=== PATIENT | female | born 1945 | race American Indian/Alaskan Native ===

== ENCOUNTER 2017-04-05 00:42 | Inpatient (IN) | payer MEDICARE ==
[2017-04-05] MEDS ORDERED: NORMODYNE IV ONE (01:20)
[2017-04-05] MEDS ORDERED: ZOFRAN ONE (01:29)
[2017-04-05] MEDS: ZOFRAN IV ONE ×2 (01:35→02:53)
[2017-04-05 01:44] LABS: Basophils % (Auto) 0.3 % (0.0-1.8); Eosinophils % (Auto) 0.5 % (0.0-4.3); Hemoglobin 11.9 gm/dl (10.1-14.3); Mean Corpuscular HGB Conc 32 % (30-34); Mean Corpuscular Hemoglobin 29 pg (28-32); Mean Corpuscular Volume 90 fl (79-97); Platelet Count 339 K/mm3 (140-440); Red Blood Count 4.11 M/mm3 (3.65-5.03); Red Cell Distribution Width 14.2 % (13.2-15.2); White Blood Count 11.8 K/mm3 (4.5-11.0)
[2017-04-05 01:51] LABS: Alanine Aminotransferase 94 units/L (7-56); Albumin 3.6 g/dL (3.9-5); Albumin/Globulin Ratio 1.1 %; Alkaline Phosphatase 54 units/L (35-129); Anion Gap 20 mmol/L; Bilirubin,Total < 0.20 mg/dL (0.1-1.2); Blood Urea Nitrogen 15 mg/dL (7-17); Carbon Dioxide 22 mmol/L (22-30); Chloride 103.5 mmol/L (98-107); Glucose 180 mg/dL (65-100); Lipase 52 units/L (13-60); Potassium 3.7 mmol/L (3.6-5.0); Sodium 142 mmol/L (137-145); Total Protein 6.8 g/dL (6.3-8.2)
[2017-04-05] MEDS ORDERED: MORPHINE IV ONE (02:18)
[2017-04-05 02:23] LABS: INR 1.11 (0.87-1.13)
[2017-04-05 02:25] LABS: Partial Thromboplastin Time 31.5 Sec. (24.2-36.6)
[2017-04-05] MEDS ORDERED: REGLAN ONE (02:51)
[2017-04-05] MEDS ORDERED: REGLAN IV ONE (02:54)
--- NOTE | 2017-04-05 03:09 | Cat Scan Report ---
FINAL REPORT PROCEDURE: CT ABDOMEN PELVIS WO/W CON TECHNIQUE: Computerized axial tomography of the abdomen and pelvis was performed after the IV injection of iodinated nonionic contrast. HISTORY: Chest Abd Pain COMPARISON: No prior studies are available for comparison. FINDINGS: Visualized lower thorax: There is atelectasis in the right lower lung.. Liver: The liver is fatty infiltrated. There is a 1 centimeter cystic structure in the anterior right lobe of the liver.. Spleen: Normal size and attenuation. Gallbladder and biliary system: Normal. Pancreas: Normal. Adrenals: Normal. Kidneys: Both kidneys have normal size. No hydronephrosis. There is a 3.5 centimeter cyst off of the lateral left renal cortex. Multiple sub centimeter cysts identified bilateral renal cortex. No renal stones.. GI tract: The stomach is normal. There are a few loops of slightly dilated small bowel in the lower abdomen and pelvis, ileus is suspected. No obstruction is seen. The cecum, appendix and colon are normal. Moderate fecal debris within the colon. Mild diverticular change within the distal colon.. Lymph nodes and mesentery: Normal. Vasculature: Moderate atherosclerosis of the aorta and all branching vessels.. Bladder: Normal. Reproductive organs: No pelvic masses. Peritoneum: Minimal fluid in the lower pelvis.. Musculoskeletal structures: There is been previous surgery in the lower lumbar spine with hardware identified at the L3, L4 and L5 vertebral levels.. Other: None. IMPRESSION: There are a few loops of slightly dilated of small bowel in the lower abdomen and pelvis, ileus is suspected. Minimal fluid surrounding bowel in the pelvis is noted. No obstruction is seen. No evidence of urinary tract obstruction. Bilateral renal cortical cysts are noted. Mild diverticulosis the distal colon. Minimal atelectasis right lower lung.
[2017-04-05] MEDS ORDERED: DILAUDID IV ONE ×2 (03:16→06:32)
[2017-04-05 03:30] LABS: Bilirubin,Urine NEG (Negative); Blood,Urine MOD (Negative); Ketones,Urine NEG (Negative); Leukocyte Esterase,Urine NEG (Negative); Mucus,Urine FEW /HPF; Nitrite,Urine NEG (Negative); Protein,Urine <15 mg/dL mg/dL (Negative); Urobilinogen,Urine < 2.0 mg/dL (<2.0)
[2017-04-05] MEDS ORDERED: HEPARIN 10,000 UNITS/10 ML IV ONE (04:22)
[2017-04-05 04:29] LABS: Cholesterol 173 mg/dL (50-199); HDL Cholesterol 33 mg/dL (40-59); LDL Cholesterol,Direct 101 mg/dL (50-130); Triglycerides 195 mg/dL (2-149)
--- NOTE | 2017-04-05 05:04 | Emergency Department Report ---
HPI - General Chief Complaint: Chest Pain Time Seen by Provider: 04/05/17 01:48 - HPI HPI: This is a 71-year-old Afro-[place]inamese female presents to the emergency department from home with a complaint of generalized abdominal pain that started about 2 hours prior to presentation and midsternal chest pain that began about 30 minutes prior to presentation with some radiation towards the left breast. The abdominal pain was associated with nausea and vomiting and the chest pain is associated with shortness of breath. She denies any fever, dysuria, vaginal bleeding, vaginal discharge. She has a history of diabetes, hypertension and has a history of pulmonary embolism for which she takes Eloquist. Her primary care doctor is Dr. Banks. 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 She denies any history of [place], CVA or CHF. She did not take anything for symptoms prior to presentation. ED Past Medical Hx - Past Medical History Previous Medical History?: Yes Hx Hypertension: Yes Hx Diabetes: Yes Additional medical history: Blood Clots - Surgical History Past Surgical History?: Yes Additional Surgical History: Back - Social History Smoking Status: Former Smoker Substance Use Type: None - Medications Home Medications: Home Medications Medication Instructions Recorded Confirmed Last Taken Type Eliquis 2.5 mg PO BID 04/05/17 04/05/17 04/04/17 21:00 History Valsartan 320 mg PO QDAY 04/05/17 04/05/17 04/04/17 10:30 History ED Review of Systems ROS: Stated complaint: STOMACH PAIN/VOMITING CHEST PAIN Other details as noted in HPI Comment: All other systems reviewed and negative Constitutional: denies: chills, fever Eyes: denies: eye pain, eye discharge, vision change ENT: denies: ear pain, throat pain Respiratory: cough, shortness of breath Cardiovascular: chest pain. denies: edema Gastrointestinal: abdominal pain, nausea, vomiting Genitourinary: denies: urgency, dysuria, discharge Musculoskeletal: denies: back pain, joint swelling, arthralgia Skin: denies: rash, lesions Neurological: denies: headache, weakness, paresthesias Physical Exam - Physical Exam Vital Signs: Vital Signs 04/05/17 04/05/17 04/05/17 00:44 00:46 01:24 Temperature 97.8 F Pulse Rate 84 84 Respiratory 20 Rate Blood Pressure 210/96 Blood Pressure 192/96 [Left] Blood Pressure 210/96 [Right] O2 Sat by Pulse 98 Oximetry 04/05/17 04/05/17 04/05/17 01:54 03:34 03:35 Temperature 98.3 F Pulse Rate 74 90 Respiratory 16 17 Rate Blood Pressure Blood Pressure 188/81 174/82 [Left] Blood Pressure [Right] O2 Sat by Pulse 97 87 96 Oximetry Physical Exam: GENERAL: Patient is ill-appearing. HEENT: Normocephalic. Atraumatic. Extraocular motions are intact. Patient has moist mucous membranes. Pupils equal reactive to light bilaterally. NECK: Supple. Trachea is midline. CHEST/LUNGS: Clear to auscultation. There is no respiratory distress noted. Chest pain is not reproducible to palpation of chest wall. HEART/CARDIOVASCULAR: Regular. There is no tachycardia. There is no gallop rub or murmur. ABDOMEN: Abdomen is soft. There is some midline abdominal tenderness to palpation. No guarding or rebound tenderness. Patient has normal bowel sounds. There is no abdominal distention. SKIN: Skin is warm and dry. NEURO: The patient is awake, alert, and oriented. The patient is cooperative. The patient has no focal neurologic deficits. The patient has normal speech. MUSCULOSKELETAL: There is no tenderness or deformity. There is no limitation range of motion. There is no evidence of acute injury. Radial pulse and femoral pulse +2 over 4 bilaterally. Cap refill less than 2 seconds. ED Course Vital Signs 04/05/17 04/05/17 04/05/17 00:44 00:46 01:24 Temperature 97.8 F Pulse Rate 84 84 Respiratory 20 Rate Blood Pressure 210/96 Blood Pressure 192/96 [Left] Blood Pressure 210/96 [Right] O2 Sat by Pulse 98 Oximetry 04/05/17 04/05/17 04/05/17 01:54 03:34 03:35 Temperature 98.3 F Pulse Rate 74 90 Respiratory 16 17 Rate Blood Pressure Blood Pressure 188/81 174/82 [Left] Blood Pressure [Right] O2 Sat by Pulse 97 87 96 Oximetry ED Medical Decision Making - Lab Data Result diagrams: 04/05/17 01:09 04/05/17 01:09 - EKG Data -: EKG Interpreted by Pa EKG shows normal: sinus rhythm, axis (left axis deviation), intervals ( prolonged ME interval indicating first-degree AV block), QRS complexes (Q waves to the septal leads), ST-T waves Rate: normal - EKG Data When compared to previous EKG there are: previous EKG unavailable Interpretation: other (sinus rhythm with first-degree AV block, left axis deviation, Q waves to the septal leads.) - Radiology Data Radiology results: report reviewed PROCEDURE: CT ABDOMEN PELVIS WO/W CON TECHNIQUE: Computerized axial tomography of the abdomen and pelvis was performed after the IV injection of iodinated nonionic contrast. HISTORY: Chest Abd Pain COMPARISON: No prior studies are available for comparison. FINDINGS: Visualized lower thorax: There is atelectasis in the right lower lung.. Liver: The liver is fatty infiltrated. There is a 1 centimeter cystic structure in the anterior right lobe of the liver.. Spleen: Normal size and attenuation. Gallbladder and biliary system: Normal. Pancreas: Normal. Adrenals: Normal. Kidneys: Both kidneys have normal size. No hydronephrosis. There is a 3.5 centimeter cyst off of the lateral left renal cortex. Multiple sub centimeter cysts identified bilateral renal cortex. No renal stones.. GI tract: The stomach is normal. There are a few loops of slightly dilated small bowel in the lower abdomen and pelvis, ileus is suspected. No obstruction is seen. The cecum, appendix and colon are normal. Moderate fecal debris within the colon. Mild diverticular change within the distal colon.. Lymph nodes and mesentery: Normal. Vasculature: Moderate atherosclerosis of the aorta and all branching vessels.. Bladder: Normal. Reproductive organs: No pelvic masses. Peritoneum: Minimal fluid in the lower pelvis.. Musculoskeletal structures: There is been previous surgery in the lower lumbar spine with hardware identified at the L3, L4 and L5 vertebral levels.. Other: None. IMPRESSION: There are a few loops of slightly dilated of small bowel in the lower abdomen and pelvis, ileus is suspected. Minimal fluid surrounding bowel in the pelvis is noted. No obstruction is seen. No evidence of urinary tract obstruction. Bilateral renal cortical cysts are noted. Mild diverticulosis the distal colon. Minimal atelectasis right lower lung. CT angiography of the chest does not show any pulmonary embolism or dissection. - Medical Decision Making 71-year-old female presents to the emergency department with complaint of abdominal pain and chest pain that started just prior to presentation. Patient' s EKG shows first degree AV block and some Q waves in septal leads but no obvious ST elevation [place]. Patient's labs are mostly unremarkable except for the elevated troponin levels. Her first troponin was positive at 1.035. A stat CT of the abdomen and pelvis and chest with and without contrast was done as a dissection was within the differential. She had good femoral and radial pulses. The CT of the abdomen and pelvis showed an ileus but no bowel obstruction. CT of the chest did not show any pulmonary embolism. Patient was placed on a heparin drip and will be admitted to the hospital for further evaluation and probable cardio consultation. Patient accepted for admission by the hospitalist, Dr. Pierre. - Differential Diagnosis [place], PE, dissection, pneumonia Critical Care Time: Yes Critical care time in (mins) excluding proc time.: 20 Critical care attestation.: If time is entered above; I have spent that time in minutes in the direct care of this critically ill patient, excluding procedure time. Critical care time was spent on this patient during her initial evaluation, multiple re-evaluations , ordering and interpretation of the labs and imaging, ordering of medications, interpretation of EKG, and disposition planning, discussion with the hospitalist. Critical Care Time: 20 minutes ED Disposition Clinical Impression: Hypertensive urgency, NSTEMI (non-ST elevated myocardial infarction), Ileus Disposition: -09 OP ADMIT IP TO THIS HOSP Is pt being admited?: Yes Condition: Fair Referrals: PRIMARY CARE, [Primary Care Provider] - 3-5 Days Time of Disposition: 05:07
[2017-04-05] MEDS ORDERED: LOPRESSOR IV ONE (05:06)
[2017-04-05] MEDS ORDERED: BABY ASPIRIN PO ONE (05:06)
[2017-04-05] MEDS: HEPARIN/ 0.45% NACL-25,000 UNIT/500 ML 25,000 UNIT/500 ML BAG IV SCH (05:30)
--- NOTE | 2017-04-05 06:55 | Event Note ---
Date: 04/05/17 See H/p in reports NSTEMI Uncontrolled HTN T2DM Ileus
[2017-04-05] MEDS ORDERED: TYLENOL PO PRN (06:56)
[2017-04-05] MEDS ORDERED: ZOFRAN IV PRN (06:56)
[2017-04-05] MEDS ORDERED: DULCOLAX PR PRN (06:56)
[2017-04-05] MEDS ORDERED: MILK OF MAGNESIA PO PRN (06:56)
[2017-04-05] MEDS ORDERED: NOVOLOG SUB-Q ONE (07:03)
[2017-04-05] MEDS ORDERED: APRESOLINE IV PRN (07:16)
[2017-04-05] MEDS ORDERED: NITROSTAT SL PRN (07:49)
[2017-04-05 07:51] LABS: Hematocrit 38.1 % (30.3-42.9); Hemoglobin 12.1 gm/dl (10.1-14.3)
[2017-04-05] MEDS ORDERED: D50W (25GM) IV PRN (07:52)
[2017-04-05 08:22] LABS: Partial Thromboplastin Time 179.9 Sec. (24.2-36.6)
[2017-04-05 08:48] LABS: INR 1.26 (0.87-1.13)
[2017-04-05] MEDS: DILAUDID IV PRN ×4 (09:02→20:00)
--- NOTE | 2017-04-05 09:37 | XRay Report ---
AP CHEST : 04/05/17 00:42:00 CLINICAL: Chest pain. COMPARISON:None FINDINGS: The heart is normal size. Mild central vascular congestion. The lungs are normally expanded and clear. The bones and soft tissues are unremarkable. IMPRESSION: No CHF or pneumonia.
[2017-04-05] MEDS: ASPIRIN PO SCH (10:00)
[2017-04-05] MEDS ORDERED: LOPRESSOR PO SCH (10:00)
[2017-04-05] MEDS ORDERED: ELIQUIS 2.5 MG PO SCH (10:00)
[2017-04-05] MEDS ORDERED: DIOVAN PO SCH (10:00)
--- NOTE | 2017-04-05 10:50 | History and Physical Report ---
CHIEF COMPLAINT: Left-sided chest pain,before admission to the ER. HISTORY OF PRESENT ILLNESS: A 71-year-old female who comes to the Emergency Room for left-sided chest pain 2 hours prior to admission to the Emergency Room. Radiation to the left axillary region. Also abdominal pain associated with nausea and vomiting. The patient had 2 episodes of vomiting. Denies any fever, dysuria, vaginal bleeding. No diaphoresis. Pain is about 8 on a scale of 1-10. She has a history of pulmonary embolism for which she takes Eliquis. PAST MEDICAL HISTORY: Significant for hypertension, diabetes, pulmonary embolism. PAST SURGICAL HISTORY: Back surgery. SOCIAL HISTORY: Former smoker. CURRENT MEDICATIONS: Eliquis 2.5 p.o. b.i.d. and valsartan 320 mg p.o. daily. REVIEW OF SYSTEMS: CONSTITUTIONAL: No fever, no chills. No weight loss or weight gain. HEENT: No sore throat. No postnasal drip. CARDIOVASCULAR: As mentioned in history of present illness, left-sided chest pain radiated into the axilla. Pain is 8 on a scale 1-10, constant. GASTROINTESTINAL: Abdominal pain associated with nausea and vomiting. GENITOURINARY: No dysuria, no flank pain. MUSCULOSKELETAL SYSTEM: No joint pains, no muscle pains. SKIN: No lesions. CENTRAL NERVOUS SYSTEM: No syncope, no seizures. A 14-point review of systems done, otherwise negative. PHYSICAL EXAMINATION: GENERAL: Elderly female lying in bed, in slight distress secondary to pain. VITAL SIGNS: Blood pressure is 210/96, temperature is 97.8, pulse is 84, respirations are 20. HEENT: Unremarkable. Pupils equal and reactive. NECK: Supple, no lymphadenopathy, no thyromegaly. CARDIOVASCULAR: S1, S2 heard. No gallop, no murmur, no rub. Apical impulse in left fifth intercostal space and midclavicular line. ABDOMEN: Soft. Decreased bowel sounds present. Hernial orifices are normal. EXTREMITIES: Good pedal pulses. No pedal edema. CENTRAL NERVOUS SYSTEM: Alert and oriented x 4. NEUROLOGIC: Nonfocal exam. SKIN: Normal. LABORATORY DATA: Significant for white count of 11,800. H and H 11.9 and 37.0. Platelet count of 339,000. Sodium is 142, potassium is 3.7, chloride is 103, bicarbonate is 22, BUN and creatinine is 15 and 0.6. AST is 161, ALT is 94, troponin is 1.35 and 1.010. Total protein is 6.8. Albumin is 3.6, triglycerides over 95. Cholesterol is 173, LDL is 101, HDL is 33. Urine is negative. EKG shows normal sinus rhythm, heart rate of 86 per minute, first degree AV block, LVH by voltage criteria, deep S-waves in V1, V2, V3. No ST elevations. Second EKG shows similar appearance, 85 per minute, sinus rhythm with first degree AV block, septal infarct. ASSESSMENT AND PLAN: 1. Non-ST elevation myocardial infarction. The patient was started on IV heparin. Cardiology consulted and also Dr. Ratliff for further getter welder. 2. Acute Gastritis: the patient kept n.p.o. for the time being. The patient was vomiting. We will keep her n.p.o. We will get a surgery consult by Dr. Berkowitz. 3. Hypertension. Continue valsartan 320 mg daily. 4. Uncontrolled movement. Given hydralazine on a p.r.n. basis 5. Type 2 diabetes. The patient not on any medications. The patient was started on coverage. The patient will be discharged on oral or insulin. We will defer to the Hospitalist Team. 6. Deep venous thrombosis prophylaxis. The patient is already on heparin drip. CRITICAL CARE STATEMENT: High probability of clinically significant sudden or life-threatening deterioration of the cardiorespiratory system required my full and direct attention, intervention and personal management. The aggregate critical care time was 35 minutes. The time is in addition to time spent performing reported procedures, but includes the followin. Data review and interpretation. 2. The patient assessment and monitoring of vital signs. 3. Documentation. 4. Medication orders and management. JOB# [id number] DEBORAH/DERIAN HOBBS
--- NOTE | 2017-04-05 12:25 | Progress Note ---
Assessment and Plan Assessment and plan: Patient is a 71-year-old woman with a history of diabetes mellitus2, hypertension and pulmonary embolism on Eliquis since December 2016 who presents with abdominal pain and chest pain. Chest x-ray shows no pneumonia or CHF. Troponin was 1.010, EKG read as no ST elevation [place], nonspecific changes. CT abdomen and pelvis with and without contrast shows possible small bowel ileus and right lower lobe atelectasis. -Small bowel ileus: General surgery has been consulted, nothing by mouth, I ordered anti-emetics -Non-STEMI: On heparin drip, therefore I stopped Eliquis, cardiology consulted, I added beta roxana, statin, aspirin and nitroglycerin. -Accelerated hypertension: Starting beta roxana -Mild leukocytosis most likely reactive or related to the right lower lobe atelectasis -Right lower lobe atelectasis: Treat medically -History of PE: Will be on heparin drip -DVT prophylaxis: Heparin drip -Uncontrolled type 2 diabetes mellitus: Add sliding scale Full code History Interval history: Patient seen and examined. Follow up on abdominal pain and nausea vomiting which is still present. Overnight uneventful. No cp, sob, or severe headaches. Imaging, old records, testing, labs, nursing notes reviewed. Hospitalist Physical - Physical exam Narrative exam: GEN: WDWN, NAD, AWAKE, ALERT, ORIENTATED x 3 HEENT: NCAT, PERRL, EOMI, OP CLEAR NECK: SUPPLE, NO THYROMEGALY, NO JVD, NO LAD CVS: RRR, NORMAL S1S2 LUNGS/CHEST: CTA B, NORMAL CHEST EXPANSION B, GOOD AIR ENTRY B ABD: SOFT, extreme epigastric tenderness, nondistended, GBS, NO REBOUND + GUARDING EXT/SKIN: NO SIGNIFICANT EDEMA OR RASH MSK: FROM X 4 EXTREMITIES NEURO: CN 2-12 GROSSLY INTACT, NO FOCAL DEFICITS PSY: CALM - Constitutional Vitals: Temp Pulse Resp BP Pulse Ox 97.9 F 89 18 190/90 99 04/05/17 08:30 04/05/17 11:55 04/05/17 11:09 04/05/17 11:55 04/05/17 11:09 Results - Labs CBC & Chem 7: 04/05/17 07:19 04/05/17 01:09 Labs: Laboratory Last Values WBC 11.8 K/mm3 (4.5-11.0) H 04/05/17 01:09 RBC 4.11 M/mm3 (3.65-5.03) 04/05/17 01:09 Hgb 12.1 gm/dl (10.1-14.3) 04/05/17 07:19 Hct 38.1 % (30.3-42.9) 04/05/17 07:19 MCV 90 fl (79-97) 04/05/17 01:09 MCH 29 pg (28-32) 04/05/17 01:09 MCHC 32 % (30-34) 04/05/17 01:09 RDW 14.2 % (13.2-15.2) 04/05/17 01:09 Plt Count 339 K/mm3 (140-440) 04/05/17 07:19 Lymph % (Auto) 30.2 % (13.4-35.0) 04/05/17 01:09 [place] % (Auto) 7.0 % (0.0-7.3) 04/05/17 01:09 Eos % (Auto) 0.5 % (0.0-4.3) 04/05/17 01:09 Baso % (Auto) 0.3 % (0.0-1.8) 04/05/17 01:09 Lymph # 3.6 K/mm3 (1.2-5.4) 04/05/17 01:09 [place] # 0.8 K/mm3 (0.0-0.8) 04/05/17 01:09 Eos # 0.1 K/mm3 (0.0-0.4) 04/05/17 01:09 Baso # 0.0 K/mm3 (0.0-0.1) 04/05/17 01:09 Seg Neutrophils % 62.0 % (40.0-70.0) 04/05/17 01:09 Seg Neutrophils # 7.4 K/mm3 (1.8-7.7) 04/05/17 01:09 PT 15.7 Sec. (12.2-14.9) H 04/05/17 07:19 INR 1.26 (0.87-1.13) H 04/05/17 07:19 APTT 179.9 Sec. (24.2-36.6) H* 04/05/17 07:19 Sodium 142 mmol/L (137-145) 04/05/17 01:09 Potassium 3.7 mmol/L (3.6-5.0) 04/05/17 01:09 Chloride 103.5 mmol/L (98-107) 04/05/17 01:09 Carbon Dioxide 22 mmol/L (22-30) 04/05/17 01:09 Anion Gap 20 mmol/L 04/05/17 01:09 BUN 15 mg/dL (7-17) 04/05/17 01:09 Creatinine 0.6 mg/dL (0.7-1.2) L 04/05/17 01:09 Estimated GFR > 60 ml/min 04/05/17 01:09 BUN/Creatinine Ratio 25.00 % 04/05/17 01:09 Glucose 180 mg/dL (65-100) H 04/05/17 01:09 Hemoglobin A1c 5.8 % (4-6) 04/05/17 07:19 Calcium 9.0 mg/dL (8.4-10.2) 04/05/17 01:09 Total Bilirubin < 0.20 mg/dL (0.1-1.2) 04/05/17 01:09 AST 161 units/L (5-40) H 04/05/17 01:09 ALT 94 units/L (7-56) H 04/05/17 01:09 Alkaline Phosphatase 54 units/L (35-129) 04/05/17 01:09 Troponin T 0.755 ng/mL (0.00-0.029) H* D 04/05/17 06:59 Total Protein 6.8 g/dL (6.3-8.2) 04/05/17 01:09 Albumin 3.6 g/dL (3.9-5) L 04/05/17 01:09 Albumin/Globulin Ratio 1.1 % 04/05/17 01:09 Triglycerides 195 mg/dL (2-149) H 04/05/17 01:09 Cholesterol 173 mg/dL (50-199) 04/05/17 01:09 LDL Cholesterol Direct 101 mg/dL (50-130) 04/05/17 01:09 HDL Cholesterol 33 mg/dL (40-59) L 04/05/17 01:09 Cholesterol/HDL Ratio 5.24 % 04/05/17 01:09 Lipase 52 units/L (13-60) 04/05/17 01:09 Urine Color Straw (Yellow) 04/05/17 03:14 Urine Turbidity Clear (Clear) 04/05/17 03:14 Urine pH 6.0 (5.0-7.0) 04/05/17 03:14 Ur Specific [place] 1.029 (1.003-1.030) 04/05/17 03:14 Urine Protein <15 mg/dl mg/dL (Negative) 04/05/17 03:14 Urine Glucose (UA) Neg mg/dL (Negative) 04/05/17 03:14 Urine Ketones Neg mg/dL (Negative) 04/05/17 03:14 Urine Blood Mod (Negative) 04/05/17 03:14 Urine Nitrite Neg (Negative) 04/05/17 03:14 Urine Bilirubin Neg (Negative) 04/05/17 03:14 Urine Urobilinogen < 2.0 mg/dL (<2.0) 04/05/17 03:14 Ur Leukocyte Esterase Neg (Negative) 04/05/17 03:14 Urine WBC (Auto) 1.0 /HPF (0.0-6.0) 04/05/17 03:14 Urine RBC (Auto) 1.0 /HPF (0.0-6.0) 04/05/17 03:14 U Epithel Cells (Auto) 1.0 /HPF (0-13.0) 04/05/17 03:14 Urine Mucus Few /HPF 04/05/17 03:14
[2017-04-05] MEDS: NOVOLOG SUB-Q SCH ×2 (13:48→18:27)
--- NOTE | 2017-04-05 15:12 | Consultation ---
History of Present Illness Consult date: 04/05/17 Requesting physician: TINO MADDEN Consult reason: abnormal cardiac enzymes History of present illness: Last night, the patient developed generalized abdominal pain associated with nausea and vomiting. Eventually, she claims that the pain radiated to her precordial chest area. Currently, her chest pain has improved. The major component of her symptom is abdominal pain. She denies shortness of breath. Upon noting that she has leg edema, she claims that this is chronic. Her cardiac enzymes are positive for acute non-ST segment elevation myocardial infarction. LFTs showed elevated transaminases. Past History Past Medical History: diabetes, hypertension, other (pulmonary embolism diagnosed in December 2015, chronic bilateral leg edema) Past Surgical History: Other (back surgery) Social history: . denies: smoking, alcohol abuse Family history: denies: CAD Medications and Allergies Allergies Allergy/AdvReac Type Severity Reaction Status Date / Time No Known Allergies Allergy Verified 04/05/17 00:49 Home Medications Medication Instructions Recorded Confirmed Last Taken Type Eliquis 2.5 mg PO BID 04/05/17 04/05/17 04/04/17 21:00 History Valsartan 320 mg PO QDAY 04/05/17 04/05/17 04/04/17 10:30 History Active Meds: Active Medications Acetaminophen (Tylenol) 650 mg PO Q4H PRN PRN Reason: Pain MILD(1-3)/Fever >100.5/HER Aspirin (Aspirin) 325 mg PO QDAY WILLY Last Admin: 04/05/17 10:00 Dose: 325 mg Atorvastatin Calcium (Lipitor) 80 mg PO QHS WILLY Bisacodyl (Dulcolax) 10 mg RI QDAY PRN PRN Reason: Constipation unrelieved by MOM Dextrose (D50w (25gm)) 50 ml IV PRN PRN PRN Reason: Hypoglycemia Hydromorphone HCl (Dilaudid) 0.5 mg IV Q3H PRN PRN Reason: Pain , Severe (7-10) Last Admin: 04/05/17 11:56 Dose: 0.5 mg Heparin Sodium/Sodium Chloride (Heparin/ 0.45% Nacl-25,000 Unit/500 Ml) 25,000 unit in 500 mls @ 20 mls/hr IV TITRATE WILLY; 1,000 UNITS/HR PRN Reason: Protocol Last Titration: 04/05/17 13:45 Dose: 0 units/hr, 0 mls/hr Sodium Chloride (Nacl 0.45% 1000 Ml) 1,000 mls @ 42 mls/hr IV DIRECT [facility] Insulin Aspart (Novolog) 0 units SUB-Q Q6HR [facility] PRN Reason: Protocol Last Admin: 04/05/17 13:48 Dose: Not Given Metoprolol Tartrate (Lopressor) 50 mg PO BID [facility] Last Admin: 04/05/17 10:00 Dose: 50 mg Nitroglycerin (Nitrostat) 0.4 mg SL .Q5MIN PRN PRN Reason: Chest Pain Ondansetron HCl (Zofran) 4 mg IV Q4H PRN PRN Reason: Nausea And Vomiting Valsartan (Diovan) 320 mg PO QDAY [facility] Last Admin: 04/05/17 10:48 Dose: 320 mg Review of Systems Constitutional: no fever, no chills Ears, nose, mouth and throat: no ear pain, no ear discharge, no hoarseness, no sore throat Cardiovascular: chest pain, edema, no orthopnea, no palpitations, no dyspnea on exertion Respiratory: no cough, no hemoptysis, no shortness of breath Gastrointestinal: nausea, vomiting, no diarrhea, no constipation Genitourinary Female: no dysuria, no urinary frequency Rectal: no pain, no bleeding Musculoskeletal: no neck stiffness, no neck pain, no myalgias Integumentary: no rash, no pruritis Neurological: no weakness, no parathesias, no headaches Endocrine: no cold intolerance, no heat intolerance Hematologic/Lymphatic: no easy bruising, no easy bleeding Allergic/Immunologic: no urticaria, no wheezing Physical Examination Vital Signs Last Vital Signs Temp 98.7 F 04/05/17 12:40 Pulse 100 H 04/05/17 13:51 Resp 15 04/05/17 13:51 BP 146/76 04/05/17 13:51 Pulse Ox 97 04/05/17 13:51 General appearance: mild distress HEENT: Positive: EOMI, Normocephaly, Mucus Membranes Moist Neck: Positive: neck supple, trachea midline, Carotid Upstroke (full) Cardiac: Positive: Reg Rate and Rhythm, S1/S2 Lungs: Positive: clear to auscultation Neuro: Positive: Grossly Intact Abdomen: Positive: Soft, Active Bowel Sounds, Tender Skin: Positive: Clear. Negative: Rash Musculoskeletal: Normal Range of Motion Extremities: Present: +1 Edema (pitting bilateral leg edema) Results 04/05/17 07:19 04/05/17 01:09 Coagulation 04/05/17 Range/Units 07:19 PT 15.7 H (12.2-14.9) Sec. INR 1.26 H (0.87-1.13) APTT 179.9 H* (24.2-36.6) Sec. CBC 04/05/17 Range/Units 07:19 Hgb 12.1 (10.1-14.3) gm/dl Hct 38.1 (30.3-42.9) % Plt Count 339 (140-440) K/mm3 - Imaging and Cardiology EKG: image reviewed EKG interpretations - Telemetry EKG Rhythm: 1st Degree HB - EKG Sinus rhythms and dysrhythmias: sinus rhythm AV and intraventricular conduction: 1 AV block Myocardial infarction: septal DC (old age or ind Assessment and Plan Initiate beta roxana therapy, topical nitrates and IV heparin. Schedule coronary angiography for Friday. - Patient Problems (1) Acute [id number] elevation myocardial infarction Current Visit: Yes Status: Acute (2) Abdominal pain Current Visit: Yes Status: Acute Qualifiers: Abdominal location: generalized Qualified Code(s): R10.84 - Generalized abdominal pain (3) Ileus Current Visit: Yes Status: Acute (4) Abnormal LFTs Current Visit: Yes Status: Acute (5) Hypertension Current Visit: Yes Status: Chronic Qualifiers: Hypertension type: essential hypertension Qualified Code(s): I10 - Essential (primary) hypertension (6) History of pulmonary embolism Current Visit: Yes Status: Chronic (7) Diabetes mellitus Current Visit: Yes Status: Chronic Qualifiers: Diabetes mellitus type: type 2 Diabetes mellitus complication status: without complication Diabetes mellitus complication detail: D Diabetic retinopathy severity: D Proliferative retinopathy type: P Diabetes mellitus macular edema: D Diabetes mellitus correction insulin use: D Laterality: L Chronic kidney disease stage: C
[2017-04-05] MEDS: LOPRESSOR PO SCH ×3 (16:10→22:47)
[2017-04-05] MEDS: NACL 0.9% 500 ML 500 ML IV SCH ×2 (16:11→17:49)
[2017-04-05] MEDS: NACL 0.45% 1000 ML 1,000 ML IV SCH (16:11)
[2017-04-05] MEDS ORDERED: MACROBID ONE (17:17)
[2017-04-06] MEDS: DILAUDID IV PRN ×6 (02:23→23:06)
[2017-04-06] MEDS: ZOFRAN IV PRN (02:29)
[2017-04-06 05:13] LABS: Basophils % (Auto) 0.5 % (0.0-1.8); Hematocrit 32.7 % (30.3-42.9); Hemoglobin 10.7 gm/dl (10.1-14.3); Mean Corpuscular HGB Conc 33 % (30-34); Mean Corpuscular Hemoglobin 29 pg (28-32); Mean Corpuscular Volume 90 fl (79-97); Platelet Count 308 K/mm3 (140-440); Red Blood Count 3.64 M/mm3 (3.65-5.03); Red Cell Distribution Width 13.6 % (13.2-15.2); White Blood Count 13.6 K/mm3 (4.5-11.0)
[2017-04-06 05:43] LABS: Alanine Aminotransferase 69 units/L (7-56); Albumin 3.1 g/dL (3.9-5); Alkaline Phosphatase 48 units/L (35-129); Anion Gap 15 mmol/L; Blood Urea Nitrogen 21 mg/dL (7-17); Calcium 8.5 mg/dL (8.4-10.2); Carbon Dioxide 26 mmol/L (22-30); Chloride 101.6 mmol/L (98-107); Glucose 123 mg/dL (65-100); Potassium 4.1 mmol/L (3.6-5.0); Sodium 138 mmol/L (137-145); Total Protein 6.1 g/dL (6.3-8.2)
[2017-04-06] MEDS: NOVOLOG SUB-Q SCH ×4 (06:16→18:00)
[2017-04-06] MEDS: LOPRESSOR PO SCH ×4 (06:16→22:59)
--- NOTE | 2017-04-06 09:40 | XRay Report ---
SUPINE KUB: History: Ileus, abdominal distention. The abdominal gas pattern is unremarkable. No masses or organomegaly is identified and there is no gross evidence of free air or fluid. No significant soft tissue calcifications are noted. L3-L5 posterior fusion changes are noted. IMPRESSION: Normal study.
[2017-04-06] MEDS: DIOVAN PO SCH (09:43)
[2017-04-06] MEDS: ASPIRIN PO SCH (09:43)
--- NOTE | 2017-04-06 12:57 | Progress Note ---
Assessment and Plan Coronary angiography in a.m. - Patient Problems (1) Acute [id number]-BM-[id number] elevation myocardial infarction Current Visit: Yes Status: Acute (2) Abdominal pain Current Visit: Yes Status: Acute Qualifiers: Abdominal location: generalized Qualified Code(s): R10.84 - Generalized abdominal pain (3) Ileus Current Visit: Yes Status: Acute (4) Abnormal LFTs Current Visit: Yes Status: Acute (5) Hypertension Current Visit: Yes Status: Chronic Qualifiers: Hypertension type: essential hypertension Qualified Code(s): I10 - Essential (primary) hypertension (6) History of pulmonary embolism Current Visit: Yes Status: Chronic (7) Diabetes mellitus Current Visit: Yes Status: Chronic Qualifiers: Diabetes mellitus type: type 2 Diabetes mellitus complication status: without complication Diabetes mellitus complication detail: D Diabetic retinopathy severity: D Proliferative retinopathy type: P Diabetes mellitus macular edema: D 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 She complains of abdominal pain. Objective Vital Signs Last Vital Signs Temp 99.1 F 04/06/17 08:00 Pulse 77 04/06/17 12:00 Resp 10 L 04/06/17 12:00 BP 143/62 04/06/17 12:00 Pulse Ox 95 04/06/17 12:00 - Physical Examination General: No Apparent Distress HEENT: Positive: EOMI, Normocephaly, Mucus Membranes Moist Neck: Positive: neck supple, trachea midline, Carotid Upstroke (full) Cardiac: Positive: Reg Rate and Rhythm, S1/S2 Lungs: Positive: clear to auscultation Neuro: Positive: Grossly Intact Abdomen: Positive: Soft, Active Bowel Sounds, Tender Skin: Positive: Clear. Negative: Rash Musculoskeletal: Normal Range of Motion Extremities: Absent: edema - Labs and Meds Cardiac Enzymes 04/06/17 Range/Units 04:54 AST 92 H (5-40) units/L CBC 04/06/17 Range/Units 04:54 WBC 13.6 H (4.5-11.0) K/mm3 RBC 3.64 L (3.65-5.03) M/mm3 Hgb 10.7 (10.1-14.3) gm/dl Hct 32.7 (30.3-42.9) % Plt Count 308 (140-440) K/mm3 Lymph # 3.4 (1.2-5.4) K/mm3 [place] # 1.5 H (0.0-0.8) K/mm3 Eos # 0.0 (0.0-0.4) K/mm3 Baso # 0.1 (0.0-0.1) K/mm3 Comprehensive Metabolic Panel 04/06/17 Range/Units 04:54 Sodium 138 (137-145) mmol/L Potassium 4.1 (3.6-5.0) mmol/L Chloride 101.6 (98-107) mmol/L Carbon Dioxide 26 (22-30) mmol/L BUN 21 H (7-17) mg/dL Creatinine 0.4 L (0.7-1.2) mg/dL Glucose 123 H (65-100) mg/dL Calcium 8.5 (8.4-10.2) mg/dL AST 92 H (5-40) units/L ALT 69 H (7-56) units/L Alkaline Phosphatase 48 (35-129) units/L Total Protein 6.1 L (6.3-8.2) g/dL Albumin 3.1 L (3.9-5) g/dL - Imaging and Cardiology EKG: image reviewed - EKG Sinus rhythms and dysrhythmias: sinus rhythm AV and intraventricular conduction: 1 AV block Myocardial infarction: septal FL (old age or ind
--- NOTE | 2017-04-06 14:26 | Consultation ---
History of Present Illness - Reason for Consult Consult date: 04/06/17 NSTEMI, ICU monitoring Requesting physician: ROMAINE CAMPBELL - History of Present Illness 71 y/o female admitted with NSTEMI. Followed by cards and going for cath tomorrow. Past History Past Medical History: diabetes, hypertension, other (pulmonary embolism diagnosed in December 2015, chronic bilateral leg edema) Past Surgical History: Other (back surgery) Social history: . denies: smoking, alcohol abuse Family history: denies: CAD Medications and Allergies Allergies Allergy/AdvReac Type Severity Reaction Status Date / Time No Known Allergies Allergy Verified 04/05/17 00:49 Home Medications Medication Instructions Recorded Confirmed Last Taken Type Eliquis 2.5 mg PO BID 04/05/17 04/05/17 04/04/17 21:00 History Valsartan 320 mg PO QDAY 04/05/17 04/05/17 04/04/17 10:30 History Active Meds: Active Medications Acetaminophen (Tylenol) 650 mg PO Q4H PRN PRN Reason: Pain MILD(1-3)/Fever >100.5/HER Aspirin (Aspirin) 325 mg PO QDAY WILLY Last Admin: 04/06/17 09:43 Dose: 325 mg Atorvastatin Calcium (Lipitor) 80 mg PO QHS WILLY Last Admin: 04/05/17 23:00 Dose: Not Given Bisacodyl (Dulcolax) 10 mg NE QDAY PRN PRN Reason: Constipation unrelieved by MOM Last Admin: 04/05/17 15:13 Dose: 10 mg Dextrose (D50w (25gm)) 50 ml IV PRN PRN PRN Reason: Hypoglycemia Hydromorphone HCl (Dilaudid) 0.5 mg IV Q3H PRN PRN Reason: Pain , Severe (7-10) Last Admin: 04/06/17 11:27 Dose: 0.5 mg Heparin Sodium/Sodium Chloride (Heparin/ 0.45% Nacl-25,000 Unit/500 Ml) 25,000 unit in 500 mls @ 20 mls/hr IV TITRATE WILLY; 1,000 UNITS/HR PRN Reason: Protocol Last Titration: 04/06/17 09:42 Dose: 550 units/hr, 11 mls/hr Sodium Chloride (Nacl 0.45% 1000 Ml) 1,000 mls @ 42 mls/hr IV DIRECT WILLY Last Admin: 04/05/17 16:11 Dose: 42 mls/hr Insulin Aspart (Novolog) 0 units SUB-Q Q6HR [facility] PRN Reason: Protocol Last Admin: 04/06/17 06:16 Dose: Not Given Metoprolol Tartrate (Lopressor) 50 mg PO Q6H [facility] Last Admin: 04/06/17 09:43 Dose: 50 mg Nitroglycerin (Nitrostat) 0.4 mg SL .Q5MIN PRN PRN Reason: Chest Pain Ondansetron HCl (Zofran) 4 mg IV Q4H PRN PRN Reason: Nausea And Vomiting Last Admin: 04/06/17 02:29 Dose: 4 mg Valsartan (Diovan) 160 mg PO QDAY [facility] Last Admin: 04/06/17 09:43 Dose: 160 mg Review of Systems All systems: negative Exam - Constitutional Vitals: Temp Pulse Resp BP Pulse Ox 99.1 F 77 10 L 143/62 95 04/06/17 08:00 04/06/17 12:00 04/06/17 12:00 04/06/17 12:00 04/06/17 12:00 General appearance: Present: no acute distress, well-nourished - EENT Eyes: Present: PERRL - Neck Neck: Present: supple, normal ROM - Respiratory Respiratory effort: normal Respiratory: bilateral: CTA Results - Labs CBC & Chem 7: 04/06/17 04:54 04/06/17 04:54 Labs: Abnormal lab results 04/05/17 04/05/17 04/05/17 Range/Units 12:13 16:51 18:10 WBC (4.5-11.0) K/mm3 RBC (3.65-5.03) M/mm3 [place] % (Auto) (0.0-7.3) % [place] # (0.0-0.8) K/mm3 Seg Neutrophils # (1.8-7.7) K/mm3 Heparin Anti-Xa Level (0.3-0.7) U.I./ml BUN (7-17) mg/dL Creatinine (0.7-1.2) mg/dL Glucose (65-100) mg/dL POC Glucose 177 H 149 H 127 H (70-105) AST (5-40) units/L ALT (7-56) units/L Total Protein (6.3-8.2) g/dL Albumin (3.9-5) g/dL 04/05/17 04/05/17 04/05/17 Range/Units 19:21 21:15 23:51 WBC (4.5-11.0) K/mm3 RBC (3.65-5.03) M/mm3 [place] % (Auto) (0.0-7.3) % [place] # (0.0-0.8) K/mm3 Seg Neutrophils # (1.8-7.7) K/mm3 Heparin Anti-Xa Level 1.09 H (0.3-0.7) U.I./ml BUN (7-17) mg/dL Creatinine (0.7-1.2) mg/dL Glucose (65-100) mg/dL POC Glucose 126 H 125 H (70-105) AST (5-40) units/L ALT (7-56) units/L Total Protein (6.3-8.2) g/dL Albumin (3.9-5) g/dL 04/06/17 04/06/17 04/06/17 Range/Units 04:54 04:54 05:11 WBC 13.6 H (4.5-11.0) K/mm3 RBC 3.64 L (3.65-5.03) M/mm3 [place] % (Auto) 11.2 H (0.0-7.3) % [place] # 1.5 H (0.0-0.8) K/mm3 Seg Neutrophils # 8.6 H (1.8-7.7) K/mm3 Heparin Anti-Xa Level (0.3-0.7) U.I./ml BUN 21 H (7-17) mg/dL Creatinine 0.4 L (0.7-1.2) mg/dL Glucose 123 H (65-100) mg/dL POC Glucose 119 H (70-105) AST 92 H (5-40) units/L ALT 69 H (7-56) units/L Total Protein 6.1 L (6.3-8.2) g/dL Albumin 3.1 L (3.9-5) g/dL - Imaging and Cardiology Chest x-ray: image reviewed Assessment and Plan 71 y/o female with NSTEMI 1. ASA, statin, BB, heparin and all other necessary cardiac meds 2. Per cards Cath in am 3. Supplemental O2, wean as tolerated 4. Will follow while in unit 5. Follow up surgery recommendations
--- NOTE | 2017-04-06 16:16 | Progress Note ---
Assessment and Plan Assessment and plan: Patient is a 71-year-old woman with a history of diabetes mellitus2, hypertension and pulmonary embolism on Eliquis since December 2016 who presents with abdominal pain and chest pain. Chest x-ray shows no pneumonia or CHF. Troponin was 1.010, EKG read as no ST elevation [place], nonspecific changes. CT abdomen and pelvis with and without contrast shows possible small bowel ileus and right lower lobe atelectasis. -Small bowel ileus: General surgery has been consulted, nothing by mouth, I ordered anti-emetics -Non-STEMI: On heparin drip, therefore I stopped Eliquis, cardiology consulted, I added beta roxana, statin, aspirin and nitroglycerin. -Accelerated hypertension: Starting beta roxana -Mild leukocytosis most likely reactive or related to the right lower lobe atelectasis -Right lower lobe atelectasis: Treat medically -History of PE: Will be on heparin drip -DVT prophylaxis: Heparin drip -Uncontrolled type 2 diabetes mellitus: Add sliding scale Full code History Interval history: Patient seen and examined. Follow up on abdominal pain and nausea vomiting which is still present. Overnight uneventful. No cp, sob, or severe headaches. Imaging, old records, testing, labs, nursing notes reviewed. Hospitalist Physical - Physical exam Narrative exam: GEN: WDWN, NAD, AWAKE, ALERT, ORIENTATED x 3 HEENT: NCAT, PERRL, EOMI, OP CLEAR NECK: SUPPLE, NO THYROMEGALY, NO JVD, NO LAD CVS: RRR, NORMAL S1S2 LUNGS/CHEST: CTA B, NORMAL CHEST EXPANSION B, GOOD AIR ENTRY B ABD: SOFT, extreme epigastric tenderness, nondistended, GBS, NO REBOUND + GUARDING EXT/SKIN: NO SIGNIFICANT EDEMA OR RASH MSK: FROM X 4 EXTREMITIES NEURO: CN 2-12 GROSSLY INTACT, NO FOCAL DEFICITS PSY: CALM - Constitutional Vitals: Temp Pulse Resp BP Pulse Ox 99 F 89 13 165/72 92 04/06/17 12:00 04/06/17 16:00 04/06/17 16:00 04/06/17 16:00 04/06/17 16:00 General appearance: Present: no acute distress, well-nourished Results - Labs CBC & Chem 7: 04/06/17 04:54 04/06/17 04:54 Labs: Laboratory Last Values WBC 13.6 K/mm3 (4.5-11.0) H 04/06/17 04:54 RBC 3.64 M/mm3 (3.65-5.03) L 04/06/17 04:54 Hgb 10.7 gm/dl (10.1-14.3) 04/06/17 04:54 Hct 32.7 % (30.3-42.9) 04/06/17 04:54 MCV 90 fl (79-97) 04/06/17 04:54 MCH 29 pg (28-32) 04/06/17 04:54 MCHC 33 % (30-34) 04/06/17 04:54 RDW 13.6 % (13.2-15.2) 04/06/17 04:54 Plt Count 308 K/mm3 (140-440) 04/06/17 04:54 Lymph % (Auto) 25.3 % (13.4-35.0) 04/06/17 04:54 [place] % (Auto) 11.2 % (0.0-7.3) H 04/06/17 04:54 Eos % (Auto) 0.0 % (0.0-4.3) 04/06/17 04:54 Baso % (Auto) 0.5 % (0.0-1.8) 04/06/17 04:54 Lymph # 3.4 K/mm3 (1.2-5.4) 04/06/17 04:54 [place] # 1.5 K/mm3 (0.0-0.8) H 04/06/17 04:54 Eos # 0.0 K/mm3 (0.0-0.4) 04/06/17 04:54 Baso # 0.1 K/mm3 (0.0-0.1) 04/06/17 04:54 Seg Neutrophils % 63.0 % (40.0-70.0) 04/06/17 04:54 Seg Neutrophils # 8.6 K/mm3 (1.8-7.7) H 04/06/17 04:54 PT 15.7 Sec. (12.2-14.9) H 04/05/17 07:19 INR 1.26 (0.87-1.13) H 04/05/17 07:19 APTT 179.9 Sec. (24.2-36.6) H* 04/05/17 07:19 Heparin Anti-Xa Level 0.59 U.I./ml (0.3-0.7) 04/06/17 08:19 Sodium 138 mmol/L (137-145) 04/06/17 04:54 Potassium 4.1 mmol/L (3.6-5.0) 04/06/17 04:54 Chloride 101.6 mmol/L (98-107) 04/06/17 04:54 Carbon Dioxide 26 mmol/L (22-30) 04/06/17 04:54 Anion Gap 15 mmol/L 04/06/17 04:54 BUN 21 mg/dL (7-17) H 04/06/17 04:54 Creatinine 0.4 mg/dL (0.7-1.2) L 04/06/17 04:54 Estimated GFR > 60 ml/min 04/06/17 04:54 BUN/Creatinine Ratio 52.50 % 04/06/17 04:54 Glucose 123 mg/dL (65-100) H 04/06/17 04:54 POC Glucose 119 (70-105) H 04/06/17 05:11 Hemoglobin A1c 5.8 % (4-6) 04/05/17 07:19 Calcium 8.5 mg/dL (8.4-10.2) 04/06/17 04:54 Magnesium 1.80 mg/dL (1.7-2.3) 04/05/17 21:15 Total Bilirubin 0.30 mg/dL (0.1-1.2) 04/06/17 04:54 AST 92 units/L (5-40) H 04/06/17 04:54 ALT 69 units/L (7-56) H 04/06/17 04:54 Alkaline Phosphatase 48 units/L (35-129) 04/06/17 04:54 Troponin T 0.755 ng/mL (0.00-0.029) H* D 04/05/17 06:59 Total Protein 6.1 g/dL (6.3-8.2) L 04/06/17 04:54 Albumin 3.1 g/dL (3.9-5) L 04/06/17 04:54 Albumin/Globulin Ratio 1.0 % 04/06/17 04:54 Triglycerides 195 mg/dL (2-149) H 04/05/17 01:09 Cholesterol 173 mg/dL (50-199) 04/05/17 01:09 LDL Cholesterol Direct 101 mg/dL (50-130) 04/05/17 01:09 HDL Cholesterol 33 mg/dL (40-59) L 04/05/17 01:09 Cholesterol/HDL Ratio 5.24 % 04/05/17 01:09 Lipase 52 units/L (13-60) 04/05/17 01:09 Urine Color Straw (Yellow) 04/05/17 03:14 Urine Turbidity Clear (Clear) 04/05/17 03:14 Urine pH 6.0 (5.0-7.0) 04/05/17 03:14 Ur Specific [place] 1.029 (1.003-1.030) 04/05/17 03:14 Urine Protein <15 mg/dl mg/dL (Negative) 04/05/17 03:14 Urine Glucose (UA) Neg mg/dL (Negative) 04/05/17 03:14 Urine Ketones Neg mg/dL (Negative) 04/05/17 03:14 Urine Blood Mod (Negative) 04/05/17 03:14 Urine Nitrite Neg (Negative) 04/05/17 03:14 Urine Bilirubin Neg (Negative) 04/05/17 03:14 Urine Urobilinogen < 2.0 mg/dL (<2.0) 04/05/17 03:14 Ur Leukocyte Esterase Neg (Negative) 04/05/17 03:14 Urine WBC (Auto) 1.0 /HPF (0.0-6.0) 04/05/17 03:14 Urine RBC (Auto) 1.0 /HPF (0.0-6.0) 04/05/17 03:14 U Epithel Cells (Auto) 1.0 /HPF (0-13.0) 04/05/17 03:14 Urine Mucus Few /HPF 04/05/17 03:14
[2017-04-06] MEDS: NACL 0.45% 1000 ML 1,000 ML IV SCH (16:23)
--- NOTE | 2017-04-06 22:58 | Consultation ---
HISTORY OF PRESENT ILLNESS: I was called by Dr. Gonsalves to see this patient. Apparently, she had ?severe constipation, which was seen on the CAT scan. She had been having some pain to the area, left to mid abdomen with severe nausea and vomiting. This has been going on for about 2 days now, the etiology of which is unknown. She gives a history of having her uterus removed. She had back surgery as well. Her KUB done today was negative. She never had this before. She denied any diarrhea. She denied any rectal bleeding. She has 5 children. She has a known case of pulmonary embolus. She had been under the care of . She is on Eliquis for that and she is on aspirin as well. There is ? whether she has diabetes, at the present time she is on a sliding scale in the hospital. The pain was generalized everywhere, more on the left side; and today, she told me that the pain is much much improved. Sometimes, the pain would go up in the chest area. She gives no history of shortness of breath. She gives a history of minimal swelling of her legs. Her cardiac enzymes were a little bit elevated with nonspecific ST segment elevation. The patient does not smoke, nor does she drink alcohol. She is a known case of hypertension and diabetes and pulmonary embolus about 1 year ago for which she does not take any medications at the present time. PHYSICAL EXAMINATION: GENERAL: A well-preserved, very pleasant elderly lady. She is in no distress. HEAD AND NECK: Negative. Neck is supple. BREASTS: Symmetrical. No evidence of any specific masses. CHEST: Essentially clear to me. HEART: Sound normal. ABDOMEN: Protuberant, soft, benign. I could not pinpoint anything specific to the abdomen. EXTREMITIES: Show no evidence of any edema at the present time. NEUROLOGICAL: Physiologic. IMPRESSION: Abdominal pain, the etiology of which is unknown, nothing could be specified at the present time. The CAT scan was essentially negative. We need to rule out gallbladder disease and we will go from there. Note, that her BUN was a little bit elevated, she needs good hydration. Started on ice chips. JOB# [id number]/[id number]
[2017-04-07] MEDS: NOVOLOG SUB-Q SCH ×4 (00:50→17:06)
[2017-04-07] MEDS: DILAUDID IV PRN ×2 (02:45→06:42)
--- NOTE | 2017-04-07 04:15 | Admit Criteria Form ---
Admission Criteria Documentation: MYOCARDIAL INFARCTION Clinical Indications for Admission to Inpatient Care (Place 'X' for any and all applicable criteria): Admission is indicated for 1 or more of the following (1)(2)(3)(4): [ X]I. Acute IA [ ]II. Contraindications and/or Inappropriate clinical situations for Observational Care in patients with Myocardial Infarction, when ANY ONE of the following is required: [ ]a) Patient with High risk of cardiac embolism (e.g, patients with previous cardiac embolism, LVEF < 40%, age >75 and patients with prosthetic valve) 18 [ ]b) Patient with Moderate risk including DM patient, CAD and patient aged 65-75 18 [ ]c) Patient with any change in cardiac biomarker especially troponin should be managed as high risk in an inpatient setting 19 [ ]d) Physician judgement irrespective of ECG and other diagnostic findings 20 [ ]III.General contraindications and/or Inappropriate clinical situations for Observational Care in patients with Myocardial Infarction, when ANY ONE of the following is required: [ ]a) Prediction of prolongation of LOS based on ANY ONE of the following may be considered as a contraindication for observational care 2, 3, 4, 5, 6, 7, 8, 9, 10, 11 [ ]i) Age > 65 yrs. [ ]ii) Patient arriving by ambulance [ ]iii) Patient with high acuity [ ]iv) Patient requiring vital sign monitoring [ ]v) Patient on IV medication [ ]b) Systolic blood pressures greater than or equal to 180mmHg 3,12 [ ]c) Patient with altered mental status including delirium and other alteration of consciousness, (3) [ ]d) Patient whose discharge disposition will be to a snf home or rehabilitation home should not be managed in Emergency Department Observation Unit. CMS rule requires 3 days hospital stay before such placement. 3,13 [ ]e) Patient with failure to thrive due to broad array of etiologies 3 ,16,17 [ ]f) Inability to ambulate 3,14 Extended stay beyond goal length of stay may be needed for (1)(18)(20)(24)(25): [ ]a) Hemodynamic instability, persisting symptoms after intensive medical management, or recurring severe, prolonged symptoms [ ]b) Intravascular procedural complications such as acute vessel closure, stent thrombosis, stent malposition, or vessel dissection (26)(27)(28) [ ]c) Extravascular procedural complications such as retroperitoneal hematoma , pericardial effusion, or cardiac tamponade [ ]d) Entry site complications causing bleeding, hematoma or distal ischemia and requiring ongoing monitoring, surgical repair or surgical thrombectomy. Dangerous arrhythmia [ ]e) Complicated percutaneous coronary intervention (e.g., unsuccessful percutaneous coronary intervention or percutaneous coronary intervention of non- [place] vessel) [ ]f) Urgent or emergent surgery for complications of IA (e.g., ventricular rupture, valvular insufficiency) [ ]g) Surgical revascularization via coronary artery bypass graft [ ]h) Heart failure (e.g., pulmonary edema) [ ]i) Unstable pulmonary comorbidities, including COPD or pneumonia (31) [ ]j) Acute renal failure The original [employer] content created by [employer] has been revised. The portions of the content which have been revised are identified through the use of italic text or in bold, and [employer] has neither reviewed nor approved the modified material. All other unmodified content is copyright [facility] Please see references footnoted in the original [email or web address] edition 2016 Admission Criteria Met: Yes
[2017-04-07] MEDS: LOPRESSOR PO SCH ×3 (04:51→15:52)
[2017-04-07] MEDS: HEPARIN/ 0.45% NACL-25,000 UNIT/500 ML 25,000 UNIT/500 ML BAG IV SCH (04:51)
[2017-04-07 06:29] LABS: Hematocrit 35.4 % (30.3-42.9); Hemoglobin 11.1 gm/dl (10.1-14.3); Mean Corpuscular HGB Conc 31 % (30-34); Mean Corpuscular Hemoglobin 29 pg (28-32); Mean Corpuscular Volume 92 fl (79-97); Platelet Count 325 K/mm3 (140-440); Red Blood Count 3.87 M/mm3 (3.65-5.03); Red Cell Distribution Width 14.1 % (13.2-15.2)
[2017-04-07 06:30] LABS: White Blood Count 26.2 K/mm3 (4.5-11.0)
[2017-04-07 06:56] LABS: Blood Urea Nitrogen 26 mg/dL (7-17); Carbon Dioxide 19 mmol/L (22-30); Chloride 96.6 mmol/L (98-107); Glucose 83 mg/dL (65-100); Potassium 4.5 mmol/L (3.6-5.0); Sodium 137 mmol/L (137-145)
[2017-04-07 06:57] LABS: Anion Gap 26 mmol/L
--- NOTE | 2017-04-07 07:53 | Ultrasound Report ---
RIGHT UPPER QUADRANT ULTRASOUND: HISTORY: Right upper quadrant pain. Technique: Transabdominal ultrasound imaging with Doppler interrogation. FINDINGS: There are several small shadowing gallstones within the gallbladder. The gallbladder is normal size and wall thickness. The common bile duct is slightly prominent measuring 6.5 mm in diameter but no convincing obstructing stone is demonstrated on ultrasound. The liver is normal size and contour. A 1.1 cm left hepatic lobe cyst is identified. No mass or surface nodularity. The visualized pancreas is unremarkable. The right kidney measures 10.3 cm. There are approximately 3 simple cysts in the right kidney measuring 1.0 cm, 0.8 cm and 1.6 cm. The right renal parenchyma is echogenic consistent with mild renal parenchymal disease. No nephrolithiasis, mass or hydronephrosis. The aorta is normal caliber. No ascites is visualized. IMPRESSION: Cholelithiasis. The common bile duct is borderline dilated measuring 6.5 mm in diameter. See above. Liver cyst and kidney cysts. Mild renal parenchymal disease.
--- NOTE | 2017-04-07 07:55 | Progress Note ---
Assessment and Plan Assessment and plan: Patient is a 71-year-old woman with a history of diabetes mellitus2, hypertension and pulmonary embolism on Eliquis since December 2016 who presents with abdominal pain and chest pain. Chest x-ray read as no pneumonia or CHF. Troponin was 1.010, EKG read as no ST elevation LA, nonspecific changes. CT abdomen and pelvis with and without contrast shows possible small bowel ileus and right lower lobe atelectasis. -Small bowel ileus: General surgery following, I ordered anti-emetics -Non-STEMI: On heparin drip, therefore I stopped Eliquis, cardiology consulted, I added beta roxana, statin, aspirin and nitroglycerin. -Accelerated hypertension: Starting beta roxana -Mild leukocytosis most likely reactive or related to the right lower lobe atelectasis -Right lower lobe atelectasis: Treat medically -History of PE: Will be on heparin drip -DVT prophylaxis: Heparin drip -Uncontrolled type 2 diabetes mellitus: Add sliding scale Full code Still symptomatic with abdominal pains: consulted GI, symptoms out of portion to exam, check lactate level, empiric treat with iv zosyn Cardiac cath today per Cardiology. ECHO still pending WBC increased: will order blood cultures Abd u/s pending History Interval history: Patient seen and examined. Follow up on abdominal pain and nausea vomiting which is still present. Overnight uneventful. No cp, sob, or severe headaches. Imaging, old records, testing, labs, nursing notes reviewed. Hospitalist Physical - Physical exam Narrative exam: GEN: WDWN, NAD, AWAKE, ALERT, ORIENTATED x 3 CVS: mild regular tachycardiac, NORMAL S1S2 LUNGS/CHEST: CTA B, NORMAL CHEST EXPANSION B, GOOD AIR ENTRY B ABD: SOFT, extreme epigastric tenderness, nondistended, GBS, NO REBOUND + GUARDING EXT/SKIN: NO SIGNIFICANT EDEMA OR RASH MSK: FROM X 4 EXTREMITIES NEURO: CN 2-12 GROSSLY INTACT, NO FOCAL DEFICITS PSY: CALM - Constitutional Vitals: Temp Pulse Resp BP Pulse Ox 99.7 F H 102 H 21 156/60 96 04/07/17 03:46 04/07/17 07:00 04/07/17 07:00 04/07/17 07:00 04/07/17 07:21 General appearance: Present: no acute distress, well-nourished Results - Labs CBC & Chem 7: 04/07/17 05:19 06/12/17 05:19 Labs: Laboratory Last Values WBC 26.2 K/mm3 (4.5-11.0) H 04/07/17 05:19 RBC 3.87 M/mm3 (3.65-5.03) 04/07/17 05:19 Hgb 11.1 gm/dl (10.1-14.3) 04/07/17 05:19 Hct 35.4 % (30.3-42.9) 04/07/17 05:19 MCV 92 fl (79-97) 04/07/17 05:19 MCH 29 pg (28-32) 04/07/17 05:19 MCHC 31 % (30-34) 04/07/17 05:19 RDW 14.1 % (13.2-15.2) 04/07/17 05:19 Plt Count 325 K/mm3 (140-440) 04/07/17 05:19 Lymph % (Auto) 25.3 % (13.4-35.0) 04/06/17 04:54 [place] % (Auto) 11.2 % (0.0-7.3) H 04/06/17 04:54 Eos % (Auto) 0.0 % (0.0-4.3) 04/06/17 04:54 Baso % (Auto) 0.5 % (0.0-1.8) 04/06/17 04:54 Lymph # 3.4 K/mm3 (1.2-5.4) 04/06/17 04:54 [place] # 1.5 K/mm3 (0.0-0.8) H 04/06/17 04:54 Eos # 0.0 K/mm3 (0.0-0.4) 04/06/17 04:54 Baso # 0.1 K/mm3 (0.0-0.1) 04/06/17 04:54 Seg Neutrophils % 63.0 % (40.0-70.0) 04/06/17 04:54 Seg Neutrophils # 8.6 K/mm3 (1.8-7.7) H 04/06/17 04:54 PT 15.7 Sec. (12.2-14.9) H 04/05/17 07:19 INR 1.26 (0.87-1.13) H 04/05/17 07:19 APTT 179.9 Sec. (24.2-36.6) H* 04/05/17 07:19 Heparin Anti-Xa Level 0.59 U.I./ml (0.3-0.7) 04/06/17 08:19 Sodium 137 mmol/L (137-145) 04/07/17 05:19 Potassium 4.5 mmol/L (3.6-5.0) 04/07/17 05:19 Chloride 96.6 mmol/L (98-107) L 04/07/17 05:19 Carbon Dioxide 19 mmol/L (22-30) L D 04/07/17 05:19 Anion Gap 26 mmol/L 04/07/17 05:19 BUN 26 mg/dL (7-17) H 04/07/17 05:19 Creatinine 0.4 mg/dL (0.7-1.2) L 04/07/17 05:19 Estimated GFR > 60 ml/min 04/07/17 05:19 BUN/Creatinine Ratio 65.00 % 04/07/17 05:19 Glucose 83 mg/dL (65-100) 04/07/17 05:19 POC Glucose 79 (70-105) 04/07/17 05:11 Hemoglobin A1c 5.8 % (4-6) 04/05/17 07:19 Calcium 9.0 mg/dL (8.4-10.2) 04/07/17 05:19 Magnesium 1.80 mg/dL (1.7-2.3) 04/05/17 21:15 Total Bilirubin 0.30 mg/dL (0.1-1.2) 04/06/17 04:54 AST 92 units/L (5-40) H 04/06/17 04:54 ALT 69 units/L (7-56) H 04/06/17 04:54 Alkaline Phosphatase 48 units/L (35-129) 04/06/17 04:54 Troponin T 0.755 ng/mL (0.00-0.029) H* D 04/05/17 06:59 Total Protein 6.1 g/dL (6.3-8.2) L 04/06/17 04:54 Albumin 3.1 g/dL (3.9-5) L 04/06/17 04:54 Albumin/Globulin Ratio 1.0 % 04/06/17 04:54 Triglycerides 195 mg/dL (2-149) H 04/05/17 01:09 Cholesterol 173 mg/dL (50-199) 04/05/17 01:09 LDL Cholesterol Direct 101 mg/dL (50-130) 04/05/17 01:09 HDL Cholesterol 33 mg/dL (40-59) L 04/05/17 01:09 Cholesterol/HDL Ratio 5.24 % 04/05/17 01:09 Lipase 52 units/L (13-60) 04/05/17 01:09 Urine Color Straw (Yellow) 04/05/17 03:14 Urine Turbidity Clear (Clear) 04/05/17 03:14 Urine pH 6.0 (5.0-7.0) 04/05/17 03:14 Ur Specific [place] 1.029 (1.003-1.030) 04/05/17 03:14 Urine Protein <15 mg/dl mg/dL (Negative) 04/05/17 03:14 Urine Glucose (UA) Neg mg/dL (Negative) 04/05/17 03:14 Urine Ketones Neg mg/dL (Negative) 04/05/17 03:14 Urine Blood Mod (Negative) 04/05/17 03:14 Urine Nitrite Neg (Negative) 04/05/17 03:14 Urine Bilirubin Neg (Negative) 04/05/17 03:14 Urine Urobilinogen < 2.0 mg/dL (<2.0) 04/05/17 03:14 Ur Leukocyte Esterase Neg (Negative) 04/05/17 03:14 Urine WBC (Auto) 1.0 /HPF (0.0-6.0) 04/05/17 03:14 Urine RBC (Auto) 1.0 /HPF (0.0-6.0) 04/05/17 03:14 U Epithel Cells (Auto) 1.0 /HPF (0-13.0) 04/05/17 03:14 Urine Mucus Few /HPF 04/05/17 03:14
[2017-04-07 08:43] LABS: Basophils % (Manual) 0 % (0.0-1.8); Blastocytes % (Manual) 0 %; Eosinophils % (Manual) 0 % (0.0-4.3); RBC Morphology Normal; Total Cells Counted Percent 9.5
[2017-04-07 08:44] LABS: Diff Status Complete
[2017-04-07] MEDS: DIOVAN PO SCH (09:41)
[2017-04-07] MEDS: ASPIRIN PO SCH (09:42)
[2017-04-07] MEDS: ZOSYN/NS 4.5GM/100ML 4.5 GM/100 ML VIAL IV SCH ×2 (09:57→15:58)
--- NOTE | 2017-04-07 09:57 | Progress Note ---
Assessment and Plan Assessment: NSTEMI Suspected small bowel ileus - general surgery following. Cholelithiasis Accelerated HTN - improving. DM H/o PE - on heparin gtt (home Eliquis held). Leukocytosis / Fever Plan: Echo reviewed - EF 55-60%, abnormal diastolic function, mild MR. LHC will be post-poned in setting of leukocytosis and fever this AM given that pt is chest pain free and hemodynamically stable. Continue present cardiac regimen, including ASA, statin, BB, ARB, and heparin gtt. Will re-evaluate for possible LHC in AM. For HIDA scan today. Pt may tx out of ICU from cardiology standpoint. Assessment and plan reviewed with pt and pt's at bedside. The patient has been seen in conjunction with Dr. FIDEL Poole who agrees with the assessment and plan of care. Subjective Date of service: 04/07/17 Principal diagnosis: Acute NSTEMI, Abd pain, ileus Interval history: Pt resting in bed, no complaints. Heparin gtt infusing. at bedside. VSS , febrile this AM with WBC 26. Objective Last Vital Signs Temp 100.9 F H 04/07/17 08:00 Pulse 102 H 04/07/17 09:42 Resp 29 H 04/07/17 09:30 BP 137/64 04/07/17 09:42 Pulse Ox 95 04/07/17 09:30 - Physical Examination General: No Apparent Distress HEENT: Positive: EOMI, Normocephaly, Mucus Membranes Moist Neck: Positive: neck supple, trachea midline, Carotid Upstroke (full) Cardiac: Positive: Reg Rate and Rhythm, S1/S2, Systolic Murmur Lungs: Positive: clear to auscultation, Normal Breath Sounds Neuro: Positive: Grossly Intact Abdomen: Positive: Soft, Active Bowel Sounds, Tender Skin: Positive: Clear. Negative: Rash Musculoskeletal: Normal Range of Motion Extremities: Absent: edema - Labs and Meds CBC 04/07/17 Range/Units 05:19 WBC 26.2 H (4.5-11.0) K/mm3 RBC 3.87 (3.65-5.03) M/mm3 Hgb 11.1 (10.1-14.3) gm/dl Hct 35.4 (30.3-42.9) % Plt Count 325 (140-440) K/mm3 Comprehensive Metabolic Panel 04/07/17 Range/Units 05:19 Sodium 137 (137-145) mmol/L Potassium 4.5 (3.6-5.0) mmol/L Chloride 96.6 L (98-107) mmol/L Carbon Dioxide 19 L D (22-30) mmol/L BUN 26 H (7-17) mg/dL Creatinine 0.4 L (0.7-1.2) mg/dL Glucose 83 (65-100) mg/dL Calcium 9.0 (8.4-10.2) mg/dL - Imaging and Cardiology EKG: image reviewed - Telemetry EKG Rhythm: Sinus Rhythm - EKG Sinus rhythms and dysrhythmias: sinus rhythm AV and intraventricular conduction: 1 AV block Myocardial infarction: septal ID (old age or ind
--- NOTE | 2017-04-07 11:28 | Progress Note ---
Assessment and Plan Non-STEMI. Unsteady protocol orders. Ileus. Elevated cell count. Zosyn IV Was initiated Diabetes Recommendations HIDA scan Monitor cultures Continue antibiotics and watch for sepsis changes Hemodynamic monitoring Cardiology follow-up recommendations Subjective Date of service: 04/07/17 Principal diagnosis: Acute NSTEMI, Abd pain, ileus Interval history: Abdominal Discomfort. No Chest Pain Objective Vital Signs - 12hr 04/06/17 04/07/17 04/07/17 23:30 00:00 00:31 Temperature Pulse Rate 90 91 H 101 H Pulse Rate [ From Monitor] Respiratory 15 13 13 Rate Blood Pressure 150/73 156/73 139/95 O2 Sat by Pulse 95 95 Oximetry 04/07/17 04/07/17 04/07/17 00:51 01:00 01:30 Temperature 99.6 F Pulse Rate 90 94 H Pulse Rate [ From Monitor] Respiratory 18 17 Rate Blood Pressure 136/57 153/63 O2 Sat by Pulse 97 Oximetry 04/07/17 04/07/17 04/07/17 02:00 02:30 03:00 Temperature Pulse Rate 98 H 99 H 85 Pulse Rate [ From Monitor] Respiratory 17 14 17 Rate Blood Pressure 150/68 150/68 138/69 O2 Sat by Pulse 93 Oximetry 04/07/17 04/07/17 04/07/17 03:30 03:46 04:00 Temperature 99.7 F H Pulse Rate 89 87 Pulse Rate [ From Monitor] Respiratory 14 18 Rate Blood Pressure 125/62 136/64 O2 Sat by Pulse Oximetry 04/07/17 04/07/17 04/07/17 04:30 04:51 05:00 Temperature Pulse Rate 92 H 98 H 94 H Pulse Rate [ From Monitor] Respiratory 15 15 Rate Blood Pressure 136/64 140/68 149/75 O2 Sat by Pulse Oximetry 04/07/17 04/07/17 04/07/17 05:30 06:00 06:30 Temperature Pulse Rate 99 H 103 H Pulse Rate [ From Monitor] Respiratory 11 L Rate Blood Pressure 147/61 137/53 131/71 O2 Sat by Pulse Oximetry 04/07/17 04/07/17 04/07/17 07:00 07:21 07:30 Temperature Pulse Rate 102 H 100 H Pulse Rate [ From Monitor] Respiratory 21 26 H Rate Blood Pressure 156/60 146/62 O2 Sat by Pulse 96 96 91 Oximetry 04/07/17 04/07/17 04/07/17 08:00 08:30 09:00 Temperature 100.9 F H Pulse Rate 97 H 102 H 101 H Pulse Rate [ 99 H From Monitor] Respiratory 20 21 28 H Rate Blood Pressure 150/64 152/62 143/65 O2 Sat by Pulse 92 93 97 Oximetry 04/07/17 04/07/17 04/07/17 09:30 09:41 09:42 Temperature Pulse Rate 103 H 102 H 102 H Pulse Rate [ From Monitor] Respiratory 29 H Rate Blood Pressure 137/64 137/64 137/64 O2 Sat by Pulse 95 Oximetry 04/07/17 10:00 Temperature Pulse Rate 101 H Pulse Rate [ From Monitor] Respiratory 26 H Rate Blood Pressure 123/58 O2 Sat by Pulse 93 Oximetry ENT: oropharynx moist Neck: supple Effort: no acute distress Ascultation: Bilateral: clear Cardiovascular: regular rate and rhythm Gastrointestinal: tender Extremities: no cyanosis, no cyanosis, no cyanosis CBC and BMP: 04/07/17 05:19 04/07/17 05:19 ABG, PT/INR, D-dimer: PT/INR, D-dimer PT 15.7 Sec. (12.2-14.9) H 04/05/17 07:19 INR 1.26 (0.87-1.13) H 04/05/17 07:19 Abnormal lab findings: Abnormal Labs 04/05/17 04/05/17 04/05/17 06:59 07:19 12:13 WBC RBC [place] % (Auto) [place] # Seg Neuts % (Manual) Lymphocytes % (Manual) Monocytes % (Manual) Seg Neutrophils # Seg Neutrophils # Man Monocytes # (Manual) PT 15.7 H INR 1.26 H APTT 179.9 H* Heparin Anti-Xa Level Chloride Carbon Dioxide BUN Creatinine Glucose POC Glucose 177 H AST ALT Troponin T 0.755 H* D Total Protein Albumin 04/05/17 04/05/17 04/05/17 13:02 16:51 18:10 WBC RBC [place] % (Auto) [place] # Seg Neuts % (Manual) Lymphocytes % (Manual) Monocytes % (Manual) Seg Neutrophils # Seg Neutrophils # Man Monocytes # (Manual) PT INR APTT Heparin Anti-Xa Level 1.36 H Chloride Carbon Dioxide BUN Creatinine Glucose POC Glucose 149 H 127 H AST ALT Troponin T Total Protein Albumin 04/05/17 04/05/17 04/05/17 19:21 21:15 23:51 WBC RBC [place] % (Auto) [place] # Seg Neuts % (Manual) Lymphocytes % (Manual) Monocytes % (Manual) Seg Neutrophils # Seg Neutrophils # Man Monocytes # (Manual) PT INR APTT Heparin Anti-Xa Level 1.09 H Chloride Carbon Dioxide BUN Creatinine Glucose POC Glucose 126 H 125 H AST ALT Troponin T Total Protein Albumin 04/06/17 04/06/17 04/06/17 04:54 04:54 05:11 WBC 13.6 H RBC 3.64 L [place] % (Auto) 11.2 H [place] # 1.5 H Seg Neuts % (Manual) Lymphocytes % (Manual) Monocytes % (Manual) Seg Neutrophils # 8.6 H Seg Neutrophils # Man Monocytes # (Manual) PT INR APTT Heparin Anti-Xa Level Chloride Carbon Dioxide BUN 21 H Creatinine 0.4 L Glucose 123 H POC Glucose 119 H AST 92 H ALT 69 H Troponin T Total Protein 6.1 L Albumin 3.1 L 04/07/17 04/07/17 05:19 05:19 WBC 26.2 H RBC [place] % (Auto) [place] # Seg Neuts % (Manual) 80.5 H Lymphocytes % (Manual) 7.5 L Monocytes % (Manual) 9.5 H Seg Neutrophils # Seg Neutrophils # Man 21.1 H Monocytes # (Manual) 2.5 H PT INR APTT Heparin Anti-Xa Level Chloride 96.6 L Carbon Dioxide 19 L D BUN 26 H Creatinine 0.4 L Glucose POC Glucose AST ALT Troponin T Total Protein Albumin
--- NOTE | 2017-04-07 13:31 | Progress Note ---
Subjective Narrative: pain less HIDA non vis of [place] Dr kam needs more films , Pt is NPO , Objective Vital Signs - 12hr 04/07/17 04/07/17 04/07/17 02:00 02:30 03:00 Temperature Pulse Rate 98 H 99 H 85 Pulse Rate [ From Monitor] Respiratory 17 14 17 Rate Blood Pressure 150/68 150/68 138/69 O2 Sat by Pulse 93 Oximetry 04/07/17 04/07/17 04/07/17 03:30 03:46 04:00 Temperature 99.7 F H Pulse Rate 89 87 Pulse Rate [ From Monitor] Respiratory 14 18 Rate Blood Pressure 125/62 136/64 O2 Sat by Pulse Oximetry 04/07/17 04/07/17 04/07/17 04:30 04:51 05:00 Temperature Pulse Rate 92 H 98 H 94 H Pulse Rate [ From Monitor] Respiratory 15 15 Rate Blood Pressure 136/64 140/68 149/75 O2 Sat by Pulse Oximetry 04/07/17 04/07/17 04/07/17 05:30 06:00 06:30 Temperature Pulse Rate 99 H 103 H Pulse Rate [ From Monitor] Respiratory 11 L Rate Blood Pressure 147/61 137/53 131/71 O2 Sat by Pulse Oximetry 04/07/17 04/07/17 04/07/17 07:00 07:21 07:30 Temperature Pulse Rate 102 H 100 H Pulse Rate [ From Monitor] Respiratory 21 26 H Rate Blood Pressure 156/60 146/62 O2 Sat by Pulse 96 96 91 Oximetry 04/07/17 04/07/17 04/07/17 08:00 08:30 09:00 Temperature 100.9 F H Pulse Rate 97 H 102 H 101 H Pulse Rate [ 99 H From Monitor] Respiratory 20 21 28 H Rate Blood Pressure 150/64 152/62 143/65 O2 Sat by Pulse 92 93 97 Oximetry 04/07/17 04/07/17 04/07/17 09:30 09:41 09:42 Temperature Pulse Rate 103 H 102 H 102 H Pulse Rate [ From Monitor] Respiratory 29 H Rate Blood Pressure 137/64 137/64 137/64 O2 Sat by Pulse 95 Oximetry 04/07/17 04/07/17 04/07/17 10:00 10:30 12:00 Temperature 100.3 F H Pulse Rate 101 H 102 H Pulse Rate [ From Monitor] Respiratory 26 H 15 Rate Blood Pressure 123/58 123/58 O2 Sat by Pulse 93 95 Oximetry - Labs 04/07/17 05:19 04/07/17 05:19 Diabetes panel 04/07/17 Range/Units 05:19 Sodium 137 (137-145) mmol/L Potassium 4.5 (3.6-5.0) mmol/L Chloride 96.6 L (98-107) mmol/L Carbon Dioxide 19 L D (22-30) mmol/L BUN 26 H (7-17) mg/dL Creatinine 0.4 L (0.7-1.2) mg/dL Glucose 83 (65-100) mg/dL Calcium 9.0 (8.4-10.2) mg/dL Calcium panel 04/07/17 Range/Units 05:19 Calcium 9.0 (8.4-10.2) mg/dL Pituitary panel 04/07/17 Range/Units 05:19 Sodium 137 (137-145) mmol/L Potassium 4.5 (3.6-5.0) mmol/L Chloride 96.6 L (98-107) mmol/L Carbon Dioxide 19 L D (22-30) mmol/L BUN 26 H (7-17) mg/dL Creatinine 0.4 L (0.7-1.2) mg/dL Glucose 83 (65-100) mg/dL Calcium 9.0 (8.4-10.2) mg/dL Adrenal panel 04/07/17 Range/Units 05:19 Sodium 137 (137-145) mmol/L Potassium 4.5 (3.6-5.0) mmol/L Chloride 96.6 L (98-107) mmol/L Carbon Dioxide 19 L D (22-30) mmol/L BUN 26 H (7-17) mg/dL Creatinine 0.4 L (0.7-1.2) mg/dL Glucose 83 (65-100) mg/dL Calcium 9.0 (8.4-10.2) mg/dL
--- NOTE | 2017-04-07 13:47 | Cat Scan Report ---
CT HEAD WITHOUT CONTRAST: HISTORY: Altered mental status. Serial contiguous axial images were obtained through the cranium. Intravenous contrast material was not administered. The ventricles are normal in size and appearance. There is no mass effect or midline shift. No areas of abnormally increased or decreased attenuation are seen. No mass lesion is seen. The mastoid air cells and visualized portions of the sinuses are normal. IMPRESSION: Cranial CT scan within normal limits.
--- NOTE | 2017-04-07 13:50 | Nuclear Medicine Report ---
HEPATOBILIARY SCAN: History: Cholelithiasis. There is nonvisualization of the gallbladder out to 2 hours on HIDA scan. There is normal liver uptake and excretion into the common bile duct and bowel loops. IMPRESSION: Nonvisualization of the gallbladder. Obstruction of the cystic duct should be considered. These findings were discussed with Dr. Berkowitz at 1340 hrs.
--- NOTE | 2017-04-07 14:45 | Gastroenterology Consultation ---
History of Present Illness - Reason for Consult Consult date: 04/07/17 abdominal pain Requesting physician: ROMAINE CAMPBELL - History of Present Illness The patient is a 71-year-old female who was her baseline state of fairly good health until approximately 3 days ago when she began having severe and progressive generalized abdominal pain. She has been admitted to the ICU because of progressive severe pain and abdominal tenderness. A CT scan performed 2 days ago revealed mild dilation of her small bowel but no other specific findings. A HIDA scan revealed a non-visualizing gallbladder although she has been nothing by mouth. She reports having a colonoscopy 10 years ago which was normal. The patient denies any nausea or vomiting. She has not passed any blood in the stool and her last bowel movement was 2 days ago. Pain has worsened over the past few days. She is felt to have a non-STEMI Past History Past Medical History: diabetes, hypertension, other (pulmonary embolism diagnosed in December 2015, chronic bilateral leg edema) Past Surgical History: Other (back surgery) Social history: . denies: smoking, alcohol abuse Family history: denies: CAD Medications and Allergies Allergies Allergy/AdvReac Type Severity Reaction Status Date / Time No Known Allergies Allergy Verified 04/05/17 00:49 Home Medications Medication Instructions Recorded Confirmed Last Taken Type Eliquis 2.5 mg PO BID 04/05/17 04/05/17 04/04/17 21:00 History Valsartan 320 mg PO QDAY 04/05/17 04/05/17 04/04/17 10:30 History Active Meds: Active Medications Acetaminophen (Tylenol) 650 mg PO Q4H PRN PRN Reason: Pain MILD(1-3)/Fever >100.5/HER Aspirin (Aspirin) 325 mg PO QDAY [facility] Last Admin: 04/07/17 09:42 Dose: 325 mg Atorvastatin Calcium (Lipitor) 80 mg PO QHS [facility] Last Admin: 04/06/17 22:59 Dose: 80 mg Bisacodyl (Dulcolax) 10 mg ND QDAY PRN PRN Reason: Constipation unrelieved by MOM Last Admin: 04/05/17 15:13 Dose: 10 mg Dextrose (D50w (25gm)) 50 ml IV PRN PRN PRN Reason: Hypoglycemia Heparin Sodium/Sodium Chloride (Heparin/ 0.45% Nacl-25,000 Unit/500 Ml) 25,000 unit in 500 mls @ 20 mls/hr IV TITRATE WILLY; 1,000 UNITS/HR PRN Reason: Protocol Last Admin: 04/07/17 04:51 Dose: 550 units/hr, 11 mls/hr Sodium Chloride (Nacl 0.45% 1000 Ml) 1,000 mls @ 42 mls/hr IV DIRECT WILLY Last Admin: 04/06/17 16:23 Dose: 42 mls/hr Piperacillin Sod/Tazobactam Sod (Zosyn/Ns 4.5gm/100ml) 4.5 gm in 100 mls @ 200 mls/hr IV Q8HR WILLY PRN Reason: Protocol Last Admin: 04/07/17 09:57 Dose: 200 mls/hr Insulin Aspart (Novolog) 0 units SUB-Q Q6HR WILLY PRN Reason: Protocol Last Admin: 04/07/17 12:04 Dose: Not Given Metoprolol Tartrate (Lopressor) 50 mg PO Q6H [facility] Last Admin: 04/07/17 09:42 Dose: 50 mg Nitroglycerin (Nitrostat) 0.4 mg SL .Q5MIN PRN PRN Reason: Chest Pain Ondansetron HCl (Zofran) 4 mg IV Q4H PRN PRN Reason: Nausea And Vomiting Last Admin: 04/06/17 02:29 Dose: 4 mg Valsartan (Diovan) 160 mg PO QDAY [facility] Last Admin: 04/07/17 09:41 Dose: 160 mg Review of Systems - Review of Systems Constitutional: no weight loss, no weight gain Eyes: no change in vision Ears, Nose, Throat: no decreased hearing, no difficulty swallowing, no epistaxis Breasts: deferred Cardiovascular: no chest pain, no shortness of breath Respiratory: no shortness of breath, no wheezing Gastrointestinal: abdominal pain, no nausea, no vomiting, no diarrhea, no constipation, no BRBPR, no melena, no hematochezia Rectal: pain Female Genitourinary: deferred Musculoskeletal: no gait dysfunction, no joint pain, no muscle pain Integumentary: no rash, no pruritis Neurological: no head injury, no paralysis, no weakness Psychiatric: no anxiety, no memory loss Hematologic/Lymphatic: no easy bruising, no easy bleeding Allergic/Immunologic: no wheezing Exam - Constitutional Vital Signs: Temp Pulse Resp BP Pulse Ox 100.3 F H 102 H 15 123/58 95 04/07/17 12:00 04/07/17 10:30 04/07/17 10:30 04/07/17 10:30 04/07/17 10:30 General appearance: mild distress - EENT Eyes: PERRL ENT: hearing intact, clear oral mucosa, dentition normal - Neck Neck: supple, normal ROM, no masses or JVD - Respiratory Respiratory effort: normal Respiratory: bilateral: CTA - Breasts Breasts: deferred - Cardiovascular Rhythm: regular Heart Sounds: Present: S1 & S2. Absent: gallop, rub Extremities: pulses intact, No edema, normal color, Full ROM - Gastrointestinal General gastrointestinal: Present: soft, tender (severe diffuse tenderness throughout with rebound and voluntary guarding), distended (mild distention), normal bowel sounds. Absent: hepatomegaly, splenomegaly, mass Rectal Exam: no deferred - Genitourinary Female Genitourinary: deferred - Integumentary Integumentary: Present: clear, warm, dry - Neurologic Neurological: alert and oriented x3 - Psychiatric Psychiatric: appropriate mood/affect, intact judgment & insight, memory intact - Labs CBC & Chem 7: 04/07/17 05:19 04/07/17 05:19 Lab Results: Laboratory Results - last 24 hr 04/06/17 04/06/17 04/07/17 11:31 17:41 00:03 WBC RBC Hgb Hct MCV MCH MCHC RDW Plt Count Add Manual Diff Total Counted Seg Neuts % (Manual) Band Neutrophils % Lymphocytes % (Manual) Reactive Lymphs % (Man) Monocytes % (Manual) Eosinophils % (Manual) Basophils % (Manual) Metamyelocytes % Myelocytes % Promyelocytes % Blast Cells % Nucleated RBC % Seg Neutrophils # Man Band Neutrophils # Lymphocytes # (Manual) Abs React Lymphs (Man) Monocytes # (Manual) Eosinophils # (Manual) Basophils # (Manual) Metamyelocytes # Myelocytes # Promyelocytes # Blast Cells # WBC Morphology Hypersegmented Neuts Hyposegmented Neuts Hypogranular Neuts Smudge Cells Toxic Granulation Toxic Vacuolation Dohle Bodies Pelger-Huet Anomaly Cristina Rods Platelet Estimate Clumped Platelets Plt Clumps, EDTA Large Platelets Giant Platelets Platelet Satelliting Plt Morphology Comment RBC Morphology Dimorphic RBCs Polychromasia Hypochromasia Poikilocytosis Anisocytosis Microcytosis Macrocytosis Spherocytes Pappenheimer Bodies Sickle Cells Target Cells Tear Drop Cells Ovalocytes Helmet Cells [place] Bodies Central Rings [place] Cells Bite Cells Crenated Cell Elliptocytes Acanthocytes (Spur) Rouleaux Hemoglobin C Crystals Schistocytes Malaria parasites Liu Bodies Hem Pathologist Commnt Heparin Anti-Xa Level Sodium Potassium Chloride Carbon Dioxide Anion Gap BUN Creatinine Estimated GFR BUN/Creatinine Ratio Glucose POC Glucose 105 95 91 Calcium Lactate Dehydrogenase 04/07/17 04/07/17 04/07/17 05:11 05:19 05:19 WBC 26.2 H RBC 3.87 Hgb 11.1 Hct 35.4 MCV 92 MCH 29 MCHC 31 RDW 14.1 Plt Count 325 Add Manual Diff Complete Total Counted 200 Seg Neuts % (Manual) 80.5 H Band Neutrophils % 2.5 Lymphocytes % (Manual) 7.5 L Reactive Lymphs % (Man) 0 Monocytes % (Manual) 9.5 H Eosinophils % (Manual) 0 Basophils % (Manual) 0 Metamyelocytes % 0 Myelocytes % 0 Promyelocytes % 0 Blast Cells % 0 Nucleated RBC % Not Reportable Seg Neutrophils # Man 21.1 H Band Neutrophils # 0.7 Lymphocytes # (Manual) 2.0 Abs React Lymphs (Man) 0.0 Monocytes # (Manual) 2.5 H Eosinophils # (Manual) 0.0 Basophils # (Manual) 0.0 Metamyelocytes # 0.0 Myelocytes # 0.0 Promyelocytes # 0.0 Blast Cells # 0.0 WBC Morphology Not Reportable Hypersegmented Neuts Not Reportable Hyposegmented Neuts Not Reportable Hypogranular Neuts Not Reportable Smudge Cells Not Reportable Toxic Granulation Not Reportable Toxic Vacuolation Not Reportable Dohle Bodies Not Reportable Pelger-Huet Anomaly Not Reportable Cristina Rods Not Reportable Platelet Estimate Appears normal Clumped Platelets Not Reportable Plt Clumps, EDTA Not Reportable Large Platelets Not Reportable Giant Platelets Not Reportable Platelet Satelliting Not Reportable Plt Morphology Comment Not Reportable RBC Morphology Normal Dimorphic RBCs Not Reportable Polychromasia Not Reportable Hypochromasia Not Reportable Poikilocytosis Not Reportable Anisocytosis Not Reportable Microcytosis Not Reportable Macrocytosis Not Reportable Spherocytes Not Reportable Pappenheimer Bodies Not Reportable Sickle Cells Not Reportable Target Cells Not Reportable Tear Drop Cells Not Reportable Ovalocytes Not Reportable Helmet Cells Not Reportable Lal-[place] Bodies Not Reportable Central Rings Not Reportable [place] Cells Not Reportable Bite Cells Not Reportable Crenated Cell Not Reportable Elliptocytes Not Reportable Acanthocytes (Spur) Not Reportable Rouleaux Not Reportable Hemoglobin C Crystals Not Reportable Schistocytes Not Reportable Malaria parasites Not Reportable Liu Bodies Not Reportable Hem Pathologist Commnt No Heparin Anti-Xa Level Sodium 137 Potassium 4.5 Chloride 96.6 L Carbon Dioxide 19 L D Anion Gap 26 BUN 26 H Creatinine 0.4 L Estimated GFR > 60 BUN/Creatinine Ratio 65.00 Glucose 83 POC Glucose 79 Calcium 9.0 Lactate Dehydrogenase 04/07/17 04/07/17 08:38 08:38 WBC RBC Hgb Hct MCV MCH MCHC RDW Plt Count Add Manual Diff Total Counted Seg Neuts % (Manual) Band Neutrophils % Lymphocytes % (Manual) Reactive Lymphs % (Man) Monocytes % (Manual) Eosinophils % (Manual) Basophils % (Manual) Metamyelocytes % Myelocytes % Promyelocytes % Blast Cells % Nucleated RBC % Seg Neutrophils # Man Band Neutrophils # Lymphocytes # (Manual) Abs React Lymphs (Man) Monocytes # (Manual) Eosinophils # (Manual) Basophils # (Manual) Metamyelocytes # Myelocytes # Promyelocytes # Blast Cells # WBC Morphology Hypersegmented Neuts Hyposegmented Neuts Hypogranular Neuts Smudge Cells Toxic Granulation Toxic Vacuolation Dohle Bodies Pelger-Huet Anomaly Cristina Rods Platelet Estimate Clumped Platelets Plt Clumps, EDTA Large Platelets Giant Platelets Platelet Satelliting Plt Morphology Comment RBC Morphology Dimorphic RBCs Polychromasia Hypochromasia Poikilocytosis Anisocytosis Microcytosis Macrocytosis Spherocytes Pappenheimer Bodies Sickle Cells Target Cells Tear Drop Cells Ovalocytes Helmet Cells [place] Bodies Central Rings [place] Cells Bite Cells Crenated Cell Elliptocytes Acanthocytes (Spur) Rouleaux Hemoglobin C Crystals Schistocytes Malaria parasites Liu Bodies Hem Pathologist Commnt Heparin Anti-Xa Level 0.48 Sodium Potassium Chloride Carbon Dioxide Anion Gap BUN Creatinine Estimated GFR BUN/Creatinine Ratio Glucose POC Glucose Calcium Lactate Dehydrogenase 379 H - Imaging CT Scan: report reviewed, image reviewed Assessment and Plan - Patient Problems (1) Acute abdomen Current Visit: Yes Status: Acute Plan to address problem: I am very concerned in the setting of progressive pain, severe leukocytosis, severe tenderness at an acute surgical process is more likely. She may have have ischemic bowel with this picture. There is no suggestion of diverticulitis or obstruction on the CT scan. A HIDA scan may be falsely positive with an nothing by mouth patient and her tenderness is diffuse and not localized to the right upper quadrant or epigastrium. Surgical risk or probably high in the setting of a non-STEMI. There is no current role for endoscopic evaluation. I would consider a CT angiogram. Thank you for asking me to see Mrs. Foy in consultation. (2) Abdominal pain Current Visit: Yes Status: Acute Qualifiers: Abdominal location: generalized Qualified Code(s): R10.84 - Generalized abdominal pain (3) Acute [id number] elevation myocardial infarction Current Visit: Yes Status: Acute (4) NSTEMI (non-ST elevated myocardial infarction) Current Visit: Yes Status: Acute (5) Diabetes mellitus Current Visit: Yes Status: Chronic Qualifiers: Diabetes mellitus type: type 2 Diabetes mellitus complication status: without complication Diabetes mellitus complication detail: D Diabetic retinopathy severity: D Proliferative retinopathy type: P Diabetes mellitus macular edema: D Diabetes mellitus [facility] insulin use: D Laterality: L Chronic kidney disease stage: C
--- NOTE | 2017-04-07 16:38 | Event Note ---
Date: 04/07/17 In setting of atypical and currently resolved chest pain, mildly elevated downwards trending troponins, and normal EF, there are no cardiac contraindications to proceeding with contemplated urgently indicated surgical procedure. Pt is at moderate cardiovascular risk for surgery d/t NSTEMI. Dr. Stewart spoken with per Dr. FIDEL Poole. Hazel DESHPANDE NP / DR. FIDEL POOLE
[2017-04-07 16:48] LABS: INR 1.39 (0.87-1.13)
[2017-04-07] MEDS ORDERED: XYLOCAINE MPF 2% ONE (16:54)
[2017-04-07] MEDS ORDERED: ZEMURON IV ONE ×2 (16:54→19:04)
[2017-04-07] MEDS ORDERED: QUELICIN ONE (16:54)
[2017-04-07] MEDS ORDERED: DIPRIVAN 10 MG/ML IV ONE (16:54)
[2017-04-07] MEDS ORDERED: DILAUDID ONE (16:55)
--- NOTE | 2017-04-07 17:30 | Event Note ---
Date: 04/07/17 D/W GI and Gen. Surgeon, Dr. Berkowitz. Concern here is ischemic colitis (she is hypercoaguable with h/o PE on Eliquis) vs cholecystitis/gangrenous gallbladder vs other. Going urgently to surgery. I spoke with and at bedside. I explained to them the seriousness of her condition. Cardiac issues, respiratory issues explained. Options give, risk and benefits explained. They verbally voiced understanding and agreement to proceed to surgery.
[2017-04-07] MEDS ORDERED: NACL 0.9% 1000 ML 1,000 ML ONE ×2 (17:42→19:04)
[2017-04-07] MEDS ORDERED: NEOSTIGMINE ONE (17:55)
[2017-04-07] MEDS ORDERED: LEVAQUIN 750MG/150ML 750 MG/150 ML BAG IV ONE (17:56)
[2017-04-07] MEDS ORDERED: FLAGYL 500 MG/100 ML 500 MG/100 ML BAG IV ONE (17:58)
[2017-04-07] MEDS ORDERED: MARCAINE 0.5% 30 ML INFILTRATI ONE (18:02)
[2017-04-07] MEDS ORDERED: NACL 0.9% IR ONE (18:03)
[2017-04-07] MEDS ORDERED: MARCAINE 0.5% INFILTRATI ONE (18:03)
[2017-04-07 19:00] LABS: Hematocrit 30.3 % (30.3-42.9); Hemoglobin 9.7 gm/dl (10.1-14.3); Mean Corpuscular HGB Conc 32 % (30-34); Mean Corpuscular Hemoglobin 29 pg (28-32); Mean Corpuscular Volume 92 fl (79-97); Platelet Count 303 K/mm3 (140-440); Red Cell Distribution Width 14.3 % (13.2-15.2)
[2017-04-07 19:01] LABS: White Blood Count 22.5 K/mm3 (4.5-11.0)
[2017-04-07] MEDS ORDERED: LACTATED RINGERS 2,000 ML ONE (19:04)
[2017-04-07] MEDS ORDERED: ZOFRAN ONE (19:04)
[2017-04-07] MEDS ORDERED: DECADRON ONE (19:04)
[2017-04-07] MEDS ORDERED: NEO SYNEPHRINE ONE (19:11)
[2017-04-07 19:32] LABS: Basophils % (Manual) 0 % (0.0-1.8); Blastocytes % (Manual) 0 %; Eosinophils % (Manual) 0 % (0.0-4.3)
[2017-04-07 19:33] LABS: Diff Status Complete; RBC Morphology Normal
[2017-04-07] MEDS ORDERED: ARTIFICIAL TEARS OPHTH OINT OU PRN (20:11)
[2017-04-07] MEDS ORDERED: VASELINE LIP THERAPY TP PRN (20:11)
--- NOTE | 2017-04-07 20:15 | Anesthesia Consultation ---
Anesthesia Consult and Med Hx Date of service: 04/07/17 - Airway Anesthetic Teeth Evaluation: Good ROM Head & Neck: Adequate Mental/Hyoid Distance: Adequate Mallampati Class: Class II Intubation Access Assessment: Probably Good - Pulmonary Exam CTA: Yes - Cardiac Exam Cardiac Exam: RRR - Pre-Operative Health Status ASA Pre-Surgery Classification: ASA4 Proposed Anesthetic Plan: General - Pulmonary Hx Asthma: No - Cardiovascular System Hx Hypertension: Yes Hx Heart Attack/AMI: Yes (recent NSTEMI, cardiology cleared to proceed) - Central Nervous System Hx Seizures: No CVA: No - Gastrointestinal Hx Ulcer: No - Endocrine Hx Renal Disease: No Hx Insulin Dependent Diabetes: No Hx Non-Insulin Dependent Diabetes: Yes Hx Thyroid Disease: No - Hematic Hx Anemia: No - Other Systems Hx Obesity: No - Additional Comments Anesthesia Medical History Comments: History of pulmonary embolism. Ileus. Concern for gangrenous gallbladder.
--- NOTE | 2017-04-07 20:18 | Anesthesia Day of Surgery ---
Anesthesia Day of Surgery - Day of Surgery Patient Examined: Yes Patient H&P Reviewed: Yes Patient is NPO: Yes Beta Blockers: Yes
--- NOTE | 2017-04-07 20:23 | Post Anesthesia Evaluation ---
- Post Anesthesia Evaluation Patient Participated: No Airway Patent: Yes Stable Respiratory Function: Yes Nausea/Vomiting: No Temp > 96.8F: Yes Pain Manageable: Yes Anesthesia Complications: No Block Receding Appropriately: Not Applicable Patient on Ventilator: Yes Other Comments: Patient kept intubated post op. Hemodynamically stable. Not on pressors. Received 5 Liters of fluid in OR. Decreased urine output.
--- NOTE | 2017-04-07 20:48 | XRay Report ---
FINAL REPORT EXAM: XR CHEST 1V AP HISTORY: post op TECHNIQUE: Chest single AP PRIORS: Comparison is dated April 05, 2017 FINDINGS: ET tube has been placed. Tip is approximately midway between thoracic inlet and the chriss. There is an NG tube present distal end descending below the diaphragm. There is subsegmental atelectasis within the right lower lobe new since the prior exam. There is also mild atelectatic changes in the left lower lobe. No evidence for pneumothorax. Pulmonary vasculature is within normal limits IMPRESSION: Atelectasis in the right lower lobe ET and NG tubes appear in satisfactory position
[2017-04-07] MEDS ORDERED: NACL 0.9% 500 ML IV SCH (21:00)
[2017-04-07] MEDS ORDERED: DIPRIVAN 10 MG/ML 1,000 MG/100 ML BOTTLE IV SCH (21:00)
[2017-04-07 21:58] LABS: ISTAT Base Excess -8; ISTAT HCO3 17.8; ISTAT PCO2 33.6 (35-45); ISTAT PH 7.331 (7.35-7.45); ISTAT PO2 93 (80-105); ISTAT SO2 97; ISTAT TCO2 19
--- NOTE | 2017-04-07 23:41 | Operative Report ---
PREOPERATIVE DIAGNOSES: 1. Acute surgical abdomen. 2. 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 2. Gallbladder disease with stones. POSTOPERATIVE DIAGNOSES: 1. Acute surgical abdomen. 2. 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 2. Gallbladder disease with stones. PROCEDURES: Diagnostic laparoscopy with changing to open laparotomy, small bowel resection, cholecystectomy. ANESTHESIA: General. BLOOD LOSS: About 200 mL. DESCRIPTION OF PROCEDURE: With the patient in supine position, after cleansing and draped in usual fashion, I made a small incision in the infraumbilical area of deeper subcutaneous tissue. I was able to introduce through the Veress needle within the abdominal cavity, at which point, the abdominal cavity was insufflated with CO2 pressure of 15, for which #5 trocar was inserted. With use of the camera, I was able to see the abdomen. Lots of adhesions there and lots of severe inflammatory reaction all the way. There was some fluid in the subphrenic space of the right side and within the pelvic area. The gallbladder showed some inflammation as well. So with the above-mentioned findings, the needle was and changed it to an open laparotomy. So, the camera was removed as well as the trocar and then a midline incision was performed from the subxiphoid process to just by the umbilicus deeper subcutaneous tissue all the way down to fascia, which was incised. Once I was there, I could see a loop of intestine that was stuck to the pelvic area. This was freed slowly; however, it shows some gangrene. This was located towards the posterior aspect of the rectosigmoid. So, I had to immediately transect that area to about 30-40 cm. I used the YI to transect it on both sides and I used the LigaSure to take care for the mesentery. The abdominal cavity in the meantime was irrigated thoroughly with normal saline everywhere from the subphrenic space down to the pelvic area. We did irrigate that with copious amounts of normal saline. We were very much satisfied. Then, I went ahead and took the gallbladder out in the usual fashion. We are handling it and dissecting it from its bed using electrocautery, at which point, I was able to reach the cystic duct and cystic artery. These were hemoclipped x4, transected and the gallbladder was removed in toto, irrigating the area really well. My attention was then directed to the ends of the small intestine that was transected with the use of the YI, so between 2 stay sutures, I had anastomosis with the use of YI-75 and the TA60, closing all the edges with a [id number] stitch of 3-0 Vicryl. Once we were much satisfied, we had good hemostasis. We did have NG tube in the gastric pouch. Then, the mesenteric defect was closed with interrupted stitches of 3-0 Vicryl. The abdominal cavity was then irrigated again with normal saline. After sustaining good hemostasis, the wound was then closed in 1 layer, I used through and through #5 Ethibond with the rubber shods all the way. I used about 8 stitches over these, making sure not to have any entrapments of the intestines or the omentum between the stitches. Bandages were applied. The patient was then transferred to the recovery room in good condition. We are going to keep her in the intensive care unit, giving her some more hydration, antibiotics and then will go from there. JOB# [id number] JOSY/DERIAN
[2017-04-07] MEDS ORDERED: D5W/0.45% NACL/KCL 20 MEQ 20 MEQ/1,000 ML BAG IV SCH (23:45)
[2017-04-08] MEDS: ZOSYN/NS 4.5GM/100ML 4.5 GM/100 ML VIAL IV SCH ×4 (03:00→21:26)
[2017-04-08] MEDS: NOVOLOG SUB-Q SCH ×4 (03:00→18:26)
[2017-04-08 05:28] LABS: INR 1.52 (0.87-1.13)
[2017-04-08 05:30] LABS: Hematocrit 29.2 % (30.3-42.9); Hemoglobin 9.6 gm/dl (10.1-14.3); Mean Corpuscular HGB Conc 33 % (30-34); Mean Corpuscular Hemoglobin 30 pg (28-32); Mean Corpuscular Volume 92 fl (79-97); Platelet Count 281 K/mm3 (140-440); Red Blood Count 3.19 M/mm3 (3.65-5.03); White Blood Count 13.4 K/mm3 (4.5-11.0)
[2017-04-08 05:51] LABS: Anion Gap 22 mmol/L; BUN/Creatinine Ratio 43.75; Blood Urea Nitrogen 35 mg/dL (7-17); Calcium 7.5 mg/dL (8.4-10.2); Carbon Dioxide 17 mmol/L (22-30); Chloride 100.4 mmol/L (98-107); Glucose 186 mg/dL (65-100); Sodium 135 mmol/L (137-145)
[2017-04-08 06:52] LABS: ISTAT Base Excess -7; ISTAT HCO3 18.4; ISTAT PCO2 30.5 (35-45); ISTAT PH 7.388 (7.35-7.45); ISTAT PO2 125 (80-105); ISTAT SO2 99; ISTAT TCO2 19
--- NOTE | 2017-04-08 07:16 | XRay Report ---
AP CHEST: HISTORY: Followup respiratory failure. The endotracheal tube and nasogastric tube remain in good position. AP view of the chest demonstrates a normal mediastinal and cardiac contour with clear lungs and normal bony and soft tissue structures. Bibasilar atelectatic changes have resolved. IMPRESSION: Unremarkable AP chest.
--- NOTE | 2017-04-08 09:12 | Progress Note ---
Assessment and Plan Patient is a 71-year-old woman with a history of diabetes mellitus2, hypertension and pulmonary embolism on Eliquis since December 2016 who presents with abdominal pain and chest pain. Chest x-ray read as no pneumonia or CHF. Troponin was 1.010, EKG read as no ST elevation [place], nonspecific changes. CT abdomen and pelvis with and without contrast shows possible small bowel ileus and right lower lobe atelectasis. - acute respiratory failure, on vent, intubated to protect airway, plan to extubation soon -Small bowel ileus: General surgery following, s/p surgery for ischemic colitis -Non-STEMI: On heparin drip, therefore stopped Eliquis, cardiology consulted, cont beta roxana, statin, aspirin and nitroglycerin. -Accelerated hypertension: on beta roxana, add in meds as needed -Mild leukocytosis most likely reactive or related to the right lower lobe atelectasis -Right lower lobe atelectasis: Treat with incentive spirometry -History of PE: Will be on heparin drip -DVT prophylaxis: Heparin drip -Uncontrolled type 2 diabetes mellitus: Add sliding scale Full code Subjective Date of service: 04/08/17 Principal diagnosis: Acute NSTEMI, Abd pain, ileus Interval history: Patient seen and examined. tolerated surgery, now intubated, plan for extubation today. Overnight uneventful. Imaging, old records, testing, labs, nursing notes reviewed. Objective - Exam Narrative Exam: GEN: WDWN, NAD, AWAKE, ALERT, ORIENTATED x 3, intubated CVS: mild regular tachycardiac, NORMAL S1S2 LUNGS/CHEST: CTA B, NORMAL CHEST EXPANSION B, GOOD AIR ENTRY B ABD: SOFT, surgical dressing on place, nondistended EXT/SKIN: NO SIGNIFICANT EDEMA OR RASH MSK: FROM X 4 EXTREMITIES NEURO: CN 2-12 GROSSLY INTACT, NO FOCAL DEFICITS PSY: CALM - Constitutional Vitals: Vital Signs - 12hr 04/07/17 04/07/17 04/07/17 21:15 21:30 21:50 Temperature 97.8 F Pulse Rate 107 H 97 H 97 H Pulse Rate [ From Monitor] Respiratory 20 20 20 Rate Blood Pressure 143/64 100/60 105/85 O2 Sat by Pulse 97 98 98 Oximetry 04/07/17 04/07/17 04/07/17 22:00 22:13 22:16 Temperature 98.9 F Pulse Rate 115 H 100 H Pulse Rate [ From Monitor] Respiratory 24 Rate Blood Pressure 108/47 O2 Sat by Pulse Oximetry 04/07/17 04/07/17 04/07/17 22:30 22:40 22:45 Temperature Pulse Rate 103 H 103 H 101 H Pulse Rate [ From Monitor] Respiratory 27 H 27 H 22 Rate Blood Pressure 92/52 92/52 102/48 O2 Sat by Pulse Oximetry 04/07/17 04/07/17 04/07/17 23:00 23:15 23:30 Temperature Pulse Rate 101 H 105 H 104 H Pulse Rate [ From Monitor] Respiratory 22 24 24 Rate Blood Pressure 97/47 103/48 113/49 O2 Sat by Pulse Oximetry 04/07/17 04/07/17 04/07/17 23:45 23:54 23:57 Temperature 98.3 F Pulse Rate 103 H 106 H Pulse Rate [ From Monitor] Respiratory 24 Rate Blood Pressure 108/46 108/46 O2 Sat by Pulse 99 99 Oximetry 04/08/17 04/08/17 04/08/17 00:00 00:15 00:30 Temperature Pulse Rate 104 H 104 H 105 H Pulse Rate [ 115 H From Monitor] Respiratory 18 20 20 Rate Blood Pressure 104/48 102/45 102/46 O2 Sat by Pulse 99 Oximetry 04/08/17 04/08/17 04/08/17 00:45 01:00 01:15 Temperature Pulse Rate 110 H 110 H 112 H Pulse Rate [ From Monitor] Respiratory 23 26 H 27 H Rate Blood Pressure 97/57 100/49 109/44 O2 Sat by Pulse Oximetry 04/08/17 04/08/17 04/08/17 01:30 01:45 02:00 Temperature Pulse Rate 112 H 109 H 113 H Pulse Rate [ From Monitor] Respiratory 25 H 22 22 Rate Blood Pressure 112/52 99/48 93/40 O2 Sat by Pulse Oximetry 04/08/17 04/08/17 04/08/17 02:15 02:30 02:45 Temperature Pulse Rate 113 H 112 H 115 H Pulse Rate [ From Monitor] Respiratory 25 H 24 25 H Rate Blood Pressure 93/50 91/47 86/41 O2 Sat by Pulse Oximetry 04/08/17 04/08/17 04/08/17 03:00 03:16 03:30 Temperature Pulse Rate 108 H 109 H 113 H Pulse Rate [ From Monitor] Respiratory 21 23 26 H Rate Blood Pressure 87/45 87/45 87/45 O2 Sat by Pulse Oximetry 04/08/17 04/08/17 04/08/17 03:46 03:54 04:00 Temperature 100.7 F H Pulse Rate 114 H 109 H 113 H Pulse Rate [ 113 H From Monitor] Respiratory 27 H 20 Rate Blood Pressure 95/46 90/41 95/41 O2 Sat by Pulse 100 Oximetry 04/08/17 04/08/17 04/08/17 04:16 04:30 04:46 Temperature Pulse Rate 113 H 109 H 114 H Pulse Rate [ From Monitor] Respiratory 27 H 23 26 H Rate Blood Pressure 95/41 95/41 95/41 O2 Sat by Pulse Oximetry 04/08/17 04/08/17 04/08/17 05:00 05:16 05:30 Temperature Pulse Rate 113 H 114 H 114 H Pulse Rate [ From Monitor] Respiratory 27 H 20 17 Rate Blood Pressure 88/40 88/40 88/40 O2 Sat by Pulse Oximetry 04/08/17 04/08/17 04/08/17 05:46 06:00 06:16 Temperature Pulse Rate 111 H 108 H 109 H Pulse Rate [ From Monitor] Respiratory 25 H 22 21 Rate Blood Pressure 88/40 84/39 90/41 O2 Sat by Pulse Oximetry 04/08/17 04/08/17 04/08/17 06:30 06:46 07:00 Temperature Pulse Rate 113 H 111 H 107 H Pulse Rate [ From Monitor] Respiratory 26 H 25 H 22 Rate Blood Pressure 90/41 90/41 79/39 O2 Sat by Pulse 100 Oximetry 04/08/17 04/08/17 04/08/17 07:16 07:30 07:32 Temperature Pulse Rate 109 H 112 H 107 H Pulse Rate [ From Monitor] Respiratory 23 20 Rate Blood Pressure 79/39 89/40 89/40 O2 Sat by Pulse 98 99 Oximetry 04/08/17 04/08/17 07:46 08:00 Temperature 99.7 F H Pulse Rate 113 H Pulse Rate [ From Monitor] Respiratory 27 H Rate Blood Pressure 89/40 O2 Sat by Pulse 99 Oximetry - Labs CBC & Chem 7: 04/09/17 04:12 04/09/17 04:24 Labs: Abnormal lab results 04/07/17 04/07/17 04/07/17 Range/Units 08:38 16:14 18:20 WBC 22.5 H (4.5-11.0) K/mm3 RBC 3.30 L (3.65-5.03) M/mm3 Hgb 9.7 L (10.1-14.3) gm/dl Hct (30.3-42.9) % Seg Neuts % (Manual) 75.0 H (40.0-70.0) % Seg Neutrophils # Man 16.9 H (1.8-7.7) K/mm3 Monocytes # (Manual) 1.6 H (0.0-0.8) K/mm3 PT 17.0 H (12.2-14.9) Sec. INR 1.39 H (0.87-1.13) Heparin Anti-Xa Level (0.3-0.7) U.I./ml POC ABG pH (7.35-7.45) POC ABG pCO2 (35-45) POC ABG pO2 (80-105) Sodium (137-145) mmol/L Carbon Dioxide (22-30) mmol/L BUN (7-17) mg/dL Glucose (65-100) mg/dL POC Glucose (70-105) Calcium (8.4-10.2) mg/dL Lactate Dehydrogenase 379 H (91-180) units/L 04/07/17 04/07/17 04/08/17 Range/Units 20:16 21:50 03:41 WBC (4.5-11.0) K/mm3 RBC (3.65-5.03) M/mm3 Hgb (10.1-14.3) gm/dl Hct (30.3-42.9) % Seg Neuts % (Manual) (40.0-70.0) % Seg Neutrophils # Man (1.8-7.7) K/mm3 Monocytes # (Manual) (0.0-0.8) K/mm3 PT (12.2-14.9) Sec. INR (0.87-1.13) Heparin Anti-Xa Level (0.3-0.7) U.I./ml POC ABG pH 7.331 L (7.35-7.45) POC ABG pCO2 33.6 L (35-45) POC ABG pO2 (80-105) Sodium (137-145) mmol/L Carbon Dioxide (22-30) mmol/L BUN (7-17) mg/dL Glucose (65-100) mg/dL POC Glucose 122 H 201 H (70-105) Calcium (8.4-10.2) mg/dL Lactate Dehydrogenase (91-180) units/L 04/08/17 04/08/17 04/08/17 Range/Units 03:54 05:10 05:10 WBC 13.4 H (4.5-11.0) K/mm3 RBC 3.19 L (3.65-5.03) M/mm3 Hgb 9.6 L (10.1-14.3) gm/dl Hct 29.2 L (30.3-42.9) % Seg Neuts % (Manual) (40.0-70.0) % Seg Neutrophils # Man (1.8-7.7) K/mm3 Monocytes # (Manual) (0.0-0.8) K/mm3 PT 18.3 H (12.2-14.9) Sec. INR 1.52 H (0.87-1.13) Heparin Anti-Xa Level 0.10 L (0.3-0.7) U.I./ml POC ABG pH (7.35-7.45) POC ABG pCO2 (35-45) POC ABG pO2 (80-105) Sodium 135 L (137-145) mmol/L Carbon Dioxide 17 L (22-30) mmol/L BUN 35 H (7-17) mg/dL Glucose 186 H (65-100) mg/dL POC Glucose (70-105) Calcium 7.5 L D (8.4-10.2) mg/dL Lactate Dehydrogenase (91-180) units/L 04/08/17 Range/Units 06:13 WBC (4.5-11.0) K/mm3 RBC (3.65-5.03) M/mm3 Hgb (10.1-14.3) gm/dl Hct (30.3-42.9) % Seg Neuts % (Manual) (40.0-70.0) % Seg Neutrophils # Man (1.8-7.7) K/mm3 Monocytes # (Manual) (0.0-0.8) K/mm3 PT (12.2-14.9) Sec. INR (0.87-1.13) Heparin Anti-Xa Level (0.3-0.7) U.I./ml POC ABG pH (7.35-7.45) POC ABG pCO2 30.5 L (35-45) POC ABG pO2 125 H (80-105) Sodium (137-145) mmol/L Carbon Dioxide (22-30) mmol/L BUN (7-17) mg/dL Glucose (65-100) mg/dL POC Glucose (70-105) Calcium (8.4-10.2) mg/dL Lactate Dehydrogenase (91-180) units/L
--- NOTE | 2017-04-08 09:35 | Progress Note ---
Assessment and Plan Postop ventilatory failure. Being weaned at This point. Currently on 10/5 cm pressure support/CPAP . Ischemic bowel with volvulus. Non-STEMI. Unsteady protocol orders. Diabetes Recommendations While decreasing ventilator support to 8/5 cm H2O If tolerated on the next 40 minutes an ABG is adequate, consider extubation Continue antibiotics Maintain NG suction Surgery follow-up Discussed with patient and . Critical care time was 31 minutes of [id number] evaluation and coordination of care Subjective Date of service: 04/08/17 Principal diagnosis: Acute NSTEMI, Abd pain, ileus Interval history: Intubated, off propofol. Alert. No shortness of breath Objective Vital Signs - 12hr 04/07/17 04/07/17 04/07/17 21:50 22:00 22:13 Temperature 98.9 F Pulse Rate 97 H 115 H Pulse Rate [ From Monitor] Respiratory 20 Rate Blood Pressure 105/85 O2 Sat by Pulse 98 Oximetry 04/07/17 04/07/17 04/07/17 22:16 22:30 22:40 Temperature Pulse Rate 100 H 103 H 103 H Pulse Rate [ From Monitor] Respiratory 24 27 H 27 H Rate Blood Pressure 108/47 92/52 92/52 O2 Sat by Pulse Oximetry 04/07/17 04/07/17 04/07/17 22:45 23:00 23:15 Temperature Pulse Rate 101 H 101 H 105 H Pulse Rate [ From Monitor] Respiratory 22 22 24 Rate Blood Pressure 102/48 97/47 103/48 O2 Sat by Pulse Oximetry 04/07/17 04/07/17 04/07/17 23:30 23:45 23:54 Temperature Pulse Rate 104 H 103 H 106 H Pulse Rate [ From Monitor] Respiratory 24 24 Rate Blood Pressure 113/49 108/46 108/46 O2 Sat by Pulse 99 Oximetry 04/07/17 04/08/17 04/08/17 23:57 00:00 00:15 Temperature 98.3 F Pulse Rate 104 H 104 H Pulse Rate [ 115 H From Monitor] Respiratory 18 20 Rate Blood Pressure 104/48 102/45 O2 Sat by Pulse 99 99 Oximetry 04/08/17 04/08/17 04/08/17 00:30 00:45 01:00 Temperature Pulse Rate 105 H 110 H 110 H Pulse Rate [ From Monitor] Respiratory 20 23 26 H Rate Blood Pressure 102/46 97/57 100/49 O2 Sat by Pulse Oximetry 04/08/17 04/08/17 04/08/17 01:15 01:30 01:45 Temperature Pulse Rate 112 H 112 H 109 H Pulse Rate [ From Monitor] Respiratory 27 H 25 H 22 Rate Blood Pressure 109/44 112/52 99/48 O2 Sat by Pulse Oximetry 04/08/17 04/08/17 04/08/17 02:00 02:15 02:30 Temperature Pulse Rate 113 H 113 H 112 H Pulse Rate [ From Monitor] Respiratory 22 25 H 24 Rate Blood Pressure 93/40 93/50 91/47 O2 Sat by Pulse Oximetry 04/08/17 04/08/17 04/08/17 02:45 03:00 03:16 Temperature Pulse Rate 115 H 108 H 109 H Pulse Rate [ From Monitor] Respiratory 25 H 21 23 Rate Blood Pressure 86/41 87/45 87/45 O2 Sat by Pulse Oximetry 04/08/17 04/08/17 04/08/17 03:30 03:46 03:54 Temperature Pulse Rate 113 H 114 H 109 H Pulse Rate [ From Monitor] Respiratory 26 H 27 H Rate Blood Pressure 87/45 95/46 90/41 O2 Sat by Pulse 100 Oximetry 04/08/17 04/08/17 04/08/17 04:00 04:16 04:30 Temperature 100.7 F H Pulse Rate 113 H 113 H 109 H Pulse Rate [ 113 H From Monitor] Respiratory 20 27 H 23 Rate Blood Pressure 95/41 95/41 95/41 O2 Sat by Pulse Oximetry 04/08/17 04/08/17 04/08/17 04:46 05:00 05:16 Temperature Pulse Rate 114 H 113 H 114 H Pulse Rate [ From Monitor] Respiratory 26 H 27 H 20 Rate Blood Pressure 95/41 88/40 88/40 O2 Sat by Pulse Oximetry 04/08/17 04/08/17 04/08/17 05:30 05:46 06:00 Temperature Pulse Rate 114 H 111 H 108 H Pulse Rate [ From Monitor] Respiratory 17 25 H 22 Rate Blood Pressure 88/40 88/40 84/39 O2 Sat by Pulse Oximetry 04/08/17 04/08/17 04/08/17 06:16 06:30 06:46 Temperature Pulse Rate 109 H 113 H 111 H Pulse Rate [ From Monitor] Respiratory 21 26 H 25 H Rate Blood Pressure 90/41 90/41 90/41 O2 Sat by Pulse Oximetry 04/08/17 04/08/17 04/08/17 07:00 07:16 07:30 Temperature Pulse Rate 107 H 109 H 112 H Pulse Rate [ From Monitor] Respiratory 22 23 20 Rate Blood Pressure 79/39 79/39 89/40 O2 Sat by Pulse 100 98 Oximetry 04/08/17 04/08/17 04/08/17 07:32 07:46 08:00 Temperature 99.7 F H Pulse Rate 107 H 113 H Pulse Rate [ From Monitor] Respiratory 27 H Rate Blood Pressure 89/40 89/40 O2 Sat by Pulse 99 99 Oximetry Constitutional: alert, other (ETT in position at 23 cm, NGT position) ENT: oropharynx moist Neck: supple, no JVD Effort: no acute distress Ascultation: Bilateral: clear, rhonchi (occasional) Cardiovascular: regular rate and rhythm Gastrointestinal: absent bowel sounds, tender, other (distended) Extremities: no cyanosis, no cyanosis, no cyanosis Neurologic: normal mental status, non-focal exam, CN II-XII normal Psychiatric: affect normal CBC and BMP: 04/08/17 05:10 04/08/17 05:10 ABG, PT/INR, D-dimer: ABG POC ABG pH 7.388 (7.35-7.45) 04/08/17 06:13 POC ABG pCO2 30.5 (35-45) L 04/08/17 06:13 POC ABG pO2 125 (80-105) H 04/08/17 06:13 POC ABG HCO3 18.4 04/08/17 06:13 POC ABG Total CO2 19 04/08/17 06:13 POC ABG O2 Sat 99 04/08/17 06:13 PT/INR, D-dimer PT 18.3 Sec. (12.2-14.9) H 04/08/17 03:54 INR 1.52 (0.87-1.13) H 04/08/17 03:54 Abnormal lab findings: Abnormal Labs 04/05/17 04/05/17 04/05/17 06:59 07:19 12:13 WBC RBC Hgb Hct Barnes % (Auto) Barnes # Seg Neuts % (Manual) Lymphocytes % (Manual) Monocytes % (Manual) Seg Neutrophils # Seg Neutrophils # Man Monocytes # (Manual) PT 15.7 H INR 1.26 H APTT 179.9 H* Heparin Anti-Xa Level POC ABG pH POC ABG pCO2 POC ABG pO2 Sodium Chloride Carbon Dioxide BUN Creatinine Glucose POC Glucose 177 H Calcium AST ALT Lactate Dehydrogenase Troponin T 0.755 H* D Total Protein Albumin 04/05/17 04/05/17 04/05/17 13:02 16:51 18:10 WBC RBC Hgb Hct Barnes % (Auto) Barnes # Seg Neuts % (Manual) Lymphocytes % (Manual) Monocytes % (Manual) Seg Neutrophils # Seg Neutrophils # Man Monocytes # (Manual) PT INR APTT Heparin Anti-Xa Level 1.36 H POC ABG pH POC ABG pCO2 POC ABG pO2 Sodium Chloride Carbon Dioxide BUN Creatinine Glucose POC Glucose 149 H 127 H Calcium AST ALT Lactate Dehydrogenase Troponin T Total Protein Albumin 04/05/17 04/05/17 04/05/17 19:21 21:15 23:51 WBC RBC Hgb Hct Barnes % (Auto) Barnes # Seg Neuts % (Manual) Lymphocytes % (Manual) Monocytes % (Manual) Seg Neutrophils # Seg Neutrophils # Man Monocytes # (Manual) PT INR APTT Heparin Anti-Xa Level 1.09 H POC ABG pH POC ABG pCO2 POC ABG pO2 Sodium Chloride Carbon Dioxide BUN Creatinine Glucose POC Glucose 126 H 125 H Calcium AST ALT Lactate Dehydrogenase Troponin T Total Protein Albumin 04/06/17 04/06/17 04/06/17 04:54 04:54 05:11 WBC 13.6 H RBC 3.64 L Hgb Hct Barnes % (Auto) 11.2 H Barnes # 1.5 H Seg Neuts % (Manual) Lymphocytes % (Manual) Monocytes % (Manual) Seg Neutrophils # 8.6 H Seg Neutrophils # Man Monocytes # (Manual) PT INR APTT Heparin Anti-Xa Level POC ABG pH POC ABG pCO2 POC ABG pO2 Sodium Chloride Carbon Dioxide BUN 21 H Creatinine 0.4 L Glucose 123 H POC Glucose 119 H Calcium AST 92 H ALT 69 H Lactate Dehydrogenase Troponin T Total Protein 6.1 L Albumin 3.1 L 04/07/17 04/07/17 04/07/17 05:19 05:19 08:38 WBC 26.2 H RBC Hgb Hct Barnes % (Auto) Barnes # Seg Neuts % (Manual) 80.5 H Lymphocytes % (Manual) 7.5 L Monocytes % (Manual) 9.5 H Seg Neutrophils # Seg Neutrophils # Man 21.1 H Monocytes # (Manual) 2.5 H PT INR APTT Heparin Anti-Xa Level POC ABG pH POC ABG pCO2 POC ABG pO2 Sodium Chloride 96.6 L Carbon Dioxide 19 L D BUN 26 H Creatinine 0.4 L Glucose POC Glucose Calcium AST ALT Lactate Dehydrogenase 379 H Troponin T Total Protein Albumin 04/07/17 04/07/17 04/07/17 16:14 18:20 20:16 WBC 22.5 H RBC 3.30 L Hgb 9.7 L Hct Barnes % (Auto) Barnes # Seg Neuts % (Manual) 75.0 H Lymphocytes % (Manual) Monocytes % (Manual) Seg Neutrophils # Seg Neutrophils # Man 16.9 H Monocytes # (Manual) 1.6 H PT 17.0 H INR 1.39 H APTT Heparin Anti-Xa Level POC ABG pH POC ABG pCO2 POC ABG pO2 Sodium Chloride Carbon Dioxide BUN Creatinine Glucose POC Glucose 122 H Calcium AST ALT Lactate Dehydrogenase Troponin T Total Protein Albumin 04/07/17 04/08/17 04/08/17 21:50 03:41 03:54 WBC RBC Hgb Hct Barnes % (Auto) Barnes # Seg Neuts % (Manual) Lymphocytes % (Manual) Monocytes % (Manual) Seg Neutrophils # Seg Neutrophils # Man Monocytes # (Manual) PT 18.3 H INR 1.52 H APTT Heparin Anti-Xa Level 0.10 L POC ABG pH 7.331 L POC ABG pCO2 33.6 L POC ABG pO2 Sodium Chloride Carbon Dioxide BUN Creatinine Glucose POC Glucose 201 H Calcium AST ALT Lactate Dehydrogenase Troponin T Total Protein Albumin 04/08/17 04/08/17 04/08/17 05:10 05:10 06:13 WBC 13.4 H RBC 3.19 L Hgb 9.6 L Hct 29.2 L Barnes % (Auto) Barnes # Seg Neuts % (Manual) Lymphocytes % (Manual) Monocytes % (Manual) Seg Neutrophils # Seg Neutrophils # Man Monocytes # (Manual) PT INR APTT Heparin Anti-Xa Level POC ABG pH POC ABG pCO2 30.5 L POC ABG pO2 125 H Sodium 135 L Chloride Carbon Dioxide 17 L BUN 35 H Creatinine Glucose 186 H POC Glucose Calcium 7.5 L D AST ALT Lactate Dehydrogenase Troponin T Total Protein Albumin
[2017-04-08] MEDS: DIOVAN PO SCH (09:46)
[2017-04-08] MEDS: PEPCID IV SCH ×2 (09:48→21:26)
[2017-04-08 10:44] LABS: ISTAT Base Excess -7; ISTAT HCO3 17.8; ISTAT PCO2 29.7 (35-45); ISTAT PH 7.384 (7.35-7.45); ISTAT PO2 89 (80-105); ISTAT SO2 97; ISTAT TCO2 19
--- NOTE | 2017-04-08 11:44 | Progress Note ---
Assessment and Plan Assessment: NSTEMI Volvulus of distal ileum - s/p open smal bowel resection on 04/07/2017 Cholecystitis / cholelithiasis - s/p cholecystectomy on 04/07/2017 HTN DM H/o PE - has been on Eliquis since ? 12/2016; home Eliquis held. Leukocytosis / Fever Plan: LHC will be post-poned in setting of recent abdominal surgery given that pt is chest pain free and hemodynamically stable. Will re-evaluate for possible LHC prior to discharge. ASA held in setting of recent surgery. BB and ARB held in setting of hypotension. Resume statin once tolerating PO intake. In the event that DAPT is required from cardiology standpoint, would recommend pulmonary to address the issue of whether group home OAC is needed for her history of PE. Assessment and plan reviewed with pt and pt's at bedside. The patient has been seen in conjunction with Dr. Browning who agrees with the assessment and plan of care. Subjective Date of service: 04/08/17 Principal diagnosis: Acute NSTEMI, Abd pain, ileus Interval history: Pt resting in bed, intubated, A&O, on CPAP trial. s/p emergent open laparotomy with small bowel resection and cholecystectomy yesterday evening. Pt denies any complaints currently. VSS in ST on tele. Objective Last Vital Signs Temp 99.7 F H 04/08/17 08:00 Pulse 113 H 04/08/17 07:46 Resp 27 H 04/08/17 07:46 BP 88/54 04/08/17 09:46 Pulse Ox 99 04/08/17 07:46 - Physical Examination General: No Apparent Distress HEENT: Positive: EOMI, Normocephaly, Mucus Membranes Moist Neck: Positive: neck supple, trachea midline, Carotid Upstroke (full) Cardiac: Positive: Reg Rate and Rhythm, S1/S2, Systolic Murmur Lungs: Positive: Normal Breath Sounds, Ventilated Respirations Neuro: Positive: Grossly Intact Abdomen: Positive: Soft, Active Bowel Sounds, Tender Skin: Positive: Clear. Negative: Rash Musculoskeletal: Normal Range of Motion Extremities: Absent: edema - Labs and Meds Cardiac Enzymes 04/07/17 Range/Units 08:38 Lactate Dehydrogenase 379 H (91-180) units/L Coagulation 04/07/17 04/08/17 Range/Units 16:14 03:54 PT 17.0 H 18.3 H (12.2-14.9) Sec. INR 1.39 H 1.52 H (0.87-1.13) CBC 04/07/17 04/08/17 Range/Units 18:20 05:10 WBC 22.5 H 13.4 H (4.5-11.0) K/mm3 RBC 3.30 L 3.19 L (3.65-5.03) M/mm3 Hgb 9.7 L 9.6 L (10.1-14.3) gm/dl Hct 30.3 29.2 L (30.3-42.9) % Plt Count 303 281 (140-440) K/mm3 Comprehensive Metabolic Panel 04/08/17 Range/Units 05:10 Sodium 135 L (137-145) mmol/L Potassium 4.0 (3.6-5.0) mmol/L Chloride 100.4 (98-107) mmol/L Carbon Dioxide 17 L (22-30) mmol/L BUN 35 H (7-17) mg/dL Creatinine 0.8 D (0.7-1.2) mg/dL Glucose 186 H (65-100) mg/dL Calcium 7.5 L D (8.4-10.2) mg/dL - Imaging and Cardiology EKG: image reviewed Echo: report reviewed - Telemetry EKG Rhythm: Sinus Tachycardia - EKG Sinus rhythms and dysrhythmias: sinus rhythm AV and intraventricular conduction: 1 AV block Myocardial infarction: septal OR (old age or ind
[2017-04-08] MEDS ORDERED: NACL 0.9% 250ML 250 ML IV ONE (12:10)
[2017-04-08] MEDS: HEPARIN/ 0.45% NACL-25,000 UNIT/500 ML 25,000 UNITS/500 ML BAG IV SCH (12:30)
--- NOTE | 2017-04-08 13:23 | Progress Note ---
Subjective Narrative: alert responsive feels much better , for extubation today will keep NG WBC and K much improved , will keep in ICU NPO , Objective Vital Signs - 12hr 04/08/17 04/08/17 04/08/17 01:30 01:45 02:00 Temperature Pulse Rate 112 H 109 H 113 H Pulse Rate [ From Monitor] Respiratory 25 H 22 22 Rate Blood Pressure 112/52 99/48 93/40 O2 Sat by Pulse Oximetry 04/08/17 04/08/17 04/08/17 02:15 02:30 02:45 Temperature Pulse Rate 113 H 112 H 115 H Pulse Rate [ From Monitor] Respiratory 25 H 24 25 H Rate Blood Pressure 93/50 91/47 86/41 O2 Sat by Pulse Oximetry 04/08/17 04/08/17 04/08/17 03:00 03:16 03:30 Temperature Pulse Rate 108 H 109 H 113 H Pulse Rate [ From Monitor] Respiratory 21 23 26 H Rate Blood Pressure 87/45 87/45 87/45 O2 Sat by Pulse Oximetry 04/08/17 04/08/17 04/08/17 03:46 03:54 04:00 Temperature 100.7 F H Pulse Rate 114 H 109 H 113 H Pulse Rate [ 113 H From Monitor] Respiratory 27 H 20 Rate Blood Pressure 95/46 90/41 95/41 O2 Sat by Pulse 100 Oximetry 04/08/17 04/08/17 04/08/17 04:16 04:30 04:46 Temperature Pulse Rate 113 H 109 H 114 H Pulse Rate [ From Monitor] Respiratory 27 H 23 26 H Rate Blood Pressure 95/41 95/41 95/41 O2 Sat by Pulse Oximetry 04/08/17 04/08/17 04/08/17 05:00 05:16 05:30 Temperature Pulse Rate 113 H 114 H 114 H Pulse Rate [ From Monitor] Respiratory 27 H 20 17 Rate Blood Pressure 88/40 88/40 88/40 O2 Sat by Pulse Oximetry 04/08/17 04/08/17 04/08/17 05:46 06:00 06:16 Temperature Pulse Rate 111 H 108 H 109 H Pulse Rate [ From Monitor] Respiratory 25 H 22 21 Rate Blood Pressure 88/40 84/39 90/41 O2 Sat by Pulse Oximetry 04/08/17 04/08/17 04/08/17 06:30 06:46 07:00 Temperature Pulse Rate 113 H 111 H 107 H Pulse Rate [ From Monitor] Respiratory 26 H 25 H 22 Rate Blood Pressure 90/41 90/41 79/39 O2 Sat by Pulse 100 Oximetry 04/08/17 04/08/17 04/08/17 07:16 07:30 07:32 Temperature Pulse Rate 109 H 112 H 107 H Pulse Rate [ From Monitor] Respiratory 23 20 Rate Blood Pressure 79/39 89/40 89/40 O2 Sat by Pulse 98 99 Oximetry 04/08/17 04/08/17 04/08/17 07:46 08:00 08:30 Temperature 99.7 F H Pulse Rate 113 H 112 H 107 H Pulse Rate [ From Monitor] Respiratory 27 H 25 H 20 Rate Blood Pressure 89/40 88/42 91/43 O2 Sat by Pulse 99 99 99 Oximetry 04/08/17 04/08/17 04/08/17 09:00 09:30 09:46 Temperature Pulse Rate 114 H 112 H Pulse Rate [ From Monitor] Respiratory 26 H 27 H Rate Blood Pressure 97/45 88/41 88/54 O2 Sat by Pulse 100 99 Oximetry 04/08/17 04/08/17 04/08/17 10:00 10:30 11:00 Temperature Pulse Rate 109 H 112 H 111 H Pulse Rate [ From Monitor] Respiratory 24 26 H 25 H Rate Blood Pressure 92/43 96/42 96/43 O2 Sat by Pulse 99 98 98 Oximetry 04/08/17 04/08/17 04/08/17 11:30 11:40 12:00 Temperature 99.5 F Pulse Rate 110 H 111 H Pulse Rate [ From Monitor] Respiratory 25 H 25 H Rate Blood Pressure 108/48 98/43 O2 Sat by Pulse 97 99 98 Oximetry 04/08/17 04/08/17 12:30 13:00 Temperature Pulse Rate 111 H 106 H Pulse Rate [ From Monitor] Respiratory 25 H 20 Rate Blood Pressure 98/43 90/41 O2 Sat by Pulse 100 99 Oximetry - Labs 04/08/17 05:10 04/08/17 05:10 Diabetes panel 04/08/17 Range/Units 05:10 Sodium 135 L (137-145) mmol/L Potassium 4.0 (3.6-5.0) mmol/L Chloride 100.4 (98-107) mmol/L Carbon Dioxide 17 L (22-30) mmol/L BUN 35 H (7-17) mg/dL Creatinine 0.8 D (0.7-1.2) mg/dL Glucose 186 H (65-100) mg/dL Calcium 7.5 L D (8.4-10.2) mg/dL Calcium panel 04/08/17 Range/Units 05:10 Calcium 7.5 L D (8.4-10.2) mg/dL Pituitary panel 04/08/17 Range/Units 05:10 Sodium 135 L (137-145) mmol/L Potassium 4.0 (3.6-5.0) mmol/L Chloride 100.4 (98-107) mmol/L Carbon Dioxide 17 L (22-30) mmol/L BUN 35 H (7-17) mg/dL Creatinine 0.8 D (0.7-1.2) mg/dL Glucose 186 H (65-100) mg/dL Calcium 7.5 L D (8.4-10.2) mg/dL Adrenal panel 04/08/17 Range/Units 05:10 Sodium 135 L (137-145) mmol/L Potassium 4.0 (3.6-5.0) mmol/L Chloride 100.4 (98-107) mmol/L Carbon Dioxide 17 L (22-30) mmol/L BUN 35 H (7-17) mg/dL Creatinine 0.8 D (0.7-1.2) mg/dL Glucose 186 H (65-100) mg/dL Calcium 7.5 L D (8.4-10.2) mg/dL
--- NOTE | 2017-04-08 14:37 | Gastroenterology Progress Note ---
Assessment and Plan GI: s/p surgery for ischemic gut/volvulus - stable post-extubation - post-op management per surgery team - will sign off, call if needed Subjective Date of service: 04/08/17 Principal diagnosis: Acute NSTEMI, Abd pain, ileus Interval history: - no problems overnight Objective - Constitutional Vitals: Temp Pulse Resp BP Pulse Ox 99.5 F 106 H 20 90/41 99 04/08/17 12:00 04/08/17 13:00 04/08/17 13:00 04/08/17 13:00 04/08/17 13:00 General appearance: no acute distress - Respiratory Respiratory: bilateral: CTA - Cardiovascular Rhythm: regular Heart Sounds: Present: S1 & S2 - Gastrointestinal General gastrointestinal: Present: soft, hypoactive bowel sounds - Labs CBC & Chem 7: 04/08/17 05:10 04/08/17 05:10 Labs: Laboratory Results - last 24 hr 04/07/17 04/07/17 04/07/17 16:14 17:17 18:20 WBC RBC Hgb Hct MCV MCH MCHC RDW Plt Count Add Manual Diff Total Counted Seg Neuts % (Manual) Band Neutrophils % Lymphocytes % (Manual) Reactive Lymphs % (Man) Monocytes % (Manual) Eosinophils % (Manual) Basophils % (Manual) Metamyelocytes % Myelocytes % Promyelocytes % Blast Cells % Nucleated RBC % Seg Neutrophils # Man Band Neutrophils # Lymphocytes # (Manual) Abs React Lymphs (Man) Monocytes # (Manual) Eosinophils # (Manual) Basophils # (Manual) Metamyelocytes # Myelocytes # Promyelocytes # Blast Cells # WBC Morphology Hypersegmented Neuts Hyposegmented Neuts Hypogranular Neuts Smudge Cells Toxic Granulation Toxic Vacuolation Dohle Bodies Pelger-Huet Anomaly Cristina Rods Platelet Estimate Clumped Platelets Plt Clumps, EDTA Large Platelets Giant Platelets Platelet Satelliting Plt Morphology Comment RBC Morphology Dimorphic RBCs Polychromasia Hypochromasia Poikilocytosis Anisocytosis Microcytosis Macrocytosis Spherocytes Pappenheimer Bodies Sickle Cells Target Cells Tear Drop Cells Ovalocytes Helmet Cells Lal-Christoval Bodies Cora Rings Slime Cells Bite Cells Crenated Cell Elliptocytes Acanthocytes (Spur) Rouleaux Hemoglobin C Crystals Schistocytes Malaria parasites Liu Bodies Hem Pathologist Commnt PT 17.0 H INR 1.39 H Heparin Anti-Xa Level POC ABG pH POC ABG pCO2 POC ABG pO2 POC ABG HCO3 POC ABG Total CO2 POC ABG O2 Sat POC ABG Base Excess FiO2 Sodium Potassium Chloride Carbon Dioxide Anion Gap BUN Creatinine Estimated GFR BUN/Creatinine Ratio Glucose POC Glucose 86 Calcium Blood Type O POSITIVE Antibody Screen TNR FABIOLA Antibody Screen Negative 04/07/17 04/07/17 04/07/17 18:20 20:16 21:50 WBC 22.5 H RBC 3.30 L Hgb 9.7 L Hct 30.3 MCV 92 MCH 29 MCHC 32 RDW 14.3 Plt Count 303 Add Manual Diff Complete Total Counted 100 Seg Neuts % (Manual) 75.0 H Band Neutrophils % 0 Lymphocytes % (Manual) 18.0 Reactive Lymphs % (Man) 0 Monocytes % (Manual) 7.0 Eosinophils % (Manual) 0 Basophils % (Manual) 0 Metamyelocytes % 0 Myelocytes % 0 Promyelocytes % 0 Blast Cells % 0 Nucleated RBC % Not Reportable Seg Neutrophils # Man 16.9 H Band Neutrophils # 0.0 Lymphocytes # (Manual) 4.1 Abs React Lymphs (Man) 0.0 Monocytes # (Manual) 1.6 H Eosinophils # (Manual) 0.0 Basophils # (Manual) 0.0 Metamyelocytes # 0.0 Myelocytes # 0.0 Promyelocytes # 0.0 Blast Cells # 0.0 WBC Morphology Not Reportable Hypersegmented Neuts Not Reportable Hyposegmented Neuts Not Reportable Hypogranular Neuts Not Reportable Smudge Cells Not Reportable Toxic Granulation Not Reportable Toxic Vacuolation Not Reportable Dohle Bodies Not Reportable Pelger-Huet Anomaly Not Reportable Cristina Rods Not Reportable Platelet Estimate Appears normal Clumped Platelets Not Reportable Plt Clumps, EDTA Not Reportable Large Platelets Not Reportable Giant Platelets Not Reportable Platelet Satelliting Not Reportable Plt Morphology Comment Not Reportable RBC Morphology Normal Dimorphic RBCs Not Reportable Polychromasia Not Reportable Hypochromasia Not Reportable Poikilocytosis Not Reportable Anisocytosis Not Reportable Microcytosis Not Reportable Macrocytosis Not Reportable Spherocytes Not Reportable Pappenheimer Bodies Not Reportable Sickle Cells Not Reportable Target Cells Not Reportable Tear Drop Cells Not Reportable Ovalocytes Not Reportable Helmet Cells Not Reportable Lal-Christoval Bodies Not Reportable Cora Rings Not Reportable Slime Cells Not Reportable Bite Cells Not Reportable Crenated Cell Not Reportable Elliptocytes Not Reportable Acanthocytes (Spur) Not Reportable Rouleaux Not Reportable Hemoglobin C Crystals Not Reportable Schistocytes Not Reportable Malaria parasites Not Reportable Liu Bodies Not Reportable Hem Pathologist Commnt No PT INR Heparin Anti-Xa Level POC ABG pH 7.331 L POC ABG pCO2 33.6 L POC ABG pO2 93 POC ABG HCO3 17.8 POC ABG Total CO2 19 POC ABG O2 Sat 97 POC ABG Base Excess -8 FiO2 50 Sodium Potassium Chloride Carbon Dioxide Anion Gap BUN Creatinine Estimated GFR BUN/Creatinine Ratio Glucose POC Glucose 122 H Calcium Blood Type Antibody Screen FABIOLA Antibody Screen 04/08/17 04/08/17 04/08/17 03:41 03:54 05:10 WBC 13.4 H RBC 3.19 L Hgb 9.6 L Hct 29.2 L MCV 92 MCH 30 MCHC 33 RDW 14.0 Plt Count 281 Add Manual Diff Total Counted Seg Neuts % (Manual) Band Neutrophils % Lymphocytes % (Manual) Reactive Lymphs % (Man) Monocytes % (Manual) Eosinophils % (Manual) Basophils % (Manual) Metamyelocytes % Myelocytes % Promyelocytes % Blast Cells % Nucleated RBC % Seg Neutrophils # Man Band Neutrophils # Lymphocytes # (Manual) Abs React Lymphs (Man) Monocytes # (Manual) Eosinophils # (Manual) Basophils # (Manual) Metamyelocytes # Myelocytes # Promyelocytes # Blast Cells # WBC Morphology Hypersegmented Neuts Hyposegmented Neuts Hypogranular Neuts Smudge Cells Toxic Granulation Toxic Vacuolation Dohle Bodies Pelger-Huet Anomaly Cristina Rods Platelet Estimate Clumped Platelets Plt Clumps, EDTA Large Platelets Giant Platelets Platelet Satelliting Plt Morphology Comment RBC Morphology Dimorphic RBCs Polychromasia Hypochromasia Poikilocytosis Anisocytosis Microcytosis Macrocytosis Spherocytes Pappenheimer Bodies Sickle Cells Target Cells Tear Drop Cells Ovalocytes Helmet Cells Lal-Christoval Bodies Cora Rings Hawkeye Cells Bite Cells Crenated Cell Elliptocytes Acanthocytes (Spur) Rouleaux Hemoglobin C Crystals Schistocytes Malaria parasites Liu Bodies Hem Pathologist Commnt PT 18.3 H INR 1.52 H Heparin Anti-Xa Level 0.10 L POC ABG pH POC ABG pCO2 POC ABG pO2 POC ABG HCO3 POC ABG Total CO2 POC ABG O2 Sat POC ABG Base Excess FiO2 Sodium Potassium Chloride Carbon Dioxide Anion Gap BUN Creatinine Estimated GFR BUN/Creatinine Ratio Glucose POC Glucose 201 H Calcium Blood Type Antibody Screen FABIOLA Antibody Screen 04/08/17 04/08/17 04/08/17 05:10 06:13 10:35 WBC RBC Hgb Hct MCV MCH MCHC RDW Plt Count Add Manual Diff Total Counted Seg Neuts % (Manual) Band Neutrophils % Lymphocytes % (Manual) Reactive Lymphs % (Man) Monocytes % (Manual) Eosinophils % (Manual) Basophils % (Manual) Metamyelocytes % Myelocytes % Promyelocytes % Blast Cells % Nucleated RBC % Seg Neutrophils # Man Band Neutrophils # Lymphocytes # (Manual) Abs React Lymphs (Man) Monocytes # (Manual) Eosinophils # (Manual) Basophils # (Manual) Metamyelocytes # Myelocytes # Promyelocytes # Blast Cells # WBC Morphology Hypersegmented Neuts Hyposegmented Neuts Hypogranular Neuts Smudge Cells Toxic Granulation Toxic Vacuolation Dohle Bodies Pelger-Huet Anomaly Cristina Rods Platelet Estimate Clumped Platelets Plt Clumps, EDTA Large Platelets Giant Platelets Platelet Satelliting Plt Morphology Comment RBC Morphology Dimorphic RBCs Polychromasia Hypochromasia Poikilocytosis Anisocytosis Microcytosis Macrocytosis Spherocytes Pappenheimer Bodies Sickle Cells Target Cells Tear Drop Cells Ovalocytes Helmet Cells Lal-Christoval Bodies Cora Rings Hawkeye Cells Bite Cells Crenated Cell Elliptocytes Acanthocytes (Spur) Rouleaux Hemoglobin C Crystals Schistocytes Malaria parasites Liu Bodies Hem Pathologist Commnt PT INR Heparin Anti-Xa Level POC ABG pH 7.388 7.384 POC ABG pCO2 30.5 L 29.7 L POC ABG pO2 125 H 89 POC ABG HCO3 18.4 17.8 POC ABG Total CO2 19 19 POC ABG O2 Sat 99 97 POC ABG Base Excess -7 -7 FiO2 50 35 Sodium 135 L Potassium 4.0 Chloride 100.4 Carbon Dioxide 17 L Anion Gap 22 BUN 35 H Creatinine 0.8 D Estimated GFR > 60 BUN/Creatinine Ratio 43.75 Glucose 186 H POC Glucose Calcium 7.5 L D Blood Type Antibody Screen FABIOLA Antibody Screen 04/08/17 12:13 WBC RBC Hgb Hct MCV MCH MCHC RDW Plt Count Add Manual Diff Total Counted Seg Neuts % (Manual) Band Neutrophils % Lymphocytes % (Manual) Reactive Lymphs % (Man) Monocytes % (Manual) Eosinophils % (Manual) Basophils % (Manual) Metamyelocytes % Myelocytes % Promyelocytes % Blast Cells % Nucleated RBC % Seg Neutrophils # Man Band Neutrophils # Lymphocytes # (Manual) Abs React Lymphs (Man) Monocytes # (Manual) Eosinophils # (Manual) Basophils # (Manual) Metamyelocytes # Myelocytes # Promyelocytes # Blast Cells # WBC Morphology Hypersegmented Neuts Hyposegmented Neuts Hypogranular Neuts Smudge Cells Toxic Granulation Toxic Vacuolation Dohle Bodies Pelger-Huet Anomaly Cristina Rods Platelet Estimate Clumped Platelets Plt Clumps, EDTA Large Platelets Giant Platelets Platelet Satelliting Plt Morphology Comment RBC Morphology Dimorphic RBCs Polychromasia Hypochromasia Poikilocytosis Anisocytosis Microcytosis Macrocytosis Spherocytes Pappenheimer Bodies Sickle Cells Target Cells Tear Drop Cells Ovalocytes Helmet Cells Lal-Christoval Bodies Cora Rings Hawkeye Cells Bite Cells Crenated Cell Elliptocytes Acanthocytes (Spur) Rouleaux Hemoglobin C Crystals Schistocytes Malaria parasites Liu Bodies Hem Pathologist Commnt PT INR Heparin Anti-Xa Level POC ABG pH POC ABG pCO2 POC ABG pO2 POC ABG HCO3 POC ABG Total CO2 POC ABG O2 Sat POC ABG Base Excess FiO2 Sodium Potassium Chloride Carbon Dioxide Anion Gap BUN Creatinine Estimated GFR BUN/Creatinine Ratio Glucose POC Glucose 250 H Calcium Blood Type Antibody Screen FABIOLA Antibody Screen
[2017-04-08] MEDS: D5W/0.45% NACL/KCL 20 MEQ 20 MEQ/1,000 ML BAG IV SCH (19:25)
[2017-04-08] MEDS: MORPHINE IV PRN (21:26)
[2017-04-08] MEDS: ZOFRAN IV PRN (21:26)
[2017-04-08] MEDS: NACL 0.45% 1000 ML 1,000 ML IV SCH (21:29)
[2017-04-09] MEDS: NOVOLOG SUB-Q SCH ×4 (00:41→18:21)
[2017-04-09] MEDS: D5W/0.45% NACL/KCL 20 MEQ 20 MEQ/1,000 ML BAG IV SCH ×4 (02:01→21:52)
[2017-04-09 05:00] LABS: Anion Gap 17 mmol/L; BUN/Creatinine Ratio 38.88; Blood Urea Nitrogen 35 mg/dL (7-17); Calcium 7.1 mg/dL (8.4-10.2); Carbon Dioxide 16 mmol/L (22-30); Chloride 103.4 mmol/L (98-107); Glucose 139 mg/dL (65-100); Potassium 3.8 mmol/L (3.6-5.0); Sodium 133 mmol/L (137-145)
[2017-04-09 05:33] LABS: Hematocrit 27.7 % (30.3-42.9); Hemoglobin 8.7 gm/dl (10.1-14.3); Mean Corpuscular HGB Conc 32 % (30-34); Mean Corpuscular Hemoglobin 29 pg (28-32); Mean Corpuscular Volume 90 fl (79-97); Platelet Count 269 K/mm3 (140-440); Red Blood Count 3.06 M/mm3 (3.65-5.03); Red Cell Distribution Width 14.1 % (13.2-15.2)
[2017-04-09 05:39] LABS: White Blood Count 21.1 K/mm3 (4.5-11.0)
[2017-04-09] MEDS: ZOSYN/NS 4.5GM/100ML 4.5 GM/100 ML VIAL IV SCH ×3 (06:21→21:52)
[2017-04-09 06:52] LABS: Basophils % (Manual) 0 % (0.0-1.8); Blastocytes % (Manual) 0 %; Eosinophils % (Manual) 0 % (0.0-4.3)
[2017-04-09 06:53] LABS: Anisocytosis 1+; Diff Status Complete; Platelet Estimate Consistent w Auto
--- NOTE | 2017-04-09 08:10 | XRay Report ---
AP CHEST :04/09/17 CLINICAL: Follow up respiratory failure. COMPARISON:04/08/17 FINDINGS: The endotracheal tube has been removed. The lungs are slightly underexpanded but clear. Mild bibasal subsegmental atelectasis. No airspace disease or pleural effusion. The heart and pulmonary vasculature are normal. A nasogastric tube tip is below the diaphragm and not imaged. No pneumothorax. IMPRESSION: Negative chest after extubation.
--- NOTE | 2017-04-09 08:35 | Progress Note ---
Assessment and Plan Postop ventilatory failure. Weaned at This point. Tolerating nasal cannula without any respiratory problems Ischemic bowel with volvulus. Sepsis due to the above. Still with leukocytosis CXR w/o infiltrates Non-STEMI. No chest pain reported Diabetes Hx/o PE/DVT event. On ambulation Recommendations anticoagulation Monitor cultures ID consult-add Flagyl, Diflucan? Discussed with patient and . Critical care time was 31 minutes of [id number] evaluation and coordination of care Subjective Date of service: 04/09/17 Principal diagnosis: Acute NSTEMI, Abd pain, ileus Interval history: Reports no respiratory complaints. No cough or expectoration. Objective Vital Signs - 12hr 04/08/17 04/08/17 04/08/17 21:00 21:26 21:30 Temperature Pulse Rate 111 H 110 H Respiratory 27 H 27 H 25 H Rate Blood Pressure 97/45 93/45 O2 Sat by Pulse 99 99 Oximetry 04/08/17 04/08/17 04/08/17 21:39 22:00 22:30 Temperature Pulse Rate 103 H 107 H Respiratory 19 24 Rate Blood Pressure 86/38 90/45 O2 Sat by Pulse 98 99 99 Oximetry 04/08/17 04/08/17 04/09/17 23:00 23:30 00:00 Temperature 99.0 F Pulse Rate 103 H 100 H 100 H Respiratory 20 19 19 Rate Blood Pressure 84/42 93/41 88/42 O2 Sat by Pulse 100 100 100 Oximetry 04/09/17 04/09/17 04/09/17 00:30 01:00 01:30 Temperature Pulse Rate 99 H 99 H 99 H Respiratory 18 21 18 Rate Blood Pressure 89/44 94/42 91/43 O2 Sat by Pulse 100 99 98 Oximetry 04/09/17 04/09/17 04/09/17 02:00 02:30 03:00 Temperature Pulse Rate 98 H 97 H 98 H Respiratory 18 20 18 Rate Blood Pressure 88/40 99/45 86/41 O2 Sat by Pulse 99 100 100 Oximetry 04/09/17 04/09/17 04/09/17 03:30 04:00 04:30 Temperature 98.8 F Pulse Rate 97 H 100 H 97 H Respiratory 18 26 H 17 Rate Blood Pressure 106/43 108/49 86/42 O2 Sat by Pulse 100 98 100 Oximetry 04/09/17 04/09/17 04/09/17 05:00 05:30 06:00 Temperature Pulse Rate 98 H 97 H 100 H Respiratory 19 18 20 Rate Blood Pressure 92/43 101/43 89/43 O2 Sat by Pulse 100 100 100 Oximetry 04/09/17 04/09/17 07:51 08:29 Temperature 99.2 F Pulse Rate Respiratory Rate Blood Pressure O2 Sat by Pulse 100 Oximetry Constitutional: alert ENT: oropharynx moist Neck: supple, no JVD Effort: no acute distress Ascultation: Bilateral: clear, diminished breath sounds (decreased excursions) Cardiovascular: regular rate and rhythm Gastrointestinal: absent bowel sounds, tender, other (distended, tympanic) Extremities: no cyanosis, no cyanosis, no cyanosis Neurologic: normal mental status, non-focal exam, CN II-XII normal Psychiatric: affect normal CBC and BMP: 04/09/17 04:12 04/09/17 04:24 ABG, PT/INR, D-dimer: ABG POC ABG pH 7.384 (7.35-7.45) 04/08/17 10:35 POC ABG pCO2 29.7 (35-45) L 04/08/17 10:35 POC ABG pO2 89 (80-105) 04/08/17 10:35 POC ABG HCO3 17.8 04/08/17 10:35 POC ABG Total CO2 19 04/08/17 10:35 POC ABG O2 Sat 97 04/08/17 10:35 PT/INR, D-dimer PT 18.3 Sec. (12.2-14.9) H 04/08/17 03:54 INR 1.52 (0.87-1.13) H 04/08/17 03:54 Abnormal lab findings: Abnormal Labs 04/05/17 04/05/17 04/05/17 06:59 07:19 12:13 WBC RBC Hgb Hct Lipscomb % (Auto) Lipscomb # Seg Neuts % (Manual) Lymphocytes % (Manual) Monocytes % (Manual) Seg Neutrophils # Seg Neutrophils # Man Monocytes # (Manual) PT 15.7 H INR 1.26 H APTT 179.9 H* Heparin Anti-Xa Level POC ABG pH POC ABG pCO2 POC ABG pO2 Sodium Chloride Carbon Dioxide BUN Creatinine Glucose POC Glucose 177 H Calcium AST ALT Lactate Dehydrogenase Troponin T 0.755 H* D Total Protein Albumin 04/05/17 04/05/17 04/05/17 13:02 16:51 18:10 WBC RBC Hgb Hct Lipscomb % (Auto) Lipscomb # Seg Neuts % (Manual) Lymphocytes % (Manual) Monocytes % (Manual) Seg Neutrophils # Seg Neutrophils # Man Monocytes # (Manual) PT INR APTT Heparin Anti-Xa Level 1.36 H POC ABG pH POC ABG pCO2 POC ABG pO2 Sodium Chloride Carbon Dioxide BUN Creatinine Glucose POC Glucose 149 H 127 H Calcium AST ALT Lactate Dehydrogenase Troponin T Total Protein Albumin 04/05/17 04/05/17 04/05/17 19:21 21:15 23:51 WBC RBC Hgb Hct Lipscomb % (Auto) Lipscomb # Seg Neuts % (Manual) Lymphocytes % (Manual) Monocytes % (Manual) Seg Neutrophils # Seg Neutrophils # Man Monocytes # (Manual) PT INR APTT Heparin Anti-Xa Level 1.09 H POC ABG pH POC ABG pCO2 POC ABG pO2 Sodium Chloride Carbon Dioxide BUN Creatinine Glucose POC Glucose 126 H 125 H Calcium AST ALT Lactate Dehydrogenase Troponin T Total Protein Albumin 04/06/17 04/06/17 04/06/17 04:54 04:54 05:11 WBC 13.6 H RBC 3.64 L Hgb Hct Lipscomb % (Auto) 11.2 H Lipscomb # 1.5 H Seg Neuts % (Manual) Lymphocytes % (Manual) Monocytes % (Manual) Seg Neutrophils # 8.6 H Seg Neutrophils # Man Monocytes # (Manual) PT INR APTT Heparin Anti-Xa Level POC ABG pH POC ABG pCO2 POC ABG pO2 Sodium Chloride Carbon Dioxide BUN 21 H Creatinine 0.4 L Glucose 123 H POC Glucose 119 H Calcium AST 92 H ALT 69 H Lactate Dehydrogenase Troponin T Total Protein 6.1 L Albumin 3.1 L 04/07/17 04/07/17 04/07/17 05:19 05:19 08:38 WBC 26.2 H RBC Hgb Hct Lipscomb % (Auto) Lipscomb # Seg Neuts % (Manual) 80.5 H Lymphocytes % (Manual) 7.5 L Monocytes % (Manual) 9.5 H Seg Neutrophils # Seg Neutrophils # Man 21.1 H Monocytes # (Manual) 2.5 H PT INR APTT Heparin Anti-Xa Level POC ABG pH POC ABG pCO2 POC ABG pO2 Sodium Chloride 96.6 L Carbon Dioxide 19 L D BUN 26 H Creatinine 0.4 L Glucose POC Glucose Calcium AST ALT Lactate Dehydrogenase 379 H Troponin T Total Protein Albumin 04/07/17 04/07/17 04/07/17 16:14 18:20 20:16 WBC 22.5 H RBC 3.30 L Hgb 9.7 L Hct Lipscomb % (Auto) Lipscomb # Seg Neuts % (Manual) 75.0 H Lymphocytes % (Manual) Monocytes % (Manual) Seg Neutrophils # Seg Neutrophils # Man 16.9 H Monocytes # (Manual) 1.6 H PT 17.0 H INR 1.39 H APTT Heparin Anti-Xa Level POC ABG pH POC ABG pCO2 POC ABG pO2 Sodium Chloride Carbon Dioxide BUN Creatinine Glucose POC Glucose 122 H Calcium AST ALT Lactate Dehydrogenase Troponin T Total Protein Albumin 04/07/17 04/08/17 04/08/17 21:50 03:41 03:54 WBC RBC Hgb Hct Lipscomb % (Auto) Lipscomb # Seg Neuts % (Manual) Lymphocytes % (Manual) Monocytes % (Manual) Seg Neutrophils # Seg Neutrophils # Man Monocytes # (Manual) PT 18.3 H INR 1.52 H APTT Heparin Anti-Xa Level 0.10 L POC ABG pH 7.331 L POC ABG pCO2 33.6 L POC ABG pO2 Sodium Chloride Carbon Dioxide BUN Creatinine Glucose POC Glucose 201 H Calcium AST ALT Lactate Dehydrogenase Troponin T Total Protein Albumin 04/08/17 04/08/17 04/08/17 05:10 05:10 06:13 WBC 13.4 H RBC 3.19 L Hgb 9.6 L Hct 29.2 L Lipscomb % (Auto) Lipscomb # Seg Neuts % (Manual) Lymphocytes % (Manual) Monocytes % (Manual) Seg Neutrophils # Seg Neutrophils # Man Monocytes # (Manual) PT INR APTT Heparin Anti-Xa Level POC ABG pH POC ABG pCO2 30.5 L POC ABG pO2 125 H Sodium 135 L Chloride Carbon Dioxide 17 L BUN 35 H Creatinine Glucose 186 H POC Glucose Calcium 7.5 L D AST ALT Lactate Dehydrogenase Troponin T Total Protein Albumin 04/08/17 04/08/17 04/08/17 10:35 12:13 18:07 WBC RBC Hgb Hct Lipscomb % (Auto) Lipscomb # Seg Neuts % (Manual) Lymphocytes % (Manual) Monocytes % (Manual) Seg Neutrophils # Seg Neutrophils # Man Monocytes # (Manual) PT INR APTT Heparin Anti-Xa Level 0.26 L POC ABG pH POC ABG pCO2 29.7 L POC ABG pO2 Sodium Chloride Carbon Dioxide BUN Creatinine Glucose POC Glucose 250 H Calcium AST ALT Lactate Dehydrogenase Troponin T Total Protein Albumin 04/08/17 04/08/17 04/09/17 18:12 23:56 04:12 WBC 21.1 H RBC 3.06 L Hgb 8.7 L Hct 27.7 L Lipscomb % (Auto) Lipscomb # Seg Neuts % (Manual) 75.0 H Lymphocytes % (Manual) 9.0 L Monocytes % (Manual) Seg Neutrophils # Seg Neutrophils # Man 15.8 H Monocytes # (Manual) 1.5 H PT INR APTT Heparin Anti-Xa Level POC ABG pH POC ABG pCO2 POC ABG pO2 Sodium Chloride Carbon Dioxide BUN Creatinine Glucose POC Glucose 192 H 191 H Calcium AST ALT Lactate Dehydrogenase Troponin T Total Protein Albumin 04/09/17 04/09/17 04/09/17 04:24 04:24 05:31 WBC RBC Hgb Hct Lipscomb % (Auto) Lipscomb # Seg Neuts % (Manual) Lymphocytes % (Manual) Monocytes % (Manual) Seg Neutrophils # Seg Neutrophils # Man Monocytes # (Manual) PT INR APTT Heparin Anti-Xa Level 0.21 L POC ABG pH POC ABG pCO2 POC ABG pO2 Sodium 133 L Chloride Carbon Dioxide 16 L BUN 35 H Creatinine Glucose 139 H POC Glucose 163 H Calcium 7.1 L AST ALT Lactate Dehydrogenase Troponin T Total Protein Albumin Chest x-ray: report reviewed
[2017-04-09] MEDS: PEPCID IV SCH ×2 (09:41→21:52)
[2017-04-09] MEDS: MORPHINE IV PRN ×2 (12:46→17:33)
--- NOTE | 2017-04-09 13:53 | Progress Note ---
Assessment and Plan Patient is a 71-year-old woman with a history of diabetes mellitus2, hypertension and pulmonary embolism on Eliquis since December 2016 who presents with abdominal pain and chest pain. Chest x-ray read as no pneumonia or CHF. Troponin was 1.010, EKG read as no ST elevation VA, nonspecific changes. CT abdomen and pelvis with and without contrast shows possible small bowel ileus and right lower lobe atelectasis. - Acute respiratory failure, sp extubation, doing well -Small bowel ileus: General surgery following, s/p surgery for ischemic colitis with small bowel resection and cholicystitis. -Non-STEMI: On heparin drip, therefore stopped Eliquis, cardiology consulted, cont beta roxana, statin, aspirin and nitroglycerin. -Accelerated hypertension: now resolved, in fact now hypotensive, held BP meds -SIRS with leukocytosis and tachycardia, most likely reactive or related to the right lower lobe atelectasis, will get Cx if not resolving -Right lower lobe atelectasis: Treat with incentive spirometry -History of PE: Will be on heparin drip -DVT prophylaxis: Heparin drip -Uncontrolled type 2 diabetes mellitus: Added sliding scale, pt now NPO Full code Subjective Date of service: 04/09/17 Principal diagnosis: Acute NSTEMI, Abd pain, ileus Interval history: Patient seen and examined. on N/c. Still on Ng suction. Overnight uneventful. Imaging, old records, testing, labs, nursing notes reviewed. Objective - Exam Narrative Exam: GEN: WDWN, NAD, AWAKE, ALERT, ORIENTATED x 3, CVS: mild regular tachycardiac, NORMAL S1S2 LUNGS/CHEST: CTA B, NORMAL CHEST EXPANSION B, GOOD AIR ENTRY B ABD: SOFT, surgical dressing on place, nondistended EXT/SKIN: NO SIGNIFICANT EDEMA OR RASH MSK: FROM X 4 EXTREMITIES NEURO: CN 2-12 GROSSLY INTACT, NO FOCAL DEFICITS PSY: CALM - Constitutional Vitals: Vital Signs - 12hr 04/09/17 04/09/17 04/09/17 02:00 02:30 03:00 Temperature Pulse Rate 98 H 97 H 98 H Respiratory 18 20 18 Rate Blood Pressure 88/40 99/45 86/41 O2 Sat by Pulse 99 100 100 Oximetry 04/09/17 04/09/17 04/09/17 03:30 04:00 04:30 Temperature 98.8 F Pulse Rate 97 H 100 H 97 H Respiratory 18 26 H 17 Rate Blood Pressure 106/43 108/49 86/42 O2 Sat by Pulse 100 98 100 Oximetry 04/09/17 04/09/17 04/09/17 05:00 05:30 06:00 Temperature Pulse Rate 98 H 97 H 100 H Respiratory 19 18 20 Rate Blood Pressure 92/43 101/43 89/43 O2 Sat by Pulse 100 100 100 Oximetry 04/09/17 04/09/17 04/09/17 06:30 07:00 07:30 Temperature Pulse Rate 98 H 97 H 101 H Respiratory 19 17 24 Rate Blood Pressure 96/41 92/41 101/46 O2 Sat by Pulse 100 100 99 Oximetry 04/09/17 04/09/17 04/09/17 07:51 08:00 08:29 Temperature 99.2 F Pulse Rate 95 H Respiratory 19 Rate Blood Pressure 99/44 O2 Sat by Pulse 99 100 Oximetry 04/09/17 04/09/17 04/09/17 08:30 09:00 09:30 Temperature Pulse Rate 103 H 101 H 100 H Respiratory 25 H 20 22 Rate Blood Pressure 105/42 98/48 110/51 O2 Sat by Pulse 99 98 98 Oximetry 04/09/17 04/09/17 04/09/17 10:00 10:30 11:00 Temperature Pulse Rate 103 H 97 H 106 H Respiratory 26 H 19 24 Rate Blood Pressure 102/47 97/45 96/47 O2 Sat by Pulse 98 99 99 Oximetry 04/09/17 04/09/17 11:30 12:00 Temperature 99.4 F Pulse Rate 103 H 102 H Respiratory 25 H 26 H Rate Blood Pressure 113/51 106/51 O2 Sat by Pulse 99 99 Oximetry - Labs CBC & Chem 7: 04/10/17 08:03 04/09/17 04:24 Labs: Abnormal lab results 04/08/17 04/08/17 04/08/17 Range/Units 18:07 18:12 23:56 WBC (4.5-11.0) K/mm3 RBC (3.65-5.03) M/mm3 Hgb (10.1-14.3) gm/dl Hct (30.3-42.9) % Seg Neuts % (Manual) (40.0-70.0) % Lymphocytes % (Manual) (13.4-35.0) % Seg Neutrophils # Man (1.8-7.7) K/mm3 Monocytes # (Manual) (0.0-0.8) K/mm3 Heparin Anti-Xa Level 0.26 L (0.3-0.7) U.I./ml Sodium (137-145) mmol/L Carbon Dioxide (22-30) mmol/L BUN (7-17) mg/dL Glucose (65-100) mg/dL POC Glucose 192 H 191 H (70-105) Calcium (8.4-10.2) mg/dL 04/09/17 04/09/17 04/09/17 Range/Units 04:12 04:24 04:24 WBC 21.1 H (4.5-11.0) K/mm3 RBC 3.06 L (3.65-5.03) M/mm3 Hgb 8.7 L (10.1-14.3) gm/dl Hct 27.7 L (30.3-42.9) % Seg Neuts % (Manual) 75.0 H (40.0-70.0) % Lymphocytes % (Manual) 9.0 L (13.4-35.0) % Seg Neutrophils # Man 15.8 H (1.8-7.7) K/mm3 Monocytes # (Manual) 1.5 H (0.0-0.8) K/mm3 Heparin Anti-Xa Level 0.21 L (0.3-0.7) U.I./ml Sodium 133 L (137-145) mmol/L Carbon Dioxide 16 L (22-30) mmol/L BUN 35 H (7-17) mg/dL Glucose 139 H (65-100) mg/dL POC Glucose (70-105) Calcium 7.1 L (8.4-10.2) mg/dL 04/09/17 04/09/17 Range/Units 05:31 12:09 WBC (4.5-11.0) K/mm3 RBC (3.65-5.03) M/mm3 Hgb (10.1-14.3) gm/dl Hct (30.3-42.9) % Seg Neuts % (Manual) (40.0-70.0) % Lymphocytes % (Manual) (13.4-35.0) % Seg Neutrophils # Man (1.8-7.7) K/mm3 Monocytes # (Manual) (0.0-0.8) K/mm3 Heparin Anti-Xa Level (0.3-0.7) U.I./ml Sodium (137-145) mmol/L Carbon Dioxide (22-30) mmol/L BUN (7-17) mg/dL Glucose (65-100) mg/dL POC Glucose 163 H 150 H (70-105) Calcium (8.4-10.2) mg/dL
[2017-04-09] MEDS ORDERED: NACL 0.9% 500 ML 500 ML IV ONE (14:00)
--- NOTE | 2017-04-09 15:02 | Progress Note ---
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 Plan: LHC will be post-poned in setting of recent abdominal surgery given that pt is chest pain free and hemodynamically stable. Will re-evaluate for possible ischemic evaluation prior to discharge. ASA held in setting of recent surgery. Recommend resuming ASA if okay per surgery. BB and ARB held in setting of hypotension. Resume statin once tolerating PO intake. In the event that dual anti-platelet therapy is required from cardiology standpoint, would avoid triple therapy and forgo ASA and recommend Plavix in conjunction with Eliquis (as it appears that pt will be on life-long Eliquis in setting of reported unprovoked PE). Assessment and plan reviewed with pt and pt's at bedside. The patient has been seen in conjunction with Dr. Browning who agrees with the assessment and plan of care. Subjective Date of service: 04/09/17 Principal diagnosis: Acute NSTEMI, Abd pain, ileus Interval history: Pt resting in bed, extubated. s/p emergent open laparotomy with small bowel resection and cholecystectomy on 04/07. Pt denies any complaints currently. VSS in ST on tele. Objective Last Vital Signs Temp 99.4 F 04/09/17 12:00 Pulse 102 H 04/09/17 12:00 Resp 26 H 04/09/17 12:00 BP 106/51 04/09/17 12:00 Pulse Ox 99 04/09/17 12:00 - Physical Examination General: No Apparent Distress HEENT: Positive: EOMI, Normocephaly, Mucus Membranes Moist Neck: Positive: neck supple, trachea midline, Carotid Upstroke (full) Cardiac: Positive: Reg Rate and Rhythm, S1/S2 Lungs: Positive: clear to auscultation Neuro: Positive: Grossly Intact Abdomen: Positive: Soft, Active Bowel Sounds, Tender Skin: Positive: Clear. Negative: Rash Musculoskeletal: Normal Range of Motion Extremities: Absent: edema - Labs and Meds CBC 04/09/17 Range/Units 04:12 WBC 21.1 H (4.5-11.0) K/mm3 RBC 3.06 L (3.65-5.03) M/mm3 Hgb 8.7 L (10.1-14.3) gm/dl Hct 27.7 L (30.3-42.9) % Plt Count 269 (140-440) K/mm3 Comprehensive Metabolic Panel 04/09/17 Range/Units 04:24 Sodium 133 L (137-145) mmol/L Potassium 3.8 (3.6-5.0) mmol/L Chloride 103.4 (98-107) mmol/L Carbon Dioxide 16 L (22-30) mmol/L BUN 35 H (7-17) mg/dL Creatinine 0.9 (0.7-1.2) mg/dL Glucose 139 H (65-100) mg/dL Calcium 7.1 L (8.4-10.2) mg/dL - Imaging and Cardiology EKG: image reviewed Echo: report reviewed - Telemetry EKG Rhythm: Sinus Rhythm - EKG Sinus rhythms and dysrhythmias: sinus tachycardia AV and intraventricular conduction: 1 AV block Myocardial infarction: septal NC (old age or ind
--- NOTE | 2017-04-09 16:13 | Progress Note ---
Subjective Patient Reports: Positive: no new complaints, feels better, still having pain, flatus, no bowel movement Narrative: feels OK , deep pain gone , wbc 21 . dressing dry . will cont same NG drainage a little high , will cont agressive care. Objective Vital Signs - 12hr 04/09/17 04/09/17 04/09/17 04:30 05:00 05:30 Temperature Pulse Rate 97 H 98 H 97 H Respiratory 17 19 18 Rate Blood Pressure 86/42 92/43 101/43 O2 Sat by Pulse 100 100 100 Oximetry 04/09/17 04/09/17 04/09/17 06:00 06:30 07:00 Temperature Pulse Rate 100 H 98 H 97 H Respiratory 20 19 17 Rate Blood Pressure 89/43 96/41 92/41 O2 Sat by Pulse 100 100 100 Oximetry 04/09/17 04/09/17 04/09/17 07:30 07:51 08:00 Temperature 99.2 F Pulse Rate 101 H 95 H Respiratory 24 19 Rate Blood Pressure 101/46 99/44 O2 Sat by Pulse 99 99 Oximetry 04/09/17 04/09/17 04/09/17 08:29 08:30 09:00 Temperature Pulse Rate 103 H 101 H Respiratory 25 H 20 Rate Blood Pressure 105/42 98/48 O2 Sat by Pulse 100 99 98 Oximetry 04/09/17 04/09/17 04/09/17 09:30 10:00 10:30 Temperature Pulse Rate 100 H 98 H 97 H Respiratory 22 26 H 19 Rate Blood Pressure 110/51 102/47 97/45 O2 Sat by Pulse 98 98 99 Oximetry 04/09/17 04/09/17 04/09/17 11:00 11:30 12:00 Temperature 99.4 F Pulse Rate 106 H 103 H 102 H Respiratory 24 25 H 26 H Rate Blood Pressure 96/47 113/51 106/51 O2 Sat by Pulse 99 99 99 Oximetry 04/09/17 04/09/17 04/09/17 12:30 13:00 13:30 Temperature Pulse Rate 101 H 97 H 106 H Respiratory 26 H 17 25 H Rate Blood Pressure 104/53 97/49 97/53 O2 Sat by Pulse 99 99 98 Oximetry 04/09/17 04/09/17 04/09/17 14:00 14:30 15:00 Temperature Pulse Rate 104 H 104 H 102 H Respiratory 19 22 17 Rate Blood Pressure 99/47 102/46 98/46 O2 Sat by Pulse 99 98 99 Oximetry 04/09/17 16:00 Temperature 99.8 F H Pulse Rate Respiratory Rate Blood Pressure O2 Sat by Pulse Oximetry - Labs 04/09/17 04:12 04/09/17 04:24 Diabetes panel 04/09/17 Range/Units 04:24 Sodium 133 L (137-145) mmol/L Potassium 3.8 (3.6-5.0) mmol/L Chloride 103.4 (98-107) mmol/L Carbon Dioxide 16 L (22-30) mmol/L BUN 35 H (7-17) mg/dL Creatinine 0.9 (0.7-1.2) mg/dL Glucose 139 H (65-100) mg/dL Calcium 7.1 L (8.4-10.2) mg/dL Calcium panel 04/09/17 Range/Units 04:24 Calcium 7.1 L (8.4-10.2) mg/dL Pituitary panel 04/09/17 Range/Units 04:24 Sodium 133 L (137-145) mmol/L Potassium 3.8 (3.6-5.0) mmol/L Chloride 103.4 (98-107) mmol/L Carbon Dioxide 16 L (22-30) mmol/L BUN 35 H (7-17) mg/dL Creatinine 0.9 (0.7-1.2) mg/dL Glucose 139 H (65-100) mg/dL Calcium 7.1 L (8.4-10.2) mg/dL Adrenal panel 04/09/17 Range/Units 04:24 Sodium 133 L (137-145) mmol/L Potassium 3.8 (3.6-5.0) mmol/L Chloride 103.4 (98-107) mmol/L Carbon Dioxide 16 L (22-30) mmol/L BUN 35 H (7-17) mg/dL Creatinine 0.9 (0.7-1.2) mg/dL Glucose 139 H (65-100) mg/dL Calcium 7.1 L (8.4-10.2) mg/dL
[2017-04-09] MEDS: HEPARIN/ 0.45% NACL-25,000 UNIT/500 ML 25,000 UNITS/500 ML BAG IV SCH (18:56)
[2017-04-10] MEDS: MORPHINE IV PRN ×2 (04:05→22:47)
[2017-04-10] MEDS: D5W/0.45% NACL/KCL 20 MEQ 20 MEQ/1,000 ML BAG IV SCH ×2 (04:06→17:11)
[2017-04-10] MEDS: ZOSYN/NS 4.5GM/100ML 4.5 GM/100 ML VIAL IV SCH ×3 (05:04→22:33)
[2017-04-10 05:50] LABS: Hematocrit 24.8 % (30.3-42.9); Hemoglobin 7.9 gm/dl (10.1-14.3)
[2017-04-10] MEDS: NOVOLOG SUB-Q SCH ×3 (06:26→20:01)
--- NOTE | 2017-04-10 07:22 | XRay Report ---
AP CHEST: HISTORY: Followup respiratory failure Heart size and pulmonary vascularity remain within normal limits. There is poor inspiration. There are bibasilar opacities, left greater than right, which probably represent atelectatic changes. No pleural effusion or pneumothorax has developed. The nasogastric tube remains in good position. IMPRESSION: No change.
[2017-04-10 08:19] LABS: Hematocrit 24.8 % (30.3-42.9); Hemoglobin 7.9 gm/dl (10.1-14.3); Mean Corpuscular HGB Conc 32 % (30-34); Mean Corpuscular Hemoglobin 29 pg (28-32); Mean Corpuscular Volume 91 fl (79-97); Platelet Count 236 K/mm3 (140-440); Red Blood Count 2.72 M/mm3 (3.65-5.03); Red Cell Distribution Width 14.5 % (13.2-15.2)
--- NOTE | 2017-04-10 08:19 | Progress Note ---
Assessment and Plan Postop ventilatory failure. Off vent,nasal cannula without any respiratory problems Ischemic bowel with volvulus. Sepsis due to the above. + Gran neg on culture. CXR w/o infiltrates only atelectatic changes Non-STEMI. No chest pain reported.Cardiology following Diabetes Hx/o PE/DVT event. On anticoagulation Recommendations Gentle fluids Monitor I/O Monitor cultures and adjust ABX ID consult-add Flagyl, Diflucan? Discussed with patient and . Critical care time was 31 minutes of [id number] evaluation and coordination of care Subjective Date of service: 04/10/17 Principal diagnosis: Acute NSTEMI, Abd pain, ileus Interval history: Patient reports no respiratory complaints at this time. She had a good night. Still some abdominal pain and discomfort. No flatus Objective Vital Signs - 12hr 04/09/17 04/09/17 04/09/17 20:30 21:00 21:30 Temperature Pulse Rate 107 H 105 H 102 H Respiratory 20 23 19 Rate Blood Pressure 113/42 116/53 104/46 O2 Sat by Pulse 98 99 100 Oximetry 04/09/17 04/09/17 04/09/17 22:00 22:30 23:00 Temperature Pulse Rate 105 H 98 H 102 H Respiratory 20 17 17 Rate Blood Pressure 109/41 112/39 83/35 O2 Sat by Pulse 100 100 100 Oximetry 04/09/17 04/09/17 04/10/17 23:30 23:46 00:00 Temperature 99.2 F Pulse Rate 102 H 99 H 98 H Respiratory 22 17 18 Rate Blood Pressure 108/48 108/48 94/36 O2 Sat by Pulse 100 100 100 Oximetry 04/10/17 04/10/17 04/10/17 00:30 01:00 01:30 Temperature Pulse Rate 104 H 99 H 97 H Respiratory 23 18 16 Rate Blood Pressure 94/45 98/38 89/36 O2 Sat by Pulse 100 99 99 Oximetry 04/10/17 04/10/17 04/10/17 02:00 02:05 02:30 Temperature Pulse Rate 101 H 99 H 101 H Respiratory 21 18 Rate Blood Pressure 102/45 99/44 O2 Sat by Pulse 100 99 Oximetry 04/10/17 04/10/17 04/10/17 03:00 03:30 04:00 Temperature 99.1 F Pulse Rate 96 H 99 H 99 H Respiratory 18 21 22 Rate Blood Pressure 96/42 106/46 111/48 O2 Sat by Pulse 99 99 100 Oximetry 04/10/17 04/10/17 04/10/17 04:30 05:00 05:30 Temperature Pulse Rate 96 H 98 H 96 H Respiratory 15 22 20 Rate Blood Pressure 101/41 95/43 107/45 O2 Sat by Pulse 99 99 99 Oximetry 04/10/17 04/10/17 06:00 06:30 Temperature Pulse Rate 93 H 98 H Respiratory 14 19 Rate Blood Pressure 98/44 106/52 O2 Sat by Pulse 99 100 Oximetry Constitutional: alert ENT: oropharynx moist Neck: supple, no JVD Effort: no acute distress Ascultation: Bilateral: clear, diminished breath sounds (decreased excursions) Cardiovascular: regular rate and rhythm Gastrointestinal: absent bowel sounds, tender, other (distended, tympanic) Extremities: no cyanosis, no cyanosis, no cyanosis Neurologic: normal mental status, non-focal exam, CN II-XII normal Psychiatric: affect normal CBC and BMP: 04/10/17 08:03 04/09/17 04:24 ABG, PT/INR, D-dimer: ABG POC ABG pH 7.384 (7.35-7.45) 04/08/17 10:35 POC ABG pCO2 29.7 (35-45) L 04/08/17 10:35 POC ABG pO2 89 (80-105) 04/08/17 10:35 POC ABG HCO3 17.8 04/08/17 10:35 POC ABG Total CO2 19 04/08/17 10:35 POC ABG O2 Sat 97 04/08/17 10:35 PT/INR, D-dimer PT 18.3 Sec. (12.2-14.9) H 04/08/17 03:54 INR 1.52 (0.87-1.13) H 04/08/17 03:54 Abnormal lab findings: Abnormal Labs 04/05/17 04/05/17 04/05/17 06:59 07:19 12:13 WBC RBC Hgb Hct [place] % (Auto) [place] # Seg Neuts % (Manual) Lymphocytes % (Manual) Monocytes % (Manual) Seg Neutrophils # Seg Neutrophils # Man Monocytes # (Manual) PT 15.7 H INR 1.26 H APTT 179.9 H* Heparin Anti-Xa Level POC ABG pH POC ABG pCO2 POC ABG pO2 Sodium Chloride Carbon Dioxide BUN Creatinine Glucose POC Glucose 177 H Calcium AST ALT Lactate Dehydrogenase Troponin T 0.755 H* D Total Protein Albumin 04/05/17 04/05/17 04/05/17 13:02 16:51 18:10 WBC RBC Hgb Hct [place] % (Auto) [place] # Seg Neuts % (Manual) Lymphocytes % (Manual) Monocytes % (Manual) Seg Neutrophils # Seg Neutrophils # Man Monocytes # (Manual) PT INR APTT Heparin Anti-Xa Level 1.36 H POC ABG pH POC ABG pCO2 POC ABG pO2 Sodium Chloride Carbon Dioxide BUN Creatinine Glucose POC Glucose 149 H 127 H Calcium AST ALT Lactate Dehydrogenase Troponin T Total Protein Albumin 04/05/17 04/05/17 04/05/17 19:21 21:15 23:51 WBC RBC Hgb Hct [place] % (Auto) [place] # Seg Neuts % (Manual) Lymphocytes % (Manual) Monocytes % (Manual) Seg Neutrophils # Seg Neutrophils # Man Monocytes # (Manual) PT INR APTT Heparin Anti-Xa Level 1.09 H POC ABG pH POC ABG pCO2 POC ABG pO2 Sodium Chloride Carbon Dioxide BUN Creatinine Glucose POC Glucose 126 H 125 H Calcium AST ALT Lactate Dehydrogenase Troponin T Total Protein Albumin 04/06/17 04/06/17 04/06/17 04:54 04:54 05:11 WBC 13.6 H RBC 3.64 L Hgb Hct [place] % (Auto) 11.2 H [place] # 1.5 H Seg Neuts % (Manual) Lymphocytes % (Manual) Monocytes % (Manual) Seg Neutrophils # 8.6 H Seg Neutrophils # Man Monocytes # (Manual) PT INR APTT Heparin Anti-Xa Level POC ABG pH POC ABG pCO2 POC ABG pO2 Sodium Chloride Carbon Dioxide BUN 21 H Creatinine 0.4 L Glucose 123 H POC Glucose 119 H Calcium AST 92 H ALT 69 H Lactate Dehydrogenase Troponin T Total Protein 6.1 L Albumin 3.1 L 04/07/17 04/07/17 04/07/17 05:19 05:19 08:38 WBC 26.2 H RBC Hgb Hct [place] % (Auto) [place] # Seg Neuts % (Manual) 80.5 H Lymphocytes % (Manual) 7.5 L Monocytes % (Manual) 9.5 H Seg Neutrophils # Seg Neutrophils # Man 21.1 H Monocytes # (Manual) 2.5 H PT INR APTT Heparin Anti-Xa Level POC ABG pH POC ABG pCO2 POC ABG pO2 Sodium Chloride 96.6 L Carbon Dioxide 19 L D BUN 26 H Creatinine 0.4 L Glucose POC Glucose Calcium AST ALT Lactate Dehydrogenase 379 H Troponin T Total Protein Albumin 04/07/17 04/07/17 04/07/17 16:14 18:20 20:16 WBC 22.5 H RBC 3.30 L Hgb 9.7 L Hct [place] % (Auto) [place] # Seg Neuts % (Manual) 75.0 H Lymphocytes % (Manual) Monocytes % (Manual) Seg Neutrophils # Seg Neutrophils # Man 16.9 H Monocytes # (Manual) 1.6 H PT 17.0 H INR 1.39 H APTT Heparin Anti-Xa Level POC ABG pH POC ABG pCO2 POC ABG pO2 Sodium Chloride Carbon Dioxide BUN Creatinine Glucose POC Glucose 122 H Calcium AST ALT Lactate Dehydrogenase Troponin T Total Protein Albumin 04/07/17 04/08/17 04/08/17 21:50 03:41 03:54 WBC RBC Hgb Hct [place] % (Auto) [place] # Seg Neuts % (Manual) Lymphocytes % (Manual) Monocytes % (Manual) Seg Neutrophils # Seg Neutrophils # Man Monocytes # (Manual) PT 18.3 H INR 1.52 H APTT Heparin Anti-Xa Level 0.10 L POC ABG pH 7.331 L POC ABG pCO2 33.6 L POC ABG pO2 Sodium Chloride Carbon Dioxide BUN Creatinine Glucose POC Glucose 201 H Calcium AST ALT Lactate Dehydrogenase Troponin T Total Protein Albumin 04/08/17 04/08/17 04/08/17 05:10 05:10 06:13 WBC 13.4 H RBC 3.19 L Hgb 9.6 L Hct 29.2 L [place] % (Auto) [place] # Seg Neuts % (Manual) Lymphocytes % (Manual) Monocytes % (Manual) Seg Neutrophils # Seg Neutrophils # Man Monocytes # (Manual) PT INR APTT Heparin Anti-Xa Level POC ABG pH POC ABG pCO2 30.5 L POC ABG pO2 125 H Sodium 135 L Chloride Carbon Dioxide 17 L BUN 35 H Creatinine Glucose 186 H POC Glucose Calcium 7.5 L D AST ALT Lactate Dehydrogenase Troponin T Total Protein Albumin 04/08/17 04/08/17 04/08/17 10:35 12:13 18:07 WBC RBC Hgb Hct [place] % (Auto) [place] # Seg Neuts % (Manual) Lymphocytes % (Manual) Monocytes % (Manual) Seg Neutrophils # Seg Neutrophils # Man Monocytes # (Manual) PT INR APTT Heparin Anti-Xa Level 0.26 L POC ABG pH POC ABG pCO2 29.7 L POC ABG pO2 Sodium Chloride Carbon Dioxide BUN Creatinine Glucose POC Glucose 250 H Calcium AST ALT Lactate Dehydrogenase Troponin T Total Protein Albumin 04/08/17 04/08/17 04/09/17 18:12 23:56 04:12 WBC 21.1 H RBC 3.06 L Hgb 8.7 L Hct 27.7 L [place] % (Auto) [place] # Seg Neuts % (Manual) 75.0 H Lymphocytes % (Manual) 9.0 L Monocytes % (Manual) Seg Neutrophils # Seg Neutrophils # Man 15.8 H Monocytes # (Manual) 1.5 H PT INR APTT Heparin Anti-Xa Level POC ABG pH POC ABG pCO2 POC ABG pO2 Sodium Chloride Carbon Dioxide BUN Creatinine Glucose POC Glucose 192 H 191 H Calcium AST ALT Lactate Dehydrogenase Troponin T Total Protein Albumin 04/09/17 04/09/17 04/09/17 04:24 04:24 05:31 WBC RBC Hgb Hct [place] % (Auto) [place] # Seg Neuts % (Manual) Lymphocytes % (Manual) Monocytes % (Manual) Seg Neutrophils # Seg Neutrophils # Man Monocytes # (Manual) PT INR APTT Heparin Anti-Xa Level 0.21 L POC ABG pH POC ABG pCO2 POC ABG pO2 Sodium 133 L Chloride Carbon Dioxide 16 L BUN 35 H Creatinine Glucose 139 H POC Glucose 163 H Calcium 7.1 L AST ALT Lactate Dehydrogenase Troponin T Total Protein Albumin 04/09/17 04/09/17 04/10/17 12:09 18:07 00:15 WBC RBC Hgb Hct [place] % (Auto) [place] # Seg Neuts % (Manual) Lymphocytes % (Manual) Monocytes % (Manual) Seg Neutrophils # Seg Neutrophils # Man Monocytes # (Manual) PT INR APTT Heparin Anti-Xa Level POC ABG pH POC ABG pCO2 POC ABG pO2 Sodium Chloride Carbon Dioxide BUN Creatinine Glucose POC Glucose 150 H 128 H 124 H Calcium AST ALT Lactate Dehydrogenase Troponin T Total Protein Albumin 04/10/17 04/10/17 04:53 05:34 WBC RBC Hgb 7.9 L Hct 24.8 L [place] % (Auto) [place] # Seg Neuts % (Manual) Lymphocytes % (Manual) Monocytes % (Manual) Seg Neutrophils # Seg Neutrophils # Man Monocytes # (Manual) PT INR APTT Heparin Anti-Xa Level POC ABG pH POC ABG pCO2 POC ABG pO2 Sodium Chloride Carbon Dioxide BUN Creatinine Glucose POC Glucose 109 H Calcium AST ALT Lactate Dehydrogenase Troponin T Total Protein Albumin
[2017-04-10 08:36] LABS: White Blood Count 26.9 K/mm3 (4.5-11.0)
[2017-04-10] MEDS ORDERED: NACL 0.9% 500 ML 500 ML IV NR (09:00)
[2017-04-10 09:36] LABS: Anisocytosis 1+; Basophils % (Manual) 0 % (0.0-1.8); Blastocytes % (Manual) 0 %
[2017-04-10 09:37] LABS: Diff Status Complete; Polychromasia Few
[2017-04-10] MEDS: PEPCID IV SCH ×2 (10:30→22:34)
[2017-04-10 13:36] LABS: Hematocrit 28.6 % (30.3-42.9); Hemoglobin 9.1 gm/dl (10.1-14.3)
--- NOTE | 2017-04-10 14:31 | Progress Note ---
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 Plan: LHC will be post-poned in setting of recent abdominal surgery given that pt is chest pain free and hemodynamically stable. Will re-evaluate for possible ischemic evaluation prior to discharge. ASA held in setting of recent surgery. Recommend resuming ASA if okay per surgery. BB and ARB held in setting of hypotension. Resume statin once tolerating PO intake. In the event that dual anti-platelet therapy is required from cardiology standpoint, would avoid triple therapy and forgo ASA and recommend Plavix in conjunction with Eliquis (as it appears that pt will be on life-long Eliquis in setting of reported unprovoked PE). Assessment and plan reviewed with pt and pt's at bedside. The patient has been seen in conjunction with Dr. Browning who agrees with the assessment and plan of care. Subjective Date of service: 04/10/17 Principal diagnosis: Acute NSTEMI, Abd pain, ileus Interval history: Pt resting in bed, extubated. s/p emergent open laparotomy with small bowel resection and cholecystectomy on 04/07. Pt denies any complaints currently. VSS in ST on tele. Objective Last Vital Signs Temp 99.9 F H 04/10/17 12:00 Pulse 98 H 04/10/17 08:30 Resp 20 04/10/17 08:30 BP 114/57 04/10/17 08:30 Pulse Ox 99 04/10/17 10:35 - Physical Examination General: No Apparent Distress HEENT: Positive: EOMI, Normocephaly, Mucus Membranes Moist Neck: Positive: neck supple, trachea midline, Carotid Upstroke (full) Cardiac: Positive: Reg Rate and Rhythm, S1/S2 Lungs: Positive: clear to auscultation Neuro: Positive: Grossly Intact Abdomen: Positive: Soft, Active Bowel Sounds, Tender Skin: Positive: Clear. Negative: Rash Musculoskeletal: Normal Range of Motion Extremities: Absent: edema - Labs and Meds CBC 04/10/17 04/10/17 04/10/17 Range/Units 04:53 08:03 13:20 WBC 26.9 H (4.5-11.0) K/mm3 RBC 2.72 L (3.65-5.03) M/mm3 Hgb 7.9 L 7.9 L 9.1 L (10.1-14.3) gm/dl Hct 24.8 L 24.8 L 28.6 L (30.3-42.9) % Plt Count 250 236 (140-440) K/mm3 - Imaging and Cardiology EKG: image reviewed Echo: report reviewed - Telemetry EKG Rhythm: Sinus Rhythm - EKG Sinus rhythms and dysrhythmias: sinus tachycardia AV and intraventricular conduction: 1 AV block Myocardial infarction: septal AR (old age or ind
--- NOTE | 2017-04-10 16:29 | Progress Note ---
Assessment and Plan Patient is a 71-year-old woman with a history of diabetes mellitus2, hypertension and pulmonary embolism on Eliquis since December 2016 who presents with abdominal pain and chest pain. Chest x-ray read as no pneumonia or CHF. Troponin was 1.010, EKG read as no ST elevation RI, nonspecific changes. CT abdomen and pelvis with and without contrast shows possible small bowel ileus and right lower lobe atelectasis. - Acute respiratory failure, sp extubation on 04/09/17, doing well -Small bowel ileus: General surgery following, s/p surgery for ischemic colitis with small bowel resection and cholicystitis on 04/08/17. Still NPO and on NG suction. -Non-STEMI: On heparin drip, therefore stopped Eliquis, cardiology consulted, cont beta roxana, statin, aspirin and nitroglycerin. -Accelerated hypertension: now resolved, in fact now hypotensive, held BP meds -SIRS with leukocytosis and tachycardia, most likely reactive or related to the right lower lobe atelectasis, will get Cx if not resolving -Right lower lobe atelectasis: Treat with incentive spirometry -History of PE: Will be on heparin drip -DVT prophylaxis: Heparin drip -Uncontrolled type 2 diabetes mellitus: Added sliding scale, pt now NPO Full code Subjective Date of service: 04/10/17 Principal diagnosis: Acute NSTEMI, Abd pain, ileus Interval history: Patient seen and examined. on N/c. Still on Ng suction. Overnight uneventful. Imaging, old records, testing, labs, nursing notes reviewed. Objective - Exam Narrative Exam: GEN: WDWN, NAD, AWAKE, ALERT, ORIENTATED x 3, CVS: mild regular tachycardiac, NORMAL S1S2 LUNGS/CHEST: CTA B, NORMAL CHEST EXPANSION B, GOOD AIR ENTRY B ABD: SOFT, surgical dressing on place, nondistended EXT/SKIN: NO SIGNIFICANT EDEMA OR RASH MSK: FROM X 4 EXTREMITIES NEURO: CN 2-12 GROSSLY INTACT, NO FOCAL DEFICITS PSY: CALM - Constitutional Vitals: Vital Signs - 12hr 04/10/17 04/10/17 04/10/17 04:30 05:00 05:30 Temperature Pulse Rate 96 H 98 H 96 H Respiratory 15 22 20 Rate Blood Pressure 101/41 95/43 107/45 O2 Sat by Pulse 99 99 99 Oximetry 04/10/17 04/10/17 04/10/17 06:00 06:30 07:00 Temperature Pulse Rate 93 H 98 H 94 H Respiratory 14 19 21 Rate Blood Pressure 98/44 106/52 111/51 O2 Sat by Pulse 99 100 100 Oximetry 04/10/17 04/10/17 04/10/17 07:30 08:00 08:30 Temperature 99.3 F Pulse Rate 94 H 97 H 98 H Respiratory 18 20 20 Rate Blood Pressure 118/51 125/47 114/57 O2 Sat by Pulse 100 100 100 Oximetry 04/10/17 04/10/17 10:35 12:00 Temperature 99.9 F H Pulse Rate Respiratory Rate Blood Pressure O2 Sat by Pulse 99 Oximetry - Labs CBC & Chem 7: 04/11/17 04:15 04/09/17 04:24 Labs: Abnormal lab results 04/07/17 04/09/17 04/10/17 Range/Units 18:20 18:07 00:15 WBC (4.5-11.0) K/mm3 RBC (3.65-5.03) M/mm3 Hgb (10.1-14.3) gm/dl Hct (30.3-42.9) % Seg Neuts % (Manual) (40.0-70.0) % Lymphocytes % (Manual) (13.4-35.0) % Seg Neutrophils # Man (1.8-7.7) K/mm3 Monocytes # (Manual) (0.0-0.8) K/mm3 POC Glucose 128 H 124 H (70-105) Crossmatch See Detail 04/10/17 04/10/17 04/10/17 Range/Units 04:53 05:34 08:03 WBC 26.9 H (4.5-11.0) K/mm3 RBC 2.72 L (3.65-5.03) M/mm3 Hgb 7.9 L 7.9 L (10.1-14.3) gm/dl Hct 24.8 L 24.8 L (30.3-42.9) % Seg Neuts % (Manual) 81.0 H (40.0-70.0) % Lymphocytes % (Manual) 7.5 L (13.4-35.0) % Seg Neutrophils # Man 21.8 H (1.8-7.7) K/mm3 Monocytes # (Manual) 1.9 H (0.0-0.8) K/mm3 POC Glucose 109 H (70-105) Crossmatch 04/10/17 04/10/17 Range/Units 11:49 13:20 WBC (4.5-11.0) K/mm3 RBC (3.65-5.03) M/mm3 Hgb 9.1 L (10.1-14.3) gm/dl Hct 28.6 L (30.3-42.9) % Seg Neuts % (Manual) (40.0-70.0) % Lymphocytes % (Manual) (13.4-35.0) % Seg Neutrophils # Man (1.8-7.7) K/mm3 Monocytes # (Manual) (0.0-0.8) K/mm3 POC Glucose 127 H (70-105) Crossmatch
[2017-04-10] MEDS ORDERED: MILK OF MAGNESIA PO ONE ×2 (19:31→22:00)
[2017-04-10 20:56] LABS: Hematocrit 24.7 % (30.3-42.9); Hemoglobin 7.7 gm/dl (10.1-14.3); Mean Corpuscular HGB Conc 31 % (30-34); Mean Corpuscular Hemoglobin 29 pg (28-32); Mean Corpuscular Volume 92 fl (79-97); Platelet Count 255 K/mm3 (140-440); Red Blood Count 2.68 M/mm3 (3.65-5.03); Red Cell Distribution Width 14.7 % (13.2-15.2)
[2017-04-10 21:11] LABS: White Blood Count 27.2 K/mm3 (4.5-11.0)
[2017-04-10 22:10] LABS: Basophils % (Manual) 0 % (0.0-1.8); Blastocytes % (Manual) 0 %; Eosinophils % (Manual) 0 % (0.0-4.3)
[2017-04-10 22:11] LABS: Ovalocytes Few
[2017-04-10 22:12] LABS: Diff Status Complete; Hypochromasia 1+; Poikilocytosis Few
[2017-04-11] MEDS: NOVOLOG SUB-Q SCH ×5 (04:56→23:33)
[2017-04-11] MEDS: MORPHINE IV PRN ×4 (05:13→22:51)
[2017-04-11] MEDS: ZOSYN/NS 4.5GM/100ML 4.5 GM/100 ML VIAL IV SCH ×2 (05:14→14:20)
[2017-04-11 07:17] LABS: Hematocrit 25.2 % (30.3-42.9); Hemoglobin 8.1 gm/dl (10.1-14.3)
--- NOTE | 2017-04-11 07:20 | XRay Report ---
AP CHEST: HISTORY: Followup respiratory failure There is no significant change since yesterday's exam at 0215 hours. Minor bibasilar opacities most consistent with atelectatic changes are again noted. The upper lung zones remain clear. There is poor inspiration. Normal heart and mediastinal structures. A nasogastric tube is coiled in the proximal stomach. IMPRESSION: No change.
[2017-04-11] MEDS: D5W/0.45% NACL/KCL 20 MEQ 20 MEQ/1,000 ML BAG IV SCH (07:54)
--- NOTE | 2017-04-11 08:48 | Progress Note ---
Assessment and Plan - Patient Problems (1) Physical deconditioning Current Visit: Yes Status: Acute (2) Abdominal pain Current Visit: Yes Status: Acute Qualifiers: Abdominal location: generalized Qualified Code(s): R10.84 - Generalized abdominal pain (3) Ileus Current Visit: Yes Status: Acute (4) NSTEMI (non-ST elevated myocardial infarction) Current Visit: Yes Status: Acute (5) History of pulmonary embolism Current Visit: Yes Status: Chronic Subjective Principal diagnosis: Acute NSTEMI, Abd pain, ileus Interval history: on o2 via nc, sat up for 3 hrs yesterday Objective - Constitutional Vitals: Vital Signs - 12hr 04/10/17 04/10/17 04/10/17 21:00 21:30 22:00 Temperature Pulse Rate 109 H 121 H 105 H Respiratory 19 23 24 Rate Blood Pressure 110/53 121/58 120/57 O2 Sat by Pulse 100 97 99 Oximetry 04/10/17 04/10/17 04/10/17 22:30 23:00 23:30 Temperature Pulse Rate 105 H 102 H 103 H Respiratory 20 18 16 Rate Blood Pressure 111/53 107/46 117/46 O2 Sat by Pulse 100 99 99 Oximetry 04/11/17 04/11/17 04/11/17 00:00 00:30 01:00 Temperature 99.7 F H Pulse Rate 101 H 100 H 112 H Respiratory 14 14 29 H Rate Blood Pressure 111/48 107/49 111/63 O2 Sat by Pulse 99 99 98 Oximetry 04/11/17 04/11/17 04/11/17 01:30 02:00 02:30 Temperature Pulse Rate 99 H 101 H 102 H Respiratory 20 20 18 Rate Blood Pressure 124/53 127/55 145/55 O2 Sat by Pulse 98 99 100 Oximetry 04/11/17 04/11/17 04/11/17 03:00 03:30 04:00 Temperature 100.2 F H Pulse Rate 103 H 98 H 100 H Respiratory 19 16 18 Rate Blood Pressure 131/56 118/55 126/53 O2 Sat by Pulse 100 100 100 Oximetry 04/11/17 04/11/17 04/11/17 04:30 05:00 05:30 Temperature Pulse Rate 101 H 104 H 102 H Respiratory 21 22 18 Rate Blood Pressure 142/54 140/62 126/58 O2 Sat by Pulse 97 99 97 Oximetry 04/11/17 04/11/17 06:00 08:15 Temperature Pulse Rate 102 H Respiratory 18 Rate Blood Pressure 127/58 O2 Sat by Pulse 98 97 Oximetry General appearance: Present: no acute distress - Neck Neck: supple - Respiratory Respiratory effort: normal - Cardiovascular Rhythm: regular Heart Sounds: Present: S1 & S2 Extremities: no ischemia - Gastrointestinal General gastrointestinal: Present: soft, other (decreased) - Labs CBC & Chem 7: 04/11/17 09:46 04/11/17 07:04 Labs: Abnormal lab results 04/07/17 04/10/17 04/10/17 Range/Units 18:20 08:03 11:49 WBC (4.5-11.0) K/mm3 RBC (3.65-5.03) M/mm3 Hgb (10.1-14.3) gm/dl Hct (30.3-42.9) % Seg Neuts % (Manual) 81.0 H (40.0-70.0) % Lymphocytes % (Manual) 7.5 L (13.4-35.0) % Seg Neutrophils # Man 21.8 H (1.8-7.7) K/mm3 Monocytes # (Manual) 1.9 H (0.0-0.8) K/mm3 Heparin Anti-Xa Level (0.3-0.7) U.I./ml POC Glucose 127 H (70-105) Crossmatch See Detail 04/10/17 04/10/17 04/10/17 Range/Units 13:20 17:43 20:14 WBC 27.2 H (4.5-11.0) K/mm3 RBC 2.68 L (3.65-5.03) M/mm3 Hgb 9.1 L 7.7 L (10.1-14.3) gm/dl Hct 28.6 L 24.7 L (30.3-42.9) % Seg Neuts % (Manual) 72.5 H (40.0-70.0) % Lymphocytes % (Manual) 10.0 L (13.4-35.0) % Seg Neutrophils # Man 19.7 H (1.8-7.7) K/mm3 Monocytes # (Manual) 1.9 H (0.0-0.8) K/mm3 Heparin Anti-Xa Level (0.3-0.7) U.I./ml POC Glucose 132 H (70-105) Crossmatch 04/10/17 04/11/17 04/11/17 Range/Units 23:52 04:15 04:15 WBC (4.5-11.0) K/mm3 RBC (3.65-5.03) M/mm3 Hgb 8.1 L (10.1-14.3) gm/dl Hct 25.2 L (30.3-42.9) % Seg Neuts % (Manual) (40.0-70.0) % Lymphocytes % (Manual) (13.4-35.0) % Seg Neutrophils # Man (1.8-7.7) K/mm3 Monocytes # (Manual) (0.0-0.8) K/mm3 Heparin Anti-Xa Level 0.16 L (0.3-0.7) U.I./ml POC Glucose 125 H (70-105) Crossmatch 04/11/17 Range/Units 05:16 WBC (4.5-11.0) K/mm3 RBC (3.65-5.03) M/mm3 Hgb (10.1-14.3) gm/dl Hct (30.3-42.9) % Seg Neuts % (Manual) (40.0-70.0) % Lymphocytes % (Manual) (13.4-35.0) % Seg Neutrophils # Man (1.8-7.7) K/mm3 Monocytes # (Manual) (0.0-0.8) K/mm3 Heparin Anti-Xa Level (0.3-0.7) U.I./ml POC Glucose 141 H (70-105) Crossmatch
[2017-04-11] MEDS: PEPCID IV SCH ×2 (09:17→22:51)
[2017-04-11 10:07] LABS: Hemoglobin 8.1 gm/dl (10.1-14.3); Mean Corpuscular HGB Conc 32 % (30-34); Mean Corpuscular Hemoglobin 29 pg (28-32); Mean Corpuscular Volume 91 fl (79-97); Platelet Count 243 K/mm3 (140-440); Red Blood Count 2.76 M/mm3 (3.65-5.03); Red Cell Distribution Width 14.7 % (13.2-15.2)
[2017-04-11 10:08] LABS: White Blood Count 23.4 K/mm3 (4.5-11.0)
[2017-04-11 10:14] LABS: Anion Gap 16 mmol/L; BUN/Creatinine Ratio 25.71; Blood Urea Nitrogen 18 mg/dL (7-17); Calcium 7.8 mg/dL (8.4-10.2); Carbon Dioxide 19 mmol/L (22-30); Chloride 111.2 mmol/L (98-107); Glucose 112 mg/dL (65-100); Potassium 4.3 mmol/L (3.6-5.0); Sodium 142 mmol/L (137-145)
[2017-04-11] MEDS ORDERED: MILK OF MAGNESIA PO ONE (13:10)
--- NOTE | 2017-04-11 13:15 | Progress Note ---
Subjective Patient Reports: Positive: no new complaints, feels better, still having pain, flatus Narrative: feels much better , passed flatus NG out will start liq clear HH OK Objective Vital Signs - 12hr 04/11/17 04/11/17 04/11/17 01:30 02:00 02:30 Temperature Pulse Rate 99 H 101 H 102 H Respiratory 20 20 18 Rate Blood Pressure 124/53 127/55 145/55 O2 Sat by Pulse 98 99 100 Oximetry 04/11/17 04/11/17 04/11/17 03:00 03:30 04:00 Temperature 100.2 F H Pulse Rate 103 H 98 H 100 H Respiratory 19 16 18 Rate Blood Pressure 131/56 118/55 126/53 O2 Sat by Pulse 100 100 100 Oximetry 04/11/17 04/11/17 04/11/17 04:30 05:00 05:30 Temperature Pulse Rate 101 H 104 H 102 H Respiratory 21 22 18 Rate Blood Pressure 142/54 140/62 126/58 O2 Sat by Pulse 97 99 97 Oximetry 04/11/17 04/11/17 04/11/17 06:00 08:00 08:15 Temperature 98.9 F Pulse Rate 102 H Respiratory 18 21 Rate Blood Pressure 127/58 O2 Sat by Pulse 98 97 Oximetry - Labs 04/11/17 09:46 04/11/17 07:04 Diabetes panel 04/11/17 Range/Units 07:04 Sodium 142 D (137-145) mmol/L Potassium 4.3 (3.6-5.0) mmol/L Chloride 111.2 H (98-107) mmol/L Carbon Dioxide 19 L (22-30) mmol/L BUN 18 H (7-17) mg/dL Creatinine 0.7 (0.7-1.2) mg/dL Glucose 112 H (65-100) mg/dL Calcium 7.8 L (8.4-10.2) mg/dL Calcium panel 04/11/17 Range/Units 07:04 Calcium 7.8 L (8.4-10.2) mg/dL Pituitary panel 04/11/17 Range/Units 07:04 Sodium 142 D (137-145) mmol/L Potassium 4.3 (3.6-5.0) mmol/L Chloride 111.2 H (98-107) mmol/L Carbon Dioxide 19 L (22-30) mmol/L BUN 18 H (7-17) mg/dL Creatinine 0.7 (0.7-1.2) mg/dL Glucose 112 H (65-100) mg/dL Calcium 7.8 L (8.4-10.2) mg/dL Adrenal panel 04/11/17 Range/Units 07:04 Sodium 142 D (137-145) mmol/L Potassium 4.3 (3.6-5.0) mmol/L Chloride 111.2 H (98-107) mmol/L Carbon Dioxide 19 L (22-30) mmol/L BUN 18 H (7-17) mg/dL Creatinine 0.7 (0.7-1.2) mg/dL Glucose 112 H (65-100) mg/dL Calcium 7.8 L (8.4-10.2) mg/dL
--- NOTE | 2017-04-11 13:25 | Progress Note ---
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 Plan: Ischemic eval post-poned in setting of recent abdominal surgery given that pt is chest pain free and hemodynamically stable. Will re-evaluate for possible ischemic evaluation (stress MPI) prior to discharge. ASA held in setting of recent surgery. Recommend resuming ASA if okay per surgery. BB and ARB held in setting of hypotension. Resume statin once tolerating PO intake. In the event that dual anti-platelet therapy is required from cardiology standpoint, would avoid triple therapy and forgo ASA and recommend Plavix in conjunction with Eliquis (as it appears that pt will be on life-long Eliquis in setting of reported unprovoked PE). Assessment and plan reviewed with pt and pt's at bedside. The patient has been seen in conjunction with Dr. Browning who agrees with the assessment and plan of care. Subjective Date of service: 04/11/17 Principal diagnosis: Acute NSTEMI, Abd pain, ileus Interval history: Pt resting in bed, extubated. s/p emergent open laparotomy with small bowel resection and cholecystectomy on 04/07. Pt denies any complaints currently. VSS in ST on tele. NGT in place. Objective Last Vital Signs Temp 98.9 F 04/11/17 08:00 Pulse 102 H 04/11/17 06:00 Resp 21 04/11/17 08:00 BP 127/58 04/11/17 06:00 Pulse Ox 97 04/11/17 08:15 - Physical Examination General: No Apparent Distress HEENT: Positive: EOMI, Normocephaly, Mucus Membranes Moist Neck: Positive: neck supple, trachea midline, Carotid Upstroke (full) Cardiac: Positive: Reg Rate and Rhythm, S1/S2 Lungs: Positive: clear to auscultation Neuro: Positive: Grossly Intact Abdomen: Positive: Soft, Active Bowel Sounds, Tender Skin: Positive: Clear. Negative: Rash Musculoskeletal: Normal Range of Motion Extremities: Absent: edema - Labs and Meds CBC 04/10/17 04/10/17 04/11/17 Range/Units 13:20 20:14 04:15 WBC 27.2 H (4.5-11.0) K/mm3 RBC 2.68 L (3.65-5.03) M/mm3 Hgb 9.1 L 7.7 L 8.1 L (10.1-14.3) gm/dl Hct 28.6 L 24.7 L 25.2 L (30.3-42.9) % Plt Count 255 254 (140-440) K/mm3 04/11/17 Range/Units 09:46 WBC 23.4 H (4.5-11.0) K/mm3 RBC 2.76 L (3.65-5.03) M/mm3 Hgb 8.1 L (10.1-14.3) gm/dl Hct 25.0 L (30.3-42.9) % Plt Count 243 (140-440) K/mm3 Comprehensive Metabolic Panel 04/11/17 Range/Units 07:04 Sodium 142 D (137-145) mmol/L Potassium 4.3 (3.6-5.0) mmol/L Chloride 111.2 H (98-107) mmol/L Carbon Dioxide 19 L (22-30) mmol/L BUN 18 H (7-17) mg/dL Creatinine 0.7 (0.7-1.2) mg/dL Glucose 112 H (65-100) mg/dL Calcium 7.8 L (8.4-10.2) mg/dL - Imaging and Cardiology EKG: image reviewed Echo: report reviewed - Telemetry EKG Rhythm: Sinus Tachycardia - EKG Sinus rhythms and dysrhythmias: sinus tachycardia AV and intraventricular conduction: 1 AV block Myocardial infarction: septal CA (old age or ind
[2017-04-11] MEDS: FLAGYL 500 MG/100 ML 500 MG/100 ML BAG IV SCH ×3 (14:55→23:36)
--- NOTE | 2017-04-11 15:54 | Progress Note ---
Assessment and Plan Patient is a 71-year-old woman with a history of diabetes mellitus2, hypertension and pulmonary embolism on Eliquis since December 2016 who presents with abdominal pain and chest pain. Chest x-ray read as no pneumonia or CHF. Troponin was 1.010, EKG read as no ST elevation OK, nonspecific changes. CT abdomen and pelvis with and without contrast shows possible small bowel ileus and right lower lobe atelectasis. - Acute respiratory failure, sp extubation on 04/09/17, doing well -Small bowel ileus: General surgery following, s/p surgery for ischemic colitis with small bowel resection and cholicystitis on 04/08/17. started on clear liquid diet today. -Non-STEMI: On heparin drip, therefore stopped Eliquis, cardiology consulted, cont beta roxana, statin, aspirin and nitroglycerin. -Accelerated hypertension: now resolved, in fact now hypotensive, held BP meds -SIRS with leukocytosis and tachycardia, most likely reactive or related to the right lower lobe atelectasis, will get Cx if not resolving -Right lower lobe atelectasis: Treat with incentive spirometry -History of PE: Now on heparin drip, if tolerates po restart eliquis -DVT prophylaxis: Heparin drip -Uncontrolled type 2 diabetes mellitus: cont sliding scale, Full code Subjective Date of service: 04/11/17 Principal diagnosis: Acute NSTEMI, Abd pain, ileus Interval history: Patient seen and examined. on N/c. off Ng suction today. Overnight uneventful. Imaging, old records, testing, labs, nursing notes reviewed. started on clear liquid diet, transfer to floor today. Objective - Exam Narrative Exam: GEN: WDWN, NAD, AWAKE, ALERT, ORIENTATED x 3, CVS: mild regular tachycardiac, NORMAL S1S2 LUNGS/CHEST: CTA B, NORMAL CHEST EXPANSION B, GOOD AIR ENTRY B ABD: SOFT, surgical dressing on place, nondistended EXT/SKIN: NO SIGNIFICANT EDEMA OR RASH MSK: FROM X 4 EXTREMITIES NEURO: CN 2-12 GROSSLY INTACT, NO FOCAL DEFICITS PSY: CALM - Constitutional Vitals: Vital Signs - 12hr 04/11/17 04/11/17 04/11/17 04:00 04:30 05:00 Temperature 100.2 F H Pulse Rate 100 H 101 H 104 H Respiratory 18 21 22 Rate Blood Pressure 126/53 142/54 140/62 O2 Sat by Pulse 100 97 99 Oximetry 04/11/17 04/11/17 04/11/17 05:30 06:00 08:00 Temperature 98.9 F Pulse Rate 102 H 102 H Respiratory 18 18 21 Rate Blood Pressure 126/58 127/58 O2 Sat by Pulse 97 98 Oximetry 04/11/17 08:15 Temperature Pulse Rate Respiratory Rate Blood Pressure O2 Sat by Pulse 97 Oximetry - Labs CBC & Chem 7: 04/11/17 09:46 04/11/17 07:04 Labs: Abnormal lab results 04/07/17 04/10/17 04/10/17 Range/Units 18:20 17:43 20:14 WBC 27.2 H (4.5-11.0) K/mm3 RBC 2.68 L (3.65-5.03) M/mm3 Hgb 7.7 L (10.1-14.3) gm/dl Hct 24.7 L (30.3-42.9) % Seg Neuts % (Manual) 72.5 H (40.0-70.0) % Lymphocytes % (Manual) 10.0 L (13.4-35.0) % Seg Neutrophils # Man 19.7 H (1.8-7.7) K/mm3 Monocytes # (Manual) 1.9 H (0.0-0.8) K/mm3 Heparin Anti-Xa Level (0.3-0.7) U.I./ml Chloride (98-107) mmol/L Carbon Dioxide (22-30) mmol/L BUN (7-17) mg/dL Glucose (65-100) mg/dL POC Glucose 132 H (70-105) Calcium (8.4-10.2) mg/dL Crossmatch See Detail 04/10/17 04/11/17 04/11/17 Range/Units 23:52 04:15 04:15 WBC (4.5-11.0) K/mm3 RBC (3.65-5.03) M/mm3 Hgb 8.1 L (10.1-14.3) gm/dl Hct 25.2 L (30.3-42.9) % Seg Neuts % (Manual) (40.0-70.0) % Lymphocytes % (Manual) (13.4-35.0) % Seg Neutrophils # Man (1.8-7.7) K/mm3 Monocytes # (Manual) (0.0-0.8) K/mm3 Heparin Anti-Xa Level 0.16 L (0.3-0.7) U.I./ml Chloride (98-107) mmol/L Carbon Dioxide (22-30) mmol/L BUN (7-17) mg/dL Glucose (65-100) mg/dL POC Glucose 125 H (70-105) Calcium (8.4-10.2) mg/dL Crossmatch 04/11/17 04/11/17 04/11/17 Range/Units 05:16 07:04 09:46 WBC 23.4 H (4.5-11.0) K/mm3 RBC 2.76 L (3.65-5.03) M/mm3 Hgb 8.1 L (10.1-14.3) gm/dl Hct 25.0 L (30.3-42.9) % Seg Neuts % (Manual) (40.0-70.0) % Lymphocytes % (Manual) (13.4-35.0) % Seg Neutrophils # Man (1.8-7.7) K/mm3 Monocytes # (Manual) (0.0-0.8) K/mm3 Heparin Anti-Xa Level (0.3-0.7) U.I./ml Chloride 111.2 H (98-107) mmol/L Carbon Dioxide 19 L (22-30) mmol/L BUN 18 H (7-17) mg/dL Glucose 112 H (65-100) mg/dL POC Glucose 141 H (70-105) Calcium 7.8 L (8.4-10.2) mg/dL Crossmatch
[2017-04-11] MEDS: LEVAQUIN 750MG/150ML 750 MG/150 ML BAG IV SCH (18:09)
[2017-04-11] MEDS: NACL 0.45% 1000 ML 1,000 ML IV SCH (22:40)
[2017-04-12 03:20] LABS: Hematocrit 24.2 % (30.3-42.9); Hemoglobin 7.6 gm/dl (10.1-14.3)
[2017-04-12] MEDS: FLAGYL 500 MG/100 ML 500 MG/100 ML BAG IV SCH ×4 (05:45→23:40)
[2017-04-12] MEDS: D5W/0.45% NACL/KCL 20 MEQ 20 MEQ/1,000 ML BAG IV SCH ×2 (05:46→16:17)
[2017-04-12] MEDS: NOVOLOG SUB-Q SCH ×4 (06:02→23:40)
[2017-04-12] MEDS: MORPHINE IV PRN ×4 (07:52→22:34)
[2017-04-12 08:27] LABS: Hemoglobin 7.4 gm/dl (10.1-14.3); Mean Corpuscular HGB Conc 32 % (30-34); Mean Corpuscular Hemoglobin 29 pg (28-32); Mean Corpuscular Volume 90 fl (79-97); Platelet Count 260 K/mm3 (140-440); Red Blood Count 2.56 M/mm3 (3.65-5.03); Red Cell Distribution Width 14.1 % (13.2-15.2)
[2017-04-12 08:48] LABS: White Blood Count 22.3 K/mm3 (4.5-11.0)
[2017-04-12] MEDS: PEPCID IV SCH ×2 (09:00→21:36)
--- NOTE | 2017-04-12 10:35 | Progress Note ---
Assessment and Plan Postop ventilatory failure. Resolved Ischemic bowel with volvulus. Passing flatus, bowel movement was noted this morning Sepsis due to the above. E.coli on cultures, currently covered by antibiotics Non-STEMI. No chest pain reported.Cardiology following Diabetes Hx/o PE/DVT event. On anticoagulation Recommendations Continue antibiotics Out of bed as tolerated Incentive spirometry Monitor WBC Discussed with patient and . Subjective Date of service: 04/12/17 Principal diagnosis: Acute NSTEMI, Abd pain, ileus Interval history: Reports no respiratory complaints. No chest pain nor bleeding Objective Vital Signs - 12hr 04/11/17 04/11/17 04/11/17 22:51 22:52 22:55 Temperature Pulse Rate Pulse Rate [ From Monitor] Pulse Rate [ Left Radial] Pulse Rate [ Right Radial] Respiratory 20 20 Rate Respiratory 20 Rate [Abdomen] Blood Pressure [Left Radial Artery] O2 Sat by Pulse Oximetry 04/11/17 04/12/17 04/12/17 23:21 01:08 04:50 Temperature 98.1 F 97.7 F Pulse Rate Pulse Rate [ From Monitor] Pulse Rate [ 109 H 107 H Left Radial] Pulse Rate [ Right Radial] Respiratory 20 20 22 Rate Respiratory Rate [Abdomen] Blood Pressure 133/60 146/69 [Left Radial Artery] O2 Sat by Pulse 99 97 Oximetry 04/12/17 04/12/17 08:33 10:00 Temperature 99.1 F Pulse Rate 102 H Pulse Rate [ 100 H From Monitor] Pulse Rate [ Left Radial] Pulse Rate [ 100 H Right Radial] Respiratory 20 20 Rate Respiratory Rate [Abdomen] Blood Pressure 169/69 [Left Radial Artery] O2 Sat by Pulse 99 99 Oximetry Constitutional: alert ENT: oropharynx moist Neck: supple, no JVD Effort: no acute distress Ascultation: Bilateral: clear Cardiovascular: regular rate and rhythm Gastrointestinal: absent bowel sounds, tender, other (mild tender bowel sounds are active tympanic) Extremities: no cyanosis, no cyanosis, no cyanosis Neurologic: normal mental status, non-focal exam, CN II-XII normal Psychiatric: affect normal CBC and BMP: 04/12/17 07:35 04/11/17 07:04 ABG, PT/INR, D-dimer: ABG POC ABG pH 7.384 (7.35-7.45) 04/08/17 10:35 POC ABG pCO2 29.7 (35-45) L 04/08/17 10:35 POC ABG pO2 89 (80-105) 04/08/17 10:35 POC ABG HCO3 17.8 04/08/17 10:35 POC ABG Total CO2 19 04/08/17 10:35 POC ABG O2 Sat 97 04/08/17 10:35 PT/INR, D-dimer PT 18.3 Sec. (12.2-14.9) H 04/08/17 03:54 INR 1.52 (0.87-1.13) H 04/08/17 03:54 Abnormal lab findings: Abnormal Labs 04/05/17 04/05/17 04/05/17 06:59 07:19 12:13 WBC RBC Hgb Hct [place] % (Auto) [place] # Seg Neuts % (Manual) Lymphocytes % (Manual) Monocytes % (Manual) Seg Neutrophils # Seg Neutrophils # Man Monocytes # (Manual) PT 15.7 H INR 1.26 H APTT 179.9 H* Heparin Anti-Xa Level POC ABG pH POC ABG pCO2 POC ABG pO2 Sodium Chloride Carbon Dioxide BUN Creatinine Glucose POC Glucose 177 H Calcium AST ALT Lactate Dehydrogenase Troponin T 0.755 H* D Total Protein Albumin Crossmatch 04/05/17 04/05/17 04/05/17 13:02 16:51 18:10 WBC RBC Hgb Hct [place] % (Auto) [place] # Seg Neuts % (Manual) Lymphocytes % (Manual) Monocytes % (Manual) Seg Neutrophils # Seg Neutrophils # Man Monocytes # (Manual) PT INR APTT Heparin Anti-Xa Level 1.36 H POC ABG pH POC ABG pCO2 POC ABG pO2 Sodium Chloride Carbon Dioxide BUN Creatinine Glucose POC Glucose 149 H 127 H Calcium AST ALT Lactate Dehydrogenase Troponin T Total Protein Albumin Crossmatch 04/05/17 04/05/17 04/05/17 19:21 21:15 23:51 WBC RBC Hgb Hct [place] % (Auto) [place] # Seg Neuts % (Manual) Lymphocytes % (Manual) Monocytes % (Manual) Seg Neutrophils # Seg Neutrophils # Man Monocytes # (Manual) PT INR APTT Heparin Anti-Xa Level 1.09 H POC ABG pH POC ABG pCO2 POC ABG pO2 Sodium Chloride Carbon Dioxide BUN Creatinine Glucose POC Glucose 126 H 125 H Calcium AST ALT Lactate Dehydrogenase Troponin T Total Protein Albumin Crossmatch 04/06/17 04/06/17 04/06/17 04:54 04:54 05:11 WBC 13.6 H RBC 3.64 L Hgb Hct [place] % (Auto) 11.2 H [place] # 1.5 H Seg Neuts % (Manual) Lymphocytes % (Manual) Monocytes % (Manual) Seg Neutrophils # 8.6 H Seg Neutrophils # Man Monocytes # (Manual) PT INR APTT Heparin Anti-Xa Level POC ABG pH POC ABG pCO2 POC ABG pO2 Sodium Chloride Carbon Dioxide BUN 21 H Creatinine 0.4 L Glucose 123 H POC Glucose 119 H Calcium AST 92 H ALT 69 H Lactate Dehydrogenase Troponin T Total Protein 6.1 L Albumin 3.1 L Crossmatch 04/07/17 04/07/17 04/07/17 05:19 05:19 08:38 WBC 26.2 H RBC Hgb Hct [place] % (Auto) [place] # Seg Neuts % (Manual) 80.5 H Lymphocytes % (Manual) 7.5 L Monocytes % (Manual) 9.5 H Seg Neutrophils # Seg Neutrophils # Man 21.1 H Monocytes # (Manual) 2.5 H PT INR APTT Heparin Anti-Xa Level POC ABG pH POC ABG pCO2 POC ABG pO2 Sodium Chloride 96.6 L Carbon Dioxide 19 L D BUN 26 H Creatinine 0.4 L Glucose POC Glucose Calcium AST ALT Lactate Dehydrogenase 379 H Troponin T Total Protein Albumin Crossmatch 04/07/17 04/07/17 04/07/17 16:14 18:20 18:20 WBC 22.5 H RBC 3.30 L Hgb 9.7 L Hct [place] % (Auto) [place] # Seg Neuts % (Manual) 75.0 H Lymphocytes % (Manual) Monocytes % (Manual) Seg Neutrophils # Seg Neutrophils # Man 16.9 H Monocytes # (Manual) 1.6 H PT 17.0 H INR 1.39 H APTT Heparin Anti-Xa Level POC ABG pH POC ABG pCO2 POC ABG pO2 Sodium Chloride Carbon Dioxide BUN Creatinine Glucose POC Glucose Calcium AST ALT Lactate Dehydrogenase Troponin T Total Protein Albumin Crossmatch See Detail 04/07/17 04/07/17 04/08/17 20:16 21:50 03:41 WBC RBC Hgb Hct [place] % (Auto) [place] # Seg Neuts % (Manual) Lymphocytes % (Manual) Monocytes % (Manual) Seg Neutrophils # Seg Neutrophils # Man Monocytes # (Manual) PT INR APTT Heparin Anti-Xa Level POC ABG pH 7.331 L POC ABG pCO2 33.6 L POC ABG pO2 Sodium Chloride Carbon Dioxide BUN Creatinine Glucose POC Glucose 122 H 201 H Calcium AST ALT Lactate Dehydrogenase Troponin T Total Protein Albumin Crossmatch 04/08/17 04/08/17 04/08/17 03:54 05:10 05:10 WBC 13.4 H RBC 3.19 L Hgb 9.6 L Hct 29.2 L [place] % (Auto) [place] # Seg Neuts % (Manual) Lymphocytes % (Manual) Monocytes % (Manual) Seg Neutrophils # Seg Neutrophils # Man Monocytes # (Manual) PT 18.3 H INR 1.52 H APTT Heparin Anti-Xa Level 0.10 L POC ABG pH POC ABG pCO2 POC ABG pO2 Sodium 135 L Chloride Carbon Dioxide 17 L BUN 35 H Creatinine Glucose 186 H POC Glucose Calcium 7.5 L D AST ALT Lactate Dehydrogenase Troponin T Total Protein Albumin Crossmatch 04/08/17 04/08/17 04/08/17 06:13 10:35 12:13 WBC RBC Hgb Hct [place] % (Auto) [place] # Seg Neuts % (Manual) Lymphocytes % (Manual) Monocytes % (Manual) Seg Neutrophils # Seg Neutrophils # Man Monocytes # (Manual) PT INR APTT Heparin Anti-Xa Level POC ABG pH POC ABG pCO2 30.5 L 29.7 L POC ABG pO2 125 H Sodium Chloride Carbon Dioxide BUN Creatinine Glucose POC Glucose 250 H Calcium AST ALT Lactate Dehydrogenase Troponin T Total Protein Albumin Crossmatch 04/08/17 04/08/17 04/08/17 18:07 18:12 23:56 WBC RBC Hgb Hct [place] % (Auto) [place] # Seg Neuts % (Manual) Lymphocytes % (Manual) Monocytes % (Manual) Seg Neutrophils # Seg Neutrophils # Man Monocytes # (Manual) PT INR APTT Heparin Anti-Xa Level 0.26 L POC ABG pH POC ABG pCO2 POC ABG pO2 Sodium Chloride Carbon Dioxide BUN Creatinine Glucose POC Glucose 192 H 191 H Calcium AST ALT Lactate Dehydrogenase Troponin T Total Protein Albumin Crossmatch 04/09/17 04/09/17 04/09/17 04:12 04:24 04:24 WBC 21.1 H RBC 3.06 L Hgb 8.7 L Hct 27.7 L [place] % (Auto) [place] # Seg Neuts % (Manual) 75.0 H Lymphocytes % (Manual) 9.0 L Monocytes % (Manual) Seg Neutrophils # Seg Neutrophils # Man 15.8 H Monocytes # (Manual) 1.5 H PT INR APTT Heparin Anti-Xa Level 0.21 L POC ABG pH POC ABG pCO2 POC ABG pO2 Sodium 133 L Chloride Carbon Dioxide 16 L BUN 35 H Creatinine Glucose 139 H POC Glucose Calcium 7.1 L AST ALT Lactate Dehydrogenase Troponin T Total Protein Albumin Crossmatch 04/09/17 04/09/17 04/09/17 05:31 12:09 18:07 WBC RBC Hgb Hct [place] % (Auto) [place] # Seg Neuts % (Manual) Lymphocytes % (Manual) Monocytes % (Manual) Seg Neutrophils # Seg Neutrophils # Man Monocytes # (Manual) PT INR APTT Heparin Anti-Xa Level POC ABG pH POC ABG pCO2 POC ABG pO2 Sodium Chloride Carbon Dioxide BUN Creatinine Glucose POC Glucose 163 H 150 H 128 H Calcium AST ALT Lactate Dehydrogenase Troponin T Total Protein Albumin Crossmatch 04/10/17 04/10/17 04/10/17 00:15 04:53 05:34 WBC RBC Hgb 7.9 L Hct 24.8 L [place] % (Auto) [place] # Seg Neuts % (Manual) Lymphocytes % (Manual) Monocytes % (Manual) Seg Neutrophils # Seg Neutrophils # Man Monocytes # (Manual) PT INR APTT Heparin Anti-Xa Level POC ABG pH POC ABG pCO2 POC ABG pO2 Sodium Chloride Carbon Dioxide BUN Creatinine Glucose POC Glucose 124 H 109 H Calcium AST ALT Lactate Dehydrogenase Troponin T Total Protein Albumin Crossmatch 04/10/17 04/10/17 04/10/17 08:03 11:49 13:20 WBC 26.9 H RBC 2.72 L Hgb 7.9 L 9.1 L Hct 24.8 L 28.6 L [place] % (Auto) [place] # Seg Neuts % (Manual) 81.0 H Lymphocytes % (Manual) 7.5 L Monocytes % (Manual) Seg Neutrophils # Seg Neutrophils # Man 21.8 H Monocytes # (Manual) 1.9 H PT INR APTT Heparin Anti-Xa Level POC ABG pH POC ABG pCO2 POC ABG pO2 Sodium Chloride Carbon Dioxide BUN Creatinine Glucose POC Glucose 127 H Calcium AST ALT Lactate Dehydrogenase Troponin T Total Protein Albumin Crossmatch 04/10/17 04/10/17 04/10/17 17:43 20:14 23:52 WBC 27.2 H RBC 2.68 L Hgb 7.7 L Hct 24.7 L [place] % (Auto) [place] # Seg Neuts % (Manual) 72.5 H Lymphocytes % (Manual) 10.0 L Monocytes % (Manual) Seg Neutrophils # Seg Neutrophils # Man 19.7 H Monocytes # (Manual) 1.9 H PT INR APTT Heparin Anti-Xa Level POC ABG pH POC ABG pCO2 POC ABG pO2 Sodium Chloride Carbon Dioxide BUN Creatinine Glucose POC Glucose 132 H 125 H Calcium AST ALT Lactate Dehydrogenase Troponin T Total Protein Albumin Crossmatch 04/11/17 04/11/17 04/11/17 04:15 04:15 05:16 WBC RBC Hgb 8.1 L Hct 25.2 L [place] % (Auto) [place] # Seg Neuts % (Manual) Lymphocytes % (Manual) Monocytes % (Manual) Seg Neutrophils # Seg Neutrophils # Man Monocytes # (Manual) PT INR APTT Heparin Anti-Xa Level 0.16 L POC ABG pH POC ABG pCO2 POC ABG pO2 Sodium Chloride Carbon Dioxide BUN Creatinine Glucose POC Glucose 141 H Calcium AST ALT Lactate Dehydrogenase Troponin T Total Protein Albumin Crossmatch 04/11/17 04/11/17 04/11/17 07:04 09:46 12:12 WBC 23.4 H RBC 2.76 L Hgb 8.1 L Hct 25.0 L [place] % (Auto) [place] # Seg Neuts % (Manual) Lymphocytes % (Manual) Monocytes % (Manual) Seg Neutrophils # Seg Neutrophils # Man Monocytes # (Manual) PT INR APTT Heparin Anti-Xa Level POC ABG pH POC ABG pCO2 POC ABG pO2 Sodium Chloride 111.2 H Carbon Dioxide 19 L BUN 18 H Creatinine Glucose 112 H POC Glucose 126 H Calcium 7.8 L AST ALT Lactate Dehydrogenase Troponin T Total Protein Albumin Crossmatch 04/11/17 04/11/17 04/11/17 16:42 17:52 23:31 WBC RBC Hgb Hct [place] % (Auto) [place] # Seg Neuts % (Manual) Lymphocytes % (Manual) Monocytes % (Manual) Seg Neutrophils # Seg Neutrophils # Man Monocytes # (Manual) PT INR APTT Heparin Anti-Xa Level 0.28 L POC ABG pH POC ABG pCO2 POC ABG pO2 Sodium Chloride Carbon Dioxide BUN Creatinine Glucose POC Glucose 134 H 122 H Calcium AST ALT Lactate Dehydrogenase Troponin T Total Protein Albumin Crossmatch 04/12/17 04/12/17 03:03 07:35 WBC 22.3 H RBC 2.56 L Hgb 7.6 L 7.4 L Hct 24.2 L 23.0 L [place] % (Auto) [place] # Seg Neuts % (Manual) Lymphocytes % (Manual) Monocytes % (Manual) Seg Neutrophils # Seg Neutrophils # Man Monocytes # (Manual) PT INR APTT Heparin Anti-Xa Level POC ABG pH POC ABG pCO2 POC ABG pO2 Sodium Chloride Carbon Dioxide BUN Creatinine Glucose POC Glucose Calcium AST ALT Lactate Dehydrogenase Troponin T Total Protein Albumin Crossmatch
[2017-04-12 10:51] LABS: Basophils % (Manual) 0 % (0.0-1.8); Blastocytes % (Manual) 0 %; Eosinophils % (Manual) 0 % (0.0-4.3)
[2017-04-12 10:52] LABS: Anisocytosis Few; Diff Status Complete
--- NOTE | 2017-04-12 10:56 | XRay Report ---
AP CHEST :04/12/17 CLINICAL: Followup respiratory failure. COMPARISON:04/11/17 FINDINGS: Cardiomegaly and central vascular congestion unchanged compared to prior exam. Elevation of the right hemidiaphragm is new compared to the prior exam. New mild left basal opacification. No tubes or lines. The bones and soft tissues are normal. IMPRESSION: Mild CHF. Suspect small left pleural effusion.
--- NOTE | 2017-04-12 11:44 | Progress Note ---
Assessment and Plan Assessment: 71yo AAF: Worsening anemia NSTEMI Volvulus of distal ileum - s/p open smal bowel resection on 04/07/2017 Cholecystitis / cholelithiasis - s/p cholecystectomy on 04/07/2017 HTN DM H/o PE in 12/2015 - unprovoked per pt report; home Eliquis held; currently on heparin gtt. Plan: Consider tranfusion, unclear etiology of anemia - may also consider holding heparin for a short period if anemia doesn't improve - per primary and surgery Ischemic eval post-poned in setting of recent abdominal surgery given that pt is chest pain free and hemodynamically stable. Will re-evaluate for possible ischemic evaluation (stress MPI) prior to discharge. ASA held in setting of recent surgery. Recommend resuming ASA if okay per surgery. BB and ARB held in setting of hypotension. Resume statin once tolerating PO intake. In the event that dual anti-platelet therapy is required from cardiology standpoint, would avoid triple therapy and forgo ASA and recommend Plavix in conjunction with Eliquis (as it appears that pt will be on life-long Eliquis in setting of reported unprovoked PE). Assessment and plan reviewed with pt and pt's at bedside. Subjective Date of service: 04/12/17 Principal diagnosis: Acute NSTEMI, Abd pain, ileus Interval history: feeling ok, no cp or sob Objective Vital Signs Temp Pulse Pulse Pulse Pulse Resp Resp 04/12/17 10:00 102 H 100 H 04/12/17 08:33 99.1 F 100 H 04/12/17 04:50 97.7 F 107 H 04/12/17 01:08 98.1 F 109 H 20 04/11/17 23:21 04/11/17 22:55 04/11/17 22:52 04/11/17 22:51 04/11/17 22:00 99.2 F 106 H 20 04/11/17 20:43 111 H 04/11/17 20:00 109 H 24 04/11/17 19:50 04/11/17 19:49 99.8 F H 04/11/17 19:30 113 H 18 04/11/17 19:00 112 H 26 H 04/11/17 18:30 102 H 18 04/11/17 18:00 103 H 26 H 06/16/17 17:30 108 H 17 04/11/17 17:00 105 H 22 04/11/17 16:30 103 H 21 04/11/17 16:00 99.6 F 98 H 24 04/11/17 15:30 103 H 20 04/11/17 15:00 101 H 17 04/11/17 14:30 105 H 17 04/11/17 14:00 103 H 22 04/11/17 13:30 102 H 21 04/11/17 13:00 108 H 17 04/11/17 12:30 100 H 20 04/11/17 12:00 99.7 F H 100 H 17 BP BP Pulse Ox 04/12/17 10:00 99 04/12/17 08:33 169/69 99 04/12/17 04:50 146/69 97 04/12/17 01:08 133/60 99 04/11/17 23:21 04/11/17 22:55 04/11/17 22:52 04/11/17 22:51 04/11/17 22:00 149/75 98 04/11/17 20:43 04/11/17 20:00 139/92 98 04/11/17 19:50 98 04/11/17 19:49 04/11/17 19:30 139/92 100 04/11/17 19:00 139/92 100 04/11/17 18:30 139/92 100 04/11/17 18:00 139/92 100 04/11/17 17:30 139/92 96 04/11/17 17:00 147/64 99 04/11/17 16:30 156/61 100 04/11/17 16:00 156/66 100 04/11/17 15:30 146/62 99 04/11/17 15:00 151/58 100 04/11/17 14:30 145/52 98 04/11/17 14:00 142/58 100 04/11/17 13:30 146/63 100 04/11/17 13:00 148/64 100 04/11/17 12:30 148/64 100 04/11/17 12:00 136/58 100 - Physical Examination General: No Apparent Distress HEENT: Positive: EOMI, Normocephaly, Mucus Membranes Moist Neck: Positive: neck supple, trachea midline, Carotid Upstroke (full) Neuro: Positive: Grossly Intact Abdomen: Positive: Soft, Active Bowel Sounds, Tender Skin: Positive: Clear. Negative: Rash Musculoskeletal: Normal Range of Motion Extremities: Absent: edema - Labs and Meds CBC 04/12/17 04/12/17 Range/Units 03:03 07:35 WBC 22.3 H (4.5-11.0) K/mm3 RBC 2.56 L (3.65-5.03) M/mm3 Hgb 7.6 L 7.4 L (10.1-14.3) gm/dl Hct 24.2 L 23.0 L (30.3-42.9) % Plt Count 273 260 (140-440) K/mm3 - Imaging and Cardiology EKG: image reviewed Echo: report reviewed - EKG Sinus rhythms and dysrhythmias: sinus tachycardia AV and intraventricular conduction: 1 AV block Myocardial infarction: septal IL (old age or ind
--- NOTE | 2017-04-12 14:26 | Progress Note ---
Subjective Date of service: 04/12/17 Principal diagnosis: Acute NSTEMI, Abd pain, ileus Interval history: Assessment and plan: - Acute respiratory failure, sp extubation on 04/09/17, doing well -Small bowel ileus: General surgery following, s/p surgery for ischemic colitis with small bowel resection and cholecystectomy on 04/08/17. started on clear liquid diet today. -Non-STEMI: On heparin drip, cardiology note reviewed cont beta roxana, statin , aspirin and nitroglycerin. -Accelerated hypertension: now resolved, blood pressure in the 160 range. Will restart blood pressure medications in a stepwise manner -SIRS with leukocytosis and tachycardia, most likely reactive or related to the right lower lobe atelectasis, will get Cx if not resolving -Right lower lobe atelectasis: Treat with incentive spirometry -History of PE: Now on heparin drip, if tolerates po restart eliquis -DVT prophylaxis: Heparin drip -Uncontrolled type 2 diabetes mellitus: cont sliding scale, Subjective: Patient is alert and oriented C/o of pain in the upper part of the operated abdomen Denies any chest pain or shortness of breath Has a low-grade temp 99 to 99.5 Objective - Constitutional Vitals: Vital Signs - 12hr 04/12/17 04/12/17 04/12/17 04:50 08:33 10:00 Temperature 97.7 F 99.1 F Pulse Rate 102 H Pulse Rate [ 100 H From Monitor] Pulse Rate [ Left Dorsalis Pedis] Pulse Rate [ 107 H Left Radial] Pulse Rate [ 100 H Right Radial] Respiratory 22 20 20 Rate Blood Pressure 146/69 169/69 [Left Radial Artery] O2 Sat by Pulse 97 99 99 Oximetry 04/12/17 13:10 Temperature 99.4 F Pulse Rate Pulse Rate [ From Monitor] Pulse Rate [ 107 H Left Dorsalis Pedis] Pulse Rate [ Left Radial] Pulse Rate [ Right Radial] Respiratory 18 Rate Blood Pressure 167/72 [Left Radial Artery] O2 Sat by Pulse 100 Oximetry General appearance: Present: no acute distress - EENT Eyes: PERRL, EOM intact ENT: hearing intact, clear oral mucosa - Neck Neck: supple, normal ROM, no masses or JVD - Respiratory Respiratory effort: normal Respiratory: bilateral: CTA - Cardiovascular Rhythm: regular Heart Sounds: Present: S1 & S2 Extremities: No edema - Gastrointestinal General gastrointestinal: Present: soft, tender, non-distended. Absent: hepatomegaly, splenomegaly - Integumentary Integumentary: clear - Musculoskeletal Musculoskeletal: strength equal bilaterally - Neurologic Neurologic: no focal deficits, moves all extremities - Labs CBC & Chem 7: 04/12/17 07:35 04/11/17 07:04 Labs: Abnormal lab results 04/11/17 04/11/17 04/11/17 Range/Units 12:12 16:42 17:52 WBC (4.5-11.0) K/mm3 RBC (3.65-5.03) M/mm3 Hgb (10.1-14.3) gm/dl Hct (30.3-42.9) % Seg Neuts % (Manual) (40.0-70.0) % Lymphocytes % (Manual) (13.4-35.0) % Monocytes % (Manual) (0.0-7.3) % Nucleated RBC % (0.0-0.9) % Seg Neutrophils # Man (1.8-7.7) K/mm3 Monocytes # (Manual) (0.0-0.8) K/mm3 Heparin Anti-Xa Level 0.28 L (0.3-0.7) U.I./ml POC Glucose 126 H 134 H (70-105) 04/11/17 04/12/17 04/12/17 Range/Units 23:31 03:03 07:35 WBC 22.3 H (4.5-11.0) K/mm3 RBC 2.56 L (3.65-5.03) M/mm3 Hgb 7.6 L 7.4 L (10.1-14.3) gm/dl Hct 24.2 L 23.0 L (30.3-42.9) % Seg Neuts % (Manual) 79.0 H (40.0-70.0) % Lymphocytes % (Manual) 6.0 L (13.4-35.0) % Monocytes % (Manual) 9.0 H (0.0-7.3) % Nucleated RBC % 1.0 H (0.0-0.9) % Seg Neutrophils # Man 17.6 H (1.8-7.7) K/mm3 Monocytes # (Manual) 2.0 H (0.0-0.8) K/mm3 Heparin Anti-Xa Level (0.3-0.7) U.I./ml POC Glucose 122 H (70-105) 04/12/17 Range/Units 11:29 WBC (4.5-11.0) K/mm3 RBC (3.65-5.03) M/mm3 Hgb (10.1-14.3) gm/dl Hct (30.3-42.9) % Seg Neuts % (Manual) (40.0-70.0) % Lymphocytes % (Manual) (13.4-35.0) % Monocytes % (Manual) (0.0-7.3) % Nucleated RBC % (0.0-0.9) % Seg Neutrophils # Man (1.8-7.7) K/mm3 Monocytes # (Manual) (0.0-0.8) K/mm3 Heparin Anti-Xa Level (0.3-0.7) U.I./ml POC Glucose 135 H (70-105)
[2017-04-12] MEDS: LEVAQUIN 750MG/150ML 750 MG/150 ML BAG IV SCH (16:18)
[2017-04-12] MEDS: HEPARIN/ 0.45% NACL-25,000 UNIT/500 ML 25,000 UNITS/500 ML BAG IV SCH (16:18)
[2017-04-12] MEDS: LOPRESSOR PO SCH (18:50)
[2017-04-13] MEDS: D5W/0.45% NACL/KCL 20 MEQ 20 MEQ/1,000 ML BAG IV SCH ×3 (03:32→22:36)
[2017-04-13] MEDS: FLAGYL 500 MG/100 ML 500 MG/100 ML BAG IV SCH ×4 (05:17→23:40)
[2017-04-13] MEDS: MORPHINE IV PRN ×3 (05:17→20:17)
[2017-04-13] MEDS: NOVOLOG SUB-Q SCH ×4 (05:21→23:22)
[2017-04-13] MEDS: HEPARIN/ 0.45% NACL-25,000 UNIT/500 ML 25,000 UNITS/500 ML BAG IV SCH (05:23)
[2017-04-13 05:46] LABS: Hematocrit 21.8 % (30.3-42.9); Mean Corpuscular HGB Conc 32 % (30-34); Mean Corpuscular Hemoglobin 29 pg (28-32); Mean Corpuscular Volume 89 fl (79-97); Platelet Count 292 K/mm3 (140-440); Red Blood Count 2.45 M/mm3 (3.65-5.03); Red Cell Distribution Width 14.4 % (13.2-15.2)
[2017-04-13 05:48] LABS: White Blood Count 25.6 K/mm3 (4.5-11.0)
[2017-04-13 06:11] LABS: Anion Gap 15 mmol/L; Blood Urea Nitrogen 9 mg/dL (7-17); Calcium 7.7 mg/dL (8.4-10.2); Carbon Dioxide 18 mmol/L (22-30); Chloride 111.8 mmol/L (98-107); Glucose 137 mg/dL (65-100); Potassium 4.3 mmol/L (3.6-5.0); Sodium 140 mmol/L (137-145)
[2017-04-13] MEDS: LOPRESSOR PO SCH ×3 (10:42→22:30)
[2017-04-13] MEDS: PEPCID IV SCH ×2 (10:43→22:30)
--- NOTE | 2017-04-13 11:19 | Progress Note ---
Assessment and Plan Postop ventilatory failure. Resolved Ischemic bowel with volvulus. Passing flatus, bowel movement was noted this morning Sepsis due to the above. E.coli on cultures, currently covered by antibiotics Non-STEMI. No chest pain reported.Cardiology following Diabetes Hx/o PE/DVT event. On anticoagulation Recommendations Continue antibiotics Out of bed as tolerated Incentive spirometry If persistent leukocytosis noted, consider adding Diflucan (monitor QTC changes) . Also consider ID evaluation. Discussed with patient and . Subjective Date of service: 04/13/17 Principal diagnosis: Acute NSTEMI, Abd pain, ileus Interval history: Some abdominal discomfort reported, mild. Reportedly tolerating by mouth feedings. No respiratory complaints. Objective Vital Signs - 12hr 04/13/17 04/13/17 04/13/17 01:23 04:35 05:17 Temperature 99.0 F 98.3 F Pulse Rate Pulse Rate [ 99 H 101 H Left Radial] Respiratory 20 22 20 Rate Blood Pressure 137/74 156/70 [Left Radial Artery] O2 Sat by Pulse 99 99 Oximetry 04/13/17 04/13/17 04/13/17 05:47 08:23 08:40 Temperature 98.4 F Pulse Rate Pulse Rate [ 106 H Left Radial] Respiratory 20 22 Rate Blood Pressure 186/79 [Left Radial Artery] O2 Sat by Pulse 100 97 Oximetry 04/13/17 08:46 Temperature Pulse Rate 98 H Pulse Rate [ Left Radial] Respiratory Rate Blood Pressure [Left Radial Artery] O2 Sat by Pulse Oximetry Constitutional: alert ENT: oropharynx moist Neck: supple, no JVD Effort: no acute distress Ascultation: Bilateral: clear, diminished breath sounds (decreased excursions) Cardiovascular: regular rate and rhythm Gastrointestinal: absent bowel sounds, tender, other (mild tender bowel sounds are active tympanic. Still some distention.) Extremities: no cyanosis, no edema Neurologic: normal mental status, non-focal exam, CN II-XII normal Psychiatric: affect normal CBC and BMP: 04/13/17 05:20 04/13/17 05:20 ABG, PT/INR, D-dimer: ABG POC ABG pH 7.384 (7.35-7.45) 04/08/17 10:35 POC ABG pCO2 29.7 (35-45) L 04/08/17 10:35 POC ABG pO2 89 (80-105) 04/08/17 10:35 POC ABG HCO3 17.8 04/08/17 10:35 POC ABG Total CO2 19 04/08/17 10:35 POC ABG O2 Sat 97 04/08/17 10:35 PT/INR, D-dimer PT 18.3 Sec. (12.2-14.9) H 04/08/17 03:54 INR 1.52 (0.87-1.13) H 04/08/17 03:54 Abnormal lab findings: Abnormal Labs 04/05/17 04/05/17 04/05/17 06:59 07:19 12:13 WBC RBC Hgb Hct Morris % (Auto) Morris # Seg Neuts % (Manual) Lymphocytes % (Manual) Monocytes % (Manual) Nucleated RBC % Seg Neutrophils # Seg Neutrophils # Man Monocytes # (Manual) PT 15.7 H INR 1.26 H APTT 179.9 H* Heparin Anti-Xa Level POC ABG pH POC ABG pCO2 POC ABG pO2 Sodium Chloride Carbon Dioxide BUN Creatinine Glucose POC Glucose 177 H Calcium AST ALT Lactate Dehydrogenase Troponin T 0.755 H* D Total Protein Albumin Crossmatch 04/05/17 04/05/17 04/05/17 13:02 16:51 18:10 WBC RBC Hgb Hct Morris % (Auto) Morris # Seg Neuts % (Manual) Lymphocytes % (Manual) Monocytes % (Manual) Nucleated RBC % Seg Neutrophils # Seg Neutrophils # Man Monocytes # (Manual) PT INR APTT Heparin Anti-Xa Level 1.36 H POC ABG pH POC ABG pCO2 POC ABG pO2 Sodium Chloride Carbon Dioxide BUN Creatinine Glucose POC Glucose 149 H 127 H Calcium AST ALT Lactate Dehydrogenase Troponin T Total Protein Albumin Crossmatch 04/05/17 04/05/17 04/05/17 19:21 21:15 23:51 WBC RBC Hgb Hct Morris % (Auto) Morris # Seg Neuts % (Manual) Lymphocytes % (Manual) Monocytes % (Manual) Nucleated RBC % Seg Neutrophils # Seg Neutrophils # Man Monocytes # (Manual) PT INR APTT Heparin Anti-Xa Level 1.09 H POC ABG pH POC ABG pCO2 POC ABG pO2 Sodium Chloride Carbon Dioxide BUN Creatinine Glucose POC Glucose 126 H 125 H Calcium AST ALT Lactate Dehydrogenase Troponin T Total Protein Albumin Crossmatch 04/06/17 04/06/17 04/06/17 04:54 04:54 05:11 WBC 13.6 H RBC 3.64 L Hgb Hct Morris % (Auto) 11.2 H Morris # 1.5 H Seg Neuts % (Manual) Lymphocytes % (Manual) Monocytes % (Manual) Nucleated RBC % Seg Neutrophils # 8.6 H Seg Neutrophils # Man Monocytes # (Manual) PT INR APTT Heparin Anti-Xa Level POC ABG pH POC ABG pCO2 POC ABG pO2 Sodium Chloride Carbon Dioxide BUN 21 H Creatinine 0.4 L Glucose 123 H POC Glucose 119 H Calcium AST 92 H ALT 69 H Lactate Dehydrogenase Troponin T Total Protein 6.1 L Albumin 3.1 L Crossmatch 04/07/17 04/07/17 04/07/17 05:19 05:19 08:38 WBC 26.2 H RBC Hgb Hct Morris % (Auto) Morris # Seg Neuts % (Manual) 80.5 H Lymphocytes % (Manual) 7.5 L Monocytes % (Manual) 9.5 H Nucleated RBC % Seg Neutrophils # Seg Neutrophils # Man 21.1 H Monocytes # (Manual) 2.5 H PT INR APTT Heparin Anti-Xa Level POC ABG pH POC ABG pCO2 POC ABG pO2 Sodium Chloride 96.6 L Carbon Dioxide 19 L D BUN 26 H Creatinine 0.4 L Glucose POC Glucose Calcium AST ALT Lactate Dehydrogenase 379 H Troponin T Total Protein Albumin Crossmatch 04/07/17 04/07/17 04/07/17 16:14 18:20 18:20 WBC 22.5 H RBC 3.30 L Hgb 9.7 L Hct Morris % (Auto) Morris # Seg Neuts % (Manual) 75.0 H Lymphocytes % (Manual) Monocytes % (Manual) Nucleated RBC % Seg Neutrophils # Seg Neutrophils # Man 16.9 H Monocytes # (Manual) 1.6 H PT 17.0 H INR 1.39 H APTT Heparin Anti-Xa Level POC ABG pH POC ABG pCO2 POC ABG pO2 Sodium Chloride Carbon Dioxide BUN Creatinine Glucose POC Glucose Calcium AST ALT Lactate Dehydrogenase Troponin T Total Protein Albumin Crossmatch See Detail 04/07/17 04/07/17 04/08/17 20:16 21:50 03:41 WBC RBC Hgb Hct Morris % (Auto) Morris # Seg Neuts % (Manual) Lymphocytes % (Manual) Monocytes % (Manual) Nucleated RBC % Seg Neutrophils # Seg Neutrophils # Man Monocytes # (Manual) PT INR APTT Heparin Anti-Xa Level POC ABG pH 7.331 L POC ABG pCO2 33.6 L POC ABG pO2 Sodium Chloride Carbon Dioxide BUN Creatinine Glucose POC Glucose 122 H 201 H Calcium AST ALT Lactate Dehydrogenase Troponin T Total Protein Albumin Crossmatch 04/08/17 04/08/17 04/08/17 03:54 05:10 05:10 WBC 13.4 H RBC 3.19 L Hgb 9.6 L Hct 29.2 L Morris % (Auto) Morris # Seg Neuts % (Manual) Lymphocytes % (Manual) Monocytes % (Manual) Nucleated RBC % Seg Neutrophils # Seg Neutrophils # Man Monocytes # (Manual) PT 18.3 H INR 1.52 H APTT Heparin Anti-Xa Level 0.10 L POC ABG pH POC ABG pCO2 POC ABG pO2 Sodium 135 L Chloride Carbon Dioxide 17 L BUN 35 H Creatinine Glucose 186 H POC Glucose Calcium 7.5 L D AST ALT Lactate Dehydrogenase Troponin T Total Protein Albumin Crossmatch 04/08/17 04/08/17 04/08/17 06:13 10:35 12:13 WBC RBC Hgb Hct Morris % (Auto) Morris # Seg Neuts % (Manual) Lymphocytes % (Manual) Monocytes % (Manual) Nucleated RBC % Seg Neutrophils # Seg Neutrophils # Man Monocytes # (Manual) PT INR APTT Heparin Anti-Xa Level POC ABG pH POC ABG pCO2 30.5 L 29.7 L POC ABG pO2 125 H Sodium Chloride Carbon Dioxide BUN Creatinine Glucose POC Glucose 250 H Calcium AST ALT Lactate Dehydrogenase Troponin T Total Protein Albumin Crossmatch 04/08/17 04/08/17 04/08/17 18:07 18:12 23:56 WBC RBC Hgb Hct Morris % (Auto) Morris # Seg Neuts % (Manual) Lymphocytes % (Manual) Monocytes % (Manual) Nucleated RBC % Seg Neutrophils # Seg Neutrophils # Man Monocytes # (Manual) PT INR APTT Heparin Anti-Xa Level 0.26 L POC ABG pH POC ABG pCO2 POC ABG pO2 Sodium Chloride Carbon Dioxide BUN Creatinine Glucose POC Glucose 192 H 191 H Calcium AST ALT Lactate Dehydrogenase Troponin T Total Protein Albumin Crossmatch 04/09/17 04/09/17 04/09/17 04:12 04:24 04:24 WBC 21.1 H RBC 3.06 L Hgb 8.7 L Hct 27.7 L Morris % (Auto) Morris # Seg Neuts % (Manual) 75.0 H Lymphocytes % (Manual) 9.0 L Monocytes % (Manual) Nucleated RBC % Seg Neutrophils # Seg Neutrophils # Man 15.8 H Monocytes # (Manual) 1.5 H PT INR APTT Heparin Anti-Xa Level 0.21 L POC ABG pH POC ABG pCO2 POC ABG pO2 Sodium 133 L Chloride Carbon Dioxide 16 L BUN 35 H Creatinine Glucose 139 H POC Glucose Calcium 7.1 L AST ALT Lactate Dehydrogenase Troponin T Total Protein Albumin Crossmatch 04/09/17 04/09/17 04/09/17 05:31 12:09 18:07 WBC RBC Hgb Hct Morris % (Auto) Morris # Seg Neuts % (Manual) Lymphocytes % (Manual) Monocytes % (Manual) Nucleated RBC % Seg Neutrophils # Seg Neutrophils # Man Monocytes # (Manual) PT INR APTT Heparin Anti-Xa Level POC ABG pH POC ABG pCO2 POC ABG pO2 Sodium Chloride Carbon Dioxide BUN Creatinine Glucose POC Glucose 163 H 150 H 128 H Calcium AST ALT Lactate Dehydrogenase Troponin T Total Protein Albumin Crossmatch 04/10/17 04/10/17 04/10/17 00:15 04:53 05:34 WBC RBC Hgb 7.9 L Hct 24.8 L Morris % (Auto) Morris # Seg Neuts % (Manual) Lymphocytes % (Manual) Monocytes % (Manual) Nucleated RBC % Seg Neutrophils # Seg Neutrophils # Man Monocytes # (Manual) PT INR APTT Heparin Anti-Xa Level POC ABG pH POC ABG pCO2 POC ABG pO2 Sodium Chloride Carbon Dioxide BUN Creatinine Glucose POC Glucose 124 H 109 H Calcium AST ALT Lactate Dehydrogenase Troponin T Total Protein Albumin Crossmatch 04/10/17 04/10/17 04/10/17 08:03 11:49 13:20 WBC 26.9 H RBC 2.72 L Hgb 7.9 L 9.1 L Hct 24.8 L 28.6 L Morris % (Auto) Morris # Seg Neuts % (Manual) 81.0 H Lymphocytes % (Manual) 7.5 L Monocytes % (Manual) Nucleated RBC % Seg Neutrophils # Seg Neutrophils # Man 21.8 H Monocytes # (Manual) 1.9 H PT INR APTT Heparin Anti-Xa Level POC ABG pH POC ABG pCO2 POC ABG pO2 Sodium Chloride Carbon Dioxide BUN Creatinine Glucose POC Glucose 127 H Calcium AST ALT Lactate Dehydrogenase Troponin T Total Protein Albumin Crossmatch 04/10/17 04/10/17 04/10/17 17:43 20:14 23:52 WBC 27.2 H RBC 2.68 L Hgb 7.7 L Hct 24.7 L Morris % (Auto) Morris # Seg Neuts % (Manual) 72.5 H Lymphocytes % (Manual) 10.0 L Monocytes % (Manual) Nucleated RBC % Seg Neutrophils # Seg Neutrophils # Man 19.7 H Monocytes # (Manual) 1.9 H PT INR APTT Heparin Anti-Xa Level POC ABG pH POC ABG pCO2 POC ABG pO2 Sodium Chloride Carbon Dioxide BUN Creatinine Glucose POC Glucose 132 H 125 H Calcium AST ALT Lactate Dehydrogenase Troponin T Total Protein Albumin Crossmatch 04/11/17 04/11/17 04/11/17 04:15 04:15 05:16 WBC RBC Hgb 8.1 L Hct 25.2 L Morris % (Auto) Morris # Seg Neuts % (Manual) Lymphocytes % (Manual) Monocytes % (Manual) Nucleated RBC % Seg Neutrophils # Seg Neutrophils # Man Monocytes # (Manual) PT INR APTT Heparin Anti-Xa Level 0.16 L POC ABG pH POC ABG pCO2 POC ABG pO2 Sodium Chloride Carbon Dioxide BUN Creatinine Glucose POC Glucose 141 H Calcium AST ALT Lactate Dehydrogenase Troponin T Total Protein Albumin Crossmatch 04/11/17 04/11/17 04/11/17 07:04 09:46 12:12 WBC 23.4 H RBC 2.76 L Hgb 8.1 L Hct 25.0 L Morris % (Auto) Morris # Seg Neuts % (Manual) Lymphocytes % (Manual) Monocytes % (Manual) Nucleated RBC % Seg Neutrophils # Seg Neutrophils # Man Monocytes # (Manual) PT INR APTT Heparin Anti-Xa Level POC ABG pH POC ABG pCO2 POC ABG pO2 Sodium Chloride 111.2 H Carbon Dioxide 19 L BUN 18 H Creatinine Glucose 112 H POC Glucose 126 H Calcium 7.8 L AST ALT Lactate Dehydrogenase Troponin T Total Protein Albumin Crossmatch 04/11/17 04/11/17 04/11/17 16:42 17:52 23:31 WBC RBC Hgb Hct Morris % (Auto) Morris # Seg Neuts % (Manual) Lymphocytes % (Manual) Monocytes % (Manual) Nucleated RBC % Seg Neutrophils # Seg Neutrophils # Man Monocytes # (Manual) PT INR APTT Heparin Anti-Xa Level 0.28 L POC ABG pH POC ABG pCO2 POC ABG pO2 Sodium Chloride Carbon Dioxide BUN Creatinine Glucose POC Glucose 134 H 122 H Calcium AST ALT Lactate Dehydrogenase Troponin T Total Protein Albumin Crossmatch 04/12/17 04/12/17 04/12/17 03:03 07:35 11:29 WBC 22.3 H RBC 2.56 L Hgb 7.6 L 7.4 L Hct 24.2 L 23.0 L Morris % (Auto) Morris # Seg Neuts % (Manual) 79.0 H Lymphocytes % (Manual) 6.0 L Monocytes % (Manual) 9.0 H Nucleated RBC % 1.0 H Seg Neutrophils # Seg Neutrophils # Man 17.6 H Monocytes # (Manual) 2.0 H PT INR APTT Heparin Anti-Xa Level POC ABG pH POC ABG pCO2 POC ABG pO2 Sodium Chloride Carbon Dioxide BUN Creatinine Glucose POC Glucose 135 H Calcium AST ALT Lactate Dehydrogenase Troponin T Total Protein Albumin Crossmatch 04/12/17 04/12/17 04/13/17 16:38 23:37 05:19 WBC RBC Hgb Hct Morris % (Auto) Morris # Seg Neuts % (Manual) Lymphocytes % (Manual) Monocytes % (Manual) Nucleated RBC % Seg Neutrophils # Seg Neutrophils # Man Monocytes # (Manual) PT INR APTT Heparin Anti-Xa Level POC ABG pH POC ABG pCO2 POC ABG pO2 Sodium Chloride Carbon Dioxide BUN Creatinine Glucose POC Glucose 129 H 140 H 148 H Calcium AST ALT Lactate Dehydrogenase Troponin T Total Protein Albumin Crossmatch 04/13/17 04/13/17 04/13/17 05:20 05:20 05:20 WBC 25.6 H RBC 2.45 L Hgb 7.0 L Hct 21.8 L Morris % (Auto) Morris # Seg Neuts % (Manual) Lymphocytes % (Manual) Monocytes % (Manual) Nucleated RBC % Seg Neutrophils # Seg Neutrophils # Man Monocytes # (Manual) PT INR APTT 125.5 H* Heparin Anti-Xa Level POC ABG pH POC ABG pCO2 POC ABG pO2 Sodium Chloride 111.8 H Carbon Dioxide 18 L BUN Creatinine 0.6 L Glucose 137 H POC Glucose Calcium 7.7 L AST ALT Lactate Dehydrogenase Troponin T Total Protein Albumin Crossmatch 04/13/17 08:43 WBC RBC Hgb Hct Morris % (Auto) Morris # Seg Neuts % (Manual) Lymphocytes % (Manual) Monocytes % (Manual) Nucleated RBC % Seg Neutrophils # Seg Neutrophils # Man Monocytes # (Manual) PT INR APTT Heparin Anti-Xa Level POC ABG pH POC ABG pCO2 POC ABG pO2 Sodium Chloride Carbon Dioxide BUN Creatinine Glucose POC Glucose 147 H Calcium AST ALT Lactate Dehydrogenase Troponin T Total Protein Albumin Crossmatch
--- NOTE | 2017-04-13 11:24 | Progress Note ---
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 Plan: bb added last pm - will double today Consider tranfusion, unclear etiology of anemia - may also consider holding heparin for a short period if anemia doesn't improve - per primary and surgery Ischemic eval post-poned in setting of recent abdominal surgery given that pt is chest pain free and hemodynamically stable. Will re-evaluate for possible ischemic evaluation (stress MPI) prior to discharge. ASA held in setting of recent surgery. Recommend resuming ASA if okay per surgery. BB and ARB held in setting of hypotension. Resume statin once tolerating PO intake. In the event that dual anti-platelet therapy is required from cardiology standpoint, would avoid triple therapy and forgo ASA and recommend Plavix in conjunction with Eliquis (as it appears that pt will be on life-long Eliquis in setting of reported unprovoked PE). Assessment and plan reviewed with pt and pt's at bedside. Subjective Date of service: 04/13/17 Principal diagnosis: Acute NSTEMI, Abd pain, ileus Interval history: no complaints, at bedside Objective Vital Signs Temp Pulse Pulse Pulse Resp Resp BP 04/13/17 08:46 98 H 04/13/17 08:40 98.4 F 106 H 04/13/17 08:23 04/13/17 05:47 04/13/17 05:17 20 04/13/17 04:35 98.3 F 101 H 22 04/13/17 01:23 99.0 F 99 H 20 04/12/17 23:04 20 04/12/17 22:34 20 04/12/17 21:27 20 04/12/17 20:52 99.1 F 100 H 18 04/12/17 20:19 22 04/12/17 20:13 04/12/17 19:00 20 04/12/17 18:59 108 H 04/12/17 18:50 113 H 172/78 04/12/17 17:52 98.1 F 113 H 18 04/12/17 13:10 99.4 F 107 H 18 BP Pulse Ox 04/13/17 08:46 04/13/17 08:40 186/79 97 04/13/17 08:23 100 04/13/17 05:47 04/13/17 05:17 04/13/17 04:35 156/70 99 04/13/17 01:23 137/74 99 04/12/17 23:04 04/12/17 22:34 04/12/17 21:27 04/12/17 20:52 174/78 100 04/12/17 20:19 98 04/12/17 20:13 100 04/12/17 19:00 04/12/17 18:59 04/12/17 18:50 04/12/17 17:52 172/78 97 04/12/17 13:10 167/72 100 - Physical Examination General: No Apparent Distress HEENT: Positive: EOMI, Normocephaly, Mucus Membranes Moist Neck: Positive: neck supple, trachea midline, Carotid Upstroke (full) Neuro: Positive: Grossly Intact Abdomen: Positive: Soft, Active Bowel Sounds, Tender Skin: Positive: Clear. Negative: Rash Musculoskeletal: Normal Range of Motion Extremities: Absent: edema - Labs and Meds Coagulation 04/13/17 Range/Units 05:20 APTT 125.5 H* (24.2-36.6) Sec. CBC 04/13/17 Range/Units 05:20 WBC 25.6 H (4.5-11.0) K/mm3 RBC 2.45 L (3.65-5.03) M/mm3 Hgb 7.0 L (10.1-14.3) gm/dl Hct 21.8 L (30.3-42.9) % Plt Count 292 (140-440) K/mm3 Comprehensive Metabolic Panel 04/13/17 Range/Units 05:20 Sodium 140 (137-145) mmol/L Potassium 4.3 (3.6-5.0) mmol/L Chloride 111.8 H (98-107) mmol/L Carbon Dioxide 18 L (22-30) mmol/L BUN 9 (7-17) mg/dL Creatinine 0.6 L (0.7-1.2) mg/dL Glucose 137 H (65-100) mg/dL Calcium 7.7 L (8.4-10.2) mg/dL - Imaging and Cardiology EKG: image reviewed Echo: report reviewed - EKG Sinus rhythms and dysrhythmias: sinus tachycardia AV and intraventricular conduction: 1 AV block Myocardial infarction: septal PA (old age or ind
[2017-04-13] MEDS ORDERED: NACL 0.9% 500 ML 500 ML IV ONE (12:20)
--- NOTE | 2017-04-13 12:31 | Progress Note ---
Subjective Date of service: 04/13/17 Principal diagnosis: Acute NSTEMI, Abd pain, ileus Interval history: Assessment and plan: -Anemia: Days labs reviewed. Hemoglobin 7.0. We will transfuse 1 unit of PRBC. Monitor H&H - Acute respiratory failure, sp extubation on 04/09/17, doing well - s/p surgery for ischemic colitis with small bowel resection and cholecystectomy on 04/08/17. tolerating PO feeds. -Non-STEMI: On heparin drip per cardiology rec., cardiology note reviewed cont beta roxana, statin, aspirin and nitroglycerin. -Accelerated hypertension: now resolved, blood pressure in the 160 range. Adjust BP medications -SIRS with leukocytosis and tachycardia: Continue Levaquin and metronidazole. Request ID consult as the white cell count is creeping up -Right lower lobe atelectasis: Treat with incentive spirometry -History of PE: Now on heparin drip, will try to contact cardiology and see if patient can be switched over to oral anticoagulant -Uncontrolled type 2 diabetes mellitus: cont sliding scale, Subjective Patient is awake alert and oriented Offers no specific complaints except pain over the operated area of the abdomen Tolerating by mouth feeds Denies nausea or vomiting or fever Denies chest pain or shortness of breath Objective - Constitutional Vitals: Vital Signs - 12hr 04/13/17 04/13/17 04/13/17 01:23 04:35 05:17 Temperature 99.0 F 98.3 F Pulse Rate Pulse Rate [ 99 H 101 H Left Radial] Respiratory 20 22 20 Rate Blood Pressure 137/74 156/70 [Left Radial Artery] O2 Sat by Pulse 99 99 Oximetry 04/13/17 04/13/17 04/13/17 05:47 08:23 08:40 Temperature 98.4 F Pulse Rate Pulse Rate [ 106 H Left Radial] Respiratory 20 22 Rate Blood Pressure 186/79 [Left Radial Artery] O2 Sat by Pulse 100 97 Oximetry 04/13/17 08:46 Temperature Pulse Rate 98 H Pulse Rate [ Left Radial] Respiratory Rate Blood Pressure [Left Radial Artery] O2 Sat by Pulse Oximetry General appearance: Present: no acute distress - EENT Eyes: PERRL, EOM intact ENT: hearing intact, clear oral mucosa - Neck Neck: supple, normal ROM - Respiratory Respiratory effort: normal Respiratory: bilateral: CTA - Cardiovascular Rhythm: regular Heart Sounds: Present: S1 & S2 Extremities: No edema - Gastrointestinal General gastrointestinal: Present: soft, tender (with moderate guarding), distended, normal bowel sounds. Absent: rigid, hepatomegaly, splenomegaly Rectal Exam: deferred - Integumentary Integumentary: clear - Musculoskeletal Musculoskeletal: strength equal bilaterally - Neurologic Neurologic: no focal deficits - Psychiatric Psychiatric: appropriate mood/affect - Labs CBC & Chem 7: 04/13/17 05:20 04/13/17 05:20 Labs: Abnormal lab results 04/12/17 04/12/17 04/13/17 Range/Units 16:38 23:37 05:19 WBC (4.5-11.0) K/mm3 RBC (3.65-5.03) M/mm3 Hgb (10.1-14.3) gm/dl Hct (30.3-42.9) % APTT (24.2-36.6) Sec. Chloride (98-107) mmol/L Carbon Dioxide (22-30) mmol/L Creatinine (0.7-1.2) mg/dL Glucose (65-100) mg/dL POC Glucose 129 H 140 H 148 H (70-105) Calcium (8.4-10.2) mg/dL 04/13/17 04/13/17 04/13/17 Range/Units 05:20 05:20 05:20 WBC 25.6 H (4.5-11.0) K/mm3 RBC 2.45 L (3.65-5.03) M/mm3 Hgb 7.0 L (10.1-14.3) gm/dl Hct 21.8 L (30.3-42.9) % APTT 125.5 H* (24.2-36.6) Sec. Chloride 111.8 H (98-107) mmol/L Carbon Dioxide 18 L (22-30) mmol/L Creatinine 0.6 L (0.7-1.2) mg/dL Glucose 137 H (65-100) mg/dL POC Glucose (70-105) Calcium 7.7 L (8.4-10.2) mg/dL 04/13/17 04/13/17 Range/Units 08:43 11:30 WBC (4.5-11.0) K/mm3 RBC (3.65-5.03) M/mm3 Hgb (10.1-14.3) gm/dl Hct (30.3-42.9) % APTT (24.2-36.6) Sec. Chloride (98-107) mmol/L Carbon Dioxide (22-30) mmol/L Creatinine (0.7-1.2) mg/dL Glucose (65-100) mg/dL POC Glucose 147 H 154 H (70-105) Calcium (8.4-10.2) mg/dL
[2017-04-13] MEDS: LEVAQUIN 750MG/150ML 750 MG/150 ML BAG IV SCH (17:56)
--- NOTE | 2017-04-13 18:02 | Consultation ---
History of Present Illness - Reason for Consult Consult date: 04/13/17 Leukocytosis Requesting physician: JENNIFER PALOMARES - History of Present Illness MS. Foy is a 71-year-old woman with DM2, HTN and history of PE on Eliquis who presented with acute chest pain and abdominal pain with nausea and emesis. She was found to have cholelithiasis and an ileal volvulus, also NSTEMI. She underwent an open lap with cholecystectomy and small bowel resection on . She has had a leukocytosis of ~25K for several days. She denies any new localizing issue, specifically no fever, chills, abdominal pain or diarrhea. Recent blood culture shows growth of a romero-susceptible E coli. Peritoneal fluid culture is, also, positive for growth of a Gram negative gavin. She is initiated on Levaquin and Flagyl today. ID consultation is requested for further recommendations. Past History Past Medical History: diabetes, hypertension, other (pulmonary embolism diagnosed in December 2015, chronic bilateral leg edema) Past Surgical History: Other (back surgery) Social history: . denies: smoking, alcohol abuse Family history: denies: CAD Medications and Allergies Allergies Allergy/AdvReac Type Severity Reaction Status Date / Time No Known Allergies Allergy Verified 04/05/17 00:49 Home Medications Medication Instructions Recorded Confirmed Last Taken Type Eliquis 2.5 mg PO BID 04/05/17 04/05/17 04/04/17 21:00 History Valsartan 320 mg PO QDAY 04/05/17 04/05/17 04/04/17 10:30 History Active Meds: Active Medications Bisacodyl (Dulcolax) 10 mg NV QDAY PRN PRN Reason: Constipation unrelieved by MOM Last Admin: 04/05/17 15:13 Dose: 10 mg Dextrose (D50w (25gm)) 50 ml IV PRN PRN PRN Reason: Hypoglycemia Famotidine (Pepcid) 20 mg IV BID [facility] Last Admin: 04/13/17 10:43 Dose: 20 mg Hydrophilic Ointment (Vaseline Lip Therapy) 1 applic TP Q2HR PRN PRN Reason: Dry Lips Potassium Chloride/Dextrose/Sod Cl (D5w/0.45% Nacl/Kcl 20 Meq) 20 meq in 1,000 mls @ 75 mls/hr IV DIRECT [facility] Last Admin: 04/13/17 10:44 Dose: 150 mls/hr Heparin Sodium/Sodium Chloride (Heparin/ 0.45% Nacl-25,000 Unit/500 Ml) 25,000 units in 500 mls @ 23 mls/hr IV TITR WILLY; 1,150 UNITS/HR PRN Reason: Protocol Last Admin: 04/13/17 05:23 Dose: 700 units/hr, 14 mls/hr Metronidazole (Flagyl 500 Mg/100 Ml) 500 mg in 100 mls @ 100 mls/hr IV Q6HR [facility] Last Admin: 04/13/17 17:56 Dose: 100 mls/hr Levofloxacin/Dextrose (Levaquin 750mg/150ml) 750 mg in 150 mls @ 100 mls/hr IV Q24H [facility] PRN Reason: Protocol Last Admin: 04/13/17 17:56 Dose: 100 mls/hr Insulin Aspart (Novolog) 0 units SUB-Q Q6HR [facility] PRN Reason: Protocol Last Admin: 04/13/17 12:20 Dose: 1 units Metoprolol Tartrate (Lopressor) 25 mg PO BID [facility] Last Admin: 04/13/17 12:20 Dose: 25 mg Morphine Sulfate (Morphine) 4 mg IV Q3H PRN PRN Reason: Pain , Severe (7-10) Last Admin: 04/13/17 10:43 Dose: 4 mg Multi-Ingred Cream/Lotion/Oil/Oint (Artificial Tears Ophth Oint) 1 applic OU Q4HR PRN PRN Reason: Dry Eye(s) Nitroglycerin (Nitrostat) 0.4 mg SL .Q5MIN PRN PRN Reason: Chest Pain Ondansetron HCl (Zofran) 4 mg IV Q4H PRN PRN Reason: Nausea And Vomiting Last Admin: 04/08/17 21:26 Dose: 4 mg Review of Systems All systems: negative Constitutional: no fever, no chills, no sweats Cardiovascular: no chest pain, no shortness of breath Respiratory: no cough, no cough with sputum, no hemoptysis Gastrointestinal: no abdominal pain, no nausea, no vomiting, no diarrhea (loose BM x 1 today only) Genitourinary Female: no dysuria Integumentary: no rash, no pruritis Neurological: no headaches Physical Examination - Constitutional Vitals: Vital Signs Temp Pulse Resp BP Pulse Ox 98.8 F 98 H 20 168/71 97 04/13/17 11:25 04/13/17 11:25 04/13/17 11:25 04/13/17 11:25 04/13/17 08:40 Temperature -Last 24 Hours Temperature 98.8 F Temperature 98.4 F Temperature 98.3 F Temperature 99.0 F Temperature 99.1 F General appearance: Present: no acute distress (pleasant woman, spouse at bedside), well-nourished - EENT Eyes: Absent: scleral icterus, conjunctival injection - Neck Neck: Present: supple - Respiratory Respiratory: bilateral: CTA, negative: rales, wheezing - Cardiovascular Rhythm: regular Heart Sounds: Present: S1 & S2 - Extremities Extremity abnormal: edema (1-2+ symmetric bilaterally) - Abdominal General gastrointestinal: Present: soft, other (large horizontal surtures with mild erythema of the adjacent skin, no fluctuance, no increased warmth, no significant tenderness) - Integumentary Integumentary: Absent: jaundice, rash - Psychiatric Psychiatric: appropriate mood/affect - Neurologic Neurologic: moves all extremities - Additional findings Additional findings: peripheral IVs Results - Labs CBC & Chem 7: 04/13/17 17:49 04/13/17 05:20 Labs: Abnormal lab results 04/12/17 04/12/17 04/13/17 Range/Units 16:38 23:37 05:19 WBC (4.5-11.0) K/mm3 RBC (3.65-5.03) M/mm3 Hgb (10.1-14.3) gm/dl Hct (30.3-42.9) % APTT (24.2-36.6) Sec. Chloride (98-107) mmol/L Carbon Dioxide (22-30) mmol/L Creatinine (0.7-1.2) mg/dL Glucose (65-100) mg/dL POC Glucose 129 H 140 H 148 H (70-105) Calcium (8.4-10.2) mg/dL Crossmatch 04/13/17 04/13/17 04/13/17 Range/Units 05:20 05:20 05:20 WBC 25.6 H (4.5-11.0) K/mm3 RBC 2.45 L (3.65-5.03) M/mm3 Hgb 7.0 L (10.1-14.3) gm/dl Hct 21.8 L (30.3-42.9) % APTT 125.5 H* (24.2-36.6) Sec. Chloride 111.8 H (98-107) mmol/L Carbon Dioxide 18 L (22-30) mmol/L Creatinine 0.6 L (0.7-1.2) mg/dL Glucose 137 H (65-100) mg/dL POC Glucose (70-105) Calcium 7.7 L (8.4-10.2) mg/dL Crossmatch 04/13/17 04/13/17 04/13/17 Range/Units 08:43 11:30 12:59 WBC (4.5-11.0) K/mm3 RBC (3.65-5.03) M/mm3 Hgb (10.1-14.3) gm/dl Hct (30.3-42.9) % APTT (24.2-36.6) Sec. Chloride (98-107) mmol/L Carbon Dioxide (22-30) mmol/L Creatinine (0.7-1.2) mg/dL Glucose (65-100) mg/dL POC Glucose 147 H 154 H (70-105) Calcium (8.4-10.2) mg/dL Crossmatch See Detail Microbiology 04/07/17 08:38 Peripheral/Venous Blood Culture - Preliminary 04/07/17 10:24 Peripheral/Venous Blood Culture - Final NO GROWTH AFTER 5 DAYS 04/07/17 09:31 Abdomen Anaerobic Culture - Preliminary 04/07/17 Unknown Abdomen Surgical Culture - Final Escherichia Coli 04/07/17 22:50 Tracheal Aspirate Sputum Culture - Final - Imaging and Cardiology Chest x-ray: report reviewed (atelectasis, poor inspiration) CT Scan - head: report reviewed (no acute findings) US - abdomen: report reviewed Assessment and Plan - Patient Problems (1) Bacteremia due to Escherichia coli Current Visit: Yes Status: Acute Plan to address problem: 1. Repeat blood culture. 2. Levaquin and Flagyl okay empirically. Patient remains clinically and hemodynamically stable. 3. Anticipate a 14-day course of antibiotics, likely oral Levaquin for treatment of bacteremia. Await further culture data. (2) Ileus Current Visit: Yes Status: Acute Plan to address problem: Surgically addressed. No further issues presently.
[2017-04-13 18:32] LABS: Hemoglobin 7.2 gm/dl (10.1-14.3)
[2017-04-14] MEDS: MORPHINE IV PRN ×3 (01:17→21:40)
[2017-04-14] MEDS: ZOFRAN IV PRN (01:23)
[2017-04-14] MEDS: D5W/0.45% NACL/KCL 20 MEQ 20 MEQ/1,000 ML BAG IV SCH (05:57)
[2017-04-14] MEDS: FLAGYL 500 MG/100 ML 500 MG/100 ML BAG IV SCH ×3 (05:58→18:01)
[2017-04-14] MEDS: NOVOLOG SUB-Q SCH ×3 (06:08→18:02)
[2017-04-14 06:24] LABS: Anion Gap 11 mmol/L; Blood Urea Nitrogen 7 mg/dL (7-17); Calcium 7.6 mg/dL (8.4-10.2); Carbon Dioxide 20 mmol/L (22-30); Chloride 108.3 mmol/L (98-107); Glucose 130 mg/dL (65-100); Potassium 4.7 mmol/L (3.6-5.0); Sodium 135 mmol/L (137-145)
[2017-04-14 06:26] LABS: Hemoglobin 6.2 gm/dl (10.1-14.3); Red Blood Count 2.17 M/mm3 (3.65-5.03); White Blood Count 25.2 K/mm3 (4.5-11.0)
[2017-04-14 06:28] LABS: Mean Corpuscular HGB Conc 32 % (30-34); Mean Corpuscular Hemoglobin 29 pg (28-32); Mean Corpuscular Volume 91 fl (79-97); Platelet Count 313 K/mm3 (140-440); Red Cell Distribution Width 14.4 % (13.2-15.2)
--- NOTE | 2017-04-14 08:54 | XRay Report ---
PORTABLE CHEST INDICATION: Followup respiratory failure. COMPARISON: 04/12/2017 FINDINGS: Portable, frontal chest radiograph redemonstrates limited inspiration with mild exaggerated cardiomediastinal silhouette. Slight improved bronchovascular prominence and bibasilar haziness, though bibasilar atelectatic densities/small pleural effusions persist. Right hemidiaphragm slightly elevated. EKG leads. Stable few bony degenerative changes. CONCLUSION: Slight interval radiographic improvement in pulmonary vascular congestion, as described. Follow on subsequent exams as well. Thank you for the opportunity to participate in this patient's care.
[2017-04-14] MEDS: PEPCID IV SCH ×2 (10:09→21:41)
[2017-04-14] MEDS: LOPRESSOR PO SCH ×2 (10:09→21:42)
[2017-04-14] MEDS ORDERED: NACL 0.9% 500 ML 500 ML IV ONE (10:30)
--- NOTE | 2017-04-14 11:17 | Progress Note ---
Assessment and Plan 71 y/o female with NSTEMI 1. Cards recs 2. Asked nursing to wean FiO2 to off as tolerated for sats >88%. Will need to be assessed for O2 need prior to discharge. Subjective Date of service: 04/14/17 Principal diagnosis: Acute NSTEMI, Abd pain, ileus Interval history: No acute events. Breathing is stable. Objective Vital Signs - 12hr 04/14/17 04/14/17 04/14/17 00:26 00:45 05:05 Temperature 98.9 F 98.4 F Pulse Rate 105 H Pulse Rate [ 102 H 89 Right Dorsalis Pedis] Respiratory 20 18 Rate Blood Pressure 132/64 137/61 [Left Radial Artery] O2 Sat by Pulse 100 100 Oximetry 04/14/17 04/14/17 08:00 08:25 Temperature 98.7 F Pulse Rate Pulse Rate [ 97 H Right Dorsalis Pedis] Respiratory 18 Rate Blood Pressure 163/72 [Left Radial Artery] O2 Sat by Pulse 99 98 Oximetry Constitutional: alert ENT: oropharynx moist Neck: supple, no JVD Effort: no acute distress Ascultation: Bilateral: clear, diminished breath sounds (decreased excursions), rhonchi (occasional) Cardiovascular: regular rate and rhythm Gastrointestinal: absent bowel sounds, tender, other (mild tender bowel sounds are active tympanic. Still some distention.) Extremities: no cyanosis, no edema Neurologic: normal mental status, non-focal exam, CN II-XII normal Psychiatric: affect normal CBC and BMP: 04/14/17 04:49 04/14/17 04:49 ABG, PT/INR, D-dimer: ABG POC ABG pH 7.384 (7.35-7.45) 04/08/17 10:35 POC ABG pCO2 29.7 (35-45) L 04/08/17 10:35 POC ABG pO2 89 (80-105) 04/08/17 10:35 POC ABG HCO3 17.8 04/08/17 10:35 POC ABG Total CO2 19 04/08/17 10:35 POC ABG O2 Sat 97 04/08/17 10:35 PT/INR, D-dimer PT 18.3 Sec. (12.2-14.9) H 04/08/17 03:54 INR 1.52 (0.87-1.13) H 04/08/17 03:54 Abnormal lab findings: Abnormal Labs 04/05/17 04/05/17 04/05/17 06:59 07:19 12:13 WBC RBC Hgb Hct [place] % (Auto) [place] # Seg Neuts % (Manual) Lymphocytes % (Manual) Monocytes % (Manual) Nucleated RBC % Seg Neutrophils # Seg Neutrophils # Man Monocytes # (Manual) PT 15.7 H INR 1.26 H APTT 179.9 H* Heparin Anti-Xa Level POC ABG pH POC ABG pCO2 POC ABG pO2 Sodium Chloride Carbon Dioxide BUN Creatinine Glucose POC Glucose 177 H Calcium AST ALT Lactate Dehydrogenase Troponin T 0.755 H* D Total Protein Albumin Crossmatch 04/05/17 04/05/17 04/05/17 13:02 16:51 18:10 WBC RBC Hgb Hct [place] % (Auto) [place] # Seg Neuts % (Manual) Lymphocytes % (Manual) Monocytes % (Manual) Nucleated RBC % Seg Neutrophils # Seg Neutrophils # Man Monocytes # (Manual) PT INR APTT Heparin Anti-Xa Level 1.36 H POC ABG pH POC ABG pCO2 POC ABG pO2 Sodium Chloride Carbon Dioxide BUN Creatinine Glucose POC Glucose 149 H 127 H Calcium AST ALT Lactate Dehydrogenase Troponin T Total Protein Albumin Crossmatch 04/05/17 04/05/17 04/05/17 19:21 21:15 23:51 WBC RBC Hgb Hct [place] % (Auto) [place] # Seg Neuts % (Manual) Lymphocytes % (Manual) Monocytes % (Manual) Nucleated RBC % Seg Neutrophils # Seg Neutrophils # Man Monocytes # (Manual) PT INR APTT Heparin Anti-Xa Level 1.09 H POC ABG pH POC ABG pCO2 POC ABG pO2 Sodium Chloride Carbon Dioxide BUN Creatinine Glucose POC Glucose 126 H 125 H Calcium AST ALT Lactate Dehydrogenase Troponin T Total Protein Albumin Crossmatch 04/06/17 04/06/17 04/06/17 04:54 04:54 05:11 WBC 13.6 H RBC 3.64 L Hgb Hct [place] % (Auto) 11.2 H [place] # 1.5 H Seg Neuts % (Manual) Lymphocytes % (Manual) Monocytes % (Manual) Nucleated RBC % Seg Neutrophils # 8.6 H Seg Neutrophils # Man Monocytes # (Manual) PT INR APTT Heparin Anti-Xa Level POC ABG pH POC ABG pCO2 POC ABG pO2 Sodium Chloride Carbon Dioxide BUN 21 H Creatinine 0.4 L Glucose 123 H POC Glucose 119 H Calcium AST 92 H ALT 69 H Lactate Dehydrogenase Troponin T Total Protein 6.1 L Albumin 3.1 L Crossmatch 04/07/17 04/07/17 04/07/17 05:19 05:19 08:38 WBC 26.2 H RBC Hgb Hct [place] % (Auto) [place] # Seg Neuts % (Manual) 80.5 H Lymphocytes % (Manual) 7.5 L Monocytes % (Manual) 9.5 H Nucleated RBC % Seg Neutrophils # Seg Neutrophils # Man 21.1 H Monocytes # (Manual) 2.5 H PT INR APTT Heparin Anti-Xa Level POC ABG pH POC ABG pCO2 POC ABG pO2 Sodium Chloride 96.6 L Carbon Dioxide 19 L D BUN 26 H Creatinine 0.4 L Glucose POC Glucose Calcium AST ALT Lactate Dehydrogenase 379 H Troponin T Total Protein Albumin Crossmatch 04/07/17 04/07/17 04/07/17 16:14 18:20 18:20 WBC 22.5 H RBC 3.30 L Hgb 9.7 L Hct [place] % (Auto) [place] # Seg Neuts % (Manual) 75.0 H Lymphocytes % (Manual) Monocytes % (Manual) Nucleated RBC % Seg Neutrophils # Seg Neutrophils # Man 16.9 H Monocytes # (Manual) 1.6 H PT 17.0 H INR 1.39 H APTT Heparin Anti-Xa Level POC ABG pH POC ABG pCO2 POC ABG pO2 Sodium Chloride Carbon Dioxide BUN Creatinine Glucose POC Glucose Calcium AST ALT Lactate Dehydrogenase Troponin T Total Protein Albumin Crossmatch See Detail 04/07/17 04/07/17 04/08/17 20:16 21:50 03:41 WBC RBC Hgb Hct [place] % (Auto) [place] # Seg Neuts % (Manual) Lymphocytes % (Manual) Monocytes % (Manual) Nucleated RBC % Seg Neutrophils # Seg Neutrophils # Man Monocytes # (Manual) PT INR APTT Heparin Anti-Xa Level POC ABG pH 7.331 L POC ABG pCO2 33.6 L POC ABG pO2 Sodium Chloride Carbon Dioxide BUN Creatinine Glucose POC Glucose 122 H 201 H Calcium AST ALT Lactate Dehydrogenase Troponin T Total Protein Albumin Crossmatch 04/08/17 04/08/17 04/08/17 03:54 05:10 05:10 WBC 13.4 H RBC 3.19 L Hgb 9.6 L Hct 29.2 L [place] % (Auto) [place] # Seg Neuts % (Manual) Lymphocytes % (Manual) Monocytes % (Manual) Nucleated RBC % Seg Neutrophils # Seg Neutrophils # Man Monocytes # (Manual) PT 18.3 H INR 1.52 H APTT Heparin Anti-Xa Level 0.10 L POC ABG pH POC ABG pCO2 POC ABG pO2 Sodium 135 L Chloride Carbon Dioxide 17 L BUN 35 H Creatinine Glucose 186 H POC Glucose Calcium 7.5 L D AST ALT Lactate Dehydrogenase Troponin T Total Protein Albumin Crossmatch 04/08/17 04/08/17 04/08/17 06:13 10:35 12:13 WBC RBC Hgb Hct [place] % (Auto) [place] # Seg Neuts % (Manual) Lymphocytes % (Manual) Monocytes % (Manual) Nucleated RBC % Seg Neutrophils # Seg Neutrophils # Man Monocytes # (Manual) PT INR APTT Heparin Anti-Xa Level POC ABG pH POC ABG pCO2 30.5 L 29.7 L POC ABG pO2 125 H Sodium Chloride Carbon Dioxide BUN Creatinine Glucose POC Glucose 250 H Calcium AST ALT Lactate Dehydrogenase Troponin T Total Protein Albumin Crossmatch 04/08/17 04/08/17 04/08/17 18:07 18:12 23:56 WBC RBC Hgb Hct [place] % (Auto) [place] # Seg Neuts % (Manual) Lymphocytes % (Manual) Monocytes % (Manual) Nucleated RBC % Seg Neutrophils # Seg Neutrophils # Man Monocytes # (Manual) PT INR APTT Heparin Anti-Xa Level 0.26 L POC ABG pH POC ABG pCO2 POC ABG pO2 Sodium Chloride Carbon Dioxide BUN Creatinine Glucose POC Glucose 192 H 191 H Calcium AST ALT Lactate Dehydrogenase Troponin T Total Protein Albumin Crossmatch 04/09/17 04/09/17 04/09/17 04:12 04:24 04:24 WBC 21.1 H RBC 3.06 L Hgb 8.7 L Hct 27.7 L [place] % (Auto) [place] # Seg Neuts % (Manual) 75.0 H Lymphocytes % (Manual) 9.0 L Monocytes % (Manual) Nucleated RBC % Seg Neutrophils # Seg Neutrophils # Man 15.8 H Monocytes # (Manual) 1.5 H PT INR APTT Heparin Anti-Xa Level 0.21 L POC ABG pH POC ABG pCO2 POC ABG pO2 Sodium 133 L Chloride Carbon Dioxide 16 L BUN 35 H Creatinine Glucose 139 H POC Glucose Calcium 7.1 L AST ALT Lactate Dehydrogenase Troponin T Total Protein Albumin Crossmatch 04/09/17 04/09/17 04/09/17 05:31 12:09 18:07 WBC RBC Hgb Hct [place] % (Auto) [place] # Seg Neuts % (Manual) Lymphocytes % (Manual) Monocytes % (Manual) Nucleated RBC % Seg Neutrophils # Seg Neutrophils # Man Monocytes # (Manual) PT INR APTT Heparin Anti-Xa Level POC ABG pH POC ABG pCO2 POC ABG pO2 Sodium Chloride Carbon Dioxide BUN Creatinine Glucose POC Glucose 163 H 150 H 128 H Calcium AST ALT Lactate Dehydrogenase Troponin T Total Protein Albumin Crossmatch 04/10/17 04/10/17 04/10/17 00:15 04:53 05:34 WBC RBC Hgb 7.9 L Hct 24.8 L [place] % (Auto) [place] # Seg Neuts % (Manual) Lymphocytes % (Manual) Monocytes % (Manual) Nucleated RBC % Seg Neutrophils # Seg Neutrophils # Man Monocytes # (Manual) PT INR APTT Heparin Anti-Xa Level POC ABG pH POC ABG pCO2 POC ABG pO2 Sodium Chloride Carbon Dioxide BUN Creatinine Glucose POC Glucose 124 H 109 H Calcium AST ALT Lactate Dehydrogenase Troponin T Total Protein Albumin Crossmatch 04/10/17 04/10/17 04/10/17 08:03 11:49 13:20 WBC 26.9 H RBC 2.72 L Hgb 7.9 L 9.1 L Hct 24.8 L 28.6 L [place] % (Auto) [place] # Seg Neuts % (Manual) 81.0 H Lymphocytes % (Manual) 7.5 L Monocytes % (Manual) Nucleated RBC % Seg Neutrophils # Seg Neutrophils # Man 21.8 H Monocytes # (Manual) 1.9 H PT INR APTT Heparin Anti-Xa Level POC ABG pH POC ABG pCO2 POC ABG pO2 Sodium Chloride Carbon Dioxide BUN Creatinine Glucose POC Glucose 127 H Calcium AST ALT Lactate Dehydrogenase Troponin T Total Protein Albumin Crossmatch 04/10/17 04/10/17 04/10/17 17:43 20:14 23:52 WBC 27.2 H RBC 2.68 L Hgb 7.7 L Hct 24.7 L [place] % (Auto) [place] # Seg Neuts % (Manual) 72.5 H Lymphocytes % (Manual) 10.0 L Monocytes % (Manual) Nucleated RBC % Seg Neutrophils # Seg Neutrophils # Man 19.7 H Monocytes # (Manual) 1.9 H PT INR APTT Heparin Anti-Xa Level POC ABG pH POC ABG pCO2 POC ABG pO2 Sodium Chloride Carbon Dioxide BUN Creatinine Glucose POC Glucose 132 H 125 H Calcium AST ALT Lactate Dehydrogenase Troponin T Total Protein Albumin Crossmatch 04/11/17 04/11/17 04/11/17 04:15 04:15 05:16 WBC RBC Hgb 8.1 L Hct 25.2 L [place] % (Auto) [place] # Seg Neuts % (Manual) Lymphocytes % (Manual) Monocytes % (Manual) Nucleated RBC % Seg Neutrophils # Seg Neutrophils # Man Monocytes # (Manual) PT INR APTT Heparin Anti-Xa Level 0.16 L POC ABG pH POC ABG pCO2 POC ABG pO2 Sodium Chloride Carbon Dioxide BUN Creatinine Glucose POC Glucose 141 H Calcium AST ALT Lactate Dehydrogenase Troponin T Total Protein Albumin Crossmatch 04/11/17 04/11/17 04/11/17 07:04 09:46 12:12 WBC 23.4 H RBC 2.76 L Hgb 8.1 L Hct 25.0 L [place] % (Auto) [place] # Seg Neuts % (Manual) Lymphocytes % (Manual) Monocytes % (Manual) Nucleated RBC % Seg Neutrophils # Seg Neutrophils # Man Monocytes # (Manual) PT INR APTT Heparin Anti-Xa Level POC ABG pH POC ABG pCO2 POC ABG pO2 Sodium Chloride 111.2 H Carbon Dioxide 19 L BUN 18 H Creatinine Glucose 112 H POC Glucose 126 H Calcium 7.8 L AST ALT Lactate Dehydrogenase Troponin T Total Protein Albumin Crossmatch 04/11/17 04/11/17 04/11/17 16:42 17:52 23:31 WBC RBC Hgb Hct [place] % (Auto) [place] # Seg Neuts % (Manual) Lymphocytes % (Manual) Monocytes % (Manual) Nucleated RBC % Seg Neutrophils # Seg Neutrophils # Man Monocytes # (Manual) PT INR APTT Heparin Anti-Xa Level 0.28 L POC ABG pH POC ABG pCO2 POC ABG pO2 Sodium Chloride Carbon Dioxide BUN Creatinine Glucose POC Glucose 134 H 122 H Calcium AST ALT Lactate Dehydrogenase Troponin T Total Protein Albumin Crossmatch 04/12/17 04/12/17 04/12/17 03:03 07:35 11:29 WBC 22.3 H RBC 2.56 L Hgb 7.6 L 7.4 L Hct 24.2 L 23.0 L [place] % (Auto) [place] # Seg Neuts % (Manual) 79.0 H Lymphocytes % (Manual) 6.0 L Monocytes % (Manual) 9.0 H Nucleated RBC % 1.0 H Seg Neutrophils # Seg Neutrophils # Man 17.6 H Monocytes # (Manual) 2.0 H PT INR APTT Heparin Anti-Xa Level POC ABG pH POC ABG pCO2 POC ABG pO2 Sodium Chloride Carbon Dioxide BUN Creatinine Glucose POC Glucose 135 H Calcium AST ALT Lactate Dehydrogenase Troponin T Total Protein Albumin Crossmatch 04/12/17 04/12/17 04/13/17 16:38 23:37 05:19 WBC RBC Hgb Hct [place] % (Auto) [place] # Seg Neuts % (Manual) Lymphocytes % (Manual) Monocytes % (Manual) Nucleated RBC % Seg Neutrophils # Seg Neutrophils # Man Monocytes # (Manual) PT INR APTT Heparin Anti-Xa Level POC ABG pH POC ABG pCO2 POC ABG pO2 Sodium Chloride Carbon Dioxide BUN Creatinine Glucose POC Glucose 129 H 140 H 148 H Calcium AST ALT Lactate Dehydrogenase Troponin T Total Protein Albumin Crossmatch 04/13/17 04/13/17 04/13/17 05:20 05:20 05:20 WBC 25.6 H RBC 2.45 L Hgb 7.0 L Hct 21.8 L [place] % (Auto) [place] # Seg Neuts % (Manual) Lymphocytes % (Manual) Monocytes % (Manual) Nucleated RBC % Seg Neutrophils # Seg Neutrophils # Man Monocytes # (Manual) PT INR APTT 125.5 H* Heparin Anti-Xa Level POC ABG pH POC ABG pCO2 POC ABG pO2 Sodium Chloride 111.8 H Carbon Dioxide 18 L BUN Creatinine 0.6 L Glucose 137 H POC Glucose Calcium 7.7 L AST ALT Lactate Dehydrogenase Troponin T Total Protein Albumin Crossmatch 04/13/17 04/13/17 04/13/17 08:43 11:30 12:59 WBC RBC Hgb Hct [place] % (Auto) [place] # Seg Neuts % (Manual) Lymphocytes % (Manual) Monocytes % (Manual) Nucleated RBC % Seg Neutrophils # Seg Neutrophils # Man Monocytes # (Manual) PT INR APTT Heparin Anti-Xa Level POC ABG pH POC ABG pCO2 POC ABG pO2 Sodium Chloride Carbon Dioxide BUN Creatinine Glucose POC Glucose 147 H 154 H Calcium AST ALT Lactate Dehydrogenase Troponin T Total Protein Albumin Crossmatch See Detail 04/13/17 04/13/17 04/13/17 17:49 17:56 23:05 WBC RBC Hgb 7.2 L Hct 23.0 L [place] % (Auto) [place] # Seg Neuts % (Manual) Lymphocytes % (Manual) Monocytes % (Manual) Nucleated RBC % Seg Neutrophils # Seg Neutrophils # Man Monocytes # (Manual) PT INR APTT Heparin Anti-Xa Level POC ABG pH POC ABG pCO2 POC ABG pO2 Sodium Chloride Carbon Dioxide BUN Creatinine Glucose POC Glucose 142 H 136 H Calcium AST ALT Lactate Dehydrogenase Troponin T Total Protein Albumin Crossmatch 04/14/17 04/14/17 04/14/17 04:49 04:49 04:49 WBC 25.2 H RBC 2.17 L Hgb 6.2 L Hct 20.0 L [place] % (Auto) [place] # Seg Neuts % (Manual) Lymphocytes % (Manual) Monocytes % (Manual) Nucleated RBC % Seg Neutrophils # Seg Neutrophils # Man Monocytes # (Manual) PT INR APTT Heparin Anti-Xa Level 0.23 L POC ABG pH POC ABG pCO2 POC ABG pO2 Sodium 135 L Chloride 108.3 H Carbon Dioxide 20 L BUN Creatinine Glucose 130 H POC Glucose Calcium 7.6 L AST ALT Lactate Dehydrogenase Troponin T Total Protein Albumin Crossmatch 04/14/17 06:04 WBC RBC Hgb Hct [place] % (Auto) [place] # Seg Neuts % (Manual) Lymphocytes % (Manual) Monocytes % (Manual) Nucleated RBC % Seg Neutrophils # Seg Neutrophils # Man Monocytes # (Manual) PT INR APTT Heparin Anti-Xa Level POC ABG pH POC ABG pCO2 POC ABG pO2 Sodium Chloride Carbon Dioxide BUN Creatinine Glucose POC Glucose 148 H Calcium AST ALT Lactate Dehydrogenase Troponin T Total Protein Albumin Crossmatch
[2017-04-14 11:40] LABS: Alanine Aminotransferase 18 units/L (7-56); Albumin 1.8 g/dL (3.9-5); Albumin/Globulin Ratio 0.6 %; Alkaline Phosphatase 51 units/L (35-129); Total Protein 4.6 g/dL (6.3-8.2)
[2017-04-14 11:48] LABS: Bilirubin,Direct < 0.2 mg/dL (0-0.2); Bilirubin,Indirect 0.1 mg/dL
[2017-04-14 12:34] LABS: INR 1.6 (0.87-1.13)
--- NOTE | 2017-04-14 12:58 | Progress Note ---
Assessment and Plan Currently stable cardiac status. Ischemic eval will continue to be post-poned in setting of anemia given that pt is chest pain free and hemodynamically stable. Will re-evaluate for possible ischemic evaluation (stress MPI) prior to discharge. The patient has been seen in conjunction with Dr. Ibarra who agrees with the assessment and plan of care. - Patient Problems (1) Non-ST elevation myocardial infarction (NSTEMI), type 2 Current Visit: Yes Status: Acute (2) Volvulus of ileum Current Visit: Yes Status: Acute Plan to address problem: s/p small bowel resection on 04/07/2017 (3) Cholecystitis Current Visit: Yes Status: Acute (4) S/P cholecystectomy Current Visit: Yes Status: Acute Plan to address problem: on 04/07/2017 (5) Diabetes mellitus Current Visit: Yes Status: Chronic Qualifiers: Diabetes mellitus type: type 2 Diabetes mellitus complication status: without complication Diabetes mellitus complication detail: D Diabetic retinopathy severity: D Proliferative retinopathy type: P Diabetes mellitus macular edema: D Diabetes mellitus assisted insulin use: D Laterality: L Chronic kidney disease stage: C (6) Hypertension Current Visit: Yes Status: Chronic Qualifiers: Hypertension type: essential hypertension Qualified Code(s): I10 - Essential (primary) hypertension (7) Anemia Current Visit: Yes Status: Acute Qualifiers: Anemia type: A Iron deficiency anemia type: I Vitamin B12 deficiency anemia type: V Folate deficiency anemia type: F Bone marrow failure anemia type: B Hemolytic anemia type: H Other causes of anemia: O Chronic kidney disease stage: C (8) History of pulmonary embolism Current Visit: Yes Status: Chronic Subjective Date of service: 04/14/17 Principal diagnosis: Acute NSTEMI, Abd pain, ileus Interval history: Pt resting in bed, denies any cardiac complaints currently. VSS. Objective Last Vital Signs Temp 98.9 F 04/14/17 12:28 Pulse 91 H 04/14/17 12:28 Resp 20 04/14/17 12:28 BP 146/65 04/14/17 12:28 Pulse Ox 97 04/14/17 12:28 - Physical Examination General: No Apparent Distress HEENT: Positive: EOMI, Normocephaly, Mucus Membranes Moist Neck: Positive: neck supple, trachea midline, Carotid Upstroke (full) Cardiac: Positive: Reg Rate and Rhythm, S1/S2 Lungs: Positive: clear to auscultation Neuro: Positive: Grossly Intact Abdomen: Positive: Soft, Active Bowel Sounds, Tender Skin: Positive: Clear. Negative: Rash Musculoskeletal: Normal Range of Motion Extremities: Absent: edema - Labs and Meds Cardiac Enzymes 04/14/17 Range/Units 10:08 AST 26 (5-40) units/L Coagulation 04/14/17 Range/Units 10:08 PT 19.0 H (12.2-14.9) Sec. INR 1.60 H (0.87-1.13) CBC 04/13/17 04/14/17 Range/Units 17:49 04:49 WBC 25.2 H (4.5-11.0) K/mm3 RBC 2.17 L (3.65-5.03) M/mm3 Hgb 7.2 L 6.2 L (10.1-14.3) gm/dl Hct 23.0 L 20.0 L (30.3-42.9) % Plt Count 313 (140-440) K/mm3 Comprehensive Metabolic Panel 04/14/17 04/14/17 Range/Units 04:49 10:08 Sodium 135 L (137-145) mmol/L Potassium 4.7 (3.6-5.0) mmol/L Chloride 108.3 H (98-107) mmol/L Carbon Dioxide 20 L (22-30) mmol/L BUN 7 (7-17) mg/dL Creatinine 0.7 (0.7-1.2) mg/dL Glucose 130 H (65-100) mg/dL Calcium 7.6 L (8.4-10.2) mg/dL Direct Bilirubin < 0.2 (0-0.2) mg/dL Indirect Bilirubin 0.1 mg/dL AST 26 (5-40) units/L ALT 18 (7-56) units/L Alkaline Phosphatase 51 (35-129) units/L Total Protein 4.6 L (6.3-8.2) g/dL Albumin 1.8 L (3.9-5) g/dL - Imaging and Cardiology EKG: image reviewed Echo: report reviewed - EKG Sinus rhythms and dysrhythmias: sinus tachycardia AV and intraventricular conduction: 1 AV block Myocardial infarction: septal PA (old age or ind
--- NOTE | 2017-04-14 13:53 | Progress Note ---
Subjective Narrative: feels OK multiple BMs abd a little distended will check with KUB ,bmp , Objective Vital Signs - 12hr 04/14/17 04/14/17 04/14/17 05:05 08:00 08:25 Temperature 98.4 F 98.7 F Pulse Rate Pulse Rate [ 89 97 H Right Dorsalis Pedis] Respiratory 18 18 Rate Blood Pressure Blood Pressure 137/61 163/72 [Left Radial Artery] O2 Sat by Pulse 100 99 98 Oximetry 04/14/17 12:28 Temperature 98.9 F Pulse Rate 91 H Pulse Rate [ Right Dorsalis Pedis] Respiratory 20 Rate Blood Pressure 146/65 Blood Pressure [Left Radial Artery] O2 Sat by Pulse 97 Oximetry - Labs 04/14/17 04:49 04/14/17 04:49 Diabetes panel 04/14/17 04/14/17 Range/Units 04:49 10:08 Sodium 135 L (137-145) mmol/L Potassium 4.7 (3.6-5.0) mmol/L Chloride 108.3 H (98-107) mmol/L Carbon Dioxide 20 L (22-30) mmol/L BUN 7 (7-17) mg/dL Creatinine 0.7 (0.7-1.2) mg/dL Glucose 130 H (65-100) mg/dL Calcium 7.6 L (8.4-10.2) mg/dL AST 26 (5-40) units/L ALT 18 (7-56) units/L Alkaline Phosphatase 51 (35-129) units/L Total Protein 4.6 L (6.3-8.2) g/dL Albumin 1.8 L (3.9-5) g/dL Calcium panel 04/14/17 04/14/17 Range/Units 04:49 10:08 Calcium 7.6 L (8.4-10.2) mg/dL Albumin 1.8 L (3.9-5) g/dL Pituitary panel 04/14/17 Range/Units 04:49 Sodium 135 L (137-145) mmol/L Potassium 4.7 (3.6-5.0) mmol/L Chloride 108.3 H (98-107) mmol/L Carbon Dioxide 20 L (22-30) mmol/L BUN 7 (7-17) mg/dL Creatinine 0.7 (0.7-1.2) mg/dL Glucose 130 H (65-100) mg/dL Calcium 7.6 L (8.4-10.2) mg/dL Adrenal panel 04/14/17 04/14/17 Range/Units 04:49 10:08 Sodium 135 L (137-145) mmol/L Potassium 4.7 (3.6-5.0) mmol/L Chloride 108.3 H (98-107) mmol/L Carbon Dioxide 20 L (22-30) mmol/L BUN 7 (7-17) mg/dL Creatinine 0.7 (0.7-1.2) mg/dL Glucose 130 H (65-100) mg/dL Calcium 7.6 L (8.4-10.2) mg/dL Total Bilirubin 0.30 (0.1-1.2) mg/dL AST 26 (5-40) units/L ALT 18 (7-56) units/L Alkaline Phosphatase 51 (35-129) units/L Total Protein 4.6 L (6.3-8.2) g/dL Albumin 1.8 L (3.9-5) g/dL
--- NOTE | 2017-04-14 14:11 | Progress Note ---
Assessment and Plan Patient is a 71-year-old woman with a history of diabetes mellitus2, hypertension and pulmonary embolism on Eliquis since December 2016 who presents with abdominal pain and chest pain. Chest x-ray read as no pneumonia or CHF. Troponin was 1.010, EKG read as no ST elevation NV, nonspecific changes. CT abdomen and pelvis with and without contrast shows possible cholelithiasis and an ileal volvulus. She underwent an open lap with cholecystectomy and small bowel resection on 04/07/17. She has had a leukocytosis of ~25K for several days. Recent blood culture shows growth of a romero-susceptible E coli. Peritoneal fluid culture is, also, positive for growth of a Gram negative gavin. She is initiated on Levaquin and Flagyl 04/13/17. -Anemia: Days labs reviewed. Hemoglobin 6.2. We will transfuse 2 units of PRBC. Monitor H&H, ordered fecal occult blood test - Acute respiratory failure, sp extubation on 04/09/17, doing well - s/p surgery for ischemic colitis with small bowel resection and cholecystectomy on 04/08/17. tolerating PO feeds. -Non-STEMI: Started On heparin drip per cardiology rec., now discontinued due to anemia. cardiology note reviewed cont beta roxana, statin, aspirin and nitroglycerin. -Accelerated hypertension: now resolved, blood pressure in the 160 range. Adjust BP medications as needed -SIRS with leukocytosis and tachycardia: Likely due to bacteremia. Continue Levaquin and metronidazole. Request ID consult as the white cell count is creeping up. Ordered CT scan of abdomen and pelvis for possible intra- abdominal cause for persistent leukocytosis - Bacteremia due to Escherichia coli: Continue Levaquin with Flagyl. Repeat blood cultures are negative to date. Ordered Abdomen/ pelvis to rule out intra- abdominal collection given persistent leukocytosis, though normalization of WBC count may take an additional amount of time. -Right lower lobe atelectasis: Treat with incentive spirometry -History of PE: Now off heparin drip, need to address oral anticoagulation once anemia stabilized -Uncontrolled type 2 diabetes mellitus: cont sliding scale, Microbiology 04/13/17 20:25 Peripheral/Venous Blood Culture - Preliminary NO GROWTH AFTER 24 HOURS 04/13/17 20:18 Peripheral/Venous Blood Culture - Preliminary NO GROWTH AFTER 24 HOURS 04/14/17 Unknown Stool Stool Occult Blood (ANDREA) - Final 04/07/17 09:31 Abdomen Anaerobic Culture - Final Fusobacterium Varium Bacteroides Thetaiotaomicron 04/07/17 08:38 Peripheral/Venous Blood Culture - Preliminary 04/07/17 10:24 Peripheral/Venous Blood Culture - Final NO GROWTH AFTER 5 DAYS 04/07/17 Unknown Abdomen Surgical Culture - Final Escherichia Coli 04/07/17 22:50 Tracheal Aspirate Sputum Culture - Final Subjective Date of service: 04/14/17 Principal diagnosis: Acute NSTEMI, Abd pain, ileus Interval history: Patient seen and examined. H and H dropped to 6.2 today, no overt sign of bleeding. Objective - Exam Narrative Exam: GEN: WDWN, NAD, AWAKE, ALERT, ORIENTATED x 3, CVS: mild regular tachycardiac, NORMAL S1S2 LUNGS/CHEST: CTABL, NORMAL CHEST EXPANSION B, GOOD AIR ENTRY B ABD: SOFT, surgical dressing on place, nondistended EXT/SKIN: NO SIGNIFICANT EDEMA OR RASH MSK: FROM X 4 EXTREMITIES NEURO: CN 2-12 GROSSLY INTACT, NO FOCAL DEFICITS PSY: CALM - Constitutional Vitals: Vital Signs - 12hr 04/14/17 04/14/17 04/14/17 05:05 08:00 08:25 Temperature 98.4 F 98.7 F Pulse Rate Pulse Rate [ 89 97 H Right Dorsalis Pedis] Respiratory 18 18 Rate Blood Pressure Blood Pressure 137/61 163/72 [Left Radial Artery] O2 Sat by Pulse 100 99 98 Oximetry 04/14/17 12:28 Temperature 98.9 F Pulse Rate 91 H Pulse Rate [ Right Dorsalis Pedis] Respiratory 20 Rate Blood Pressure 146/65 Blood Pressure [Left Radial Artery] O2 Sat by Pulse 97 Oximetry - Labs CBC & Chem 7: 04/14/17 20:37 04/14/17 04:49 Labs: Abnormal lab results 04/13/17 04/13/17 04/13/17 Range/Units 12:59 17:49 17:56 WBC (4.5-11.0) K/mm3 RBC (3.65-5.03) M/mm3 Hgb 7.2 L (10.1-14.3) gm/dl Hct 23.0 L (30.3-42.9) % PT (12.2-14.9) Sec. INR (0.87-1.13) Heparin Anti-Xa Level (0.3-0.7) U.I./ml Sodium (137-145) mmol/L Chloride (98-107) mmol/L Carbon Dioxide (22-30) mmol/L Glucose (65-100) mg/dL POC Glucose 142 H (70-105) Calcium (8.4-10.2) mg/dL Total Protein (6.3-8.2) g/dL Albumin (3.9-5) g/dL Crossmatch See Detail 04/13/17 04/14/17 04/14/17 Range/Units 23:05 04:49 04:49 WBC 25.2 H (4.5-11.0) K/mm3 RBC 2.17 L (3.65-5.03) M/mm3 Hgb 6.2 L (10.1-14.3) gm/dl Hct 20.0 L (30.3-42.9) % PT (12.2-14.9) Sec. INR (0.87-1.13) Heparin Anti-Xa Level 0.23 L (0.3-0.7) U.I./ml Sodium (137-145) mmol/L Chloride (98-107) mmol/L Carbon Dioxide (22-30) mmol/L Glucose (65-100) mg/dL POC Glucose 136 H (70-105) Calcium (8.4-10.2) mg/dL Total Protein (6.3-8.2) g/dL Albumin (3.9-5) g/dL Crossmatch 04/14/17 04/14/17 04/14/17 Range/Units 04:49 06:04 10:08 WBC (4.5-11.0) K/mm3 RBC (3.65-5.03) M/mm3 Hgb (10.1-14.3) gm/dl Hct (30.3-42.9) % PT (12.2-14.9) Sec. INR (0.87-1.13) Heparin Anti-Xa Level (0.3-0.7) U.I./ml Sodium 135 L (137-145) mmol/L Chloride 108.3 H (98-107) mmol/L Carbon Dioxide 20 L (22-30) mmol/L Glucose 130 H (65-100) mg/dL POC Glucose 148 H (70-105) Calcium 7.6 L (8.4-10.2) mg/dL Total Protein 4.6 L (6.3-8.2) g/dL Albumin 1.8 L (3.9-5) g/dL Crossmatch 04/14/17 Range/Units 10:08 WBC (4.5-11.0) K/mm3 RBC (3.65-5.03) M/mm3 Hgb (10.1-14.3) gm/dl Hct (30.3-42.9) % PT 19.0 H (12.2-14.9) Sec. INR 1.60 H (0.87-1.13) Heparin Anti-Xa Level (0.3-0.7) U.I./ml Sodium (137-145) mmol/L Chloride (98-107) mmol/L Carbon Dioxide (22-30) mmol/L Glucose (65-100) mg/dL POC Glucose (70-105) Calcium (8.4-10.2) mg/dL Total Protein (6.3-8.2) g/dL Albumin (3.9-5) g/dL Crossmatch
[2017-04-14] MEDS ORDERED: VITAMIN K (ADULT ONLY) 10 MG in NACL 0.9% 50 ML IV ONE (14:15)
[2017-04-14] MEDS ORDERED: VITAMIN K (ADULT ONLY) SUB-Q ONE (14:17)
--- NOTE | 2017-04-14 14:25 | XRay Report ---
ABDOMEN RADIOGRAPHS INDICATION: Postop. COMPARISON: 04/06/2017 FINDINGS: Frontal abdominal radiograph now demonstrates few air containing small bowel loops dilated to 3.4 cm caliber in the right hemiabdomen. Overall lesser colonic stool/air. Few pelvic phleboliths. Right upper quadrant probable cholecystectomy clips and midline abdominal skin lavelle are new. Stable L3-L5 bilateral pedicle rods, screws and bony fusion with probable posterior decompression. Lung bases not imaged. EKG leads. Demineralized bones with various degenerative changes. CONCLUSION: 1. Probable interval cholecystectomy and mild postoperative ileus, as described. 2. Few other stable findings, as above. Thank you for the opportunity to participate in this patient's care.
--- NOTE | 2017-04-14 16:21 | Progress Note ---
Assessment and Plan - Patient Problems (1) Bacteremia due to Escherichia coli Current Visit: Yes Status: Acute Plan to address problem: 1. Continue Levaquin with Flagyl. Repeat blood cultures are negative to date. 2. Recommend CT abdomen/ pelvis to rule out intra-abdominal collection given persistent leukocytosis, though normalization of WBC count may take an additional amount of time. (2) Leukocytosis Current Visit: Yes Status: Acute Qualifiers: Leukocytosis type: L Plan to address problem: 1. Per above. Continue to follow for new clinical issues. Subjective Date of service: 04/14/17 Principal diagnosis: Bacteremia; Leukocytosis Interval history: Patient remains afebrile, though WBC count remains elevated to > 25. No new complaints. Objective - Constitutional Vitals: Vital Signs Temp Pulse Resp BP Pulse Ox 98.9 F 91 H 20 146/65 97 04/14/17 12:28 04/14/17 12:28 04/14/17 12:28 04/14/17 12:28 04/14/17 12:28 Temperature -Last 24 Hours Temperature 98.9 F Temperature 98.6 F Temperature 98.7 F Temperature 98.4 F Temperature 98.9 F Temperature 99.5 F Temperature 99.0 F General appearance: Present: no acute distress, well-nourished - EENT Eyes: no scleral icterus - Respiratory Respiratory effort: normal Respiratory: bilateral: CTA - Cardiovascular Rhythm: regular Heart Sounds: Present: S1 & S2 Extremities: No edema - Gastrointestinal General gastrointestinal: Present: soft, distended (mild post-op), other ( reinforced horizontal sutures, unchanged exam) - Integumentary Integumentary: no jaundice, no rash - Neurologic Neurologic: no focal deficits - Psychiatric Psychiatric: appropriate mood/affect - Labs CBC & Chem 7: 04/14/17 04:49 04/14/17 04:49 Labs: Abnormal lab results 04/13/17 04/13/17 04/13/17 Range/Units 12:59 17:49 17:56 WBC (4.5-11.0) K/mm3 RBC (3.65-5.03) M/mm3 Hgb 7.2 L (10.1-14.3) gm/dl Hct 23.0 L (30.3-42.9) % PT (12.2-14.9) Sec. INR (0.87-1.13) Heparin Anti-Xa Level (0.3-0.7) U.I./ml Sodium (137-145) mmol/L Chloride (98-107) mmol/L Carbon Dioxide (22-30) mmol/L Glucose (65-100) mg/dL POC Glucose 142 H (70-105) Calcium (8.4-10.2) mg/dL Total Protein (6.3-8.2) g/dL Albumin (3.9-5) g/dL Crossmatch See Detail 04/13/17 04/14/17 04/14/17 Range/Units 23:05 04:49 04:49 WBC 25.2 H (4.5-11.0) K/mm3 RBC 2.17 L (3.65-5.03) M/mm3 Hgb 6.2 L (10.1-14.3) gm/dl Hct 20.0 L (30.3-42.9) % PT (12.2-14.9) Sec. INR (0.87-1.13) Heparin Anti-Xa Level 0.23 L (0.3-0.7) U.I./ml Sodium (137-145) mmol/L Chloride (98-107) mmol/L Carbon Dioxide (22-30) mmol/L Glucose (65-100) mg/dL POC Glucose 136 H (70-105) Calcium (8.4-10.2) mg/dL Total Protein (6.3-8.2) g/dL Albumin (3.9-5) g/dL Crossmatch 04/14/17 04/14/17 04/14/17 Range/Units 04:49 06:04 10:08 WBC (4.5-11.0) K/mm3 RBC (3.65-5.03) M/mm3 Hgb (10.1-14.3) gm/dl Hct (30.3-42.9) % PT (12.2-14.9) Sec. INR (0.87-1.13) Heparin Anti-Xa Level (0.3-0.7) U.I./ml Sodium 135 L (137-145) mmol/L Chloride 108.3 H (98-107) mmol/L Carbon Dioxide 20 L (22-30) mmol/L Glucose 130 H (65-100) mg/dL POC Glucose 148 H (70-105) Calcium 7.6 L (8.4-10.2) mg/dL Total Protein 4.6 L (6.3-8.2) g/dL Albumin 1.8 L (3.9-5) g/dL Crossmatch 04/14/17 Range/Units 10:08 WBC (4.5-11.0) K/mm3 RBC (3.65-5.03) M/mm3 Hgb (10.1-14.3) gm/dl Hct (30.3-42.9) % PT 19.0 H (12.2-14.9) Sec. INR 1.60 H (0.87-1.13) Heparin Anti-Xa Level (0.3-0.7) U.I./ml Sodium (137-145) mmol/L Chloride (98-107) mmol/L Carbon Dioxide (22-30) mmol/L Glucose (65-100) mg/dL POC Glucose (70-105) Calcium (8.4-10.2) mg/dL Total Protein (6.3-8.2) g/dL Albumin (3.9-5) g/dL Crossmatch Microbiology 04/14/17 Unknown Stool Stool Occult Blood (ANDREA) - Final 04/07/17 09:31 Abdomen Anaerobic Culture - Final Fusobacterium Varium Bacteroides Thetaiotaomicron 04/07/17 08:38 Peripheral/Venous Blood Culture - Preliminary 04/13/17 20:25 Peripheral/Venous Blood Culture - Preliminary Culture in Progress 04/13/17 20:18 Peripheral/Venous Blood Culture - Preliminary Culture in Progress 04/07/17 10:24 Peripheral/Venous Blood Culture - Final NO GROWTH AFTER 5 DAYS 04/07/17 Unknown Abdomen Surgical Culture - Final Escherichia Coli 04/07/17 22:50 Tracheal Aspirate Sputum Culture - Final - Imaging and cardiology Abdominal x-ray: report reviewed (s/p cholecystectomy and ileus)
[2017-04-14] MEDS: LEVAQUIN 750MG/150ML 750 MG/150 ML BAG IV SCH (18:01)
[2017-04-14 20:57] LABS: Hematocrit 23.5 % (30.3-42.9); Hemoglobin 7.3 gm/dl (10.1-14.3)
[2017-04-15] MEDS: FLAGYL 500 MG/100 ML 500 MG/100 ML BAG IV SCH ×5 (00:21→23:56)
[2017-04-15] MEDS: NOVOLOG SUB-Q SCH ×5 (00:27→23:57)
[2017-04-15 07:07] LABS: Hematocrit 22.2 % (30.3-42.9); Hemoglobin 7.2 gm/dl (10.1-14.3); Mean Corpuscular HGB Conc 33 % (30-34); Mean Corpuscular Hemoglobin 29 pg (28-32); Mean Corpuscular Volume 91 fl (79-97); Platelet Count 354 K/mm3 (140-440); Red Blood Count 2.45 M/mm3 (3.65-5.03); Red Cell Distribution Width 13.9 % (13.2-15.2)
[2017-04-15 07:13] LABS: White Blood Count 27.7 K/mm3 (4.5-11.0)
[2017-04-15 07:27] LABS: Anion Gap 15 mmol/L; Blood Urea Nitrogen 10 mg/dL (7-17); Calcium 7.8 mg/dL (8.4-10.2); Carbon Dioxide 19 mmol/L (22-30); Chloride 109.1 mmol/L (98-107); Glucose 97 mg/dL (65-100); Potassium 4.5 mmol/L (3.6-5.0); Sodium 139 mmol/L (137-145)
--- NOTE | 2017-04-15 08:04 | Progress Note ---
Assessment and Plan 71 y/o female with NSTEMI 1. Reviewed Surgery and ID notes, follow up any new recs from them today. 2. Asked nursing to wean FiO2 to off as tolerated for sats >88%. Will need to be assessed for O2 need prior to discharge. 3. Will see as needed Subjective Date of service: 04/15/17 Principal diagnosis: Acute NSTEMI, Abd pain, ileus Interval history: No acute events. Breathing remains stable. Objective Vital Signs - 12hr 04/14/17 04/14/17 04/14/17 21:15 21:38 21:40 Temperature 99.2 F Pulse Rate Pulse Rate [ Left] Pulse Rate [ 110 H Right Dorsalis Pedis] Respiratory 22 18 Rate Respiratory Rate [Abdomen] Blood Pressure Blood Pressure 139/66 [Left Radial Artery] O2 Sat by Pulse 99 98 Oximetry 04/14/17 04/14/17 04/15/17 21:42 22:00 01:23 Temperature 98.5 F Pulse Rate 110 H 111 H Pulse Rate [ Left] Pulse Rate [ 110 H Right Dorsalis Pedis] Respiratory 20 Rate Respiratory 18 Rate [Abdomen] Blood Pressure 138/66 Blood Pressure 150/69 [Left Radial Artery] O2 Sat by Pulse 96 Oximetry 04/15/17 04:40 Temperature 98.5 F Pulse Rate Pulse Rate [ 97 H Left] Pulse Rate [ Right Dorsalis Pedis] Respiratory 20 Rate Respiratory Rate [Abdomen] Blood Pressure 147/60 Blood Pressure [Left Radial Artery] O2 Sat by Pulse 99 Oximetry Constitutional: alert ENT: oropharynx moist Neck: supple, no JVD Effort: no acute distress Ascultation: Bilateral: clear, diminished breath sounds (decreased excursions), rhonchi (occasional) Cardiovascular: regular rate and rhythm Gastrointestinal: absent bowel sounds, tender, other (mild tender bowel sounds are active tympanic. Still some distention.) Extremities: no cyanosis, no edema Neurologic: normal mental status, non-focal exam, CN II-XII normal Psychiatric: affect normal CBC and BMP: 04/15/17 06:35 04/15/17 06:35 ABG, PT/INR, D-dimer: ABG POC ABG pH 7.384 (7.35-7.45) 04/08/17 10:35 POC ABG pCO2 29.7 (35-45) L 04/08/17 10:35 POC ABG pO2 89 (80-105) 04/08/17 10:35 POC ABG HCO3 17.8 04/08/17 10:35 POC ABG Total CO2 19 04/08/17 10:35 POC ABG O2 Sat 97 04/08/17 10:35 PT/INR, D-dimer PT 19.0 Sec. (12.2-14.9) H 04/14/17 10:08 INR 1.60 (0.87-1.13) H 04/14/17 10:08 Abnormal lab findings: Abnormal Labs 04/05/17 04/05/17 04/05/17 06:59 07:19 12:13 WBC RBC Hgb Hct Love % (Auto) Love # Seg Neuts % (Manual) Lymphocytes % (Manual) Monocytes % (Manual) Nucleated RBC % Seg Neutrophils # Seg Neutrophils # Man Monocytes # (Manual) PT 15.7 H INR 1.26 H APTT 179.9 H* Heparin Anti-Xa Level POC ABG pH POC ABG pCO2 POC ABG pO2 Sodium Chloride Carbon Dioxide BUN Creatinine Glucose POC Glucose 177 H Calcium AST ALT Lactate Dehydrogenase Troponin T 0.755 H* D Total Protein Albumin Crossmatch 04/05/17 04/05/17 04/05/17 13:02 16:51 18:10 WBC RBC Hgb Hct Love % (Auto) Love # Seg Neuts % (Manual) Lymphocytes % (Manual) Monocytes % (Manual) Nucleated RBC % Seg Neutrophils # Seg Neutrophils # Man Monocytes # (Manual) PT INR APTT Heparin Anti-Xa Level 1.36 H POC ABG pH POC ABG pCO2 POC ABG pO2 Sodium Chloride Carbon Dioxide BUN Creatinine Glucose POC Glucose 149 H 127 H Calcium AST ALT Lactate Dehydrogenase Troponin T Total Protein Albumin Crossmatch 04/05/17 04/05/17 04/05/17 19:21 21:15 23:51 WBC RBC Hgb Hct Love % (Auto) Love # Seg Neuts % (Manual) Lymphocytes % (Manual) Monocytes % (Manual) Nucleated RBC % Seg Neutrophils # Seg Neutrophils # Man Monocytes # (Manual) PT INR APTT Heparin Anti-Xa Level 1.09 H POC ABG pH POC ABG pCO2 POC ABG pO2 Sodium Chloride Carbon Dioxide BUN Creatinine Glucose POC Glucose 126 H 125 H Calcium AST ALT Lactate Dehydrogenase Troponin T Total Protein Albumin Crossmatch 04/06/17 04/06/17 04/06/17 04:54 04:54 05:11 WBC 13.6 H RBC 3.64 L Hgb Hct Love % (Auto) 11.2 H Love # 1.5 H Seg Neuts % (Manual) Lymphocytes % (Manual) Monocytes % (Manual) Nucleated RBC % Seg Neutrophils # 8.6 H Seg Neutrophils # Man Monocytes # (Manual) PT INR APTT Heparin Anti-Xa Level POC ABG pH POC ABG pCO2 POC ABG pO2 Sodium Chloride Carbon Dioxide BUN 21 H Creatinine 0.4 L Glucose 123 H POC Glucose 119 H Calcium AST 92 H ALT 69 H Lactate Dehydrogenase Troponin T Total Protein 6.1 L Albumin 3.1 L Crossmatch 04/07/17 04/07/17 04/07/17 05:19 05:19 08:38 WBC 26.2 H RBC Hgb Hct Love % (Auto) Love # Seg Neuts % (Manual) 80.5 H Lymphocytes % (Manual) 7.5 L Monocytes % (Manual) 9.5 H Nucleated RBC % Seg Neutrophils # Seg Neutrophils # Man 21.1 H Monocytes # (Manual) 2.5 H PT INR APTT Heparin Anti-Xa Level POC ABG pH POC ABG pCO2 POC ABG pO2 Sodium Chloride 96.6 L Carbon Dioxide 19 L D BUN 26 H Creatinine 0.4 L Glucose POC Glucose Calcium AST ALT Lactate Dehydrogenase 379 H Troponin T Total Protein Albumin Crossmatch 04/07/17 04/07/17 04/07/17 16:14 18:20 18:20 WBC 22.5 H RBC 3.30 L Hgb 9.7 L Hct Love % (Auto) Love # Seg Neuts % (Manual) 75.0 H Lymphocytes % (Manual) Monocytes % (Manual) Nucleated RBC % Seg Neutrophils # Seg Neutrophils # Man 16.9 H Monocytes # (Manual) 1.6 H PT 17.0 H INR 1.39 H APTT Heparin Anti-Xa Level POC ABG pH POC ABG pCO2 POC ABG pO2 Sodium Chloride Carbon Dioxide BUN Creatinine Glucose POC Glucose Calcium AST ALT Lactate Dehydrogenase Troponin T Total Protein Albumin Crossmatch See Detail 04/07/17 04/07/17 04/08/17 20:16 21:50 03:41 WBC RBC Hgb Hct Love % (Auto) Love # Seg Neuts % (Manual) Lymphocytes % (Manual) Monocytes % (Manual) Nucleated RBC % Seg Neutrophils # Seg Neutrophils # Man Monocytes # (Manual) PT INR APTT Heparin Anti-Xa Level POC ABG pH 7.331 L POC ABG pCO2 33.6 L POC ABG pO2 Sodium Chloride Carbon Dioxide BUN Creatinine Glucose POC Glucose 122 H 201 H Calcium AST ALT Lactate Dehydrogenase Troponin T Total Protein Albumin Crossmatch 04/08/17 04/08/17 04/08/17 03:54 05:10 05:10 WBC 13.4 H RBC 3.19 L Hgb 9.6 L Hct 29.2 L Love % (Auto) Love # Seg Neuts % (Manual) Lymphocytes % (Manual) Monocytes % (Manual) Nucleated RBC % Seg Neutrophils # Seg Neutrophils # Man Monocytes # (Manual) PT 18.3 H INR 1.52 H APTT Heparin Anti-Xa Level 0.10 L POC ABG pH POC ABG pCO2 POC ABG pO2 Sodium 135 L Chloride Carbon Dioxide 17 L BUN 35 H Creatinine Glucose 186 H POC Glucose Calcium 7.5 L D AST ALT Lactate Dehydrogenase Troponin T Total Protein Albumin Crossmatch 04/08/17 04/08/17 04/08/17 06:13 10:35 12:13 WBC RBC Hgb Hct Love % (Auto) Love # Seg Neuts % (Manual) Lymphocytes % (Manual) Monocytes % (Manual) Nucleated RBC % Seg Neutrophils # Seg Neutrophils # Man Monocytes # (Manual) PT INR APTT Heparin Anti-Xa Level POC ABG pH POC ABG pCO2 30.5 L 29.7 L POC ABG pO2 125 H Sodium Chloride Carbon Dioxide BUN Creatinine Glucose POC Glucose 250 H Calcium AST ALT Lactate Dehydrogenase Troponin T Total Protein Albumin Crossmatch 04/08/17 04/08/17 04/08/17 18:07 18:12 23:56 WBC RBC Hgb Hct Love % (Auto) Love # Seg Neuts % (Manual) Lymphocytes % (Manual) Monocytes % (Manual) Nucleated RBC % Seg Neutrophils # Seg Neutrophils # Man Monocytes # (Manual) PT INR APTT Heparin Anti-Xa Level 0.26 L POC ABG pH POC ABG pCO2 POC ABG pO2 Sodium Chloride Carbon Dioxide BUN Creatinine Glucose POC Glucose 192 H 191 H Calcium AST ALT Lactate Dehydrogenase Troponin T Total Protein Albumin Crossmatch 04/09/17 04/09/17 04/09/17 04:12 04:24 04:24 WBC 21.1 H RBC 3.06 L Hgb 8.7 L Hct 27.7 L Love % (Auto) Love # Seg Neuts % (Manual) 75.0 H Lymphocytes % (Manual) 9.0 L Monocytes % (Manual) Nucleated RBC % Seg Neutrophils # Seg Neutrophils # Man 15.8 H Monocytes # (Manual) 1.5 H PT INR APTT Heparin Anti-Xa Level 0.21 L POC ABG pH POC ABG pCO2 POC ABG pO2 Sodium 133 L Chloride Carbon Dioxide 16 L BUN 35 H Creatinine Glucose 139 H POC Glucose Calcium 7.1 L AST ALT Lactate Dehydrogenase Troponin T Total Protein Albumin Crossmatch 04/09/17 04/09/17 04/09/17 05:31 12:09 18:07 WBC RBC Hgb Hct Love % (Auto) Love # Seg Neuts % (Manual) Lymphocytes % (Manual) Monocytes % (Manual) Nucleated RBC % Seg Neutrophils # Seg Neutrophils # Man Monocytes # (Manual) PT INR APTT Heparin Anti-Xa Level POC ABG pH POC ABG pCO2 POC ABG pO2 Sodium Chloride Carbon Dioxide BUN Creatinine Glucose POC Glucose 163 H 150 H 128 H Calcium AST ALT Lactate Dehydrogenase Troponin T Total Protein Albumin Crossmatch 04/10/17 04/10/17 04/10/17 00:15 04:53 05:34 WBC RBC Hgb 7.9 L Hct 24.8 L Love % (Auto) Love # Seg Neuts % (Manual) Lymphocytes % (Manual) Monocytes % (Manual) Nucleated RBC % Seg Neutrophils # Seg Neutrophils # Man Monocytes # (Manual) PT INR APTT Heparin Anti-Xa Level POC ABG pH POC ABG pCO2 POC ABG pO2 Sodium Chloride Carbon Dioxide BUN Creatinine Glucose POC Glucose 124 H 109 H Calcium AST ALT Lactate Dehydrogenase Troponin T Total Protein Albumin Crossmatch 04/10/17 04/10/17 04/10/17 08:03 11:49 13:20 WBC 26.9 H RBC 2.72 L Hgb 7.9 L 9.1 L Hct 24.8 L 28.6 L Love % (Auto) Love # Seg Neuts % (Manual) 81.0 H Lymphocytes % (Manual) 7.5 L Monocytes % (Manual) Nucleated RBC % Seg Neutrophils # Seg Neutrophils # Man 21.8 H Monocytes # (Manual) 1.9 H PT INR APTT Heparin Anti-Xa Level POC ABG pH POC ABG pCO2 POC ABG pO2 Sodium Chloride Carbon Dioxide BUN Creatinine Glucose POC Glucose 127 H Calcium AST ALT Lactate Dehydrogenase Troponin T Total Protein Albumin Crossmatch 04/10/17 04/10/17 04/10/17 17:43 20:14 23:52 WBC 27.2 H RBC 2.68 L Hgb 7.7 L Hct 24.7 L Love % (Auto) Love # Seg Neuts % (Manual) 72.5 H Lymphocytes % (Manual) 10.0 L Monocytes % (Manual) Nucleated RBC % Seg Neutrophils # Seg Neutrophils # Man 19.7 H Monocytes # (Manual) 1.9 H PT INR APTT Heparin Anti-Xa Level POC ABG pH POC ABG pCO2 POC ABG pO2 Sodium Chloride Carbon Dioxide BUN Creatinine Glucose POC Glucose 132 H 125 H Calcium AST ALT Lactate Dehydrogenase Troponin T Total Protein Albumin Crossmatch 04/11/17 04/11/17 04/11/17 04:15 04:15 05:16 WBC RBC Hgb 8.1 L Hct 25.2 L Love % (Auto) Love # Seg Neuts % (Manual) Lymphocytes % (Manual) Monocytes % (Manual) Nucleated RBC % Seg Neutrophils # Seg Neutrophils # Man Monocytes # (Manual) PT INR APTT Heparin Anti-Xa Level 0.16 L POC ABG pH POC ABG pCO2 POC ABG pO2 Sodium Chloride Carbon Dioxide BUN Creatinine Glucose POC Glucose 141 H Calcium AST ALT Lactate Dehydrogenase Troponin T Total Protein Albumin Crossmatch 04/11/17 04/11/17 04/11/17 07:04 09:46 12:12 WBC 23.4 H RBC 2.76 L Hgb 8.1 L Hct 25.0 L Love % (Auto) Love # Seg Neuts % (Manual) Lymphocytes % (Manual) Monocytes % (Manual) Nucleated RBC % Seg Neutrophils # Seg Neutrophils # Man Monocytes # (Manual) PT INR APTT Heparin Anti-Xa Level POC ABG pH POC ABG pCO2 POC ABG pO2 Sodium Chloride 111.2 H Carbon Dioxide 19 L BUN 18 H Creatinine Glucose 112 H POC Glucose 126 H Calcium 7.8 L AST ALT Lactate Dehydrogenase Troponin T Total Protein Albumin Crossmatch 04/11/17 04/11/17 04/11/17 16:42 17:52 23:31 WBC RBC Hgb Hct Love % (Auto) Love # Seg Neuts % (Manual) Lymphocytes % (Manual) Monocytes % (Manual) Nucleated RBC % Seg Neutrophils # Seg Neutrophils # Man Monocytes # (Manual) PT INR APTT Heparin Anti-Xa Level 0.28 L POC ABG pH POC ABG pCO2 POC ABG pO2 Sodium Chloride Carbon Dioxide BUN Creatinine Glucose POC Glucose 134 H 122 H Calcium AST ALT Lactate Dehydrogenase Troponin T Total Protein Albumin Crossmatch 04/12/17 04/12/17 04/12/17 03:03 07:35 11:29 WBC 22.3 H RBC 2.56 L Hgb 7.6 L 7.4 L Hct 24.2 L 23.0 L Love % (Auto) Love # Seg Neuts % (Manual) 79.0 H Lymphocytes % (Manual) 6.0 L Monocytes % (Manual) 9.0 H Nucleated RBC % 1.0 H Seg Neutrophils # Seg Neutrophils # Man 17.6 H Monocytes # (Manual) 2.0 H PT INR APTT Heparin Anti-Xa Level POC ABG pH POC ABG pCO2 POC ABG pO2 Sodium Chloride Carbon Dioxide BUN Creatinine Glucose POC Glucose 135 H Calcium AST ALT Lactate Dehydrogenase Troponin T Total Protein Albumin Crossmatch 04/12/17 04/12/17 04/13/17 16:38 23:37 05:19 WBC RBC Hgb Hct Love % (Auto) Love # Seg Neuts % (Manual) Lymphocytes % (Manual) Monocytes % (Manual) Nucleated RBC % Seg Neutrophils # Seg Neutrophils # Man Monocytes # (Manual) PT INR APTT Heparin Anti-Xa Level POC ABG pH POC ABG pCO2 POC ABG pO2 Sodium Chloride Carbon Dioxide BUN Creatinine Glucose POC Glucose 129 H 140 H 148 H Calcium AST ALT Lactate Dehydrogenase Troponin T Total Protein Albumin Crossmatch 04/13/17 04/13/17 04/13/17 05:20 05:20 05:20 WBC 25.6 H RBC 2.45 L Hgb 7.0 L Hct 21.8 L Love % (Auto) Love # Seg Neuts % (Manual) Lymphocytes % (Manual) Monocytes % (Manual) Nucleated RBC % Seg Neutrophils # Seg Neutrophils # Man Monocytes # (Manual) PT INR APTT 125.5 H* Heparin Anti-Xa Level POC ABG pH POC ABG pCO2 POC ABG pO2 Sodium Chloride 111.8 H Carbon Dioxide 18 L BUN Creatinine 0.6 L Glucose 137 H POC Glucose Calcium 7.7 L AST ALT Lactate Dehydrogenase Troponin T Total Protein Albumin Crossmatch 04/13/17 04/13/17 04/13/17 08:43 11:30 12:59 WBC RBC Hgb Hct Love % (Auto) Love # Seg Neuts % (Manual) Lymphocytes % (Manual) Monocytes % (Manual) Nucleated RBC % Seg Neutrophils # Seg Neutrophils # Man Monocytes # (Manual) PT INR APTT Heparin Anti-Xa Level POC ABG pH POC ABG pCO2 POC ABG pO2 Sodium Chloride Carbon Dioxide BUN Creatinine Glucose POC Glucose 147 H 154 H Calcium AST ALT Lactate Dehydrogenase Troponin T Total Protein Albumin Crossmatch See Detail 04/13/17 04/13/17 04/13/17 17:49 17:56 23:05 WBC RBC Hgb 7.2 L Hct 23.0 L Love % (Auto) Love # Seg Neuts % (Manual) Lymphocytes % (Manual) Monocytes % (Manual) Nucleated RBC % Seg Neutrophils # Seg Neutrophils # Man Monocytes # (Manual) PT INR APTT Heparin Anti-Xa Level POC ABG pH POC ABG pCO2 POC ABG pO2 Sodium Chloride Carbon Dioxide BUN Creatinine Glucose POC Glucose 142 H 136 H Calcium AST ALT Lactate Dehydrogenase Troponin T Total Protein Albumin Crossmatch 04/14/17 04/14/17 04/14/17 04:49 04:49 04:49 WBC 25.2 H RBC 2.17 L Hgb 6.2 L Hct 20.0 L Love % (Auto) Love # Seg Neuts % (Manual) Lymphocytes % (Manual) Monocytes % (Manual) Nucleated RBC % Seg Neutrophils # Seg Neutrophils # Man Monocytes # (Manual) PT INR APTT Heparin Anti-Xa Level 0.23 L POC ABG pH POC ABG pCO2 POC ABG pO2 Sodium 135 L Chloride 108.3 H Carbon Dioxide 20 L BUN Creatinine Glucose 130 H POC Glucose Calcium 7.6 L AST ALT Lactate Dehydrogenase Troponin T Total Protein Albumin Crossmatch 04/14/17 04/14/17 04/14/17 06:04 10:08 10:08 WBC RBC Hgb Hct Love % (Auto) Love # Seg Neuts % (Manual) Lymphocytes % (Manual) Monocytes % (Manual) Nucleated RBC % Seg Neutrophils # Seg Neutrophils # Man Monocytes # (Manual) PT 19.0 H INR 1.60 H APTT Heparin Anti-Xa Level POC ABG pH POC ABG pCO2 POC ABG pO2 Sodium Chloride Carbon Dioxide BUN Creatinine Glucose POC Glucose 148 H Calcium AST ALT Lactate Dehydrogenase Troponin T Total Protein 4.6 L Albumin 1.8 L Crossmatch 04/14/17 04/14/17 04/14/17 14:11 17:45 20:37 WBC RBC Hgb 7.3 L Hct 23.5 L Love % (Auto) Love # Seg Neuts % (Manual) Lymphocytes % (Manual) Monocytes % (Manual) Nucleated RBC % Seg Neutrophils # Seg Neutrophils # Man Monocytes # (Manual) PT INR APTT Heparin Anti-Xa Level POC ABG pH POC ABG pCO2 POC ABG pO2 Sodium Chloride Carbon Dioxide BUN Creatinine Glucose POC Glucose 129 H 112 H Calcium AST ALT Lactate Dehydrogenase Troponin T Total Protein Albumin Crossmatch 04/15/17 04/15/17 04/15/17 00:11 06:35 06:35 WBC 27.7 H RBC 2.45 L Hgb 7.2 L Hct 22.2 L Love % (Auto) Love # Seg Neuts % (Manual) Lymphocytes % (Manual) Monocytes % (Manual) Nucleated RBC % Seg Neutrophils # Seg Neutrophils # Man Monocytes # (Manual) PT INR APTT Heparin Anti-Xa Level POC ABG pH POC ABG pCO2 POC ABG pO2 Sodium Chloride 109.1 H Carbon Dioxide 19 L BUN Creatinine Glucose POC Glucose 107 H Calcium 7.8 L AST ALT Lactate Dehydrogenase Troponin T Total Protein Albumin Crossmatch
[2017-04-15] MEDS ORDERED: NACL ONE (11:03)
--- NOTE | 2017-04-15 11:08 | Progress Note ---
Assessment and Plan Currently stable cardiac status. Ischemic eval will continue to be post-poned in setting of anemia given that pt is chest pain free and hemodynamically stable. Will re-evaluate for possible ischemic evaluation (stress MPI) prior to discharge. Can consider stress test as OP if unable to complete on this admission. The patient has been seen in conjunction with Dr. Ibarra who agrees with the assessment and plan of care. - Patient Problems (1) Non-ST elevation myocardial infarction (NSTEMI), type 2 Current Visit: Yes Status: Acute (2) Volvulus of ileum Current Visit: Yes Status: Acute (3) Cholecystitis Current Visit: Yes Status: Acute (4) S/P cholecystectomy Current Visit: Yes Status: Acute (5) Diabetes mellitus Current Visit: Yes Status: Chronic Qualifiers: Diabetes mellitus type: type 2 Diabetes mellitus complication status: without complication Diabetes mellitus complication detail: D Diabetic retinopathy severity: D Proliferative retinopathy type: P Diabetes mellitus macular edema: D Diabetes mellitus meterman insulin use: D Laterality: L Chronic kidney disease stage: C (6) Hypertension Current Visit: Yes Status: Chronic Qualifiers: Hypertension type: essential hypertension Qualified Code(s): I10 - Essential (primary) hypertension (7) Anemia Current Visit: Yes Status: Acute Qualifiers: Anemia type: A Iron deficiency anemia type: I Vitamin B12 deficiency anemia type: V Folate deficiency anemia type: F Bone marrow failure anemia type: B Hemolytic anemia type: H Other causes of anemia: O Chronic kidney disease stage: C (8) History of pulmonary embolism Current Visit: Yes Status: Chronic Subjective Date of service: 04/15/17 Principal diagnosis: Acute NSTEMI, Abd pain, ileus Interval history: Pt resting in bed, denies any cardiac complaints currently. VSS. For CT abdomen/ pelvis today and pt c/o nausea associated with PO contrast. Objective Last Vital Signs Temp 98.2 F 04/15/17 09:13 Pulse 102 H 04/15/17 09:13 Resp 20 04/15/17 09:13 BP 166/80 04/15/17 09:13 Pulse Ox 96 04/15/17 11:00 - Physical Examination General: No Apparent Distress HEENT: Positive: EOMI, Normocephaly, Mucus Membranes Moist Neck: Positive: neck supple, trachea midline, Carotid Upstroke (full) Cardiac: Positive: Reg Rate and Rhythm, S1/S2 Lungs: Positive: clear to auscultation Neuro: Positive: Grossly Intact Abdomen: Positive: Soft, Active Bowel Sounds, Tender Skin: Positive: Clear. Negative: Rash Musculoskeletal: Normal Range of Motion Extremities: Absent: edema - Labs and Meds Cardiac Enzymes 04/14/17 Range/Units 10:08 AST 26 (5-40) units/L Coagulation 04/14/17 Range/Units 10:08 PT 19.0 H (12.2-14.9) Sec. INR 1.60 H (0.87-1.13) CBC 04/14/17 04/15/17 Range/Units 20:37 06:35 WBC 27.7 H (4.5-11.0) K/mm3 RBC 2.45 L (3.65-5.03) M/mm3 Hgb 7.3 L 7.2 L (10.1-14.3) gm/dl Hct 23.5 L 22.2 L (30.3-42.9) % Plt Count 354 (140-440) K/mm3 Comprehensive Metabolic Panel 04/14/17 04/15/17 Range/Units 10:08 06:35 Sodium 139 (137-145) mmol/L Potassium 4.5 (3.6-5.0) mmol/L Chloride 109.1 H (98-107) mmol/L Carbon Dioxide 19 L (22-30) mmol/L BUN 10 (7-17) mg/dL Creatinine 0.8 (0.7-1.2) mg/dL Glucose 97 (65-100) mg/dL Calcium 7.8 L (8.4-10.2) mg/dL Direct Bilirubin < 0.2 (0-0.2) mg/dL Indirect Bilirubin 0.1 mg/dL AST 26 (5-40) units/L ALT 18 (7-56) units/L Alkaline Phosphatase 51 (35-129) units/L Total Protein 4.6 L (6.3-8.2) g/dL Albumin 1.8 L (3.9-5) g/dL - Imaging and Cardiology EKG: image reviewed Echo: report reviewed - Telemetry EKG Rhythm: Sinus Rhythm - EKG Sinus rhythms and dysrhythmias: sinus tachycardia AV and intraventricular conduction: 1 AV block Myocardial infarction: septal TX (old age or ind
--- NOTE | 2017-04-15 12:21 | Progress Note ---
Assessment and Plan - Patient Problems (1) Bacteremia due to Escherichia coli Current Visit: Yes Status: Acute Plan to address problem: Continue current therapy for now. Await results of CT abdomen/ pelvis to determine if there is a persistent intra-abdominal source of bacteremia. (2) Leukocytosis Current Visit: Yes Status: Acute Qualifiers: Leukocytosis type: L Plan to address problem: Increased today. Await findings of CT abdomen/ pelvis. Subjective Date of service: 04/15/17 Principal diagnosis: Acute NSTEMI, Abd pain, ileus Interval history: Pending CT abdomen. Objective - Constitutional Vitals: Vital Signs Temp Pulse Resp BP Pulse Ox 98.2 F 102 H 20 166/80 96 04/15/17 09:13 04/15/17 09:13 04/15/17 09:13 04/15/17 09:13 04/15/17 11:00 Temperature -Last 24 Hours Temperature 98.2 F Temperature 98.5 F Temperature 98.5 F Temperature 99.2 F Temperature 98.9 F Temperature 98.9 F General appearance: Present: mild distress (due to abdominal pain) - EENT Eyes: no scleral icterus - Respiratory Respiratory effort: normal Respiratory: bilateral: CTA, negative: rales - Cardiovascular Rhythm: regular Heart Sounds: Present: S1 & S2 Extremity abnormal: edema - Gastrointestinal General gastrointestinal: Present: soft, other (horizontal sutures remain intact with no drainage, there is a minimal erythema adjacent to the sutures; superior aspect of previous incision with fullness, no fluctuance or increased warmth) - Integumentary Integumentary: no jaundice, no rash - Psychiatric Psychiatric: other (appears slightly anxious) - Labs CBC & Chem 7: 04/15/17 06:35 04/15/17 06:35 Labs: Abnormal lab results 04/13/17 04/14/17 04/14/17 Range/Units 12:59 10:08 14:11 WBC (4.5-11.0) K/mm3 RBC (3.65-5.03) M/mm3 Hgb (10.1-14.3) gm/dl Hct (30.3-42.9) % PT 19.0 H (12.2-14.9) Sec. INR 1.60 H (0.87-1.13) Chloride (98-107) mmol/L Carbon Dioxide (22-30) mmol/L POC Glucose 129 H (70-105) Calcium (8.4-10.2) mg/dL Crossmatch See Detail 04/14/17 04/14/17 04/15/17 Range/Units 17:45 20:37 00:11 WBC (4.5-11.0) K/mm3 RBC (3.65-5.03) M/mm3 Hgb 7.3 L (10.1-14.3) gm/dl Hct 23.5 L (30.3-42.9) % PT (12.2-14.9) Sec. INR (0.87-1.13) Chloride (98-107) mmol/L Carbon Dioxide (22-30) mmol/L POC Glucose 112 H 107 H (70-105) Calcium (8.4-10.2) mg/dL Crossmatch 04/15/17 04/15/17 Range/Units 06:35 06:35 WBC 27.7 H (4.5-11.0) K/mm3 RBC 2.45 L (3.65-5.03) M/mm3 Hgb 7.2 L (10.1-14.3) gm/dl Hct 22.2 L (30.3-42.9) % PT (12.2-14.9) Sec. INR (0.87-1.13) Chloride 109.1 H (98-107) mmol/L Carbon Dioxide 19 L (22-30) mmol/L POC Glucose (70-105) Calcium 7.8 L (8.4-10.2) mg/dL Crossmatch Microbiology 04/13/17 20:25 Peripheral/Venous Blood Culture - Preliminary NO GROWTH AFTER 24 HOURS 04/13/17 20:18 Peripheral/Venous Blood Culture - Preliminary NO GROWTH AFTER 24 HOURS 04/14/17 Unknown Stool Stool Occult Blood (ANDREA) - Final 04/07/17 09:31 Abdomen Anaerobic Culture - Final Fusobacterium Varium Bacteroides Thetaiotaomicron 04/07/17 08:38 Peripheral/Venous Blood Culture - Preliminary 04/07/17 10:24 Peripheral/Venous Blood Culture - Final NO GROWTH AFTER 5 DAYS 04/07/17 Unknown Abdomen Surgical Culture - Final Escherichia Coli 04/07/17 22:50 Tracheal Aspirate Sputum Culture - Final
[2017-04-15] MEDS: MORPHINE IV PRN (13:21)
[2017-04-15] MEDS: LOPRESSOR PO SCH ×2 (13:21→21:35)
[2017-04-15] MEDS: PEPCID IV SCH ×2 (13:21→21:34)
[2017-04-15] MEDS: ZOFRAN IV PRN (13:21)
--- NOTE | 2017-04-15 13:52 | Cat Scan Report ---
CT SCAN OF THE ABDOMEN AND PELVIS WITH CONTRAST: HISTORY: Persistent leukocytosis, pain.. TECHNIQUE: Helical CT in 1.25mm intervals following IV contrast. Sagittal and coronal reconstructions. FINDINGS: Small layering bilateral pleural effusions and bibasilar atelectasis is noted. Heart size is normal. There is small to medium ascites surrounding the liver, spleen and paracolic gutters. No focal liver lesion is appreciated. Cholecystectomy changes. The pancreas, spleen, adrenal glands and kidneys are within normal limits. Scattered simple renal cysts are noted. Recent exploratory laparotomy changes are suspected. There appears to be a small ventral wall defect along the superior margin of the incision which contains a small amount of complex fluid. No obvious bowel loops are incorporated. There are multiple small bowel loops which are mildly dilated and fluid-filled. The colon is also fluid-filled. It is unclear if this represents an obstructive process or a severe ileus. Please correlate with the patient's clinical presentation. The bladder is unremarkable. The uterus and appendix are not identified. There is diffuse subcutaneous edema in the soft tissues. Previous lumbar fusion hardware creates artifact. No acute bony findings. IMPRESSION: Recent surgical changes. Multiple bowel loops are mildly dilated and fluid filled suggestive of mild obstruction or severe ileus. Ventral wall defect along the superior margin of the midline incision. It is unclear if this represents a small hematoma or other fluid collection. No convincing bowel loops are incorporated into this hernia. Bilateral renal cysts. Ascites. Small to medium bilateral pleural effusions and bibasilar atelectasis. These findings were discussed with Dr. Berkowitz at 1335 hrs.
[2017-04-15] MEDS ORDERED: REGLAN IV PRN (14:26)
--- NOTE | 2017-04-15 14:26 | Progress Note ---
Subjective Patient Reports: Positive: still having pain, flatus, bowel movement Narrative: abdomen ditended , CT dilated bowel loops ,air in the rectum , seen with Dr Lopez will start PPN ,check KUB in AM ,, NG as well Objective Vital Signs - 12hr 04/15/17 04/15/17 04/15/17 04:40 09:07 09:13 Temperature 98.5 F 98.2 F Pulse Rate 96 H Pulse Rate [ Left Radial] Pulse Rate [ 97 H Left] Pulse Rate [ 102 H Right Radial] Respiratory 20 20 Rate Blood Pressure 147/60 Blood Pressure [Left Radial Artery] Blood Pressure 166/80 [Right Arm] O2 Sat by Pulse 99 96 Oximetry 04/15/17 04/15/17 11:00 13:35 Temperature 98.0 F Pulse Rate Pulse Rate [ 114 H Left Radial] Pulse Rate [ Left] Pulse Rate [ Right Radial] Respiratory 16 Rate Blood Pressure Blood Pressure 183/81 [Left Radial Artery] Blood Pressure [Right Arm] O2 Sat by Pulse 96 95 Oximetry - Labs 04/15/17 06:35 04/15/17 06:35 Diabetes panel 04/15/17 Range/Units 06:35 Sodium 139 (137-145) mmol/L Potassium 4.5 (3.6-5.0) mmol/L Chloride 109.1 H (98-107) mmol/L Carbon Dioxide 19 L (22-30) mmol/L BUN 10 (7-17) mg/dL Creatinine 0.8 (0.7-1.2) mg/dL Glucose 97 (65-100) mg/dL Calcium 7.8 L (8.4-10.2) mg/dL Calcium panel 04/15/17 Range/Units 06:35 Calcium 7.8 L (8.4-10.2) mg/dL Pituitary panel 04/15/17 Range/Units 06:35 Sodium 139 (137-145) mmol/L Potassium 4.5 (3.6-5.0) mmol/L Chloride 109.1 H (98-107) mmol/L Carbon Dioxide 19 L (22-30) mmol/L BUN 10 (7-17) mg/dL Creatinine 0.8 (0.7-1.2) mg/dL Glucose 97 (65-100) mg/dL Calcium 7.8 L (8.4-10.2) mg/dL Adrenal panel 04/15/17 Range/Units 06:35 Sodium 139 (137-145) mmol/L Potassium 4.5 (3.6-5.0) mmol/L Chloride 109.1 H (98-107) mmol/L Carbon Dioxide 19 L (22-30) mmol/L BUN 10 (7-17) mg/dL Creatinine 0.8 (0.7-1.2) mg/dL Glucose 97 (65-100) mg/dL Calcium 7.8 L (8.4-10.2) mg/dL
--- NOTE | 2017-04-15 14:29 | Progress Note ---
Assessment and Plan Assessment and plan: Patient is a 71-year-old woman with a history of diabetes mellitus2, hypertension and pulmonary embolism on Eliquis since December 2016 who presents with abdominal pain and chest pain. Chest x-ray read as no pneumonia or CHF. Troponin was 1.010, EKG read as no ST elevation CO, nonspecific changes. CT abdomen and pelvis with and without contrast shows possible small bowel ileus and right lower lobe atelectasis. -Small bowel ileus s/p surgery: General surgery following -Non-STEMI: On heparin drip, therefore I stopped Eliquis, cardiology consulted -Accelerated hypertension: iv prn antihypertension -Right lower lobe atelectasis: Treat medically -History of PE: treated with O2, heparin on pause due to the anemia -DVT prophylaxis: scd only due to acute blood loss anemia, poa -Severe protein calorie malnutrition, poa -Uncontrolled type 2 diabetes mellitus: Add sliding scale Full code 04/07/2017 postoperative diagnoses: Acute surgical abdomen, volvulus of the distal ileum with evidence of gangrene changes in it, gallbladder disease with stones. Procedures: Diagnostic laparoscopy with changing to open laparotomy, small bowel resection, cholecystectomy 04/15/2017: CT abdomen and pelvis with contrast reported as recent surgical changes, multiple bowel is mildly dilated and fluid-filled suggests mild obstruction severe ileus, ventral wall defect lungs appear margin and midline incision, it is unclear if this represents a small hematoma at the fluid collection, no convincing bowel are incorporated into this hernia, bilateral renal cysts, ascites, small to medium bilateral pleural effusion and bibasilar atelectasis. These findings were discussed with Dr. Sho Garcia. History Interval history: Patient seen and examined. Follow up on abdominal pain. Overnight uneventful. No cp, sob, or severe headaches. Imaging, old records, testing, labs, nursing notes reviewed. Hospitalist Physical - Physical exam Narrative exam: GEN: ill appearing, NAD, AWAKE, ALERT, ORIENTATED x 3 CVS: mild regular tachycardiac, NORMAL S1S2 LUNGS/CHEST: CTA B, NORMAL CHEST EXPANSION B, GOOD AIR ENTRY B ABD: midline surg incision with binders, swelling uppper wound, GBS, NO REBOUND +GUARDING EXT/SKIN: NO SIGNIFICANT EDEMA OR RASH MSK: FROM X 4 EXTREMITIES NEURO: CN 2-12 GROSSLY INTACT, NO FOCAL DEFICITS PSY: CALM - Constitutional Vitals: Temp Pulse Resp BP Pulse Ox 98.0 F 114 H 16 183/81 95 04/15/17 13:35 04/15/17 13:35 04/15/17 13:35 04/15/17 13:35 04/15/17 13:35 General appearance: Present: no acute distress, well-nourished Results - Labs CBC & Chem 7: 04/15/17 06:35 04/15/17 06:35 Labs: Laboratory Last Values WBC 27.7 K/mm3 (4.5-11.0) H 04/15/17 06:35 RBC 2.45 M/mm3 (3.65-5.03) L 04/15/17 06:35 Hgb 7.2 gm/dl (10.1-14.3) L 04/15/17 06:35 Hct 22.2 % (30.3-42.9) L 04/15/17 06:35 MCV 91 fl (79-97) 04/15/17 06:35 MCH 29 pg (28-32) 04/15/17 06:35 MCHC 33 % (30-34) 04/15/17 06:35 RDW 13.9 % (13.2-15.2) 04/15/17 06:35 Plt Count 354 K/mm3 (140-440) 04/15/17 06:35 Lymph % (Auto) 25.3 % (13.4-35.0) 04/06/17 04:54 [place] % (Auto) 11.2 % (0.0-7.3) H 04/06/17 04:54 Eos % (Auto) 0.0 % (0.0-4.3) 04/06/17 04:54 Baso % (Auto) 0.5 % (0.0-1.8) 04/06/17 04:54 Lymph # 3.4 K/mm3 (1.2-5.4) 04/06/17 04:54 [place] # 1.5 K/mm3 (0.0-0.8) H 04/06/17 04:54 Eos # 0.0 K/mm3 (0.0-0.4) 04/06/17 04:54 Baso # 0.1 K/mm3 (0.0-0.1) 04/06/17 04:54 Add Manual Diff Complete 04/12/17 07:35 Total Counted 100 04/12/17 07:35 Seg Neutrophils % 63.0 % (40.0-70.0) 04/06/17 04:54 Seg Neuts % (Manual) 79.0 % (40.0-70.0) H 04/12/17 07:35 Band Neutrophils % 6.0 % 04/12/17 07:35 Lymphocytes % (Manual) 6.0 % (13.4-35.0) L 04/12/17 07:35 Reactive Lymphs % (Man) 0 % 04/12/17 07:35 Monocytes % (Manual) 9.0 % (0.0-7.3) H 04/12/17 07:35 Eosinophils % (Manual) 0 % (0.0-4.3) 04/12/17 07:35 Basophils % (Manual) 0 % (0.0-1.8) 04/12/17 07:35 Metamyelocytes % 0 % 04/12/17 07:35 Myelocytes % 0 % 04/12/17 07:35 Promyelocytes % 0 % 04/12/17 07:35 Blast Cells % 0 % 04/12/17 07:35 Nucleated RBC % 1.0 % (0.0-0.9) H 04/12/17 07:35 Seg Neutrophils # 8.6 K/mm3 (1.8-7.7) H 04/06/17 04:54 Seg Neutrophils # Man 17.6 K/mm3 (1.8-7.7) H 04/12/17 07:35 Band Neutrophils # 1.3 K/mm3 04/12/17 07:35 Lymphocytes # (Manual) 1.3 K/mm3 (1.2-5.4) 04/12/17 07:35 Abs React Lymphs (Man) 0.0 K/mm3 04/12/17 07:35 Monocytes # (Manual) 2.0 K/mm3 (0.0-0.8) H 04/12/17 07:35 Eosinophils # (Manual) 0.0 K/mm3 (0.0-0.4) 04/12/17 07:35 Basophils # (Manual) 0.0 K/mm3 (0.0-0.1) 04/12/17 07:35 Metamyelocytes # 0.0 K/mm3 04/12/17 07:35 Myelocytes # 0.0 K/mm3 04/12/17 07:35 Promyelocytes # 0.0 K/mm3 04/12/17 07:35 Blast Cells # 0.0 K/mm3 04/12/17 07:35 WBC Morphology Not Reportable 04/12/17 07:35 Hypersegmented Neuts Not Reportable 04/12/17 07:35 Hyposegmented Neuts Not Reportable 04/12/17 07:35 Hypogranular Neuts Not Reportable 04/12/17 07:35 Smudge Cells Not Reportable 04/12/17 07:35 Toxic Granulation Not Reportable 04/12/17 07:35 Toxic Vacuolation Not Reportable 04/12/17 07:35 Dohle Bodies Not Reportable 04/12/17 07:35 Pelger-Huet Anomaly Not Reportable 04/12/17 07:35 Cristina Rods Not Reportable 04/12/17 07:35 Platelet Estimate Not Reportable 04/12/17 07:35 Clumped Platelets Not Reportable 04/12/17 07:35 Plt Clumps, EDTA Not Reportable 04/12/17 07:35 Large Platelets Not Reportable 04/12/17 07:35 Giant Platelets Not Reportable 04/12/17 07:35 Platelet Satelliting Not Reportable 04/12/17 07:35 Plt Morphology Comment Not Reportable 04/12/17 07:35 RBC Morphology Not Reportable 04/12/17 07:35 Dimorphic RBCs Not Reportable 04/12/17 07:35 Polychromasia Not Reportable 04/12/17 07:35 Hypochromasia Not Reportable 04/12/17 07:35 Poikilocytosis Not Reportable 04/12/17 07:35 Anisocytosis Few 04/12/17 07:35 Microcytosis Not Reportable 04/12/17 07:35 Macrocytosis Not Reportable 04/12/17 07:35 Spherocytes Not Reportable 04/12/17 07:35 Pappenheimer Bodies Not Reportable 04/12/17 07:35 Sickle Cells Not Reportable 04/12/17 07:35 Target Cells Not Reportable 04/12/17 07:35 Tear Drop Cells Not Reportable 04/12/17 07:35 Ovalocytes Not Reportable 04/12/17 07:35 Helmet Cells Not Reportable 04/12/17 07:35 [place] Bodies Not Reportable 04/12/17 07:35 [place] Rings Not Reportable 04/12/17 07:35 Glide Cells Not Reportable 04/12/17 07:35 Bite Cells Not Reportable 04/12/17 07:35 Crenated Cell Not Reportable 04/12/17 07:35 Elliptocytes Not Reportable 04/12/17 07:35 Acanthocytes (Spur) Not Reportable 04/12/17 07:35 Rouleaux Not Reportable 04/12/17 07:35 Hemoglobin C Crystals Not Reportable 04/12/17 07:35 Schistocytes Not Reportable 04/12/17 07:35 Malaria parasites Not Reportable 04/12/17 07:35 Liu Bodies Not Reportable 04/12/17 07:35 Hem Pathologist Commnt No 04/12/17 07:35 PT 19.0 Sec. (12.2-14.9) H 04/14/17 10:08 INR 1.60 (0.87-1.13) H 04/14/17 10:08 APTT 125.5 Sec. (24.2-36.6) H* 04/13/17 05:20 Heparin Anti-Xa Level 0.23 U.I./ml (0.3-0.7) L 04/14/17 04:49 POC ABG pH 7.384 (7.35-7.45) 04/08/17 10:35 POC ABG pCO2 29.7 (35-45) L 04/08/17 10:35 POC ABG pO2 89 (80-105) 04/08/17 10:35 POC ABG HCO3 17.8 04/08/17 10:35 POC ABG Total CO2 19 04/08/17 10:35 POC ABG O2 Sat 97 04/08/17 10:35 POC ABG Base Excess -7 04/08/17 10:35 FiO2 35 % 04/08/17 10:35 Sodium 139 mmol/L (137-145) 04/15/17 06:35 Potassium 4.5 mmol/L (3.6-5.0) 04/15/17 06:35 Chloride 109.1 mmol/L (98-107) H 04/15/17 06:35 Carbon Dioxide 19 mmol/L (22-30) L 04/15/17 06:35 Anion Gap 15 mmol/L 04/15/17 06:35 BUN 10 mg/dL (7-17) 04/15/17 06:35 Creatinine 0.8 mg/dL (0.7-1.2) 04/15/17 06:35 Estimated GFR > 60 ml/min 04/15/17 06:35 BUN/Creatinine Ratio 12.50 % 04/15/17 06:35 Glucose 97 mg/dL (65-100) 04/15/17 06:35 POC Glucose 95 (70-105) 04/15/17 13:28 Hemoglobin A1c 5.8 % (4-6) 04/05/17 07:19 Calcium 7.8 mg/dL (8.4-10.2) L 04/15/17 06:35 Magnesium 1.80 mg/dL (1.7-2.3) 04/05/17 21:15 Total Bilirubin 0.30 mg/dL (0.1-1.2) 04/14/17 10:08 Direct Bilirubin < 0.2 mg/dL (0-0.2) 04/14/17 10:08 Indirect Bilirubin 0.1 mg/dL 04/14/17 10:08 AST 26 units/L (5-40) 04/14/17 10:08 ALT 18 units/L (7-56) 04/14/17 10:08 Alkaline Phosphatase 51 units/L (35-129) 04/14/17 10:08 Lactate Dehydrogenase 379 units/L (91-180) H 04/07/17 08:38 Troponin T 0.755 ng/mL (0.00-0.029) H* D 04/05/17 06:59 Total Protein 4.6 g/dL (6.3-8.2) L 04/14/17 10:08 Albumin 1.8 g/dL (3.9-5) L 04/14/17 10:08 Albumin/Globulin Ratio 0.6 % 04/14/17 10:08 Triglycerides 195 mg/dL (2-149) H 04/05/17 01:09 Cholesterol 173 mg/dL (50-199) 04/05/17 01:09 LDL Cholesterol Direct 101 mg/dL (50-130) 04/05/17 01:09 HDL Cholesterol 33 mg/dL (40-59) L 04/05/17 01:09 Cholesterol/HDL Ratio 5.24 % 04/05/17 01:09 Lipase 52 units/L (13-60) 04/05/17 01:09 Urine Color Straw (Yellow) 04/05/17 03:14 Urine Turbidity Clear (Clear) 04/05/17 03:14 Urine pH 6.0 (5.0-7.0) 04/05/17 03:14 Ur Specific [place] 1.029 (1.003-1.030) 04/05/17 03:14 Urine Protein <15 mg/dl mg/dL (Negative) 04/05/17 03:14 Urine Glucose (UA) Neg mg/dL (Negative) 04/05/17 03:14 Urine Ketones Neg mg/dL (Negative) 04/05/17 03:14 Urine Blood Mod (Negative) 04/05/17 03:14 Urine Nitrite Neg (Negative) 04/05/17 03:14 Urine Bilirubin Neg (Negative) 04/05/17 03:14 Urine Urobilinogen < 2.0 mg/dL (<2.0) 04/05/17 03:14 Ur Leukocyte Esterase Neg (Negative) 04/05/17 03:14 Urine WBC (Auto) 1.0 /HPF (0.0-6.0) 04/05/17 03:14 Urine RBC (Auto) 1.0 /HPF (0.0-6.0) 04/05/17 03:14 U Epithel Cells (Auto) 1.0 /HPF (0-13.0) 04/05/17 03:14 Urine Mucus Few /HPF 04/05/17 03:14 Blood Type O POSITIVE 04/13/17 12:59 Antibody Screen TNR 04/13/17 12:59 FABIOLA Antibody Screen Negative 04/13/17 12:59 Crossmatch See Detail 04/13/17 12:59
[2017-04-15] MEDS ORDERED: NORMODYNE IV PRN (14:30)
--- NOTE | 2017-04-15 15:13 | XRay Report ---
Single view abdomen: History: Postop. Findings: Moderate amount of air in small bowel and stomach. Minimal air in large bowel. No radiopaque calculus or abnormal calcification. Impression: Probable ileus. Followup advised.
[2017-04-15] MEDS: LEVAQUIN 750MG/150ML 750 MG/150 ML BAG IV SCH (18:42)
[2017-04-16] MEDS: NOVOLOG SUB-Q SCH ×3 (05:28→18:05)
[2017-04-16] MEDS: FLAGYL 500 MG/100 ML 500 MG/100 ML BAG IV SCH ×3 (05:29→18:31)
[2017-04-16 07:36] LABS: Hematocrit 22.3 % (30.3-42.9); Hemoglobin 7.2 gm/dl (10.1-14.3); Mean Corpuscular HGB Conc 32 % (30-34); Mean Corpuscular Hemoglobin 29 pg (28-32); Mean Corpuscular Volume 90 fl (79-97); Platelet Count 417 K/mm3 (140-440); Red Blood Count 2.48 M/mm3 (3.65-5.03); Red Cell Distribution Width 13.9 % (13.2-15.2)
[2017-04-16 07:37] LABS: White Blood Count 23.8 K/mm3 (4.5-11.0)
[2017-04-16 07:47] LABS: INR 1.23 (0.87-1.13)
[2017-04-16 07:49] LABS: Anion Gap 16 mmol/L; Blood Urea Nitrogen 11 mg/dL (7-17); Calcium 7.9 mg/dL (8.4-10.2); Carbon Dioxide 18 mmol/L (22-30); Chloride 107.9 mmol/L (98-107); Glucose 90 mg/dL (65-100); Potassium 4.1 mmol/L (3.6-5.0); Sodium 138 mmol/L (137-145)
[2017-04-16 08:33] LABS: Anisocytosis 1+; Basophils % (Manual) 0 % (0.0-1.8); Blastocytes % (Manual) 0 %; Diff Status Complete; Elliptocytes Rare; Eosinophils % (Manual) 0 % (0.0-4.3); Ovalocytes Few; Polychromasia Few; Stomatocytes Few
[2017-04-16] MEDS ORDERED: MAGNESIUM SULFATE 2GM/50ML 2 GM/50 ML BAG IV ONE (09:00)
[2017-04-16] MEDS: LOPRESSOR PO SCH ×2 (10:43→22:20)
[2017-04-16] MEDS: PEPCID IV SCH ×2 (10:43→22:20)
--- NOTE | 2017-04-16 10:58 | XRay Report ---
ABDOMEN RADIOGRAPHS INDICATION: Small bowel obstruction. COMPARISON: Yesterday. FINDINGS: Frontal abdominal radiograph, 10:36 AM, 04/16/2017 again demonstrates few air containing small bowel loops measuring up to 3.9 cm caliber. Some colonic air may be present. Stable postsurgical changes and bony degenerative findings. CONCLUSION: Postoperative ileus may again be noted, as described. Thank you for the opportunity to participate in this patient's care.
--- NOTE | 2017-04-16 10:59 | Progress Note ---
Assessment and Plan - Patient Problems (1) Bacteremia due to Escherichia coli Current Visit: Yes Status: Acute Plan to address problem: 1. Continue current antimicrobials. Patient remains hemodynamically stable and afebrile on this combination. (2) Leukocytosis Current Visit: Yes Status: Acute Qualifiers: Leukocytosis type: L Plan to address problem: 1. Questionable collection at superior aspect of prior incision, which has spontaneously begun to drain. 2. Will continue to monitor the incision closely and defer presently to surgeon's recommendations. 3. WBC is slightly improved today. 4. Check Cdiff studies given elevated WBC count and diarrhea. (3) Diarrhea Current Visit: Yes Status: Acute Qualifiers: Diarrhea type: D Plan to address problem: Check Cdiff toxin assay. Patient is already on Flagyl. Subjective Date of service: 04/16/17 Principal diagnosis: Acute NSTEMI, Abd pain, ileus Interval history: Afebrile. Completed CT abdomen/ pelvis yesterday with an equivocal incisional collection seen. Plain film xray today. Few episodes of loose BMs. Objective - Constitutional Vitals: Vital Signs Temp Pulse Resp BP Pulse Ox 98.1 F 99 H 21 137/63 98 04/16/17 06:43 04/16/17 09:53 04/16/17 06:43 04/16/17 06:43 04/16/17 06:43 Temperature -Last 24 Hours Temperature 98.1 F Temperature 98.6 F Temperature 98.6 F Temperature 98.0 F Temperature 98.0 F General appearance: Present: no acute distress - Neck Neck: supple - Respiratory Respiratory effort: normal Respiratory: bilateral: CTA, negative: rales, wheezing - Cardiovascular Rhythm: regular Heart Sounds: Present: S1 & S2 Extremity abnormal: edema - Gastrointestinal General gastrointestinal: Present: soft, hypoactive bowel sounds, other ( superior aspect of midline incision with serosanguinous drainage, full without fluctuance; sutures remain) - Integumentary Integumentary: no rash - Neurologic Neurologic: no focal deficits - Labs CBC & Chem 7: 04/16/17 07:16 04/16/17 07:16 Labs: Abnormal lab results 04/15/17 04/16/17 04/16/17 Range/Units 21:56 07:16 07:16 WBC 23.8 H (4.5-11.0) K/mm3 RBC 2.48 L (3.65-5.03) M/mm3 Hgb 7.2 L (10.1-14.3) gm/dl Hct 22.3 L (30.3-42.9) % Seg Neuts % (Manual) 94.0 H (40.0-70.0) % Lymphocytes % (Manual) 4.0 L (13.4-35.0) % Seg Neutrophils # Man 22.4 H (1.8-7.7) K/mm3 Lymphocytes # (Manual) 1.0 L (1.2-5.4) K/mm3 PT (12.2-14.9) Sec. INR (0.87-1.13) Chloride 107.9 H (98-107) mmol/L Carbon Dioxide 18 L (22-30) mmol/L POC Glucose 107 H (70-105) Calcium 7.9 L (8.4-10.2) mg/dL Magnesium 1.50 L (1.7-2.3) mg/dL 04/16/17 Range/Units 07:16 WBC (4.5-11.0) K/mm3 RBC (3.65-5.03) M/mm3 Hgb (10.1-14.3) gm/dl Hct (30.3-42.9) % Seg Neuts % (Manual) (40.0-70.0) % Lymphocytes % (Manual) (13.4-35.0) % Seg Neutrophils # Man (1.8-7.7) K/mm3 Lymphocytes # (Manual) (1.2-5.4) K/mm3 PT 15.4 H (12.2-14.9) Sec. INR 1.23 H (0.87-1.13) Chloride (98-107) mmol/L Carbon Dioxide (22-30) mmol/L POC Glucose (70-105) Calcium (8.4-10.2) mg/dL Magnesium (1.7-2.3) mg/dL Microbiology 04/13/17 20:25 Peripheral/Venous Blood Culture - Preliminary NO GROWTH AFTER 48 HOURS 04/13/17 20:18 Peripheral/Venous Blood Culture - Preliminary NO GROWTH AFTER 48 HOURS 04/14/17 Unknown Stool Stool Occult Blood (ANDREA) - Final 04/07/17 09:31 Abdomen Anaerobic Culture - Final Fusobacterium Varium Bacteroides Thetaiotaomicron 04/07/17 08:38 Peripheral/Venous Blood Culture - Preliminary 04/07/17 10:24 Peripheral/Venous Blood Culture - Final NO GROWTH AFTER 5 DAYS 04/07/17 Unknown Abdomen Surgical Culture - Final Escherichia Coli 04/07/17 22:50 Tracheal Aspirate Sputum Culture - Final - Imaging and cardiology CT scan - abdomen: report reviewed (severe ileus, also questionable collection seen at superior aspect of midline incision)
--- NOTE | 2017-04-16 11:57 | Progress Note ---
Assessment and Plan Assessment and plan: Patient is a 71-year-old woman with a history of diabetes mellitus2, hypertension and pulmonary embolism on Eliquis since December 2016 who presents with abdominal pain and chest pain. Chest x-ray read as no pneumonia or CHF. Troponin was 1.010, EKG read as no ST elevation PA, nonspecific changes. CT abdomen and pelvis with and without contrast shows possible small bowel ileus and right lower lobe atelectasis. -Small bowel ileus s/p surgery: General surgery following -Non-STEMI: treated medically by Cardiology, will still need ischemic workup prior to discharge -Accelerated hypertension: iv prn antihypertension -Right lower lobe atelectasis: Treat medically -History of PE: treated with O2, heparin on pause due to the anemia -Acute metabolic encephalopathy, poa, due to current illness, resolved. Appropriate cognition -DVT prophylaxis: scd only due to acute blood loss anemia, poa -Severe protein calorie malnutrition, poa -Sepsis E. coli bacteremia, poa: ID is following. 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 Procedures: Diagnostic laparoscopy with changing to open laparotomy, small bowel resection, cholecystectomy 04/15/2017: CT abdomen and pelvis with contrast reported as recent surgical changes, multiple bowel is mildly dilated and fluid-filled suggests mild obstruction severe ileus, ventral wall defect lungs appear margin and midline incision, it is unclear if this represents a small hematoma at the fluid collection, no convincing bowel are incorporated into this hernia, bilateral renal cysts, ascites, small to medium bilateral pleural effusion and bibasilar atelectasis. These findings were discussed with Dr. Berkowitz [id number] Berkowitz, Gen. Surgeon: "abdomen ditended , CT dilated bowel loops ,air in the rectum , seen with Dr Lopez will start PPN ,check KUB in AM ,, NG as well" 04/16/17 She was not started on PPN, still NPO. Right arm PICC line in place. KUB not done. Hemoglobin approximately 7.2 for 4 days, continue to monitor. I called Dr. Berkowitz to discuss. Patient will still need ischemic workup prior to discharge per Cardiology. WBC decreased today. ID still following History Interval history: Patient seen and examined. Follow up on abdominal pains. Overnight uneventful. No cp, sob, or severe headaches. Imaging, old records, testing, labs, nursing notes reviewed. She had BM yesterday. She asking for food. Hospitalist Physical - Constitutional Vitals: Temp Pulse Resp BP Pulse Ox 98.1 F 99 H 21 137/63 98 04/16/17 06:43 04/16/17 09:53 04/16/17 06:43 04/16/17 06:43 04/16/17 06:43 General appearance: Present: mild distress (due to abdominal pain) Results - Labs CBC & Chem 7: 04/16/17 07:16 04/16/17 07:16 Labs: Laboratory Last Values WBC 23.8 K/mm3 (4.5-11.0) H 04/16/17 07:16 RBC 2.48 M/mm3 (3.65-5.03) L 04/16/17 07:16 Hgb 7.2 gm/dl (10.1-14.3) L 04/16/17 07:16 Hct 22.3 % (30.3-42.9) L 04/16/17 07:16 MCV 90 fl (79-97) 04/16/17 07:16 MCH 29 pg (28-32) 04/16/17 07:16 MCHC 32 % (30-34) 04/16/17 07:16 RDW 13.9 % (13.2-15.2) 04/16/17 07:16 Plt Count 417 K/mm3 (140-440) 04/16/17 07:16 Lymph % (Auto) 25.3 % (13.4-35.0) 04/06/17 04:54 [place] % (Auto) 11.2 % (0.0-7.3) H 04/06/17 04:54 Eos % (Auto) 0.0 % (0.0-4.3) 04/06/17 04:54 Baso % (Auto) 0.5 % (0.0-1.8) 04/06/17 04:54 Lymph # 3.4 K/mm3 (1.2-5.4) 04/06/17 04:54 [place] # 1.5 K/mm3 (0.0-0.8) H 04/06/17 04:54 Eos # 0.0 K/mm3 (0.0-0.4) 04/06/17 04:54 Baso # 0.1 K/mm3 (0.0-0.1) 04/06/17 04:54 Add Manual Diff Complete 04/16/17 07:16 Total Counted 100 04/16/17 07:16 Seg Neutrophils % 63.0 % (40.0-70.0) 04/06/17 04:54 Seg Neuts % (Manual) 94.0 % (40.0-70.0) H 04/16/17 07:16 Band Neutrophils % 1.0 % 04/16/17 07:16 Lymphocytes % (Manual) 4.0 % (13.4-35.0) L 04/16/17 07:16 Reactive Lymphs % (Man) 0 % 04/16/17 07:16 Monocytes % (Manual) 1.0 % (0.0-7.3) 04/16/17 07:16 Eosinophils % (Manual) 0 % (0.0-4.3) 04/16/17 07:16 Basophils % (Manual) 0 % (0.0-1.8) 04/16/17 07:16 Metamyelocytes % 0 % 04/16/17 07:16 Myelocytes % 0 % 04/16/17 07:16 Promyelocytes % 0 % 04/16/17 07:16 Blast Cells % 0 % 04/16/17 07:16 Nucleated RBC % Not Reportable 04/16/17 07:16 Seg Neutrophils # 8.6 K/mm3 (1.8-7.7) H 04/06/17 04:54 Seg Neutrophils # Man 22.4 K/mm3 (1.8-7.7) H 04/16/17 07:16 Band Neutrophils # 0.2 K/mm3 04/16/17 07:16 Lymphocytes # (Manual) 1.0 K/mm3 (1.2-5.4) L 04/16/17 07:16 Abs React Lymphs (Man) 0.0 K/mm3 04/16/17 07:16 Monocytes # (Manual) 0.2 K/mm3 (0.0-0.8) 04/16/17 07:16 Eosinophils # (Manual) 0.0 K/mm3 (0.0-0.4) 04/16/17 07:16 Basophils # (Manual) 0.0 K/mm3 (0.0-0.1) 04/16/17 07:16 Metamyelocytes # 0.0 K/mm3 04/16/17 07:16 Myelocytes # 0.0 K/mm3 04/16/17 07:16 Promyelocytes # 0.0 K/mm3 04/16/17 07:16 Blast Cells # 0.0 K/mm3 04/16/17 07:16 WBC Morphology Not Reportable 04/16/17 07:16 Hypersegmented Neuts Not Reportable 04/16/17 07:16 Hyposegmented Neuts Not Reportable 04/16/17 07:16 Hypogranular Neuts Not Reportable 04/16/17 07:16 Smudge Cells Not Reportable 04/16/17 07:16 Toxic Granulation Not Reportable 04/16/17 07:16 Toxic Vacuolation Not Reportable 04/16/17 07:16 Dohle Bodies Not Reportable 04/16/17 07:16 Pelger-Huet Anomaly Not Reportable 04/16/17 07:16 Cristina Rods Not Reportable 04/16/17 07:16 Platelet Estimate Appears normal 04/16/17 07:16 Clumped Platelets Not Reportable 04/16/17 07:16 Plt Clumps, EDTA Not Reportable 04/16/17 07:16 Large Platelets Not Reportable 04/16/17 07:16 Giant Platelets Not Reportable 04/16/17 07:16 Platelet Satelliting Not Reportable 04/16/17 07:16 Plt Morphology Comment Not Reportable 04/16/17 07:16 RBC Morphology Not Reportable 04/16/17 07:16 Dimorphic RBCs Not Reportable 04/16/17 07:16 Polychromasia Few 04/16/17 07:16 Hypochromasia Not Reportable 04/16/17 07:16 Poikilocytosis Not Reportable 04/16/17 07:16 Anisocytosis 1+ 04/16/17 07:16 Microcytosis Not Reportable 04/16/17 07:16 Macrocytosis Not Reportable 04/16/17 07:16 Spherocytes Not Reportable 04/16/17 07:16 Pappenheimer Bodies Not Reportable 04/16/17 07:16 Sickle Cells Not Reportable 04/16/17 07:16 Target Cells Not Reportable 04/16/17 07:16 Tear Drop Cells Not Reportable 04/16/17 07:16 Ovalocytes Few 04/16/17 07:16 Stomatocytes Few 04/16/17 07:16 Helmet Cells Not Reportable 04/16/17 07:16 Lal-Cricket Bodies Not Reportable 04/16/17 07:16 [place] Rings Not Reportable 04/16/17 07:16 [place] Cells Not Reportable 04/16/17 07:16 Bite Cells Not Reportable 04/16/17 07:16 Crenated Cell Not Reportable 04/16/17 07:16 Elliptocytes Rare 04/16/17 07:16 Acanthocytes (Spur) Not Reportable 04/16/17 07:16 Rouleaux Not Reportable 04/16/17 07:16 Hemoglobin C Crystals Not Reportable 04/16/17 07:16 Schistocytes Not Reportable 04/16/17 07:16 Malaria parasites Not Reportable 04/16/17 07:16 Liu Bodies Not Reportable 04/16/17 07:16 Hem Pathologist Commnt No 04/16/17 07:16 PT 15.4 Sec. (12.2-14.9) H 04/16/17 07:16 INR 1.23 (0.87-1.13) H 04/16/17 07:16 APTT 125.5 Sec. (24.2-36.6) H* 04/13/17 05:20 Heparin Anti-Xa Level 0.23 U.I./ml (0.3-0.7) L 04/14/17 04:49 POC ABG pH 7.384 (7.35-7.45) 04/08/17 10:35 POC ABG pCO2 29.7 (35-45) L 04/08/17 10:35 POC ABG pO2 89 (80-105) 04/08/17 10:35 POC ABG HCO3 17.8 04/08/17 10:35 POC ABG Total CO2 19 04/08/17 10:35 POC ABG O2 Sat 97 04/08/17 10:35 POC ABG Base Excess -7 04/08/17 10:35 FiO2 35 % 04/08/17 10:35 Sodium 138 mmol/L (137-145) 04/16/17 07:16 Potassium 4.1 mmol/L (3.6-5.0) 04/16/17 07:16 Chloride 107.9 mmol/L (98-107) H 04/16/17 07:16 Carbon Dioxide 18 mmol/L (22-30) L 04/16/17 07:16 Anion Gap 16 mmol/L 04/16/17 07:16 BUN 11 mg/dL (7-17) 04/16/17 07:16 Creatinine 1.0 mg/dL (0.7-1.2) 04/16/17 07:16 Estimated GFR > 60 ml/min 04/16/17 07:16 BUN/Creatinine Ratio 11.00 % 04/16/17 07:16 Glucose 90 mg/dL (65-100) 04/16/17 07:16 POC Glucose 102 (70-105) 04/15/17 23:53 Hemoglobin A1c 5.8 % (4-6) 04/05/17 07:19 Calcium 7.9 mg/dL (8.4-10.2) L 04/16/17 07:16 Magnesium 1.50 mg/dL (1.7-2.3) L 04/16/17 07:16 Total Bilirubin 0.30 mg/dL (0.1-1.2) 04/14/17 10:08 Direct Bilirubin < 0.2 mg/dL (0-0.2) 04/14/17 10:08 Indirect Bilirubin 0.1 mg/dL 04/14/17 10:08 AST 26 units/L (5-40) 04/14/17 10:08 ALT 18 units/L (7-56) 04/14/17 10:08 Alkaline Phosphatase 51 units/L (35-129) 04/14/17 10:08 Lactate Dehydrogenase 379 units/L (91-180) H 04/07/17 08:38 Troponin T 0.755 ng/mL (0.00-0.029) H* D 04/05/17 06:59 Total Protein 4.6 g/dL (6.3-8.2) L 04/14/17 10:08 Albumin 1.8 g/dL (3.9-5) L 04/14/17 10:08 Albumin/Globulin Ratio 0.6 % 04/14/17 10:08 Triglycerides 195 mg/dL (2-149) H 04/05/17 01:09 Cholesterol 173 mg/dL (50-199) 04/05/17 01:09 LDL Cholesterol Direct 101 mg/dL (50-130) 04/05/17 01:09 HDL Cholesterol 33 mg/dL (40-59) L 04/05/17 01:09 Cholesterol/HDL Ratio 5.24 % 04/05/17 01:09 Lipase 52 units/L (13-60) 04/05/17 01:09 Urine Color Straw (Yellow) 04/05/17 03:14 Urine Turbidity Clear (Clear) 04/05/17 03:14 Urine pH 6.0 (5.0-7.0) 04/05/17 03:14 Ur Specific Felicity 1.029 (1.003-1.030) 04/05/17 03:14 Urine Protein <15 mg/dl mg/dL (Negative) 04/05/17 03:14 Urine Glucose (UA) Neg mg/dL (Negative) 04/05/17 03:14 Urine Ketones Neg mg/dL (Negative) 04/05/17 03:14 Urine Blood Mod (Negative) 04/05/17 03:14 Urine Nitrite Neg (Negative) 04/05/17 03:14 Urine Bilirubin Neg (Negative) 04/05/17 03:14 Urine Urobilinogen < 2.0 mg/dL (<2.0) 04/05/17 03:14 Ur Leukocyte Esterase Neg (Negative) 04/05/17 03:14 Urine WBC (Auto) 1.0 /HPF (0.0-6.0) 04/05/17 03:14 Urine RBC (Auto) 1.0 /HPF (0.0-6.0) 04/05/17 03:14 U Epithel Cells (Auto) 1.0 /HPF (0-13.0) 04/05/17 03:14 Urine Mucus Few /HPF 04/05/17 03:14 Blood Type O POSITIVE 04/13/17 12:59 Antibody Screen TNR 04/13/17 12:59 FABIOLA Antibody Screen Negative 04/13/17 12:59 Crossmatch See Detail 04/13/17 12:59
--- NOTE | 2017-04-16 12:31 | Progress Note ---
Assessment and Plan Currently stable cardiac status. Ischemic evaluation will continue to be postponed in setting of anemia given that pt. is chest pain free and hemodynamically stable. Can consider stress test as OP if unable to complete on this admission. Will see as needed. - Patient Problems (1) Non-ST elevation myocardial infarction (NSTEMI), type 2 Current Visit: Yes Status: Acute (2) Volvulus of ileum Current Visit: Yes Status: Acute (3) Cholecystitis Current Visit: Yes Status: Acute (4) S/P cholecystectomy Current Visit: Yes Status: Acute (5) Diabetes mellitus Current Visit: Yes Status: Chronic Qualifiers: Diabetes mellitus type: type 2 Diabetes mellitus complication status: without complication Diabetes mellitus complication detail: D Diabetic retinopathy severity: D Proliferative retinopathy type: P Diabetes mellitus macular edema: D Diabetes mellitus long-term insulin use: D Laterality: L Chronic kidney disease stage: C (6) Hypertension Current Visit: Yes Status: Chronic Qualifiers: Hypertension type: essential hypertension Qualified Code(s): I10 - Essential (primary) hypertension (7) Anemia Current Visit: Yes Status: Acute Qualifiers: Anemia type: A Iron deficiency anemia type: I Vitamin B12 deficiency anemia type: V Folate deficiency anemia type: F Bone marrow failure anemia type: B Hemolytic anemia type: H Other causes of anemia: O Chronic kidney disease stage: C (8) History of pulmonary embolism Current Visit: Yes Status: Chronic Subjective Date of service: 04/16/17 Principal diagnosis: Acute NSTEMI, Abd pain, ileus Interval history: The patient is resting comfortably in bed. No new complaints. Objective Last Vital Signs Temp 98.1 F 04/16/17 06:43 Pulse 99 H 04/16/17 09:53 Resp 21 04/16/17 06:43 BP 137/63 04/16/17 06:43 Pulse Ox 98 04/16/17 06:43 - Physical Examination General: No Apparent Distress HEENT: Positive: EOMI, Normocephaly, Mucus Membranes Moist Neck: Positive: neck supple, trachea midline, Carotid Upstroke (full) Cardiac: Positive: Reg Rate and Rhythm, S1/S2 Lungs: Positive: clear to auscultation Neuro: Positive: Grossly Intact Abdomen: Positive: Soft, Active Bowel Sounds, Tender Skin: Positive: Clear. Negative: Rash Musculoskeletal: Normal Range of Motion Extremities: Absent: edema - Labs and Meds Coagulation 04/16/17 Range/Units 07:16 PT 15.4 H (12.2-14.9) Sec. INR 1.23 H (0.87-1.13) CBC 04/16/17 Range/Units 07:16 WBC 23.8 H (4.5-11.0) K/mm3 RBC 2.48 L (3.65-5.03) M/mm3 Hgb 7.2 L (10.1-14.3) gm/dl Hct 22.3 L (30.3-42.9) % Plt Count 417 (140-440) K/mm3 Comprehensive Metabolic Panel 04/16/17 Range/Units 07:16 Sodium 138 (137-145) mmol/L Potassium 4.1 (3.6-5.0) mmol/L Chloride 107.9 H (98-107) mmol/L Carbon Dioxide 18 L (22-30) mmol/L BUN 11 (7-17) mg/dL Creatinine 1.0 (0.7-1.2) mg/dL Glucose 90 (65-100) mg/dL Calcium 7.9 L (8.4-10.2) mg/dL - Imaging and Cardiology EKG: image reviewed Echo: report reviewed - Telemetry EKG Rhythm: Sinus Rhythm - EKG Sinus rhythms and dysrhythmias: sinus tachycardia AV and intraventricular conduction: 1 AV block Myocardial infarction: septal SC (old age or ind
[2017-04-16] MEDS ORDERED: FLEET PR ONE (13:00)
--- NOTE | 2017-04-16 13:46 | Progress Note ---
Subjective Patient Reports: Positive: feels better, pain is less, flatus, bowel movement Narrative: Had a large BM thi AM Kub however same , for TPN , will check KUB in AM Objective Vital Signs - 12hr 04/16/17 04/16/17 06:43 09:53 Temperature 98.1 F Pulse Rate 95 H 99 H Respiratory 21 Rate Blood Pressure 137/63 [Left] Blood Pressure 137/63 [Right] O2 Sat by Pulse 98 Oximetry - Labs 04/16/17 07:16 04/16/17 07:16 Diabetes panel 04/16/17 Range/Units 07:16 Sodium 138 (137-145) mmol/L Potassium 4.1 (3.6-5.0) mmol/L Chloride 107.9 H (98-107) mmol/L Carbon Dioxide 18 L (22-30) mmol/L BUN 11 (7-17) mg/dL Creatinine 1.0 (0.7-1.2) mg/dL Glucose 90 (65-100) mg/dL Calcium 7.9 L (8.4-10.2) mg/dL Calcium panel 04/16/17 Range/Units 07:16 Calcium 7.9 L (8.4-10.2) mg/dL Pituitary panel 04/16/17 Range/Units 07:16 Sodium 138 (137-145) mmol/L Potassium 4.1 (3.6-5.0) mmol/L Chloride 107.9 H (98-107) mmol/L Carbon Dioxide 18 L (22-30) mmol/L BUN 11 (7-17) mg/dL Creatinine 1.0 (0.7-1.2) mg/dL Glucose 90 (65-100) mg/dL Calcium 7.9 L (8.4-10.2) mg/dL Adrenal panel 04/16/17 Range/Units 07:16 Sodium 138 (137-145) mmol/L Potassium 4.1 (3.6-5.0) mmol/L Chloride 107.9 H (98-107) mmol/L Carbon Dioxide 18 L (22-30) mmol/L BUN 11 (7-17) mg/dL Creatinine 1.0 (0.7-1.2) mg/dL Glucose 90 (65-100) mg/dL Calcium 7.9 L (8.4-10.2) mg/dL
--- NOTE | 2017-04-16 14:11 | Progress Note ---
Assessment and Plan 71 y/o female with NSTEMI 1. Stable pulm status 2. In regards to anticoagluation, in review of chart, H/H has been about the same the last 5 days. No aga evidence of bleeding. Given history, need to strongly reconsider starting anticoagulation. 3. Will sign off for now. Call if questions. Subjective Date of service: 04/16/17 Principal diagnosis: Acute NSTEMI, Abd pain, ileus Interval history: Weaned to room air. Surgery concerned about hemoglobin, stopped anticoagulation. Objective Vital Signs - 12hr 04/16/17 04/16/17 06:43 09:53 Temperature 98.1 F Pulse Rate 95 H 99 H Respiratory 21 Rate Blood Pressure 137/63 [Left] Blood Pressure 137/63 [Right] O2 Sat by Pulse 98 Oximetry Constitutional: alert ENT: oropharynx moist Neck: supple, no JVD Effort: no acute distress Ascultation: Bilateral: clear, diminished breath sounds (decreased excursions), rhonchi (occasional) Cardiovascular: regular rate and rhythm Gastrointestinal: absent bowel sounds, tender, other (mild tender bowel sounds are active tympanic. Still some distention.) Extremities: no cyanosis, no edema Neurologic: normal mental status, non-focal exam, CN II-XII normal Psychiatric: affect normal CBC and BMP: 04/16/17 07:16 04/16/17 07:16 ABG, PT/INR, D-dimer: ABG POC ABG pH 7.384 (7.35-7.45) 04/08/17 10:35 POC ABG pCO2 29.7 (35-45) L 04/08/17 10:35 POC ABG pO2 89 (80-105) 04/08/17 10:35 POC ABG HCO3 17.8 04/08/17 10:35 POC ABG Total CO2 19 04/08/17 10:35 POC ABG O2 Sat 97 04/08/17 10:35 PT/INR, D-dimer PT 15.4 Sec. (12.2-14.9) H 04/16/17 07:16 INR 1.23 (0.87-1.13) H 04/16/17 07:16 Abnormal lab findings: Abnormal Labs 04/05/17 04/05/17 04/05/17 06:59 07:19 12:13 WBC RBC Hgb Hct [place] % (Auto) [place] # Seg Neuts % (Manual) Lymphocytes % (Manual) Monocytes % (Manual) Nucleated RBC % Seg Neutrophils # Seg Neutrophils # Man Lymphocytes # (Manual) Monocytes # (Manual) PT 15.7 H INR 1.26 H APTT 179.9 H* Heparin Anti-Xa Level POC ABG pH POC ABG pCO2 POC ABG pO2 Sodium Chloride Carbon Dioxide BUN Creatinine Glucose POC Glucose 177 H Calcium Magnesium AST ALT Lactate Dehydrogenase Troponin T 0.755 H* D Total Protein Albumin Crossmatch 04/05/17 04/05/17 04/05/17 13:02 16:51 18:10 WBC RBC Hgb Hct [place] % (Auto) [place] # Seg Neuts % (Manual) Lymphocytes % (Manual) Monocytes % (Manual) Nucleated RBC % Seg Neutrophils # Seg Neutrophils # Man Lymphocytes # (Manual) Monocytes # (Manual) PT INR APTT Heparin Anti-Xa Level 1.36 H POC ABG pH POC ABG pCO2 POC ABG pO2 Sodium Chloride Carbon Dioxide BUN Creatinine Glucose POC Glucose 149 H 127 H Calcium Magnesium AST ALT Lactate Dehydrogenase Troponin T Total Protein Albumin Crossmatch 04/05/17 04/05/17 04/05/17 19:21 21:15 23:51 WBC RBC Hgb Hct [place] % (Auto) [place] # Seg Neuts % (Manual) Lymphocytes % (Manual) Monocytes % (Manual) Nucleated RBC % Seg Neutrophils # Seg Neutrophils # Man Lymphocytes # (Manual) Monocytes # (Manual) PT INR APTT Heparin Anti-Xa Level 1.09 H POC ABG pH POC ABG pCO2 POC ABG pO2 Sodium Chloride Carbon Dioxide BUN Creatinine Glucose POC Glucose 126 H 125 H Calcium Magnesium AST ALT Lactate Dehydrogenase Troponin T Total Protein Albumin Crossmatch 04/06/17 04/06/17 04/06/17 04:54 04:54 05:11 WBC 13.6 H RBC 3.64 L Hgb Hct [place] % (Auto) 11.2 H [place] # 1.5 H Seg Neuts % (Manual) Lymphocytes % (Manual) Monocytes % (Manual) Nucleated RBC % Seg Neutrophils # 8.6 H Seg Neutrophils # Man Lymphocytes # (Manual) Monocytes # (Manual) PT INR APTT Heparin Anti-Xa Level POC ABG pH POC ABG pCO2 POC ABG pO2 Sodium Chloride Carbon Dioxide BUN 21 H Creatinine 0.4 L Glucose 123 H POC Glucose 119 H Calcium Magnesium AST 92 H ALT 69 H Lactate Dehydrogenase Troponin T Total Protein 6.1 L Albumin 3.1 L Crossmatch 04/07/17 04/07/17 04/07/17 05:19 05:19 08:38 WBC 26.2 H RBC Hgb Hct [place] % (Auto) [place] # Seg Neuts % (Manual) 80.5 H Lymphocytes % (Manual) 7.5 L Monocytes % (Manual) 9.5 H Nucleated RBC % Seg Neutrophils # Seg Neutrophils # Man 21.1 H Lymphocytes # (Manual) Monocytes # (Manual) 2.5 H PT INR APTT Heparin Anti-Xa Level POC ABG pH POC ABG pCO2 POC ABG pO2 Sodium Chloride 96.6 L Carbon Dioxide 19 L D BUN 26 H Creatinine 0.4 L Glucose POC Glucose Calcium Magnesium AST ALT Lactate Dehydrogenase 379 H Troponin T Total Protein Albumin Crossmatch 04/07/17 04/07/17 04/07/17 16:14 18:20 18:20 WBC 22.5 H RBC 3.30 L Hgb 9.7 L Hct [place] % (Auto) [place] # Seg Neuts % (Manual) 75.0 H Lymphocytes % (Manual) Monocytes % (Manual) Nucleated RBC % Seg Neutrophils # Seg Neutrophils # Man 16.9 H Lymphocytes # (Manual) Monocytes # (Manual) 1.6 H PT 17.0 H INR 1.39 H APTT Heparin Anti-Xa Level POC ABG pH POC ABG pCO2 POC ABG pO2 Sodium Chloride Carbon Dioxide BUN Creatinine Glucose POC Glucose Calcium Magnesium AST ALT Lactate Dehydrogenase Troponin T Total Protein Albumin Crossmatch See Detail 04/07/17 04/07/17 04/08/17 20:16 21:50 03:41 WBC RBC Hgb Hct [place] % (Auto) [place] # Seg Neuts % (Manual) Lymphocytes % (Manual) Monocytes % (Manual) Nucleated RBC % Seg Neutrophils # Seg Neutrophils # Man Lymphocytes # (Manual) Monocytes # (Manual) PT INR APTT Heparin Anti-Xa Level POC ABG pH 7.331 L POC ABG pCO2 33.6 L POC ABG pO2 Sodium Chloride Carbon Dioxide BUN Creatinine Glucose POC Glucose 122 H 201 H Calcium Magnesium AST ALT Lactate Dehydrogenase Troponin T Total Protein Albumin Crossmatch 04/08/17 04/08/17 04/08/17 03:54 05:10 05:10 WBC 13.4 H RBC 3.19 L Hgb 9.6 L Hct 29.2 L [place] % (Auto) [place] # Seg Neuts % (Manual) Lymphocytes % (Manual) Monocytes % (Manual) Nucleated RBC % Seg Neutrophils # Seg Neutrophils # Man Lymphocytes # (Manual) Monocytes # (Manual) PT 18.3 H INR 1.52 H APTT Heparin Anti-Xa Level 0.10 L POC ABG pH POC ABG pCO2 POC ABG pO2 Sodium 135 L Chloride Carbon Dioxide 17 L BUN 35 H Creatinine Glucose 186 H POC Glucose Calcium 7.5 L D Magnesium AST ALT Lactate Dehydrogenase Troponin T Total Protein Albumin Crossmatch 04/08/17 04/08/17 04/08/17 06:13 10:35 12:13 WBC RBC Hgb Hct [place] % (Auto) [place] # Seg Neuts % (Manual) Lymphocytes % (Manual) Monocytes % (Manual) Nucleated RBC % Seg Neutrophils # Seg Neutrophils # Man Lymphocytes # (Manual) Monocytes # (Manual) PT INR APTT Heparin Anti-Xa Level POC ABG pH POC ABG pCO2 30.5 L 29.7 L POC ABG pO2 125 H Sodium Chloride Carbon Dioxide BUN Creatinine Glucose POC Glucose 250 H Calcium Magnesium AST ALT Lactate Dehydrogenase Troponin T Total Protein Albumin Crossmatch 04/08/17 04/08/17 04/08/17 18:07 18:12 23:56 WBC RBC Hgb Hct [place] % (Auto) [place] # Seg Neuts % (Manual) Lymphocytes % (Manual) Monocytes % (Manual) Nucleated RBC % Seg Neutrophils # Seg Neutrophils # Man Lymphocytes # (Manual) Monocytes # (Manual) PT INR APTT Heparin Anti-Xa Level 0.26 L POC ABG pH POC ABG pCO2 POC ABG pO2 Sodium Chloride Carbon Dioxide BUN Creatinine Glucose POC Glucose 192 H 191 H Calcium Magnesium AST ALT Lactate Dehydrogenase Troponin T Total Protein Albumin Crossmatch 04/09/17 04/09/17 04/09/17 04:12 04:24 04:24 WBC 21.1 H RBC 3.06 L Hgb 8.7 L Hct 27.7 L [place] % (Auto) [place] # Seg Neuts % (Manual) 75.0 H Lymphocytes % (Manual) 9.0 L Monocytes % (Manual) Nucleated RBC % Seg Neutrophils # Seg Neutrophils # Man 15.8 H Lymphocytes # (Manual) Monocytes # (Manual) 1.5 H PT INR APTT Heparin Anti-Xa Level 0.21 L POC ABG pH POC ABG pCO2 POC ABG pO2 Sodium 133 L Chloride Carbon Dioxide 16 L BUN 35 H Creatinine Glucose 139 H POC Glucose Calcium 7.1 L Magnesium AST ALT Lactate Dehydrogenase Troponin T Total Protein Albumin Crossmatch 04/09/17 04/09/17 04/09/17 05:31 12:09 18:07 WBC RBC Hgb Hct [place] % (Auto) [place] # Seg Neuts % (Manual) Lymphocytes % (Manual) Monocytes % (Manual) Nucleated RBC % Seg Neutrophils # Seg Neutrophils # Man Lymphocytes # (Manual) Monocytes # (Manual) PT INR APTT Heparin Anti-Xa Level POC ABG pH POC ABG pCO2 POC ABG pO2 Sodium Chloride Carbon Dioxide BUN Creatinine Glucose POC Glucose 163 H 150 H 128 H Calcium Magnesium AST ALT Lactate Dehydrogenase Troponin T Total Protein Albumin Crossmatch 04/10/17 04/10/17 04/10/17 00:15 04:53 05:34 WBC RBC Hgb 7.9 L Hct 24.8 L [place] % (Auto) [place] # Seg Neuts % (Manual) Lymphocytes % (Manual) Monocytes % (Manual) Nucleated RBC % Seg Neutrophils # Seg Neutrophils # Man Lymphocytes # (Manual) Monocytes # (Manual) PT INR APTT Heparin Anti-Xa Level POC ABG pH POC ABG pCO2 POC ABG pO2 Sodium Chloride Carbon Dioxide BUN Creatinine Glucose POC Glucose 124 H 109 H Calcium Magnesium AST ALT Lactate Dehydrogenase Troponin T Total Protein Albumin Crossmatch 04/10/17 04/10/17 04/10/17 08:03 11:49 13:20 WBC 26.9 H RBC 2.72 L Hgb 7.9 L 9.1 L Hct 24.8 L 28.6 L [place] % (Auto) [place] # Seg Neuts % (Manual) 81.0 H Lymphocytes % (Manual) 7.5 L Monocytes % (Manual) Nucleated RBC % Seg Neutrophils # Seg Neutrophils # Man 21.8 H Lymphocytes # (Manual) Monocytes # (Manual) 1.9 H PT INR APTT Heparin Anti-Xa Level POC ABG pH POC ABG pCO2 POC ABG pO2 Sodium Chloride Carbon Dioxide BUN Creatinine Glucose POC Glucose 127 H Calcium Magnesium AST ALT Lactate Dehydrogenase Troponin T Total Protein Albumin Crossmatch 04/10/17 04/10/17 04/10/17 17:43 20:14 23:52 WBC 27.2 H RBC 2.68 L Hgb 7.7 L Hct 24.7 L [place] % (Auto) [place] # Seg Neuts % (Manual) 72.5 H Lymphocytes % (Manual) 10.0 L Monocytes % (Manual) Nucleated RBC % Seg Neutrophils # Seg Neutrophils # Man 19.7 H Lymphocytes # (Manual) Monocytes # (Manual) 1.9 H PT INR APTT Heparin Anti-Xa Level POC ABG pH POC ABG pCO2 POC ABG pO2 Sodium Chloride Carbon Dioxide BUN Creatinine Glucose POC Glucose 132 H 125 H Calcium Magnesium AST ALT Lactate Dehydrogenase Troponin T Total Protein Albumin Crossmatch 04/11/17 04/11/17 04/11/17 04:15 04:15 05:16 WBC RBC Hgb 8.1 L Hct 25.2 L [place] % (Auto) [place] # Seg Neuts % (Manual) Lymphocytes % (Manual) Monocytes % (Manual) Nucleated RBC % Seg Neutrophils # Seg Neutrophils # Man Lymphocytes # (Manual) Monocytes # (Manual) PT INR APTT Heparin Anti-Xa Level 0.16 L POC ABG pH POC ABG pCO2 POC ABG pO2 Sodium Chloride Carbon Dioxide BUN Creatinine Glucose POC Glucose 141 H Calcium Magnesium AST ALT Lactate Dehydrogenase Troponin T Total Protein Albumin Crossmatch 04/11/17 04/11/17 04/11/17 07:04 09:46 12:12 WBC 23.4 H RBC 2.76 L Hgb 8.1 L Hct 25.0 L [place] % (Auto) [place] # Seg Neuts % (Manual) Lymphocytes % (Manual) Monocytes % (Manual) Nucleated RBC % Seg Neutrophils # Seg Neutrophils # Man Lymphocytes # (Manual) Monocytes # (Manual) PT INR APTT Heparin Anti-Xa Level POC ABG pH POC ABG pCO2 POC ABG pO2 Sodium Chloride 111.2 H Carbon Dioxide 19 L BUN 18 H Creatinine Glucose 112 H POC Glucose 126 H Calcium 7.8 L Magnesium AST ALT Lactate Dehydrogenase Troponin T Total Protein Albumin Crossmatch 04/11/17 04/11/17 04/11/17 16:42 17:52 23:31 WBC RBC Hgb Hct [place] % (Auto) [place] # Seg Neuts % (Manual) Lymphocytes % (Manual) Monocytes % (Manual) Nucleated RBC % Seg Neutrophils # Seg Neutrophils # Man Lymphocytes # (Manual) Monocytes # (Manual) PT INR APTT Heparin Anti-Xa Level 0.28 L POC ABG pH POC ABG pCO2 POC ABG pO2 Sodium Chloride Carbon Dioxide BUN Creatinine Glucose POC Glucose 134 H 122 H Calcium Magnesium AST ALT Lactate Dehydrogenase Troponin T Total Protein Albumin Crossmatch 04/12/17 04/12/17 04/12/17 03:03 07:35 11:29 WBC 22.3 H RBC 2.56 L Hgb 7.6 L 7.4 L Hct 24.2 L 23.0 L [place] % (Auto) [place] # Seg Neuts % (Manual) 79.0 H Lymphocytes % (Manual) 6.0 L Monocytes % (Manual) 9.0 H Nucleated RBC % 1.0 H Seg Neutrophils # Seg Neutrophils # Man 17.6 H Lymphocytes # (Manual) Monocytes # (Manual) 2.0 H PT INR APTT Heparin Anti-Xa Level POC ABG pH POC ABG pCO2 POC ABG pO2 Sodium Chloride Carbon Dioxide BUN Creatinine Glucose POC Glucose 135 H Calcium Magnesium AST ALT Lactate Dehydrogenase Troponin T Total Protein Albumin Crossmatch 04/12/17 04/12/17 04/13/17 16:38 23:37 05:19 WBC RBC Hgb Hct [place] % (Auto) [place] # Seg Neuts % (Manual) Lymphocytes % (Manual) Monocytes % (Manual) Nucleated RBC % Seg Neutrophils # Seg Neutrophils # Man Lymphocytes # (Manual) Monocytes # (Manual) PT INR APTT Heparin Anti-Xa Level POC ABG pH POC ABG pCO2 POC ABG pO2 Sodium Chloride Carbon Dioxide BUN Creatinine Glucose POC Glucose 129 H 140 H 148 H Calcium Magnesium AST ALT Lactate Dehydrogenase Troponin T Total Protein Albumin Crossmatch 04/13/17 04/13/17 04/13/17 05:20 05:20 05:20 WBC 25.6 H RBC 2.45 L Hgb 7.0 L Hct 21.8 L [place] % (Auto) [place] # Seg Neuts % (Manual) Lymphocytes % (Manual) Monocytes % (Manual) Nucleated RBC % Seg Neutrophils # Seg Neutrophils # Man Lymphocytes # (Manual) Monocytes # (Manual) PT INR APTT 125.5 H* Heparin Anti-Xa Level POC ABG pH POC ABG pCO2 POC ABG pO2 Sodium Chloride 111.8 H Carbon Dioxide 18 L BUN Creatinine 0.6 L Glucose 137 H POC Glucose Calcium 7.7 L Magnesium AST ALT Lactate Dehydrogenase Troponin T Total Protein Albumin Crossmatch 04/13/17 04/13/17 04/13/17 08:43 11:30 12:59 WBC RBC Hgb Hct [place] % (Auto) [place] # Seg Neuts % (Manual) Lymphocytes % (Manual) Monocytes % (Manual) Nucleated RBC % Seg Neutrophils # Seg Neutrophils # Man Lymphocytes # (Manual) Monocytes # (Manual) PT INR APTT Heparin Anti-Xa Level POC ABG pH POC ABG pCO2 POC ABG pO2 Sodium Chloride Carbon Dioxide BUN Creatinine Glucose POC Glucose 147 H 154 H Calcium Magnesium AST ALT Lactate Dehydrogenase Troponin T Total Protein Albumin Crossmatch See Detail 04/13/17 04/13/17 04/13/17 17:49 17:56 23:05 WBC RBC Hgb 7.2 L Hct 23.0 L [place] % (Auto) [place] # Seg Neuts % (Manual) Lymphocytes % (Manual) Monocytes % (Manual) Nucleated RBC % Seg Neutrophils # Seg Neutrophils # Man Lymphocytes # (Manual) Monocytes # (Manual) PT INR APTT Heparin Anti-Xa Level POC ABG pH POC ABG pCO2 POC ABG pO2 Sodium Chloride Carbon Dioxide BUN Creatinine Glucose POC Glucose 142 H 136 H Calcium Magnesium AST ALT Lactate Dehydrogenase Troponin T Total Protein Albumin Crossmatch 04/14/17 04/14/17 04/14/17 04:49 04:49 04:49 WBC 25.2 H RBC 2.17 L Hgb 6.2 L Hct 20.0 L [place] % (Auto) [place] # Seg Neuts % (Manual) Lymphocytes % (Manual) Monocytes % (Manual) Nucleated RBC % Seg Neutrophils # Seg Neutrophils # Man Lymphocytes # (Manual) Monocytes # (Manual) PT INR APTT Heparin Anti-Xa Level 0.23 L POC ABG pH POC ABG pCO2 POC ABG pO2 Sodium 135 L Chloride 108.3 H Carbon Dioxide 20 L BUN Creatinine Glucose 130 H POC Glucose Calcium 7.6 L Magnesium AST ALT Lactate Dehydrogenase Troponin T Total Protein Albumin Crossmatch 04/14/17 04/14/17 04/14/17 06:04 10:08 10:08 WBC RBC Hgb Hct [place] % (Auto) [place] # Seg Neuts % (Manual) Lymphocytes % (Manual) Monocytes % (Manual) Nucleated RBC % Seg Neutrophils # Seg Neutrophils # Man Lymphocytes # (Manual) Monocytes # (Manual) PT 19.0 H INR 1.60 H APTT Heparin Anti-Xa Level POC ABG pH POC ABG pCO2 POC ABG pO2 Sodium Chloride Carbon Dioxide BUN Creatinine Glucose POC Glucose 148 H Calcium Magnesium AST ALT Lactate Dehydrogenase Troponin T Total Protein 4.6 L Albumin 1.8 L Crossmatch 04/14/17 04/14/17 04/14/17 14:11 17:45 20:37 WBC RBC Hgb 7.3 L Hct 23.5 L [place] % (Auto) [place] # Seg Neuts % (Manual) Lymphocytes % (Manual) Monocytes % (Manual) Nucleated RBC % Seg Neutrophils # Seg Neutrophils # Man Lymphocytes # (Manual) Monocytes # (Manual) PT INR APTT Heparin Anti-Xa Level POC ABG pH POC ABG pCO2 POC ABG pO2 Sodium Chloride Carbon Dioxide BUN Creatinine Glucose POC Glucose 129 H 112 H Calcium Magnesium AST ALT Lactate Dehydrogenase Troponin T Total Protein Albumin Crossmatch 04/15/17 04/15/17 04/15/17 00:11 06:35 06:35 WBC 27.7 H RBC 2.45 L Hgb 7.2 L Hct 22.2 L [place] % (Auto) [place] # Seg Neuts % (Manual) Lymphocytes % (Manual) Monocytes % (Manual) Nucleated RBC % Seg Neutrophils # Seg Neutrophils # Man Lymphocytes # (Manual) Monocytes # (Manual) PT INR APTT Heparin Anti-Xa Level POC ABG pH POC ABG pCO2 POC ABG pO2 Sodium Chloride 109.1 H Carbon Dioxide 19 L BUN Creatinine Glucose POC Glucose 107 H Calcium 7.8 L Magnesium AST ALT Lactate Dehydrogenase Troponin T Total Protein Albumin Crossmatch 04/15/17 04/16/17 04/16/17 21:56 07:16 07:16 WBC 23.8 H RBC 2.48 L Hgb 7.2 L Hct 22.3 L [place] % (Auto) [place] # Seg Neuts % (Manual) 94.0 H Lymphocytes % (Manual) 4.0 L Monocytes % (Manual) Nucleated RBC % Seg Neutrophils # Seg Neutrophils # Man 22.4 H Lymphocytes # (Manual) 1.0 L Monocytes # (Manual) PT INR APTT Heparin Anti-Xa Level POC ABG pH POC ABG pCO2 POC ABG pO2 Sodium Chloride 107.9 H Carbon Dioxide 18 L BUN Creatinine Glucose POC Glucose 107 H Calcium 7.9 L Magnesium 1.50 L AST ALT Lactate Dehydrogenase Troponin T Total Protein Albumin Crossmatch 04/16/17 07:16 WBC RBC Hgb Hct [place] % (Auto) [place] # Seg Neuts % (Manual) Lymphocytes % (Manual) Monocytes % (Manual) Nucleated RBC % Seg Neutrophils # Seg Neutrophils # Man Lymphocytes # (Manual) Monocytes # (Manual) PT 15.4 H INR 1.23 H APTT Heparin Anti-Xa Level POC ABG pH POC ABG pCO2 POC ABG pO2 Sodium Chloride Carbon Dioxide BUN Creatinine Glucose POC Glucose Calcium Magnesium AST ALT Lactate Dehydrogenase Troponin T Total Protein Albumin Crossmatch
[2017-04-16] MEDS: LEVAQUIN 750MG/150ML 750 MG/150 ML BAG IV SCH (18:31)
[2017-04-16] MEDS: D5W/0.45% NACL/KCL 20 MEQ 20 MEQ/1,000 ML BAG IV SCH (22:19)
--- NOTE | 2017-04-17 00:24 | XRay Report ---
FINAL REPORT EXAM: XR CHEST 1V AP HISTORY: SOB COMPARISON: April 07, 2017. FINDINGS: Frontal view(s) of the chest obtained. Stable mild cardiac enlargement. ETT and NG tube have been removed. There patchy nonspecific opacities at the lung bases with possible trace effusions. No pneumothorax. Findings are similar prior study. IMPRESSION: Nonspecific patchy opacities at the lung bases which may reflect combination of atelectasis and pneumonia. Findings are similar prior study.
[2017-04-17] MEDS: FLAGYL 500 MG/100 ML 500 MG/100 ML BAG IV SCH ×5 (00:50→23:55)
[2017-04-17] MEDS: NOVOLOG SUB-Q SCH ×4 (00:50→17:06)
--- NOTE | 2017-04-17 08:19 | Progress Note ---
Assessment and Plan - Patient Problems (1) Bacteremia due to Escherichia coli Current Visit: Yes Status: Acute Plan to address problem: 1. Continue Levaquin to complete a 14-day course through April 25, 2017. 2. This can be transitioned to oral therapy to complete course once patient is reliably taking medicines PO. (2) Leukocytosis Current Visit: Yes Status: Acute Qualifiers: Leukocytosis type: L Plan to address problem: 1. Question if related to incisional collection vs. diarrhea vs. bacteremia. 2. Continuing Levaquin with Flagyl presumptively. 3. Continue to follow clinically. (3) Diarrhea Current Visit: Yes Status: Acute Qualifiers: Diarrhea type: D Plan to address problem: 1. Await result of Cdiff toxin assay. 2. Continue Flagyl at current dose, duration throughout time that patient remains on Levaquin. Subjective Date of service: 04/17/17 Principal diagnosis: Acute NSTEMI, Abd pain, ileus Interval history: Afebrile. Continued loose BMs. Objective - Constitutional Vitals: Vital Signs Temp Pulse Resp BP Pulse Ox 98.5 F 98 H 20 171/77 96 04/17/17 04:00 04/17/17 04:00 04/17/17 04:00 04/17/17 04:00 04/17/17 04:00 Temperature -Last 24 Hours Temperature 98.5 F Temperature 98.5 F Temperature 99.6 F Temperature 98.6 F General appearance: Present: no acute distress (eating breakfast) - Respiratory Respiratory effort: normal Respiratory: bilateral: wheezing (faint), negative: rales, rhonchi - Cardiovascular Rhythm: regular Heart Sounds: Present: S1 & S2 Extremity abnormal: edema - Gastrointestinal General gastrointestinal: Present: soft, distended (upper aspect of incision open, mild bleeding, no purulence; reinforced sutures remain) - Integumentary Integumentary: no jaundice, no rash - Psychiatric Psychiatric: appropriate mood/affect - Labs CBC & Chem 7: 04/16/17 07:16 04/16/17 07:16 Labs: Abnormal lab results 04/13/17 04/16/17 Range/Units 12:59 07:16 Seg Neuts % (Manual) 94.0 H (40.0-70.0) % Lymphocytes % (Manual) 4.0 L (13.4-35.0) % Seg Neutrophils # Man 22.4 H (1.8-7.7) K/mm3 Lymphocytes # (Manual) 1.0 L (1.2-5.4) K/mm3 Crossmatch See Detail Microbiology 04/13/17 20:25 Peripheral/Venous Blood Culture - Preliminary NO GROWTH AFTER 72 HOURS 04/13/17 20:18 Peripheral/Venous Blood Culture - Preliminary NO GROWTH AFTER 72 HOURS 04/14/17 Unknown Stool Stool Occult Blood (ANDREA) - Final 04/07/17 09:31 Abdomen Anaerobic Culture - Final Fusobacterium Varium Bacteroides Thetaiotaomicron 04/07/17 08:38 Peripheral/Venous Blood Culture - Preliminary 04/07/17 10:24 Peripheral/Venous Blood Culture - Final NO GROWTH AFTER 5 DAYS 04/07/17 Unknown Abdomen Surgical Culture - Final Escherichia Coli 04/07/17 22:50 Tracheal Aspirate Sputum Culture - Final
[2017-04-17 09:11] LABS: Hematocrit 22.8 % (30.3-42.9); Hemoglobin 7.4 gm/dl (10.1-14.3); Mean Corpuscular HGB Conc 33 % (30-34); Mean Corpuscular Hemoglobin 30 pg (28-32); Mean Corpuscular Volume 90 fl (79-97); Platelet Count 434 K/mm3 (140-440); Red Blood Count 2.52 M/mm3 (3.65-5.03)
[2017-04-17 09:24] LABS: White Blood Count 21.6 K/mm3 (4.5-11.0)
[2017-04-17 09:29] LABS: Anion Gap 16 mmol/L; BUN/Creatinine Ratio 11.11; Blood Urea Nitrogen 10 mg/dL (7-17); Calcium 7.8 mg/dL (8.4-10.2); Carbon Dioxide 19 mmol/L (22-30); Chloride 107.6 mmol/L (98-107); Glucose 95 mg/dL (65-100); Potassium 3.5 mmol/L (3.6-5.0); Sodium 139 mmol/L (137-145)
--- NOTE | 2017-04-17 09:56 | XRay Report ---
ABDOMEN RADIOGRAPH INDICATION: Possible small bowel obstruction. COMPARISON: Yesterday. FINDINGS: Frontal abdominal radiograph demonstrates lesser small bowel gaseous distention with maximum caliber now approximately 2.5 cm. Some colonic air may also be seen. Stable postsurgical changes. Right hemidiaphragm may be mildly elevated. Mild left lung base atelectasis possible. EKG leads. Various bony degenerative changes. CONCLUSION: Improving small bowel ileus, as described. Thank you for the opportunity to participate in this patient's care.
[2017-04-17] MEDS ORDERED: LASIX IV ONE (10:00)
[2017-04-17 10:19] LABS: Anisocytosis 1+; Basophils % (Manual) 0 % (0.0-1.8); Blastocytes % (Manual) 0 %; Diff Status Complete; Eosinophils % (Manual) 0 % (0.0-4.3); Polychromasia Few
[2017-04-17] MEDS: LOPRESSOR PO SCH ×2 (10:42→21:58)
[2017-04-17] MEDS: PEPCID IV SCH ×2 (10:42→21:59)
[2017-04-17] MEDS ORDERED: MILK OF MAGNESIA PO ONE (12:58)
[2017-04-17] MEDS ORDERED: MAGNESIUM SULFATE 2GM/50ML 2 GM/50 ML BAG IV NR (13:00)
[2017-04-17] MEDS ORDERED: POTASSIUM CHLORIDE PO NR (13:00)
--- NOTE | 2017-04-17 13:04 | Progress Note ---
Subjective Patient Reports: Positive: no new complaints, feels better, pain is less, flatus , bowel movement Narrative: feels mush better today , huge BM , KUB much better abd soft still moderatelly distended .no nausea no vomiting , will cont obs , still hi WBC Objective Vital Signs - 12hr 04/17/17 04/17/17 04/17/17 04:00 08:18 09:00 Temperature 98.5 F 99.0 F Pulse Rate 98 H 106 H 93 H Respiratory 20 20 Rate Blood Pressure 171/77 188/84 [Left] Blood Pressure 171/77 188/84 [Right] O2 Sat by Pulse 96 95 Oximetry - Labs 04/17/17 08:50 04/17/17 08:50 Diabetes panel 04/17/17 Range/Units 08:50 Sodium 139 (137-145) mmol/L Potassium 3.5 L (3.6-5.0) mmol/L Chloride 107.6 H (98-107) mmol/L Carbon Dioxide 19 L (22-30) mmol/L BUN 10 (7-17) mg/dL Creatinine 0.9 (0.7-1.2) mg/dL Glucose 95 (65-100) mg/dL Calcium 7.8 L (8.4-10.2) mg/dL Calcium panel 04/17/17 Range/Units 08:50 Calcium 7.8 L (8.4-10.2) mg/dL Pituitary panel 04/17/17 Range/Units 08:50 Sodium 139 (137-145) mmol/L Potassium 3.5 L (3.6-5.0) mmol/L Chloride 107.6 H (98-107) mmol/L Carbon Dioxide 19 L (22-30) mmol/L BUN 10 (7-17) mg/dL Creatinine 0.9 (0.7-1.2) mg/dL Glucose 95 (65-100) mg/dL Calcium 7.8 L (8.4-10.2) mg/dL Adrenal panel 04/17/17 Range/Units 08:50 Sodium 139 (137-145) mmol/L Potassium 3.5 L (3.6-5.0) mmol/L Chloride 107.6 H (98-107) mmol/L Carbon Dioxide 19 L (22-30) mmol/L BUN 10 (7-17) mg/dL Creatinine 0.9 (0.7-1.2) mg/dL Glucose 95 (65-100) mg/dL Calcium 7.8 L (8.4-10.2) mg/dL
--- NOTE | 2017-04-17 13:06 | Progress Note ---
Subjective Narrative: a qtip was inserted in the upper wound area about 3cm small hematoma , this was done yesterday , Objective Vital Signs - 12hr 04/17/17 04/17/17 04/17/17 04:00 08:18 09:00 Temperature 98.5 F 99.0 F Pulse Rate 98 H 106 H 93 H Respiratory 20 20 Rate Blood Pressure 171/77 188/84 [Left] Blood Pressure 171/77 188/84 [Right] O2 Sat by Pulse 96 95 Oximetry - Labs 04/17/17 08:50 04/17/17 08:50 Diabetes panel 04/17/17 Range/Units 08:50 Sodium 139 (137-145) mmol/L Potassium 3.5 L (3.6-5.0) mmol/L Chloride 107.6 H (98-107) mmol/L Carbon Dioxide 19 L (22-30) mmol/L BUN 10 (7-17) mg/dL Creatinine 0.9 (0.7-1.2) mg/dL Glucose 95 (65-100) mg/dL Calcium 7.8 L (8.4-10.2) mg/dL Calcium panel 04/17/17 Range/Units 08:50 Calcium 7.8 L (8.4-10.2) mg/dL Pituitary panel 04/17/17 Range/Units 08:50 Sodium 139 (137-145) mmol/L Potassium 3.5 L (3.6-5.0) mmol/L Chloride 107.6 H (98-107) mmol/L Carbon Dioxide 19 L (22-30) mmol/L BUN 10 (7-17) mg/dL Creatinine 0.9 (0.7-1.2) mg/dL Glucose 95 (65-100) mg/dL Calcium 7.8 L (8.4-10.2) mg/dL Adrenal panel 04/17/17 Range/Units 08:50 Sodium 139 (137-145) mmol/L Potassium 3.5 L (3.6-5.0) mmol/L Chloride 107.6 H (98-107) mmol/L Carbon Dioxide 19 L (22-30) mmol/L BUN 10 (7-17) mg/dL Creatinine 0.9 (0.7-1.2) mg/dL Glucose 95 (65-100) mg/dL Calcium 7.8 L (8.4-10.2) mg/dL
--- NOTE | 2017-04-17 16:53 | Progress Note ---
Assessment and Plan Assessment and plan: Patient is a 71-year-old woman with a history of diabetes mellitus2, hypertension and pulmonary embolism on Eliquis since December 2016 who presents with abdominal pain and chest pain. Chest x-ray read as no pneumonia or CHF. Troponin was 1.010, EKG read as no ST elevation [place], nonspecific changes. CT abdomen and pelvis with and without contrast shows possible small bowel ileus and right lower lobe atelectasis. 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 Appropriate cognition -DVT prophylaxis: scd only due to acute blood loss anemia, poa -Severe protein calorie malnutrition, poa -Sepsis E. coli bacteremia, poa: ID is following. -Uncontrolled type 2 diabetes mellitus: Add sliding scale Full code 04/07/2017 "Postoperative diagnoses: Acute surgical abdomen, volvulus of the distal ileum with evidence of gangrene changes in it, gallbladder disease with stones. Procedures: Diagnostic laparoscopy with changing to open laparotomy, small bowel resection, cholecystectomy" per Dr. Berkowitz, general surgeon 04/15/2017: CT abdomen and pelvis with contrast reported as recent surgical changes, multiple bowel is mildly dilated and fluid-filled suggests mild obstruction severe ileus, ventral wall defect lungs appear margin and midline incision, it is unclear if this represents a small hematoma at the fluid collection, no convincing bowel are incorporated into this hernia, bilateral renal cysts, ascites, small to medium bilateral pleural effusion and bibasilar atelectasis. These findings were discussed with Dr. Berkowitz [id number]. per Dr[address] Berkowitz, Gen. Surgeon: "abdomen ditended , CT dilated bowel loops ,air in the rectum , seen with Dr Lopez will start PPN ,check KUB in AM ,, NG as well" 04/16/17 She was not started on PPN, still NPO. Right arm PICC line in place. KUB not done. Hemoglobin approximately 7.2 for 4 days, continue to monitor. I called Dr. Berkowitz to discuss. Patient will still need ischemic workup prior to discharge per Cardiology. WBC decreased today. ID still following. Dr. Berkowitz "Had a large BM thi AM Kub however same , for TPN , will check KUB in AM". He started liquid diet today. 04/17/17: per general surgeon Dr. Berkowitz: "a qtip was inserted in the upper wound area about 3cm small hematoma , this was done yesterday". Overnight, patient developed shortness of breath because of fluid overload, D/C IV fluids and gave her 40 mg IV Lasix and breathing treatment.Chest x-ray shows nonspecific patchy opacity in the lung bases which may reflect accommodation atelectasis and pneumonia, findings are similar to prior study==>I taught her how to use incentive spirometer correctly. Hemoglobin is 7.4 today, which is stable. Replaced potassium due to diarrhea; C. difficile ordered by ID physician. Patient is close to be being discharge, C. difficile pending, ID has given her antibiotic recommendation, will DC PICC line upon discharge. She should be cleared by Dr. Berkowitz. d/w Dr. Berkowitz, no TPN/PPN, advance diet to full liquids and monitor. History Interval history: Patient seen and examined. Follow up on abdominal pains. Overnight eventful with sob, and swelling. Imaging, old records, testing, labs, nursing notes reviewed. She had BM 04/16/17 and tolerating liquid diet without nausea vomiting. Hospitalist Physical - Physical exam Narrative exam: GEN: ill appearing, NAD, AWAKE, ALERT, ORIENTATED x 3 CVS: mild regular tachycardiac, NORMAL S1S2 LUNGS/CHEST: Bilateral crackles NORMAL CHEST EXPANSION B, GOOD AIR ENTRY B ABD: midline surg incision with binders, swelling uppper wound small hematoma expressed 04/16/17, GBS EXT/SKIN: Bilateral edema MSK: FROM X 4 EXTREMITIES NEURO: CN 2-12 GROSSLY INTACT, NO FOCAL DEFICITS PSY: CALM - Constitutional Vitals: Temp Pulse Resp BP Pulse Ox 99.0 F 93 H 20 188/84 95 04/17/17 08:18 04/17/17 09:00 04/17/17 08:18 04/17/17 08:18 04/17/17 08:18 General appearance: Present: no acute distress (eating breakfast) Results - Labs CBC & Chem 7: 04/17/17 08:50 04/17/17 08:50 Labs: Laboratory Last Values WBC 21.6 K/mm3 (4.5-11.0) H 04/17/17 08:50 RBC 2.52 M/mm3 (3.65-5.03) L 04/17/17 08:50 Hgb 7.4 gm/dl (10.1-14.3) L 04/17/17 08:50 Hct 22.8 % (30.3-42.9) L 04/17/17 08:50 MCV 90 fl (79-97) 04/17/17 08:50 MCH 30 pg (28-32) 04/17/17 08:50 MCHC 33 % (30-34) 04/17/17 08:50 RDW 14.0 % (13.2-15.2) 04/17/17 08:50 Plt Count 434 K/mm3 (140-440) 04/17/17 08:50 Lymph % (Auto) 25.3 % (13.4-35.0) 04/06/17 04:54 [place] % (Auto) 11.2 % (0.0-7.3) H 04/06/17 04:54 Eos % (Auto) 0.0 % (0.0-4.3) 04/06/17 04:54 Baso % (Auto) 0.5 % (0.0-1.8) 04/06/17 04:54 Lymph # 3.4 K/mm3 (1.2-5.4) 04/06/17 04:54 [place] # 1.5 K/mm3 (0.0-0.8) H 04/06/17 04:54 Eos # 0.0 K/mm3 (0.0-0.4) 04/06/17 04:54 Baso # 0.1 K/mm3 (0.0-0.1) 04/06/17 04:54 Add Manual Diff Complete 04/17/17 08:50 Total Counted 100 04/17/17 08:50 Seg Neutrophils % 63.0 % (40.0-70.0) 04/06/17 04:54 Seg Neuts % (Manual) 95.0 % (40.0-70.0) H 04/17/17 08:50 Band Neutrophils % 0 % 04/17/17 08:50 Lymphocytes % (Manual) 1.0 % (13.4-35.0) L 04/17/17 08:50 Reactive Lymphs % (Man) 0 % 04/17/17 08:50 Monocytes % (Manual) 4.0 % (0.0-7.3) 04/17/17 08:50 Eosinophils % (Manual) 0 % (0.0-4.3) 04/17/17 08:50 Basophils % (Manual) 0 % (0.0-1.8) 04/17/17 08:50 Metamyelocytes % 0 % 04/17/17 08:50 Myelocytes % 0 % 04/17/17 08:50 Promyelocytes % 0 % 04/17/17 08:50 Blast Cells % 0 % 04/17/17 08:50 Nucleated RBC % Not Reportable 04/17/17 08:50 Seg Neutrophils # 8.6 K/mm3 (1.8-7.7) H 04/06/17 04:54 Seg Neutrophils # Man 20.5 K/mm3 (1.8-7.7) H 04/17/17 08:50 Band Neutrophils # 0.0 K/mm3 04/17/17 08:50 Lymphocytes # (Manual) 0.2 K/mm3 (1.2-5.4) L 04/17/17 08:50 Abs React Lymphs (Man) 0.0 K/mm3 04/17/17 08:50 Monocytes # (Manual) 0.9 K/mm3 (0.0-0.8) H 04/17/17 08:50 Eosinophils # (Manual) 0.0 K/mm3 (0.0-0.4) 04/17/17 08:50 Basophils # (Manual) 0.0 K/mm3 (0.0-0.1) 04/17/17 08:50 Metamyelocytes # 0.0 K/mm3 04/17/17 08:50 Myelocytes # 0.0 K/mm3 04/17/17 08:50 Promyelocytes # 0.0 K/mm3 04/17/17 08:50 Blast Cells # 0.0 K/mm3 04/17/17 08:50 WBC Morphology Not Reportable 04/17/17 08:50 Hypersegmented Neuts Not Reportable 04/17/17 08:50 Hyposegmented Neuts Not Reportable 04/17/17 08:50 Hypogranular Neuts Not Reportable 04/17/17 08:50 Smudge Cells Not Reportable 04/17/17 08:50 Toxic Granulation Not Reportable 04/17/17 08:50 Toxic Vacuolation Not Reportable 04/17/17 08:50 Dohle Bodies Not Reportable 04/17/17 08:50 Pelger-Huet Anomaly Not Reportable 04/17/17 08:50 Cristina Rods Not Reportable 04/17/17 08:50 Platelet Estimate Appears normal 04/17/17 08:50 Clumped Platelets Not Reportable 04/17/17 08:50 Plt Clumps, EDTA Not Reportable 04/17/17 08:50 Large Platelets Not Reportable 04/17/17 08:50 Giant Platelets Not Reportable 04/17/17 08:50 Platelet Satelliting Not Reportable 04/17/17 08:50 Plt Morphology Comment Not Reportable 04/17/17 08:50 RBC Morphology Not Reportable 04/17/17 08:50 Dimorphic RBCs Not Reportable 04/17/17 08:50 Polychromasia Few 04/17/17 08:50 Hypochromasia Not Reportable 04/17/17 08:50 Poikilocytosis Not Reportable 04/17/17 08:50 Anisocytosis 1+ 04/17/17 08:50 Microcytosis Not Reportable 04/17/17 08:50 Macrocytosis Not Reportable 04/17/17 08:50 Spherocytes Not Reportable 04/17/17 08:50 Pappenheimer Bodies Not Reportable 04/17/17 08:50 Sickle Cells Not Reportable 04/17/17 08:50 Target Cells Not Reportable 04/17/17 08:50 Tear Drop Cells Not Reportable 04/17/17 08:50 Ovalocytes Not Reportable 04/17/17 08:50 Stomatocytes Few 04/16/17 07:16 Helmet Cells Not Reportable 04/17/17 08:50 [place] Bodies Not Reportable 04/17/17 08:50 [place] Rings Not Reportable 04/17/17 08:50 [place] Cells Not Reportable 04/17/17 08:50 Bite Cells Not Reportable 04/17/17 08:50 Crenated Cell Not Reportable 04/17/17 08:50 Elliptocytes Not Reportable 04/17/17 08:50 Acanthocytes (Spur) Not Reportable 04/17/17 08:50 Rouleaux Not Reportable 04/17/17 08:50 Hemoglobin C Crystals Not Reportable 04/17/17 08:50 Schistocytes Not Reportable 04/17/17 08:50 Malaria parasites Not Reportable 04/17/17 08:50 Liu Bodies Not Reportable 04/17/17 08:50 Hem Pathologist Commnt No 04/17/17 08:50 PT 15.4 Sec. (12.2-14.9) H 04/16/17 07:16 INR 1.23 (0.87-1.13) H 04/16/17 07:16 APTT 125.5 Sec. (24.2-36.6) H* 04/13/17 05:20 Heparin Anti-Xa Level 0.23 U.I./ml (0.3-0.7) L 04/14/17 04:49 POC ABG pH 7.384 (7.35-7.45) 04/08/17 10:35 POC ABG pCO2 29.7 (35-45) L 04/08/17 10:35 POC ABG pO2 89 (80-105) 04/08/17 10:35 POC ABG HCO3 17.8 04/08/17 10:35 POC ABG Total CO2 19 04/08/17 10:35 POC ABG O2 Sat 97 04/08/17 10:35 POC ABG Base Excess -7 04/08/17 10:35 FiO2 35 % 04/08/17 10:35 Sodium 139 mmol/L (137-145) 04/17/17 08:50 Potassium 3.5 mmol/L (3.6-5.0) L 04/17/17 08:50 Chloride 107.6 mmol/L (98-107) H 04/17/17 08:50 Carbon Dioxide 19 mmol/L (22-30) L 04/17/17 08:50 Anion Gap 16 mmol/L 04/17/17 08:50 BUN 10 mg/dL (7-17) 04/17/17 08:50 Creatinine 0.9 mg/dL (0.7-1.2) 04/17/17 08:50 Estimated GFR > 60 ml/min 04/17/17 08:50 BUN/Creatinine Ratio 11.11 % 04/17/17 08:50 Glucose 95 mg/dL (65-100) 04/17/17 08:50 POC Glucose 107 (70-105) H 04/17/17 12:07 Hemoglobin A1c 5.8 % (4-6) 04/05/17 07:19 Calcium 7.8 mg/dL (8.4-10.2) L 04/17/17 08:50 Magnesium 1.50 mg/dL (1.7-2.3) L 04/16/17 07:16 Total Bilirubin 0.30 mg/dL (0.1-1.2) 04/14/17 10:08 Direct Bilirubin < 0.2 mg/dL (0-0.2) 04/14/17 10:08 Indirect Bilirubin 0.1 mg/dL 04/14/17 10:08 AST 26 units/L (5-40) 04/14/17 10:08 ALT 18 units/L (7-56) 04/14/17 10:08 Alkaline Phosphatase 51 units/L (35-129) 04/14/17 10:08 Lactate Dehydrogenase 379 units/L (91-180) H 04/07/17 08:38 Troponin T 0.755 ng/mL (0.00-0.029) H* D 04/05/17 06:59 Total Protein 4.6 g/dL (6.3-8.2) L 04/14/17 10:08 Albumin 1.8 g/dL (3.9-5) L 04/14/17 10:08 Albumin/Globulin Ratio 0.6 % 04/14/17 10:08 Triglycerides 195 mg/dL (2-149) H 04/05/17 01:09 Cholesterol 173 mg/dL (50-199) 04/05/17 01:09 LDL Cholesterol Direct 101 mg/dL (50-130) 04/05/17 01:09 HDL Cholesterol 33 mg/dL (40-59) L 04/05/17 01:09 Cholesterol/HDL Ratio 5.24 % 04/05/17 01:09 Lipase 52 units/L (13-60) 04/05/17 01:09 Urine Color Straw (Yellow) 04/05/17 03:14 Urine Turbidity Clear (Clear) 04/05/17 03:14 Urine pH 6.0 (5.0-7.0) 04/05/17 03:14 Ur Specific [place] 1.029 (1.003-1.030) 04/05/17 03:14 Urine Protein <15 mg/dl mg/dL (Negative) 04/05/17 03:14 Urine Glucose (UA) Neg mg/dL (Negative) 04/05/17 03:14 Urine Ketones Neg mg/dL (Negative) 04/05/17 03:14 Urine Blood Mod (Negative) 04/05/17 03:14 Urine Nitrite Neg (Negative) 04/05/17 03:14 Urine Bilirubin Neg (Negative) 04/05/17 03:14 Urine Urobilinogen < 2.0 mg/dL (<2.0) 04/05/17 03:14 Ur Leukocyte Esterase Neg (Negative) 04/05/17 03:14 Urine WBC (Auto) 1.0 /HPF (0.0-6.0) 04/05/17 03:14 Urine RBC (Auto) 1.0 /HPF (0.0-6.0) 04/05/17 03:14 U Epithel Cells (Auto) 1.0 /HPF (0-13.0) 04/05/17 03:14 Urine Mucus Few /HPF 04/05/17 03:14 Blood Type O POSITIVE 04/13/17 12:59 Antibody Screen TNR 04/13/17 12:59 FABIOLA Antibody Screen Negative 04/13/17 12:59 Crossmatch See Detail 04/13/17 12:59
[2017-04-17] MEDS: LEVAQUIN 750MG/150ML 750 MG/150 ML BAG IV SCH (18:36)
[2017-04-18] MEDS: NOVOLOG SUB-Q SCH ×4 (00:35→19:41)
[2017-04-18 05:21] LABS: Hematocrit 21.3 % (30.3-42.9); Hemoglobin 6.8 gm/dl (10.1-14.3); Mean Corpuscular HGB Conc 32 % (30-34); Mean Corpuscular Hemoglobin 29 pg (28-32); Mean Corpuscular Volume 91 fl (79-97); Platelet Count 412 K/mm3 (140-440); Red Blood Count 2.35 M/mm3 (3.65-5.03); Red Cell Distribution Width 14.1 % (13.2-15.2); White Blood Count 17.8 K/mm3 (4.5-11.0)
[2017-04-18 05:22] LABS: Anion Gap 17 mmol/L; Blood Urea Nitrogen 9 mg/dL (7-17); Calcium 7.6 mg/dL (8.4-10.2); Carbon Dioxide 19 mmol/L (22-30); Chloride 108.2 mmol/L (98-107); Glucose 91 mg/dL (65-100); Potassium 3.2 mmol/L (3.6-5.0); Sodium 141 mmol/L (137-145)
[2017-04-18] MEDS: FLAGYL 500 MG/100 ML 500 MG/100 ML BAG IV SCH ×4 (06:37→23:54)
--- NOTE | 2017-04-18 09:17 | Progress Note ---
Assessment and Plan - Patient Problems (1) Bacteremia due to Escherichia coli Current Visit: Yes Status: Acute Plan to address problem: Completing a 14-day course of Levaquin as previously noted, through April 25, 2017. Okay to change to oral Levaquin at same dose when patient is ready for discharge to home. (2) Leukocytosis Current Visit: Yes Status: Acute Qualifiers: Leukocytosis type: L Plan to address problem: Improving. Continue to follow clinically. (3) Diarrhea Current Visit: Yes Status: Acute Qualifiers: Diarrhea type: D Plan to address problem: Cdiff toxin assay is negative. Continue Flagyl for the duration of Levaquin therapy. Intra-abdominal cultures showed growth of other anaerobic organisms. Subjective Date of service: 04/18/17 Principal diagnosis: Acute NSTEMI, Abd pain, ileus Interval history: Remains afebrile. Objective - Constitutional Vitals: Vital Signs Temp Pulse Resp BP Pulse Ox 98.2 F 100 H 18 167/62 96 04/18/17 05:37 04/18/17 05:37 04/18/17 05:37 04/18/17 05:37 04/18/17 05:37 Temperature -Last 24 Hours Temperature 98.2 F Temperature 97.6 F Temperature 98.7 F Temperature 98.5 F General appearance: Present: no acute distress - EENT Eyes: no scleral icterus - Respiratory Respiratory effort: normal Respiratory: bilateral: CTA, negative: rales - Cardiovascular Rhythm: regular Heart Sounds: Present: S1 & S2 Extremity abnormal: edema - Gastrointestinal General gastrointestinal: Present: soft, hypoactive bowel sounds, other ( slightly open superior aspect of incision with scant bleeding, no purulence; reinforced horizontal sutures remain) - Integumentary Integumentary: no jaundice, no rash - Neurologic Neurologic: moves all extremities - Labs CBC & Chem 7: 04/18/17 04:05 04/18/17 04:05 Labs: Abnormal lab results 04/17/17 04/17/17 04/17/17 Range/Units 08:50 08:50 12:07 WBC 21.6 H (4.5-11.0) K/mm3 RBC 2.52 L (3.65-5.03) M/mm3 Hgb 7.4 L (10.1-14.3) gm/dl Hct 22.8 L (30.3-42.9) % Seg Neuts % (Manual) 95.0 H (40.0-70.0) % Lymphocytes % (Manual) 1.0 L (13.4-35.0) % Seg Neutrophils # Man 20.5 H (1.8-7.7) K/mm3 Lymphocytes # (Manual) 0.2 L (1.2-5.4) K/mm3 Monocytes # (Manual) 0.9 H (0.0-0.8) K/mm3 Potassium 3.5 L (3.6-5.0) mmol/L Chloride 107.6 H (98-107) mmol/L Carbon Dioxide 19 L (22-30) mmol/L POC Glucose 107 H (70-105) Calcium 7.8 L (8.4-10.2) mg/dL 04/18/17 04/18/17 Range/Units 04:05 04:05 WBC 17.8 H (4.5-11.0) K/mm3 RBC 2.35 L (3.65-5.03) M/mm3 Hgb 6.8 L (10.1-14.3) gm/dl Hct 21.3 L (30.3-42.9) % Seg Neuts % (Manual) (40.0-70.0) % Lymphocytes % (Manual) (13.4-35.0) % Seg Neutrophils # Man (1.8-7.7) K/mm3 Lymphocytes # (Manual) (1.2-5.4) K/mm3 Monocytes # (Manual) (0.0-0.8) K/mm3 Potassium 3.2 L (3.6-5.0) mmol/L Chloride 108.2 H (98-107) mmol/L Carbon Dioxide 19 L (22-30) mmol/L POC Glucose (70-105) Calcium 7.6 L (8.4-10.2) mg/dL Microbiology 04/13/17 20:25 Peripheral/Venous Blood Culture - Preliminary NO GROWTH AFTER 4 DAYS 04/13/17 20:18 Peripheral/Venous Blood Culture - Preliminary NO GROWTH AFTER 4 DAYS 04/16/17 Unknown Stool - Stool Aspirate C. difficile DNA Amplification - Final 04/07/17 08:38 Peripheral/Venous Blood Culture - Final Fusobacterium Varium 04/14/17 Unknown Stool Stool Occult Blood (ANDREA) - Final 04/07/17 09:31 Abdomen Anaerobic Culture - Final Fusobacterium Varium Bacteroides Thetaiotaomicron 04/07/17 10:24 Peripheral/Venous Blood Culture - Final NO GROWTH AFTER 5 DAYS 04/07/17 Unknown Abdomen Surgical Culture - Final Escherichia Coli 04/07/17 22:50 Tracheal Aspirate Sputum Culture - Final
[2017-04-18] MEDS: PEPCID IV SCH ×2 (10:48→23:55)
[2017-04-18] MEDS: LOPRESSOR PO SCH ×2 (10:48→23:55)
[2017-04-18] MEDS ORDERED: POTASSIUM CHLORIDE PO ONE (11:58)
[2017-04-18] MEDS ORDERED: MAGNESIUM SULFATE 2GM/50ML 2 GM/50 ML BAG IV ONE (11:58)
[2017-04-18] MEDS ORDERED: NACL 0.9% 500 ML 500 ML IV ONE (11:59)
[2017-04-18] MEDS ORDERED: NACL 0.9% 250ML 250 ML ONE (18:10)
--- NOTE | 2017-04-18 19:19 | Progress Note ---
Subjective Narrative: Doing OK ,feels nauseated noted low K will supplement , some loose stools , Cdif negative .WBC 17 Hgb 6 Objective Vital Signs - 12hr 04/18/17 04/18/17 04/18/17 07:40 10:00 12:15 Temperature 98.2 F 97.9 F Pulse Rate 106 H 102 H Pulse Rate [ 98 H Left Radial] Respiratory 18 20 Rate Blood Pressure 153/70 [Left] Blood Pressure 160/72 [Right Arm] O2 Sat by Pulse 95 98 97 Oximetry 04/18/17 16:50 Temperature 98.6 F Pulse Rate Pulse Rate [ 96 H Left Radial] Respiratory 20 Rate Blood Pressure [Left] Blood Pressure 123/64 [Right Arm] O2 Sat by Pulse 96 Oximetry - Labs 04/18/17 04:05 04/18/17 04:05 Diabetes panel 04/18/17 Range/Units 04:05 Sodium 141 (137-145) mmol/L Potassium 3.2 L (3.6-5.0) mmol/L Chloride 108.2 H (98-107) mmol/L Carbon Dioxide 19 L (22-30) mmol/L BUN 9 (7-17) mg/dL Creatinine 1.0 (0.7-1.2) mg/dL Glucose 91 (65-100) mg/dL Calcium 7.6 L (8.4-10.2) mg/dL Calcium panel 04/18/17 Range/Units 04:05 Calcium 7.6 L (8.4-10.2) mg/dL Pituitary panel 04/18/17 Range/Units 04:05 Sodium 141 (137-145) mmol/L Potassium 3.2 L (3.6-5.0) mmol/L Chloride 108.2 H (98-107) mmol/L Carbon Dioxide 19 L (22-30) mmol/L BUN 9 (7-17) mg/dL Creatinine 1.0 (0.7-1.2) mg/dL Glucose 91 (65-100) mg/dL Calcium 7.6 L (8.4-10.2) mg/dL Adrenal panel 04/18/17 Range/Units 04:05 Sodium 141 (137-145) mmol/L Potassium 3.2 L (3.6-5.0) mmol/L Chloride 108.2 H (98-107) mmol/L Carbon Dioxide 19 L (22-30) mmol/L BUN 9 (7-17) mg/dL Creatinine 1.0 (0.7-1.2) mg/dL Glucose 91 (65-100) mg/dL Calcium 7.6 L (8.4-10.2) mg/dL
--- NOTE | 2017-04-18 19:21 | Progress Note ---
Subjective Narrative: Cont Hg 6.8 will give blood , one unit , will obtain Ct scan , Objective Vital Signs - 12hr 04/18/17 04/18/17 04/18/17 07:40 10:00 12:15 Temperature 98.2 F 97.9 F Pulse Rate 106 H 102 H Pulse Rate [ 98 H Left Radial] Respiratory 18 20 Rate Blood Pressure 153/70 [Left] Blood Pressure 160/72 [Right Arm] O2 Sat by Pulse 95 98 97 Oximetry 04/18/17 16:50 Temperature 98.6 F Pulse Rate Pulse Rate [ 96 H Left Radial] Respiratory 20 Rate Blood Pressure [Left] Blood Pressure 123/64 [Right Arm] O2 Sat by Pulse 96 Oximetry - Labs 04/18/17 04:05 04/18/17 04:05 Diabetes panel 04/18/17 Range/Units 04:05 Sodium 141 (137-145) mmol/L Potassium 3.2 L (3.6-5.0) mmol/L Chloride 108.2 H (98-107) mmol/L Carbon Dioxide 19 L (22-30) mmol/L BUN 9 (7-17) mg/dL Creatinine 1.0 (0.7-1.2) mg/dL Glucose 91 (65-100) mg/dL Calcium 7.6 L (8.4-10.2) mg/dL Calcium panel 04/18/17 Range/Units 04:05 Calcium 7.6 L (8.4-10.2) mg/dL Pituitary panel 04/18/17 Range/Units 04:05 Sodium 141 (137-145) mmol/L Potassium 3.2 L (3.6-5.0) mmol/L Chloride 108.2 H (98-107) mmol/L Carbon Dioxide 19 L (22-30) mmol/L BUN 9 (7-17) mg/dL Creatinine 1.0 (0.7-1.2) mg/dL Glucose 91 (65-100) mg/dL Calcium 7.6 L (8.4-10.2) mg/dL Adrenal panel 04/18/17 Range/Units 04:05 Sodium 141 (137-145) mmol/L Potassium 3.2 L (3.6-5.0) mmol/L Chloride 108.2 H (98-107) mmol/L Carbon Dioxide 19 L (22-30) mmol/L BUN 9 (7-17) mg/dL Creatinine 1.0 (0.7-1.2) mg/dL Glucose 91 (65-100) mg/dL Calcium 7.6 L (8.4-10.2) mg/dL
[2017-04-18] MEDS: LEVAQUIN 750MG/150ML 750 MG/150 ML BAG IV SCH (19:40)
--- NOTE | 2017-04-18 20:32 | Progress Note ---
Assessment and Plan Assessment and plan: Patient is a 71-year-old woman with a history of diabetes mellitus2, hypertension and pulmonary embolism on Eliquis since December 2016 who presents with abdominal pain and chest pain. Chest x-ray read as no pneumonia or CHF. Troponin was 1.010, EKG read as no ST elevation AR, nonspecific changes. CT abdomen and pelvis with and without contrast shows possible small bowel ileus and right lower lobe atelectasis. 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 Appropriate cognition -DVT prophylaxis: scd only due to acute blood loss anemia, poa -Severe protein calorie malnutrition, poa -Sepsis E. coli bacteremia, poa: ID is following. -Uncontrolled type 2 diabetes mellitus: Add sliding scale Full code 04/07/2017 "Postoperative diagnoses: Acute surgical abdomen, volvulus of the distal ileum with evidence of gangrene changes in it, gallbladder disease with stones. Procedures: Diagnostic laparoscopy with changing to open laparotomy, small bowel resection, cholecystectomy" per Dr. Berkowitz, general surgeon 04/15/2017: CT abdomen and pelvis with contrast reported as recent surgical changes, multiple bowel is mildly dilated and fluid-filled suggests mild obstruction severe ileus, ventral wall defect lungs appear margin and midline incision, it is unclear if this represents a small hematoma at the fluid collection, no convincing bowel are incorporated into this hernia, bilateral renal cysts, ascites, small to medium bilateral pleural effusion and bibasilar atelectasis. These findings were discussed with Dr. Berkowitz [id number]. per Dr. Berkowitz, Gen. Surgeon: "abdomen ditended , CT dilated bowel loops ,air in the rectum , seen with Dr Lopez will start PPN ,check KUB in AM ,, NG as well" 04/16/17 She was not started on PPN, still NPO. Right arm PICC line in place. KUB not done. Hemoglobin approximately 7.2 for 4 days, continue to monitor. I called Dr. Berkowitz to discuss. Patient will still need ischemic workup prior to discharge per Cardiology. WBC decreased today. ID still following. Dr. Berkowitz "Had a large BM thi AM Kub however same , for TPN , will check KUB in AM". He started liquid diet today. 04/17/17: per general surgeon Dr. Berkowitz: "a qtip was inserted in the upper wound area about 3cm small hematoma , this was done yesterday". Overnight, patient developed shortness of breath because of fluid overload, D/C IV fluids and gave her 40 mg IV Lasix and breathing treatment.Chest x-ray shows nonspecific patchy opacity in the lung bases which may reflect accommodation atelectasis and pneumonia, findings are similar to prior study==>I taught her how to use incentive spirometer correctly. Hemoglobin is 7.4 today, which is stable. Replaced potassium due to diarrhea; C. difficile ordered by ID physician. Patient is close to be being discharge, C. difficile pending, ID has given her antibiotic recommendation, will DC PICC line upon discharge. She should be cleared by Dr. Berkowitz. d/w Dr. Berkowitz, no TPN/PPN, advance diet to full liquids and monitor. 04/18/17: drop in hct, i ordered 1unit, cdiff negative, still with high wbc. ID is following. Dr. Berkowitz ordered ct a/p History Interval history: Patient seen and examined. Follow up on abdominal pains. Overnight eventful with sob, and swelling. Imaging, old records, testing, labs, nursing notes reviewed. She had BM 04/16/17 and tolerating liquid diet without vomiting. Ate regular breakfast with some nausea Hospitalist Physical - Physical exam Narrative exam: GEN: ill appearing, NAD, AWAKE, ALERT, ORIENTATED x 3 CVS: mild regular tachycardiac, NORMAL S1S2 LUNGS/CHEST: Bilateral crackles NORMAL CHEST EXPANSION B, GOOD AIR ENTRY B ABD: midline surg incision with binders, swelling uppper wound small hematoma expressed 04/16/17, GBS EXT/SKIN: Bilateral edema MSK: FROM X 4 EXTREMITIES NEURO: CN 2-12 GROSSLY INTACT, NO FOCAL DEFICITS PSY: CALM - Constitutional Vitals: Temp Pulse Resp BP Pulse Ox 98.3 F 99 H 20 150/74 96 04/18/17 18:55 04/18/17 18:55 04/18/17 18:55 04/18/17 18:55 04/18/17 16:50 General appearance: Present: no acute distress Results - Labs CBC & Chem 7: 04/18/17 04:05 04/18/17 04:05 Labs: Laboratory Last Values WBC 17.8 K/mm3 (4.5-11.0) H 04/18/17 04:05 RBC 2.35 M/mm3 (3.65-5.03) L 04/18/17 04:05 Hgb 6.8 gm/dl (10.1-14.3) L 04/18/17 04:05 Hct 21.3 % (30.3-42.9) L 04/18/17 04:05 MCV 91 fl (79-97) 04/18/17 04:05 MCH 29 pg (28-32) 04/18/17 04:05 MCHC 32 % (30-34) 04/18/17 04:05 RDW 14.1 % (13.2-15.2) 04/18/17 04:05 Plt Count 412 K/mm3 (140-440) 04/18/17 04:05 Lymph % (Auto) 25.3 % (13.4-35.0) 04/06/17 04:54 [place] % (Auto) 11.2 % (0.0-7.3) H 04/06/17 04:54 Eos % (Auto) 0.0 % (0.0-4.3) 04/06/17 04:54 Baso % (Auto) 0.5 % (0.0-1.8) 04/06/17 04:54 Lymph # 3.4 K/mm3 (1.2-5.4) 04/06/17 04:54 [place] # 1.5 K/mm3 (0.0-0.8) H 04/06/17 04:54 Eos # 0.0 K/mm3 (0.0-0.4) 04/06/17 04:54 Baso # 0.1 K/mm3 (0.0-0.1) 04/06/17 04:54 Add Manual Diff Complete 04/17/17 08:50 Total Counted 100 04/17/17 08:50 Seg Neutrophils % 63.0 % (40.0-70.0) 04/06/17 04:54 Seg Neuts % (Manual) 95.0 % (40.0-70.0) H 04/17/17 08:50 Band Neutrophils % 0 % 04/17/17 08:50 Lymphocytes % (Manual) 1.0 % (13.4-35.0) L 04/17/17 08:50 Reactive Lymphs % (Man) 0 % 04/17/17 08:50 Monocytes % (Manual) 4.0 % (0.0-7.3) 04/17/17 08:50 Eosinophils % (Manual) 0 % (0.0-4.3) 04/17/17 08:50 Basophils % (Manual) 0 % (0.0-1.8) 04/17/17 08:50 Metamyelocytes % 0 % 04/17/17 08:50 Myelocytes % 0 % 04/17/17 08:50 Promyelocytes % 0 % 04/17/17 08:50 Blast Cells % 0 % 04/17/17 08:50 Nucleated RBC % Not Reportable 04/17/17 08:50 Seg Neutrophils # 8.6 K/mm3 (1.8-7.7) H 04/06/17 04:54 Seg Neutrophils # Man 20.5 K/mm3 (1.8-7.7) H 04/17/17 08:50 Band Neutrophils # 0.0 K/mm3 04/17/17 08:50 Lymphocytes # (Manual) 0.2 K/mm3 (1.2-5.4) L 04/17/17 08:50 Abs React Lymphs (Man) 0.0 K/mm3 04/17/17 08:50 Monocytes # (Manual) 0.9 K/mm3 (0.0-0.8) H 04/17/17 08:50 Eosinophils # (Manual) 0.0 K/mm3 (0.0-0.4) 04/17/17 08:50 Basophils # (Manual) 0.0 K/mm3 (0.0-0.1) 04/17/17 08:50 Metamyelocytes # 0.0 K/mm3 04/17/17 08:50 Myelocytes # 0.0 K/mm3 04/17/17 08:50 Promyelocytes # 0.0 K/mm3 04/17/17 08:50 Blast Cells # 0.0 K/mm3 04/17/17 08:50 WBC Morphology Not Reportable 04/17/17 08:50 Hypersegmented Neuts Not Reportable 04/17/17 08:50 Hyposegmented Neuts Not Reportable 04/17/17 08:50 Hypogranular Neuts Not Reportable 04/17/17 08:50 Smudge Cells Not Reportable 04/17/17 08:50 Toxic Granulation Not Reportable 04/17/17 08:50 Toxic Vacuolation Not Reportable 04/17/17 08:50 Dohle Bodies Not Reportable 04/17/17 08:50 Pelger-Huet Anomaly Not Reportable 04/17/17 08:50 Cristina Rods Not Reportable 04/17/17 08:50 Platelet Estimate Appears normal 04/17/17 08:50 Clumped Platelets Not Reportable 04/17/17 08:50 Plt Clumps, EDTA Not Reportable 04/17/17 08:50 Large Platelets Not Reportable 04/17/17 08:50 Giant Platelets Not Reportable 04/17/17 08:50 Platelet Satelliting Not Reportable 04/17/17 08:50 Plt Morphology Comment Not Reportable 04/17/17 08:50 RBC Morphology Not Reportable 04/17/17 08:50 Dimorphic RBCs Not Reportable 04/17/17 08:50 Polychromasia Few 04/17/17 08:50 Hypochromasia Not Reportable 04/17/17 08:50 Poikilocytosis Not Reportable 04/17/17 08:50 Anisocytosis 1+ 04/17/17 08:50 Microcytosis Not Reportable 04/17/17 08:50 Macrocytosis Not Reportable 04/17/17 08:50 Spherocytes Not Reportable 04/17/17 08:50 Pappenheimer Bodies Not Reportable 04/17/17 08:50 Sickle Cells Not Reportable 04/17/17 08:50 Target Cells Not Reportable 04/17/17 08:50 Tear Drop Cells Not Reportable 04/17/17 08:50 Ovalocytes Not Reportable 04/17/17 08:50 Stomatocytes Few 04/16/17 07:16 Helmet Cells Not Reportable 04/17/17 08:50 Lal-[place] Bodies Not Reportable 04/17/17 08:50 Portal Rings Not Reportable 04/17/17 08:50 [place] Cells Not Reportable 04/17/17 08:50 Bite Cells Not Reportable 04/17/17 08:50 Crenated Cell Not Reportable 04/17/17 08:50 Elliptocytes Not Reportable 04/17/17 08:50 Acanthocytes (Spur) Not Reportable 04/17/17 08:50 Rouleaux Not Reportable 04/17/17 08:50 Hemoglobin C Crystals Not Reportable 04/17/17 08:50 Schistocytes Not Reportable 04/17/17 08:50 Malaria parasites Not Reportable 04/17/17 08:50 Liu Bodies Not Reportable 04/17/17 08:50 Hem Pathologist Commnt No 04/17/17 08:50 PT 15.4 Sec. (12.2-14.9) H 04/16/17 07:16 INR 1.23 (0.87-1.13) H 04/16/17 07:16 APTT 125.5 Sec. (24.2-36.6) H* 04/13/17 05:20 Heparin Anti-Xa Level 0.23 U.I./ml (0.3-0.7) L 04/14/17 04:49 POC ABG pH 7.384 (7.35-7.45) 04/08/17 10:35 POC ABG pCO2 29.7 (35-45) L 04/08/17 10:35 POC ABG pO2 89 (80-105) 04/08/17 10:35 POC ABG HCO3 17.8 04/08/17 10:35 POC ABG Total CO2 19 04/08/17 10:35 POC ABG O2 Sat 97 04/08/17 10:35 POC ABG Base Excess -7 04/08/17 10:35 FiO2 35 % 04/08/17 10:35 Sodium 141 mmol/L (137-145) 04/18/17 04:05 Potassium 3.2 mmol/L (3.6-5.0) L 04/18/17 04:05 Chloride 108.2 mmol/L (98-107) H 04/18/17 04:05 Carbon Dioxide 19 mmol/L (22-30) L 04/18/17 04:05 Anion Gap 17 mmol/L 04/18/17 04:05 BUN 9 mg/dL (7-17) 04/18/17 04:05 Creatinine 1.0 mg/dL (0.7-1.2) 04/18/17 04:05 Estimated GFR > 60 ml/min 04/18/17 04:05 BUN/Creatinine Ratio 9.00 % 04/18/17 04:05 Glucose 91 mg/dL (65-100) 04/18/17 04:05 POC Glucose 138 (70-105) H 04/18/17 18:54 Hemoglobin A1c 5.8 % (4-6) 04/05/17 07:19 Calcium 7.6 mg/dL (8.4-10.2) L 04/18/17 04:05 Magnesium 1.50 mg/dL (1.7-2.3) L 04/16/17 07:16 Total Bilirubin 0.30 mg/dL (0.1-1.2) 04/14/17 10:08 Direct Bilirubin < 0.2 mg/dL (0-0.2) 04/14/17 10:08 Indirect Bilirubin 0.1 mg/dL 04/14/17 10:08 AST 26 units/L (5-40) 04/14/17 10:08 ALT 18 units/L (7-56) 04/14/17 10:08 Alkaline Phosphatase 51 units/L (35-129) 04/14/17 10:08 Lactate Dehydrogenase 379 units/L (91-180) H 04/07/17 08:38 Troponin T 0.755 ng/mL (0.00-0.029) H* D 04/05/17 06:59 Total Protein 4.6 g/dL (6.3-8.2) L 04/14/17 10:08 Albumin 1.8 g/dL (3.9-5) L 04/14/17 10:08 Albumin/Globulin Ratio 0.6 % 04/14/17 10:08 Triglycerides 195 mg/dL (2-149) H 04/05/17 01:09 Cholesterol 173 mg/dL (50-199) 04/05/17 01:09 LDL Cholesterol Direct 101 mg/dL (50-130) 04/05/17 01:09 HDL Cholesterol 33 mg/dL (40-59) L 04/05/17 01:09 Cholesterol/HDL Ratio 5.24 % 04/05/17 01:09 Lipase 114 units/L (13-60) H 04/18/17 04:05 Urine Color Straw (Yellow) 04/05/17 03:14 Urine Turbidity Clear (Clear) 04/05/17 03:14 Urine pH 6.0 (5.0-7.0) 04/05/17 03:14 Ur Specific [place] 1.029 (1.003-1.030) 04/05/17 03:14 Urine Protein <15 mg/dl mg/dL (Negative) 04/05/17 03:14 Urine Glucose (UA) Neg mg/dL (Negative) 04/05/17 03:14 Urine Ketones Neg mg/dL (Negative) 04/05/17 03:14 Urine Blood Mod (Negative) 04/05/17 03:14 Urine Nitrite Neg (Negative) 04/05/17 03:14 Urine Bilirubin Neg (Negative) 04/05/17 03:14 Urine Urobilinogen < 2.0 mg/dL (<2.0) 04/05/17 03:14 Ur Leukocyte Esterase Neg (Negative) 04/05/17 03:14 Urine WBC (Auto) 1.0 /HPF (0.0-6.0) 04/05/17 03:14 Urine RBC (Auto) 1.0 /HPF (0.0-6.0) 04/05/17 03:14 U Epithel Cells (Auto) 1.0 /HPF (0-13.0) 04/05/17 03:14 Urine Mucus Few /HPF 04/05/17 03:14 Blood Type O POSITIVE 04/18/17 13:18 Antibody Screen TNR 04/18/17 13:18 FABIOLA Antibody Screen Negative 04/18/17 13:18 Crossmatch See Detail 04/18/17 13:18
[2017-04-19] MEDS: KCL IV SCH ×2 (00:09→07:18)
[2017-04-19] MEDS: [UNRECOGNIZED DRUG - OTHER] IV SCH ×2 (00:09→07:18)
[2017-04-19] MEDS: D5 IV SCH ×2 (00:09→07:18)
[2017-04-19] MEDS: NOVOLOG SUB-Q SCH ×4 (00:47→18:52)
[2017-04-19 04:46] LABS: Hematocrit 22.7 % (30.3-42.9); Hemoglobin 7.3 gm/dl (10.1-14.3); Mean Corpuscular HGB Conc 32 % (30-34); Mean Corpuscular Hemoglobin 30 pg (28-32); Mean Corpuscular Volume 92 fl (79-97); Platelet Count 368 K/mm3 (140-440); Red Blood Count 2.48 M/mm3 (3.65-5.03); Red Cell Distribution Width 14.7 % (13.2-15.2); White Blood Count 16.7 K/mm3 (4.5-11.0)
[2017-04-19 05:07] LABS: Anion Gap 17 mmol/L; BUN/Creatinine Ratio 7.77; Blood Urea Nitrogen 7 mg/dL (7-17); Calcium 7.3 mg/dL (8.4-10.2); Carbon Dioxide 19 mmol/L (22-30); Chloride 109.1 mmol/L (98-107); Glucose 113 mg/dL (65-100); Potassium 3.7 mmol/L (3.6-5.0); Sodium 141 mmol/L (137-145)
[2017-04-19] MEDS: FLAGYL 500 MG/100 ML 500 MG/100 ML BAG IV SCH ×3 (05:41→18:51)
--- NOTE | 2017-04-19 10:31 | XRay Report ---
SUPINE KUB: History: Postoperative film, pain. The abdominal gas pattern is unremarkable. No masses or organomegaly is identified and there is no gross evidence of free air or fluid. No significant soft tissue calcifications are noted. Cholecystectomy and lower lumbar fusion changes are noted. IMPRESSION: Unremarkable abdomen.
[2017-04-19] MEDS: PEPCID IV SCH ×2 (11:27→21:56)
[2017-04-19] MEDS: LOPRESSOR PO SCH ×2 (11:28→21:57)
[2017-04-19 13:41] LABS: Bilirubin,Urine NEG (Negative); Blood,Urine NEG (Negative); Ketones,Urine NEG (Negative); Leukocyte Esterase,Urine TR (Negative); Mucus,Urine FEW /HPF; Nitrite,Urine NEG (Negative); Urobilinogen,Urine < 2.0 mg/dL (<2.0)
--- NOTE | 2017-04-19 14:02 | Progress Note ---
Subjective Patient Reports: Positive: feels better, pain is less, flatus, bowel movement Narrative: looks much better , good appetite . good BMs still however low HCRT no clinical evidence of bleeding .tolerating PO well will leave D/C for Internal med . Objective Vital Signs - 12hr 04/19/17 04/19/17 06:00 11:28 Temperature 98.7 F Pulse Rate 98 H Pulse Rate [ 89 Left Radial] Respiratory 21 Rate Blood Pressure 157/74 Blood Pressure 132/68 [Right Arm] O2 Sat by Pulse 93 Oximetry - Labs 04/19/17 04:23 04/19/17 04:23 Diabetes panel 04/19/17 Range/Units 04:23 Sodium 141 (137-145) mmol/L Potassium 3.7 (3.6-5.0) mmol/L Chloride 109.1 H (98-107) mmol/L Carbon Dioxide 19 L (22-30) mmol/L BUN 7 (7-17) mg/dL Creatinine 0.9 (0.7-1.2) mg/dL Glucose 113 H (65-100) mg/dL Calcium 7.3 L (8.4-10.2) mg/dL Calcium panel 04/19/17 Range/Units 04:23 Calcium 7.3 L (8.4-10.2) mg/dL Pituitary panel 04/19/17 Range/Units 04:23 Sodium 141 (137-145) mmol/L Potassium 3.7 (3.6-5.0) mmol/L Chloride 109.1 H (98-107) mmol/L Carbon Dioxide 19 L (22-30) mmol/L BUN 7 (7-17) mg/dL Creatinine 0.9 (0.7-1.2) mg/dL Glucose 113 H (65-100) mg/dL Calcium 7.3 L (8.4-10.2) mg/dL Adrenal panel 04/19/17 Range/Units 04:23 Sodium 141 (137-145) mmol/L Potassium 3.7 (3.6-5.0) mmol/L Chloride 109.1 H (98-107) mmol/L Carbon Dioxide 19 L (22-30) mmol/L BUN 7 (7-17) mg/dL Creatinine 0.9 (0.7-1.2) mg/dL Glucose 113 H (65-100) mg/dL Calcium 7.3 L (8.4-10.2) mg/dL
--- NOTE | 2017-04-19 14:13 | Progress Note ---
Assessment and Plan Assessment and plan: Patient is a 71-year-old woman with a history of diabetes mellitus2, hypertension and pulmonary embolism on Eliquis since December 2016 who presents with abdominal pain and chest pain. Chest x-ray read as no pneumonia or CHF. Troponin was 1.010, EKG read as no ST elevation [place], nonspecific changes. CT abdomen and pelvis with and without contrast shows possible small bowel ileus and right lower lobe atelectasis. 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 -History of PE: treated with O2, heparin on pause due to the anemia -Acute metabolic encephalopathy, poa, due to current illness, resolved. Appropriate cognition -DVT prophylaxis: scd only due to acute blood loss anemia, poa -Severe protein calorie malnutrition, poa -Sepsis E. coli bacteremia, poa: ID is following. -Uncontrolled type 2 diabetes mellitus: Add sliding scale Full code 04/07/2017 "Postoperative diagnoses: Acute surgical abdomen, volvulus of the distal ileum with evidence of gangrene changes in it, gallbladder disease with stones. Procedures: Diagnostic laparoscopy with changing to open laparotomy, small bowel resection, cholecystectomy" per Dr. Berkowitz, general surgeon 04/15/2017: CT abdomen and pelvis with contrast reported as recent surgical changes, multiple bowel is mildly dilated and fluid-filled suggests mild obstruction severe ileus, ventral wall defect lungs appear margin and midline incision, it is unclear if this represents a small hematoma at the fluid collection, no convincing bowel are incorporated into this hernia, bilateral renal cysts, ascites, small to medium bilateral pleural effusion and bibasilar atelectasis. These findings were discussed with Dr. Berkowitz 0718. per Dr. Berkowitz, Gen. Surgeon: "abdomen ditended , CT dilated bowel loops ,air in the rectum , seen with Dr Lopez will start PPN ,check KUB in AM ,, NG as well" 04/16/17 She was not started on PPN, still NPO. Right arm PICC line in place. KUB not done. Hemoglobin approximately 7.2 for 4 days, continue to monitor. I called Dr. Berkowitz to discuss. Patient will still need ischemic workup prior to discharge per Cardiology. WBC decreased today. ID still following. Dr. Berkowitz "Had a large BM thi AM Kub however same , for TPN , will check KUB in AM". He started liquid diet today. 04/17/17: per general surgeon Dr. Berkowitz: "a qtip was inserted in the upper wound area about 3cm small hematoma , this was done yesterday". Overnight, patient developed shortness of breath because of fluid overload, D/C IV fluids and gave her 40 mg IV Lasix and breathing treatment.Chest x-ray shows nonspecific patchy opacity in the lung bases which may reflect accommodation atelectasis and pneumonia, findings are similar to prior study==>I taught her how to use incentive spirometer correctly. Hemoglobin is 7.4 today, which is stable. Replaced potassium due to diarrhea; C. difficile ordered by ID physician. Patient is close to be being discharge, C. difficile pending, ID has given her antibiotic recommendation, will DC PICC line upon discharge. She should be cleared by Dr. Berkowitz. d/w Dr. Berkowitz, no TPN/PPN, advance diet to full liquids and monitor. 04/18/17: drop in hct, i ordered 1unit, cdiff negative, still with high wbc. ID is following. Dr. Berkowitz ordered ct a/p 04/19/17: h/h steady, tolerated food, had BM this morning, CT a/p without contrast ordered by Dr. Berkowitz yesterday wasn't done because patient didn't know why it was ordered and she is claustrophobic. She is upset, so I sat down and addressed all her and her issues and concerns. New issue is dysuria , ordered UA, no garcia in place==>+trace LE and WBC in UA is 5 (normal)-->no uti. She is still on iv levaquin and iv flagyl since 04/11/17 (Day 07/10). possibly d/c tomorrow if h/h stable. History Interval history: Patient seen and examined. Follow up on abdominal pains. Overnight eventful with sob, and swelling. Imaging, old records, testing, labs, nursing notes reviewed. She had BM 04/16/17 and tolerating liquid diet without vomiting. Ate regular breakfast with some nausea Hospitalist Physical - Physical exam Narrative exam: GEN: ill appearing, NAD, AWAKE, ALERT, ORIENTATED x 3 CVS: mild regular tachycardiac, NORMAL S1S2 LUNGS/CHEST: Bilateral crackles NORMAL CHEST EXPANSION B, GOOD AIR ENTRY B ABD: midline surg incision with binders, swelling uppper wound small hematoma expressed 04/16/17, GBS EXT/SKIN: Bilateral edema MSK: FROM X 4 EXTREMITIES NEURO: CN 2-12 GROSSLY INTACT, NO FOCAL DEFICITS PSY: CALM - Constitutional Vitals: Temp Pulse Resp BP Pulse Ox 98.7 F 98 H 21 157/74 93 04/19/17 06:00 04/19/17 11:28 04/19/17 06:00 04/19/17 11:28 04/19/17 06:00 General appearance: Present: no acute distress Results - Labs CBC & Chem 7: 04/19/17 04:23 04/19/17 04:23 Labs: Laboratory Last Values WBC 16.7 K/mm3 (4.5-11.0) H 04/19/17 04:23 RBC 2.48 M/mm3 (3.65-5.03) L 04/19/17 04:23 Hgb 7.3 gm/dl (10.1-14.3) L 04/19/17 04:23 Hct 22.7 % (30.3-42.9) L 04/19/17 04:23 MCV 92 fl (79-97) 04/19/17 04:23 MCH 30 pg (28-32) 04/19/17 04:23 MCHC 32 % (30-34) 04/19/17 04:23 RDW 14.7 % (13.2-15.2) 04/19/17 04:23 Plt Count 368 K/mm3 (140-440) 04/19/17 04:23 Lymph % (Auto) 25.3 % (13.4-35.0) 04/06/17 04:54 [place] % (Auto) 11.2 % (0.0-7.3) H 04/06/17 04:54 Eos % (Auto) 0.0 % (0.0-4.3) 04/06/17 04:54 Baso % (Auto) 0.5 % (0.0-1.8) 04/06/17 04:54 Lymph # 3.4 K/mm3 (1.2-5.4) 04/06/17 04:54 Donley # 1.5 K/mm3 (0.0-0.8) H 04/06/17 04:54 Eos # 0.0 K/mm3 (0.0-0.4) 04/06/17 04:54 Baso # 0.1 K/mm3 (0.0-0.1) 04/06/17 04:54 Add Manual Diff Complete 04/17/17 08:50 Total Counted 100 04/17/17 08:50 Seg Neutrophils % 63.0 % (40.0-70.0) 04/06/17 04:54 Seg Neuts % (Manual) 95.0 % (40.0-70.0) H 04/17/17 08:50 Band Neutrophils % 0 % 04/17/17 08:50 Lymphocytes % (Manual) 1.0 % (13.4-35.0) L 04/17/17 08:50 Reactive Lymphs % (Man) 0 % 04/17/17 08:50 Monocytes % (Manual) 4.0 % (0.0-7.3) 04/17/17 08:50 Eosinophils % (Manual) 0 % (0.0-4.3) 04/17/17 08:50 Basophils % (Manual) 0 % (0.0-1.8) 04/17/17 08:50 Metamyelocytes % 0 % 04/17/17 08:50 Myelocytes % 0 % 04/17/17 08:50 Promyelocytes % 0 % 04/17/17 08:50 Blast Cells % 0 % 04/17/17 08:50 Nucleated RBC % Not Reportable 04/17/17 08:50 Seg Neutrophils # 8.6 K/mm3 (1.8-7.7) H 04/06/17 04:54 Seg Neutrophils # Man 20.5 K/mm3 (1.8-7.7) H 04/17/17 08:50 Band Neutrophils # 0.0 K/mm3 04/17/17 08:50 Lymphocytes # (Manual) 0.2 K/mm3 (1.2-5.4) L 04/17/17 08:50 Abs React Lymphs (Man) 0.0 K/mm3 04/17/17 08:50 Monocytes # (Manual) 0.9 K/mm3 (0.0-0.8) H 04/17/17 08:50 Eosinophils # (Manual) 0.0 K/mm3 (0.0-0.4) 04/17/17 08:50 Basophils # (Manual) 0.0 K/mm3 (0.0-0.1) 04/17/17 08:50 Metamyelocytes # 0.0 K/mm3 04/17/17 08:50 Myelocytes # 0.0 K/mm3 04/17/17 08:50 Promyelocytes # 0.0 K/mm3 04/17/17 08:50 Blast Cells # 0.0 K/mm3 04/17/17 08:50 WBC Morphology Not Reportable 04/17/17 08:50 Hypersegmented Neuts Not Reportable 04/17/17 08:50 Hyposegmented Neuts Not Reportable 04/17/17 08:50 Hypogranular Neuts Not Reportable 04/17/17 08:50 Smudge Cells Not Reportable 04/17/17 08:50 Toxic Granulation Not Reportable 04/17/17 08:50 Toxic Vacuolation Not Reportable 04/17/17 08:50 Dohle Bodies Not Reportable 04/17/17 08:50 Pelger-Huet Anomaly Not Reportable 04/17/17 08:50 Cristina Rods Not Reportable 04/17/17 08:50 Platelet Estimate Appears normal 04/17/17 08:50 Clumped Platelets Not Reportable 04/17/17 08:50 Plt Clumps, EDTA Not Reportable 04/17/17 08:50 Large Platelets Not Reportable 04/17/17 08:50 Giant Platelets Not Reportable 04/17/17 08:50 Platelet Satelliting Not Reportable 04/17/17 08:50 Plt Morphology Comment Not Reportable 04/17/17 08:50 RBC Morphology Not Reportable 04/17/17 08:50 Dimorphic RBCs Not Reportable 04/17/17 08:50 Polychromasia Few 04/17/17 08:50 Hypochromasia Not Reportable 04/17/17 08:50 Poikilocytosis Not Reportable 04/17/17 08:50 Anisocytosis 1+ 04/17/17 08:50 Microcytosis Not Reportable 04/17/17 08:50 Macrocytosis Not Reportable 04/17/17 08:50 Spherocytes Not Reportable 04/17/17 08:50 Pappenheimer Bodies Not Reportable 04/17/17 08:50 Sickle Cells Not Reportable 04/17/17 08:50 Target Cells Not Reportable 04/17/17 08:50 Tear Drop Cells Not Reportable 04/17/17 08:50 Ovalocytes Not Reportable 04/17/17 08:50 Stomatocytes Few 04/16/17 07:16 Helmet Cells Not Reportable 04/17/17 08:50 Lal-Hodges Bodies Not Reportable 04/17/17 08:50 [place] Rings Not Reportable 04/17/17 08:50 Slime Cells Not Reportable 04/17/17 08:50 Bite Cells Not Reportable 04/17/17 08:50 Crenated Cell Not Reportable 04/17/17 08:50 Elliptocytes Not Reportable 04/17/17 08:50 Acanthocytes (Spur) Not Reportable 04/17/17 08:50 Rouleaux Not Reportable 04/17/17 08:50 Hemoglobin C Crystals Not Reportable 04/17/17 08:50 Schistocytes Not Reportable 04/17/17 08:50 Malaria parasites Not Reportable 04/17/17 08:50 Liu Bodies Not Reportable 04/17/17 08:50 Hem Pathologist Commnt No 04/17/17 08:50 PT 15.4 Sec. (12.2-14.9) H 04/16/17 07:16 INR 1.23 (0.87-1.13) H 04/16/17 07:16 APTT 125.5 Sec. (24.2-36.6) H* 04/13/17 05:20 Heparin Anti-Xa Level 0.23 U.I./ml (0.3-0.7) L 04/14/17 04:49 POC ABG pH 7.384 (7.35-7.45) 04/08/17 10:35 POC ABG pCO2 29.7 (35-45) L 04/08/17 10:35 POC ABG pO2 89 (80-105) 04/08/17 10:35 POC ABG HCO3 17.8 04/08/17 10:35 POC ABG Total CO2 19 04/08/17 10:35 POC ABG O2 Sat 97 04/08/17 10:35 POC ABG Base Excess -7 04/08/17 10:35 FiO2 35 % 04/08/17 10:35 Sodium 141 mmol/L (137-145) 04/19/17 04:23 Potassium 3.7 mmol/L (3.6-5.0) 04/19/17 04:23 Chloride 109.1 mmol/L (98-107) H 04/19/17 04:23 Carbon Dioxide 19 mmol/L (22-30) L 04/19/17 04:23 Anion Gap 17 mmol/L 04/19/17 04:23 BUN 7 mg/dL (7-17) 04/19/17 04:23 Creatinine 0.9 mg/dL (0.7-1.2) 04/19/17 04:23 Estimated GFR > 60 ml/min 04/19/17 04:23 BUN/Creatinine Ratio 7.77 % 04/19/17 04:23 Glucose 113 mg/dL (65-100) H 04/19/17 04:23 POC Glucose 120 (70-105) H 04/19/17 05:52 Hemoglobin A1c 5.8 % (4-6) 04/05/17 07:19 Calcium 7.3 mg/dL (8.4-10.2) L 04/19/17 04:23 Magnesium 1.90 mg/dL (1.7-2.3) 04/19/17 04:23 Total Bilirubin 0.30 mg/dL (0.1-1.2) 04/14/17 10:08 Direct Bilirubin < 0.2 mg/dL (0-0.2) 04/14/17 10:08 Indirect Bilirubin 0.1 mg/dL 04/14/17 10:08 AST 26 units/L (5-40) 04/14/17 10:08 ALT 18 units/L (7-56) 04/14/17 10:08 Alkaline Phosphatase 51 units/L (35-129) 04/14/17 10:08 Lactate Dehydrogenase 379 units/L (91-180) H 04/07/17 08:38 Troponin T 0.755 ng/mL (0.00-0.029) H* D 04/05/17 06:59 Total Protein 4.6 g/dL (6.3-8.2) L 04/14/17 10:08 Albumin 1.8 g/dL (3.9-5) L 04/14/17 10:08 Albumin/Globulin Ratio 0.6 % 04/14/17 10:08 Triglycerides 195 mg/dL (2-149) H 04/05/17 01:09 Cholesterol 173 mg/dL (50-199) 04/05/17 01:09 LDL Cholesterol Direct 101 mg/dL (50-130) 04/05/17 01:09 HDL Cholesterol 33 mg/dL (40-59) L 04/05/17 01:09 Cholesterol/HDL Ratio 5.24 % 04/05/17 01:09 Lipase 114 units/L (13-60) H 04/18/17 04:05 Urine Color Allison (Yellow) 04/19/17 Unknown Urine Turbidity Clear (Clear) 04/19/17 Unknown Urine pH 5.0 (5.0-7.0) 04/19/17 Unknown Ur Specific [place] 1.020 (1.003-1.030) 04/19/17 Unknown Urine Protein 30 mg/dl mg/dL (Negative) 04/19/17 Unknown Urine Glucose (UA) Neg mg/dL (Negative) 04/19/17 Unknown Urine Ketones Neg mg/dL (Negative) 04/19/17 Unknown Urine Blood Neg (Negative) 04/19/17 Unknown Urine Nitrite Neg (Negative) 04/19/17 Unknown Urine Bilirubin Neg (Negative) 04/19/17 Unknown Urine Urobilinogen < 2.0 mg/dL (<2.0) 04/19/17 Unknown Ur Leukocyte Esterase Tr (Negative) 04/19/17 Unknown Urine WBC (Auto) 5.0 /HPF (0.0-6.0) 04/19/17 Unknown Urine RBC (Auto) 8.0 /HPF (0.0-6.0) 04/19/17 Unknown U Epithel Cells (Auto) 1.0 /HPF (0-13.0) 04/19/17 Unknown Urine Mucus Few /HPF 04/19/17 Unknown Blood Type O POSITIVE 04/18/17 13:18 Antibody Screen TNR 04/18/17 13:18 FABIOLA Antibody Screen Negative 04/18/17 13:18 Crossmatch See Detail 04/18/17 13:18
[2017-04-19] MEDS: LEVAQUIN 750MG/150ML 750 MG/150 ML BAG IV SCH (18:57)
[2017-04-19] MEDS: ZOFRAN IV PRN (21:56)
[2017-04-20] MEDS: NOVOLOG SUB-Q SCH ×3 (00:41→12:00)
[2017-04-20] MEDS: FLAGYL 500 MG/100 ML 500 MG/100 ML BAG IV SCH ×3 (00:41→12:00)
[2017-04-20 07:59] LABS: Hematocrit 22.5 % (30.3-42.9); Hemoglobin 7.4 gm/dl (10.1-14.3); Mean Corpuscular HGB Conc 33 % (30-34); Mean Corpuscular Hemoglobin 30 pg (28-32); Mean Corpuscular Volume 92 fl (79-97); Platelet Count 330 K/mm3 (140-440); Red Blood Count 2.46 M/mm3 (3.65-5.03); Red Cell Distribution Width 14.7 % (13.2-15.2); White Blood Count 14.6 K/mm3 (4.5-11.0)
[2017-04-20 08:11] LABS: Anion Gap 17 mmol/L; BUN/Creatinine Ratio 8.88; Blood Urea Nitrogen 8 mg/dL (7-17); Calcium 7.4 mg/dL (8.4-10.2); Carbon Dioxide 20 mmol/L (22-30); Glucose 94 mg/dL (65-100); Potassium 3.5 mmol/L (3.6-5.0); Sodium 145 mmol/L (137-145)
[2017-04-20 08:35] LABS: Basophils % (Auto) 0.7 % (0.0-1.8); Eosinophils % (Auto) 0.6 % (0.0-4.3); Hematocrit 22.6 % (30.3-42.9); Hemoglobin 7.5 gm/dl (10.1-14.3); Mean Corpuscular HGB Conc 33 % (30-34); Mean Corpuscular Hemoglobin 31 pg (28-32); Mean Corpuscular Volume 92 fl (79-97); Platelet Count 328 K/mm3 (140-440); Red Blood Count 2.45 M/mm3 (3.65-5.03); Red Cell Distribution Width 15.1 % (13.2-15.2)
[2017-04-20 09:10] VITALS: BP 150/72
[2017-04-20] MEDS: PEPCID IV SCH (09:10)
[2017-04-20] MEDS: LOPRESSOR PO SCH (09:10)
[2017-04-20] MEDS ORDERED: POTASSIUM CHLORIDE PO ONE (09:16)
--- NOTE | 2017-04-20 14:53 | Discharge Summary ---
Providers - Providers Date of Admission: 04/05/17 06:56 Date of discharge: 04/20/17 Attending physician: ROMAINE CAMPBELL 04/05/17 07:28 Consult to Physician [CONS] Routine Consulting Provider: KATIE MESA Reason For Exam: ileus Place consult to:: Dr. Mesa Notified:: Dr. Petersen Phone number called:: [phone] Was contact made?: Yes If yes, spoke with:: Dr. Mesa Time called:: 18:25 04/07/17 07:52 Consult to Physician [CONS] Routine Consulting Provider: CARLOS LEVY Reason For Exam: Abdominal pains out of proportion to the exam Place consult to:: office Notified:: Dr. Levy' office staff Phone number called:: [phone] Was contact made?: Yes If yes, spoke with:: Krystin Time called:: 10:20 04/07/17 20:11 Consult to Dietitian/Nutrition [CONS] Routine Physician Instructions: Reason For Exam: Reason for Consult: intubated 04/09/17 11:06 Consult to Physician [CONS] Urgent Consulting Provider: FREDDY AMAYA Reason For Exam: Decreased Urinary Output Place consult to:: Mindy Notified:: Yes Phone number called:: [phone] Was contact made?: Yes If yes, spoke with:: Sara Time called:: 11:13 04/10/17 19:41 Physical Therapy Evaluation and Treat [CONS] Urgent Comment: Reason For Exam: progressive ambulation 04/13/17 12:57 Consult to Physician [CONS] Routine Consulting Provider: SHIRA YOU Reason For Exam: leucocytosis Notified:: please call 04/15/17 14:15 Consult to PICC Line RN [CONS] Routine Reason For Exam: et fistula Type Line:: Midline 04/18/17 09:13 Consult to Wound/ET Nurse [CONS] Routine Reason For Exam: wound eval Primary care physician: [employer] Hospitalization Condition: Stable Hospital course: Patient is a 71-year-old woman with a history of diabetes mellitus2, hypertension and pulmonary embolism on Eliquis since December 2016 who presents with abdominal pain and chest pain. Chest x-ray read as no pneumonia or CHF. Troponin was 1.010, EKG read as no ST elevation [place], nonspecific changes. CT abdomen and pelvis with and without contrast shows possible small bowel ileus and right lower lobe atelectasis. 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 -History of PE: treated with O2, heparin on pause due to the anemia -Acute metabolic encephalopathy, poa, due to current illness, resolved. Appropriate cognition -DVT prophylaxis: scd only due to acute blood loss anemia, poa -Severe protein calorie malnutrition, poa -Sepsis E. coli bacteremia, poa: ID is following. -Uncontrolled type 2 diabetes mellitus: Add sliding scale Full code 04/07/2017 "Postoperative diagnoses: Acute surgical abdomen, volvulus of the distal ileum with evidence of gangrene changes in it, gallbladder disease with stones. Procedures: Diagnostic laparoscopy with changing to open laparotomy, small bowel resection, cholecystectomy" per Dr. Mesa, general surgeon 04/15/2017: CT abdomen and pelvis with contrast reported as recent surgical changes, multiple bowel is mildly dilated and fluid-filled suggests mild obstruction severe ileus, ventral wall defect lungs appear margin and midline incision, it is unclear if this represents a small hematoma at the fluid collection, no convincing bowel are incorporated into this hernia, bilateral renal cysts, ascites, small to medium bilateral pleural effusion and bibasilar atelectasis. These findings were discussed with Dr. Mesa [id number]. per Dr. Mesa, Gen. Surgeon: "abdomen ditended , CT dilated bowel loops ,air in the rectum , seen with Dr Lopez will start PPN ,check KUB in AM ,, NG as well" 04/16/17 She was not started on PPN, still NPO. Right arm PICC line in place. KUB not done. Hemoglobin approximately 7.2 for 4 days, continue to monitor. I called Dr. Mesa to discuss. Patient will still need ischemic workup prior to discharge per Cardiology. WBC decreased today. ID still following. Dr. Mesa "Had a large BM thi AM Kub however same , for TPN , will check KUB in AM". He started liquid diet today. 04/17/17: per general surgeon Dr. Mesa: "a qtip was inserted in the upper wound area about 3cm small hematoma , this was done yesterday". Overnight, patient developed shortness of breath because of fluid overload, D/C IV fluids and gave her 40 mg IV Lasix and breathing treatment.Chest x-ray shows nonspecific patchy opacity in the lung bases which may reflect accommodation atelectasis and pneumonia, findings are similar to prior study==>I taught her how to use incentive spirometer correctly. Hemoglobin is 7.4 today, which is stable. Replaced potassium due to diarrhea; C. difficile ordered by ID physician. Patient is close to be being discharge, C. difficile pending, ID has given her antibiotic recommendation, will DC PICC line upon discharge. She should be cleared by Dr. Mesa. d/w Dr. Mesa, no TPN/PPN, advance diet to full liquids and monitor. 04/18/17: drop in hct, i ordered 1unit, cdiff negative, still with high wbc. ID is following. Dr. Mesa ordered ct a/p 04/19/17: h/h steady, tolerated food, had BM this morning, CT a/p without contrast ordered by Dr. Mesa yesterday wasn't done because patient didn't know why it was ordered and she is claustrophobic. She is upset, so I sat down and addressed all her and her issues and concerns. New issue is dysuria , ordered UA, no garcia in place==>+trace LE and WBC in UA is 5 (normal)-->no uti. She is still on iv levaquin and iv flagyl since 04/11/17 (Day 07/10). possibly d/c tomorrow if h/h stable. 04/20/17: d/w Dr. mesa, ok to discharge if hct stable which is it. D/c picc line Disposition: DC- TO HOME OR SELFCARE Time spent for discharge: 36 minutes Core Measure Documentation - Palliative Care Palliative Care/ Comfort Measures: Not Applicable - Core Measures Any of the following diagnoses?: acute [place] - VTE Discharge Requirements Deep Vein Thrombosis/Pulmonary Embolism Present on Admission: No Has pt received <5 days of overlap therapy or INR<2.0: No Anticoagulant overlap therapy prescribed at discharge: No Contraindication No Overlap Therapy order at DC: Not Indicated - Acute [place] Discharge Requirements Aspirin at discharge: Yes NADER/ARB for LVSD if EF <40%: Yes Beta roxana at discharge: Yes Statin for LDL = or >100 mg/dl on DC: Yes Exam - Physical Exam Narrative exam: GEN: ill appearing, NAD, AWAKE, ALERT, ORIENTATED x 3 CVS: mild regular tachycardiac, NORMAL S1S2 LUNGS/CHEST: Bilateral crackles NORMAL CHEST EXPANSION B, GOOD AIR ENTRY B ABD: midline surg incision with binders, swelling uppper wound small hematoma expressed 04/16/17, GBS EXT/SKIN: Bilateral edema MSK: FROM X 4 EXTREMITIES NEURO: CN 2-12 GROSSLY INTACT, NO FOCAL DEFICITS PSY: CALM - Constitutional Vitals: Temp Pulse Resp BP Pulse Ox 98.9 F 103 H 20 150/72 98 04/20/17 08:10 04/20/17 09:10 04/20/17 08:10 04/20/17 08:10 04/20/17 11:00 Plan Activity: other (no strenous activites until cleared by curb setter) Wound: per your surgeon's advice Additional Instructions: Get blood count check this week. Call Mapper to get stress test done. Dr. Hansen is covering for Dr. Mesa, if Dr. Mesa isnt available then call Dr. Hansen Follow up with: MAKI PHILLIPS MD [Primary Care Provider] - 3-5 Days CARLOS LEVY MD [Staff Physician] - 7 Days MARLENA HANSEN MD [Staff Physician] - 7 Days RACHNA GUZMAN MD [Staff Physician] - 7 Days KATIE MESA MD [Staff Physician] - 14 Days Prescriptions: Simvastatin [Zocor TAB] 20 mg PO QHS #30 tablet Aspirin [Aspirin BABY CHEW TAB] 81 mg PO QDAY #30 tab Bisacodyl [Dulcolax suppos] 10 mg VA QDAY PRN #4 supp.rect PRN Reason: Constipation Levofloxacin [Levaquin TAB] 500 mg PO QDAY #5 day Lisinopril [Zestril TAB] 5 mg PO QDAY #30 tablet Metoprolol [Lopressor TAB] 25 mg PO BID #60 tablet metroNIDAZOLE [Flagyl] 500 mg PO TID #5 day Nitroglycerin [Nitrostat] 0.4 mg SL .Q5MIN PRN #30 tablet PRN Reason: Chest Pain
== END 2017-04-20 16:34 | disposition home or self-care (01) | DRG 853 ==
LOC: ED 00:42 → CC1 06:56 → 4A 04-11 22:35
PROVIDERS: ADMIT Internal Medicine; ATTEND Internal Medicine
PROC: 0DB80ZZ Excision of Small Intestine, Open Approach (ICD-10-PCS; principal; 2017-04-07)
PROC: 0FT40ZZ Resection of Gallbladder, Open Approach (ICD-10-PCS; 2017-04-07)
PROC: 0FJ44ZZ Inspection of Gallbladder, Percutaneous Endoscopic Approach (ICD-10-PCS; 2017-04-07)
PROC: 5A1945Z Respiratory Ventilation, 24-96 Consecutive Hours (ICD-10-PCS; 2017-04-07)
PROC: 4A033R1 Measurement of Arterial Saturation, Peripheral, Percutaneous Approach (ICD-10-PCS; 2017-04-07)
PROC: 30233N1 Transfusion of Nonautologous Red Blood Cells into Peripheral Vein, Percutaneous Approach (ICD-10-PCS; 2017-04-14)
DX: A41.51 Sepsis due to Escherichia coli [E. coli] (principal); K56.2 Volvulus; I21.4 Non-ST elevation (NSTEMI) myocardial infarction; G93.41 Metabolic encephalopathy; E43 Unspecified severe protein-calorie malnutrition; J95.821 Acute postprocedural respiratory failure; J98.11 Atelectasis; K56.7 Ileus, unspecified; I16.0 Hypertensive urgency; Z86.711 Personal history of pulmonary embolism; Z79.01 Long term (current) use of anticoagulants; E11.65 Type 2 diabetes mellitus with hyperglycemia; K80.20 Calculus of gallbladder without cholecystitis without obstruction; R94.5 Abnormal results of liver function studies; I10 Essential (primary) hypertension; Z87.891 Personal history of nicotine dependence; I25.2 Old myocardial infarction; Z90.49 Acquired absence of other specified parts of digestive tract; D64.9 Anemia, unspecified; Z68.38 Body mass index [BMI] 38.0-38.9, adult
CPT/HCPCS: 36415; 36600; 70450; 71010; 71275; 74000; 74177; 74178; 76705; 78226; 80048; 80053; 80061; 80074; 81001; 82270; 82803; 82962; 83036; 83615; 83690; 83735; 84484; 85007; 85014; 85018; 85025; 85027; 85049; 85520; 85610; 85730; 86850; 86900; 86901; 86920; 87040; 87075; 87076; 87116; 87186; 87205; 87493; 88304; 88305; 88307; 93005; 93010; 93306; 94002; 94003; 94760; 96361; 96374; 96375; 96376; A9270-GY; A9537; G8978-GP; G8979-GP; J0330; J0360; J1100; J1170; J1644; J1815; J1940; J1956; J2270; J2370; J2405; J2543; J2704; J2710; J2765; J3430; J3475; J3480; J7030; J7040; J7050; J7120; P9016; Q9967

== ENCOUNTER 2017-04-30 09:48 | Outpatient (CLI) | payer MEDICARE ==
[2017-04-30] MEDS ORDERED: XYLOCAINE TOPICAL 4% TP ONE (11:00)
== END 2017-04-30 09:49 | disposition home or self-care (01) ==
LOC: WOUND 09:48
PROVIDERS: ATTEND Surgery
DX: T81.89XD Other complications of procedures, not elsewhere classified, subsequent encounter (principal); E11.9 Type 2 diabetes mellitus without complications; I10 Essential (primary) hypertension; Z87.891 Personal history of nicotine dependence; Z90.710 Acquired absence of both cervix and uterus; Y83.8 Other surgical procedures as the cause of abnormal reaction of the patient, or of later complication, without mention of misadventure at the time of the procedure
CPT/HCPCS: 99215; G0463